=== PATIENT | female | born 1985 | race Caucasian/White ===

== ENCOUNTER 2024-05-25 09:52 | Outpatient (AMB) | payer OTHER, SELFPAY ==
--- NOTE | 2024-05-25 09:59 | MHC.PC.OV ---
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 Intake Note: new patient ton establish care Allergies No Known Allergies Allergy (Verified 05/25/24 10:36) Medication List - Last Reconciled 05/25/24 by Meeta Ro, SOFTWARE ASSET MANAGEMENT ANALYST- albuterol sulfate 90 mcg/actuation 2 puffs inhalation Q6H PRN amlodipine 10 mg PO DAILY carvedilol 25 mg PO BID hydralazine 50 mg PO QID Tobacco use date assessed: 05/25/24 Dental Screening Dental Screen Date: 05/25/24 Did you have a dental visit in the last 12 months?: No Did you have a dental problem in the last 6 months where you did not have access to dental care?: No Was dental information given to patient?: Patient has dentist HPI HPI Comments History of Present Illness Details Here today for a Transitional Care Management Visit Discharge summary reviewed. 38-year-old Emir[place] Speaking female with LVH, prolonged QT, HTN, CHF pulmonary htn, pericardial effusion, CKD, mild intermittent asthma, obesity, family hx of FSGS, [employer], migraine headsache, s/p lap aashish 2015, ERCP with sphincterectomy/papillotomy 05/2016 Admitted for hypertensive urgency, BRODERICK, asthma and heart failure Renal Duplex: Right renal/aortic ratio elevated otherwise normal US Renal bladder: echogenic kidneys bilat representing chronic medical dz CT of head negative; CTA negative. Echo: Ejection fraction 40-45% with mild global hypokinesis and borderline hypokinesis of anterolateral and inferior lateral carter, grade 2 diastolic dysfunction, severe left ventricular hypertrophy, mild pulmonary hypertension with pulmonary artery systolic pressure of 30-35 trivial pericardial effusion Admitted for hypertensive urgency, BR[place], asthma and heart failure Admission Date: 05/01/24 Discharge Date: 05/08/24 Hospital: [facility] Pending diagnostic tests/treatments:none Pending consults: Renal - consider biopsy & Cards Referrals: needed: Cardiology & Renal referral placed today Medications reconciled & updated. During todays TCM visit, the d/c summary was reviewed, along with the need for or follow-up on pending diagnostic tests and treatments, as necessary interaction with other health child care centre director who will assume or reassume care of the beneficiary?s system-specific problems was done or is being worked on, education was provided to the beneficiary, family, guardian, and/or caregiver, referrals to establish or re-establish and arrange needed community resources we completed, assistance in scheduling required follow-up with community providers and services & finally updated medication list given to patient/caregiver Presents today as a new patient with her sister who helps with the language barrier per her request. Since return home she has been tolerating compliant of all of her medications taking as directed. Monitoring blood pressure at home and they are still outside of goal. home log reviewed today SBP 170 range and DBP 100. She did not get any visiting nursing services upon discharge. She does need chronic disease education. She does not prefer in home visits. Review discharge medication list with her today, Not needing omeprazole, miralax or senna. This was not reordered today. Does not weigh self daily. Denies any chest pain or shortness of breath. Denies any neuro symptoms. Exam: Awake alert accompanied by sister [employer] [place] RRR, 2/6 systolic murmur LS CTAB, dim throughout, faint exp wheeze +1-2 edema BLE Labs from today show RBC 4.04, hemoglobin 11.6, otherwise normal CBC, normal electrolytes, BUN 30, creatinine 1.83, GFR 31, random glucose 102, hemoglobin A1c 5.3%, normal iron profile, normal LFTs, TSH 1.21, urine microalbumin creatinine ratio 1702.5 ProBNP and direct LDL pending Plan: Labs today - see above. Refer to renal and cards. Hospital notes do indicate a need for a renal biopsy to confirm diagnosis. refer to NN for chronic dz mgmt edu Cont meds Start furosemide 20mg QD, refills sent on all meds. Declined Flu RTO 2 weeks complex dz mgmt, sooner PRN This note is constructed using voice recognition software. While every effort has been made to ensure accuracy in specification writer, still errors may have been included Sometimes, these errors may affect the content or meaning of the given sentence . Total time spent caring for the patient today was 60 minutes. This includes time spent before the visit reviewing the chart, time spent during the visit, and time spent after the visit on documentation [facility] Medical History (Updated 05/25/24 @ 15:57 by Meeta Ro, [facility]) Seasonal asthma Hypertension Surgical History (Updated 05/25/24 @ 10:12 by Pati Matamoros MA) No pertinent past surgical history Family History (Updated 05/25/24 @ 10:15 by Pati Matamoros MA) Mother Hypertension Father Hypertension Diabetes Cancer Sister Hypertension Social History (Updated 05/25/24 @ 10:07 by Pati Matamoros MA) Household Members: Family and Children Housing: House Are you a primary care administrative tech to a significant other at home: Yes Do you presently have visiting nurse or other home services: No Alcohol intake: current Alcohol intake frequency: a few times a month Patient Tobacco Use Status: Never used Tobacco e-Cigarette/Vaping Use: Never Used service: No Current occupational status: employed Current occupation: [employer] Cognitive needs: No Hearing needs: Yes Vision needs: No Questionnaire PHQ-9 Over the last 2 weeks, how often have you been bothered by any of the following problems? 1. Little interest or pleasure in doing things: not at all 2. Feeling down, depressed, or hopeless: not at all 3. Trouble falling or staying asleep, or sleeping too much: not at all 4. Feeling tired or having little energy: not at all 5. Poor appetite or overeating: not at all 6. Feeling bad about yourself - or that you are a failure or have let yourself or your family down: not at all 7. Trouble concentrating on things, such as reading the newspaper or watching television: not at all 8. Moving or speaking so slowly that other people could have noticed. Or the opposite - being so fidgety or restless that you have been moving around a lot more than usual: not at all 9. Thoughts that you would be better off or of hurting yourself in some way: not at all Total score: 0 Depression Screening Interpretation: Negative Depression Screening Done: Yes 82327 - PHQ-9 Billing: Yes Source: Developed by Drs. Steve Hogan, Ariella Franco, Marco Antonio Frankel and colleagues, with an educational tonio from [employer]. Thrive Questionnaire Date Thrive assessed: 05/25/24 I am a: Patient What is your living situation today?: I have a steady place to live Within the past 12 months, did the food you bought not last and you didn't have the money to get more?: Never true Within the past 12 months, did you worry whether your food would run out before you got money to buy more?: Never true Do you have trouble paying for medicines?: No Do you have trouble getting transportation to medical appointments?: No Do you have trouble paying your heating and electricity bill?: No Do you have trouble taking care of your child, family member or friend?: No Do you have trouble with day-to-day activities such as bathing, preparing meals, shopping, managing finances, etc.?: No Are you currently unemployed and looking for a job?: No Are you interested in more education?: No THRIVE Score: 0 AUDIT C Alcohol Use Questionnaire (AUDIT-C) 1. How often do you have a drink containing alcohol?: Monthly or less 2. How many drinks containing alcohol do you have on a typical day when you are drinking?: 1 or 2 3. How often do you have six or more drinks on one occasion?: Less than monthly Total Score: 2 Score Reviewed/Action Taken: Yes SHERRI-7 AMB Questionnaire SHERRI-7 Date SHERRI - 7 assessed: 05/25/24 Feeling nervous, anxious, or on edge: 0 = Not at all Not being able to stop or control worryin = Not at all Worrying too much about different things: 0 = Not at all Trouble relaxin = Not at all Being so restless that it is hard to sit still: 0 = Not at all Becoming easily annoyed or irritable: 0 = Not at all Feeling afraid as if something awful might happen: 0 = Not at all Total SHERRI-7 score (0-4 normal; 5-9 mild; 10-14 moderate; 15-21 severe): 0 Source: Developed by Drs. Steve Hogan, Ariella Franco, Marco Antonio Frankel and colleagues, with an educational tonio from [employer]. SHERRI-7 Assessment Billing SHERRI-7 Assessment Tool: SHERRI-7 Assessment 21510 ACT Questionnaire In the past 4 weeks, how much of the time did your asthma keep you from getting as much done at work, school or at home?: None of the time During the past 4 weeks, how often have you had shortness of breath?: Not at all During the past 4 weeks, how often did your asthma symptoms wake you up at night or earlier than usual in the morning?: Not at all During the past 4 weeks, how often have you had to use your rescue inhaler or nebulizer medication?: Not at all How would you rate your asthma control during the past 4 weeks?: Completely controlled ACT Interpretation: Negative Score: 25 Physical exam (Primary Care) Vital Signs: Last Vital Signs Pulse 80 05/25/24 10:08 Resp 15 05/25/24 10:08 BP 142/78 H 05/25/24 10:49 Pulse Ox 98 05/25/24 10:08 Oxygen Delivery Method Room Air 05/25/24 10:08 Care Plan Goal for BP management: RTO for recheck BMI result Body Mass Index 44.9 BMI Assessment/Plan discussion: High BMI High, discussed plan: lifestyle Tobacco/Smoking Status: Tobacco use Status Tobacco use date assessed 05/25/24 05/25/24 10:13 Patient Tobacco Use Status Never used Tobacco 05/25/24 10:13 e-Cigarette/Vaping Use Never Used 05/25/24 10:13 PHQ-9: PHQ-9 Score PHQ-9: Total score 0 05/25/24 10:32 Depression Screening Interpretation: Negative Thrive Assessment: Date of Thrive Assessment Date Thrive assessed 05/25/24 05/25/24 10:16 Coding Level of Care Code TCM High MDM <= 14 days Complex EM visit Add On G2211 Diagnoses CHF (congestive heart failure) I50.9 CKD (chronic kidney disease) stage 3, GFR 30-59 ml/min N18.30 Family history of focal and segmental proliferative glomerulonephritis Z84.1 Hypertension I10 Mild intermittent asthma in adult without complication J45.20 Migraine headache without aura G43.009 Morbid obesity with BMI of 40.0-44.9, adult E66.01; Z68.41 Class 3 obesity E66.813 Hypertensive cardiomyopathy I11.9; I43 Prolonged Q-T interval on ECG R94.31 Hospital discharge follow-up Z09 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 Additional Codes SHERRI-7 Assessment Billing - SHERRI-7 Assessment Tool: SHERRI-7 Assessment 17389 ([id number]) Asthma Control Questionnaire - ACT Interpretation: Negative ([id number]) Assessment & Plan Assessment & Plan (1) CHF (congestive heart failure): Comment: 04/2024 Ejection fraction 40-45% with mild global hypokinesis and borderline hypokinesis of anterolateral and inferior lateral carter, grade 2 diastolic dysfunction, severe left ventricular hypertrophy, mild pulmonary hypertension with pulmonary artery systolic pressure of 30-35 trivial pericardial effusion Code(s): I50.9 - Heart failure, unspecified Category: Medical (2) CKD (chronic kidney disease) stage 3, GFR 30-59 ml/min: Code(s): N18.30 - Chronic kidney disease, stage 3 unspecified Category: Medical (3) Family history of focal and segmental proliferative glomerulonephritis: Code(s): Z84.1 - Family history of disorders of kidney and ureter Category: Medical (4) Hypertension: Code(s): I10 - Essential (primary) hypertension Category: Medical (5) Mild intermittent asthma in adult without complication: Code(s): J45.20 - Mild intermittent asthma, uncomplicated Category: Medical (6) Migraine headache without aura: Code(s): G43.009 - Migraine without aura, not intractable, without status migrainosus Category: Medical (7) Morbid obesity with BMI of 40.0-44.9, adult: Code(s): E66.01 - Morbid (severe) obesity due to excess calories; Z68.41 - Body mass index [BMI] 40.0-44.9, adult Category: Medical (8) Class 3 obesity: Code(s): E66.813 - Obesity, class 3 Category: Medical (9) Hypertensive cardiomyopathy: Code(s): I11.9 - Hypertensive heart disease without heart failure; I43 - Cardiomyopathy in diseases classified elsewhere Category: Medical (10) Prolonged Q-T interval on ECG: Code(s): R94.31 - Abnormal electrocardiogram [ECG] [EKG] Category: Medical (11) Hospital discharge follow-up: Code(s): Z09 - Encounter for follow-up examination after completed treatment for conditions other than malignant neoplasm (12) Secondary hyperaldosteronism: Comment: Secondary hyperaldosteronism that activates the bdwhi-qwetvlqxdxl-hpeyuheecvf system (RAAS), due to cHF Code(s): E26.1 - Secondary hyperaldosteronism Category: Medical Plan: . Plan . Orders: Orders Comprehensive Met. Panel Today I50.9 - Heart failure, unspecified, N18.30 - Chronic kidney disease, stage 3 unspecified TSH reflex Free T4 Today I10 - Essential (primary) hypertension, I50.9 - Heart failure, unspecified, N18.30 - Chronic kidney disease, stage 3 unspecified Microalbumin, Random (w Creat) Today I10 - Essential (primary) hypertension, I50.9 - Heart failure, unspecified, N18.30 - Chronic kidney disease, stage 3 unspecified NT-proBNP Today I10 - Essential (primary) hypertension, I50.9 - Heart failure, unspecified, N18.30 - Chronic kidney disease, stage 3 unspecified RT PSG in-lab sleep study Today I10 - Essential (primary) hypertension, I50.9 - Heart failure, unspecified Complete Blood Count no Diff Today I10 - Essential (primary) hypertension, I50.9 - Heart failure, unspecified, N18.30 - Chronic kidney disease, stage 3 unspecified LDL Cholesterol Direct Today I10 - Essential (primary) hypertension, I50.9 - Heart failure, unspecified, N18.30 - Chronic kidney disease, stage 3 unspecified Hemoglobin A1c Today I10 - Essential (primary) hypertension, I50.9 - Heart failure, unspecified, N18.30 - Chronic kidney disease, stage 3 unspecified IRON PROFILE Today I10 - Essential (primary) hypertension, I50.9 - Heart failure, unspecified, N18.30 - Chronic kidney disease, stage 3 unspecified Referrals Cardiology Referral I50.9 - Heart failure, unspecified Nephrology Referral I50.9 - Heart failure, unspecified, N18.30 - Chronic kidney disease, stage 3 unspecified, Z84.1 - Family history of disorders of kidney and ureter Nurse Navigator Referral I10 - Essential (primary) hypertension, I50.9 - Heart failure, unspecified Medications: New furosemide 20 mg PO DAILY 90 tabs 0RF hydralazine 50 mg PO QID 90 days 360 tabs 0RF amlodipine 10 mg PO DAILY 90 tabs 0RF carvedilol must administer with a meal/food 25 mg PO BID 90 days 180 tabs 0RF Patient Instructions: Walk-In Care (Urgent Care): We Make it Easy Walk-in for urgent medical issues such as: ? Seasonal Allergies ? Insect Bites ? Cough ? Diarrhea ? Acute Asthma Attacks ? Back, Knee or Joint Pain ? Ear Infection ? Fever without a Rash ? Headaches ? Nausea ? [place] Eye, Rash or Skin Irritation ? Sore Throat ? Sports Physicals ? Vomiting Most insurances are accepted. Patients do not need to be part of the [facility] to seek care at the walk-in clinic. Locations [address] [place] [address] ? [phone] [facility] Care in [place] provides services to ages 18 and over. Open Saturday-Saturday: 8 a.m. to 5 p.m. and Saturday: 9 a.m. to 3 p.m.* *Hours may vary due to staffing availability. To confirm Walk-In Care hours in [place], please call [phone]. [address] [place] [address] ? [phone] [facility] in [place] provides services to ages 12 and over. Open Saturday-Saturday: 8 a.m. to 5 p.m. Hours may vary due to staffing availability. To confirm Walk-In Care hours in [place], please call [phone]. LABORATORY SERVICES: [facility] Lab ? Primary Location [address] [place] [address] Saturday through Saturday 6:00 AM ? 5:00 PM Saturday 7:00 AM ? 11:00 AM* [phone] The [facility] Lab is centrally located near the front entrance of the [facility] for easy outpatient access. Convenient parking is provided for outpatients. *Hours may vary due to staffing availability. To confirm Laboratory hours for any location, please call [phone]. Offsite Location For your convenience, we offer offsite laboratory draw stations at the following locations: [address] [place] [address] ? [facility]ly [facility] [address], [address] Saturday through Saturday 7:30 AM ? 1:00 PM* [phone] *Hours may vary due to staffing availability. To confirm Laboratory hours for any location, please call [phone]. [place] ? [address] Saturday through Saturday 6:00 AM ? 3:30 PM* Saturday 6:30 AM ? 3 PM* [phone] *Hours may vary due to staffing availability. To confirm Laboratory hours for any location, please call [phone]. [address] [facility] Saturday through Saturday 7:30 AM ? 4:00 PM* [phone] *Hours may vary due to staffing availability. To confirm Laboratory hours for any location, please call [phone]. [address] [facility] Saturday through 9:00 AM ? 4:00 PM* *Hours may vary due to staffing availability. To confirm Laboratory hours for any location, please call [phone]. Appointments are not necessary. Walk-ins are welcome. Like all the departments throughout the [facility], our Lab undergoes frequent reviews to ensure the quality and accuracy of test results, and our staff takes special pride in its status as a nationally accredited facility. Patient Portal: ONE PATIENT. ONE RECORD. BETTER CARE. [facility] has a fully integrated, cutting-edge mobile electronic health information system that has revolutionized the way we care for our patients and manage our organization. This system improves communication and coordination enabling us to provide safe, higher-quality care, and an overall positive experience for staff and patients. Our first priority, as always, is to deliver the highest quality care possible. The system is running in the background supporting that priority. This portal is for all [facility] and [facility] services and practices. If you are experiencing any technical difficulties with enrolling or logging into the Patient Portal please complete the [facility] Patient Portal Technical Support Form. [facility] and [facility] now offers a new secure on-line interactive tool for patients to review their health information ? ?Patient Portal. This interactive web portal will enable patients and their families to take an active role in their care by providing easy, secure access to their health information via the internet. The Patient Portal provides patients with instant access to their health information, including laboratory results, medications, allergies, demographic information, visit history, and more. In addition to managing their own care, parents and health care proxies with authorized consent will appreciate the ability to access the records of those individuals for whom they provide care. Please note: if you wish to gain access (Proxy) to another patient?s portal, you will be required to come to the Medical Records Department in person at [facility]. Both the patient giving proxy access and the proxy will need to provide photo identification and complete the appropriate authorization. The Patient Portal also allows track their appointments online. The [facility] Patient Portal also saves patients time by allowing them to submit updates to their demographic and contact information prior to their visits. Portal email notifications will also alert patients to any new activity on their portal, such as test results and new appointments. In order to initially enroll in the [facility] Patient Portal, you will need to enter some required information including the following: your [facility] Medical Record number your personal home email address name date of Please note: In order to enroll in the [facility] Patient Portal, we need to have your email address on file in your electronic medical record. ?The email address needs to be specific for one person (yourself) in order for your Portal enrollment to be successful. ?You can update your email address in person with our Registration staff when you are registering for a hospital visit. ?Otherwise, you will need to come to the Health Information Management (Medical Records) Department at [facility]. ?We are open from Saturday ? Saturday from 7:30 a.m. ? 4:30 p.m. ?You will be required to present a photo id. Once you have successfully enrolled in the Patient Portal, you will receive a one-time user id and password for the Portal, sent to your email address. ?This will allow you to log into the Patient Portal within 99 hrs and reset your own logon id and password, and define personal security questions. ?Once your permanent login and password have been set, you can log into the [facility] Patient Portal at any time via the blue button above or from the Portal Logon button on any page of the [facility] website. [facility] and [facility] encourage all of our patients to enroll in Patient Portal as it presents a valuable opportunity for patients and their families to actively participate in their care and stay healthy Welcome to [facility]. ?We look forward to working with you.
[2024-05-25 10:08] VITALS: BP 154/82; PULSE 80; RESP 15; O2SAT 98; BMI 44.9
[2024-05-25 10:49] VITALS: BP 142/78
== END 2024-05-25 11:01 | disposition home or self-care (01) ==
PROVIDERS: PCP Nurse Practitioner Family; Visit Provider Nurse Practitioner Family
DX: I13.0 Hypertensive heart and chronic kidney disease with heart failure and stage 1 through stage 4 chronic kidney disease, or unspecified chronic kidney disease (principal); I50.9 Heart failure, unspecified; N18.30 Chronic kidney disease, stage 3 unspecified; I43 Cardiomyopathy in diseases classified elsewhere; Z68.41 Body mass index [BMI] 40.0-44.9, adult; E26.1 Secondary hyperaldosteronism; E66.813 Obesity, class 3; Z84.1 Family history of disorders of kidney and ureter; J45.20 Mild intermittent asthma, uncomplicated; G43.009 Migraine without aura, not intractable, without status migrainosus; R94.31 Abnormal electrocardiogram [ECG] [EKG]; Z09 Encounter for follow-up examination after completed treatment for conditions other than malignant neoplasm

== ENCOUNTER → 2024-05-25 09:52 | Outpatient (BNVA) | payer OTHER, SELFPAY | PROVIDERS: Visit Provider Nurse Practitioner Family | DX: Z09 Encounter for follow-up examination after completed treatment for conditions other than malignant neoplasm (principal); I13.0 Hypertensive heart and chronic kidney disease with heart failure and stage 1 through stage 4 chronic kidney disease, or unspecified chronic kidney disease; N18.30 Chronic kidney disease, stage 3 unspecified; I50.9 Heart failure, unspecified; J45.20 Mild intermittent asthma, uncomplicated; G43.009 Migraine without aura, not intractable, without status migrainosus; E66.813 Obesity, class 3; Z68.41 Body mass index [BMI] 40.0-44.9, adult; I43 Cardiomyopathy in diseases classified elsewhere; R94.31 Abnormal electrocardiogram [ECG] [EKG]; E26.1 Secondary hyperaldosteronism; Z84.1 Family history of disorders of kidney and ureter | CPT/HCPCS: 96127; 99202 ==

== ENCOUNTER 2024-05-25 11:15 | Outpatient (REF) | payer OTHER, SELFPAY ==
[2024-05-25 13:40] LABS: Hematocrit 37.4 % (37.0-47.0); Hemoglobin 11.6 g/dl (12.0-16.0); Mean Corpuscular Hemoglobin 28.7 pg (27.0-33.0); Mean Corpuscular Volume 92.6 fL (80.0-98.0); Mean Platelet Volume 11.7 fL (9.4-12.3); Platelet Count 376 X10*3/uL (160-400); Red Blood Count 4.04 X10*6/uL (4.20-5.50); Red Cell Distribution Width 13.2 % (11.0-16.0); White Blood Count 7.2 X10*3/uL (4.8-10.8)
[2024-05-25 13:59] LABS: Estimated Average Glucose 105 mg/dL; Hemoglobin A1C 100.1584 umol/L; Hemoglobin A1c % 5.3 % (<6.0); Total Hemoglobin (HGBA1C) 2870.1543 umol/L
[2024-05-25 14:01] LABS: Alanine Aminotransferase 9 U/L (0-31); Albumin Level 3.8 g/dL (3.5-5.0); Alkaline Phosphatase 51 U/L (39-117); Anion Gap 10 (12-20); Aspartate Amino Transferase 13 U/L (5-31); Bilirubin Total 0.4 mg/dL (0.0-1.0); Blood Urea Nitrogen 30 mg/dL (9-16); Calcium 9.4 mg/dL (8.4-10.2); Carbon Dioxide 27 mmol/L (22-29); Chloride 108 mmol/L (96-108); Estimated Glomerular Filt Rate 31; Glucose Random 102 mg/dL (60-115); Iron 62 mcg/dL (30-160); Percent Iron Saturation 25 % (15-50); Potassium 4.7 mmol/L (3.3-5.1); Sodium 140 mmol/L (135-145); Total Iron Binding Capacity 244 mcg/dL (228-428); Total Protein 6.9 g/dL (6.5-8.0); Unsaturated Iron Binding 182 ug/dL
[2024-05-25 14:15] LABS: TSH reflex Free T4 1.21 uIU/mL (0.32-4.0)
[2024-05-25 14:21] LABS: Creatinine Urine 79.47 mg/dL
[2024-05-25 14:32] LABS: Microalbum/Creatinine Ratio Ur 1702.5 ug/mg cr (<30)
[2024-05-26 17:58] LABS: LDL Cholesterol Direct 80 mg/dL (<100)
[2024-05-28 21:33] LABS: NT-proBNP 586 pg/mL (<125)
== END 2024-05-25 11:16 | disposition home or self-care (01) ==
LOC: HO.WFDLDS 11:15
PROVIDERS: Visit Provider Nurse Practitioner Family
DX: N18.30 Chronic kidney disease, stage 3 unspecified (principal); I50.9 Heart failure, unspecified; I10 Essential (primary) hypertension
CPT/HCPCS: 36415; 80053; 82043; 82570; 83036; 83540; 83721; 83880; 84443; 85027

== ENCOUNTER → 2024-06-04 14:56 | Outpatient (BNVA) | payer OTHER, SELFPAY | PROVIDERS: PCP Nurse Practitioner Family ==

== ENCOUNTER 2024-06-19 12:27 | Outpatient (AMB) | payer OTHER, SELFPAY ==
--- NOTE | 2024-06-19 12:32 | MHC.PC.OV ---
Vital Signs 06/19/24 12:36 06/19/24 13:31 Height 5 ft 5 in Weight 272 lb 6 oz BMI 45.3 BP 146/78 H 144/82 H Blood Pressure Location Rt brachial Lt brachial Position Sitting Respiration 14 Pulse 62 Pulse Source Pulse Oximeter Pulse Oximetry (%) 99 Oxygen Delivery Method Room Air Intake Visit Reasons: 2 weeks 30 min fu complex Intake Note: follow up Trench Digger Required: No Allergies No Known Allergies Allergy (Verified 06/19/24 13:25) Medication List - Last Reconciled 06/19/24 by Meeta Ro, [facility]- albuterol sulfate 90 mcg/actuation 2 puffs inhalation Q6H PRN amlodipine 10 mg PO DAILY carvedilol 25 mg PO BID 90 days furosemide 20 mg PO DAILY hydralazine 50 mg PO QID 90 days Tobacco use date assessed: 05/25/24 Dental Screening Dental Screen Date: 05/25/24 HPI HPI Comments History of Present Illness Details 38-year-old Turkish Speaking female with LVH, prolonged QT, HTN, CHF pulmonary htn, pericardial effusion, CKD, mild intermittent asthma, obesity, family hx of FSGS, COUNCIL, migraine headsache s/p lap aashish 2015, ERCP with sphincterectomy/papillotomy 05/2016 Renal Duplex: Right renal/aortic ratio elevated otherwise normal US Renal bladder: echogenic kidneys bilat representing chronic medical dz CT of head negative; CTA negative. Echo: Ejection fraction 40-45% with mild global hypokinesis and borderline hypokinesis of anterolateral and inferior lateral carter, grade 2 diastolic dysfunction, severe left ventricular hypertrophy, mild pulmonary hypertension with pulmonary artery systolic pressure of 30-35 trivial pericardial effusion Here today for close interim fu with , since last office visit she has been tolerating compliant of all of her medications. She has been weighing herself daily. Brings me the home log to review. At the start her weight was 267 lb, yesterday it was 257 lb. She has been stable around 256-57 based on the logs from home. She has also been recording her blood pressure. Her systolic blood pressure range is 144-183, only 1 or 2 readings above 180. Otherwise blood pressure readings have improved. She denies any new cardiac symptoms. She has had some improvement in the edema of her bilateral lower extremities with the addition of Lasix. She was referred to Cardiology as well as Nephrology at the last office visit. Unfortunately she has not heard anything about these consults. She did receive a call from the nurse navigator for chronic disease management. Reports that this has been helpful for her. She will have her sleep study next week. Next week will have sleep study The following were reviewed with her: Labs from last visit show RBC 4.04, hemoglobin 11.6, otherwise normal CBC, normal electrolytes, BUN 30, creatinine 1.83, GFR 31, random glucose 102, hemoglobin A1c 5.3%, normal iron profile, normal LFTs, TSH 1.21, urine microalbumin creatinine ratio 1702.5 ProBNP mildly elevated and direct LDL normal Exam: Awake alert accompanied by COUNCIL RRR, 2/6 systolic murmur LS CTAB, dim throughout, faint exp wheeze +1 edema BLE Plan: I have asked for her to stop at the front office and have the referrals for Cardiology as well as Nephrology printed out for her. Advised to call the offices herself to schedule an appointment. Once again the hospital notes do indicate a need for a renal biopsy to confirm diagnoses. She should continue to work with the nurse navigator for chronic disease management education In regards to the edema bilateral lower extremities, it has improved with the use of furosemide 20 mg. Her blood pressure has also improved. I do query if amlodipine is contributing at all to her edema picture. However her blood pressure is improved. At this time I would like for her to stay on the current medications and I would like to add empagliflozin 10 mg p.o. daily for renal and cardiac protection. She will need to repeat her labs in about 2 weeks to check electrolytes and renal function. She can work with myself as well as renal to optimize her medication management in regards to her blood pressure. Cardiology will also have a say once she establishes care there regards to her CHF management. I would like to see her back in 4-6 weeks for a close interim follow up, sooner as needed. This note is constructed using voice recognition software. While every effort has been made to ensure accuracy in cryptographic machine operator, still errors may have been included Sometimes, these errors may affect the content or meaning of the given sentence . Total time spent caring for the patient today was 45 minutes. This includes time spent before the visit reviewing the chart, time spent during the visit, and time spent after the visit on documentation [facility] Medical History (Updated 06/20/24 @ 14:40 by Meeta Ro, [facility]) Seasonal asthma Hypertension Surgical History (Updated 05/25/24 @ 10:12 by Pati Matamoros MA) No pertinent past surgical history Family History (Updated 05/25/24 @ 10:15 by Pati Matamoros MA) Mother Hypertension Father Hypertension Diabetes Cancer Sister Hypertension Social History (Updated 05/25/24 @ 10:07 by Pati Matamoros MA) Household Members: Family and Children Both parents involved: No Caregiver staying overnight: No Housing: House Are you a primary managed care provider to a significant other at home: Yes Do you presently have visiting nurse or other home services: No 75 years or older and lives alone: No Alcohol intake: current Alcohol intake frequency: a few times a month Patient Tobacco Use Status: Never used Tobacco e-Cigarette/Vaping Use: Never Used service: No Current occupational status: employed Current occupation: [employer] Cognitive needs: No Hearing needs: Yes Vision needs: No Questionnaire PHQ-9 Over the last 2 weeks, how often have you been bothered by any of the following problems? 1. Little interest or pleasure in doing things: not at all 2. Feeling down, depressed, or hopeless: not at all 3. Trouble falling or staying asleep, or sleeping too much: not at all 4. Feeling tired or having little energy: several days 5. Poor appetite or overeating: not at all 6. Feeling bad about yourself - or that you are a failure or have let yourself or your family down: not at all 7. Trouble concentrating on things, such as reading the newspaper or watching television: not at all 8. Moving or speaking so slowly that other people could have noticed. Or the opposite - being so fidgety or restless that you have been moving around a lot more than usual: not at all 9. Thoughts that you would be better off or of hurting yourself in some way: not at all Total score: 1 35313 - PHQ-9 Billing: Yes Source: Developed by Drs. Steve Hogan, Ariella Franco, Marco Antonio Frankel and colleagues, with an educational tonio from [employer]. Thrive Questionnaire Date Thrive assessed: 06/19/24 I am a: Patient What is your living situation today?: I have a steady place to live Within the past 12 months, did the food you bought not last and you didn't have the money to get more?: Never true Within the past 12 months, did you worry whether your food would run out before you got money to buy more?: Never true Do you have trouble paying for medicines?: No Do you have trouble getting transportation to medical appointments?: No Do you have trouble paying your heating and electricity bill?: No Do you have trouble taking care of your child, family member or friend?: No Do you have trouble with day-to-day activities such as bathing, preparing meals, shopping, managing finances, etc.?: No Are you currently unemployed and looking for a job?: No Are you interested in more education?: No Please select the resources that you would like help with: None Currently or been in a relationship where the following occur: No concerns reported THRIVE Score: 0 AUDIT C Alcohol Use Questionnaire (AUDIT-C) 1. How often do you have a drink containing alcohol?: 2-4 times a month 2. How many drinks containing alcohol do you have on a typical day when you are drinking?: 1 or 2 3. How often do you have six or more drinks on one occasion?: Less than monthly Total Score: 3 SHERRI-7 AMB Questionnaire SHERRI-7 Date SHERRI - 7 assessed: 06/19/24 Feeling nervous, anxious, or on edge: 0 = Not at all Not being able to stop or control worryin = Not at all Worrying too much about different things: 0 = Not at all Trouble relaxin = Not at all Being so restless that it is hard to sit still: 0 = Not at all Becoming easily annoyed or irritable: 1 = Several days Feeling afraid as if something awful might happen: 0 = Not at all Total SHERRI-7 score (0-4 normal; 5-9 mild; 10-14 moderate; 15-21 severe): 1 Source: Developed by Drs. Steve Hogan, Ariella Franco, Marco Antonio Frankel and colleagues, with an educational tonio from [employer]. SHERRI-7 Assessment Billing SHERRI-7 Assessment Tool: SHERRI-7 Assessment 45790 Physical exam (Primary Care) Vital Signs: Last Vital Signs Pulse 62 06/19/24 12:36 Resp 14 06/19/24 12:36 BP 144/82 H 06/19/24 13:31 Pulse Ox 99 06/19/24 12:36 Oxygen Delivery Method Room Air 06/19/24 12:36 BMI result Body Mass Index 45.3 Tobacco/Smoking Status: Tobacco use Status Tobacco use date assessed 05/25/24 06/19/24 12:34 Patient Tobacco Use Status Never used Tobacco 06/19/24 12:34 e-Cigarette/Vaping Use Never Used 06/19/24 12:34 PHQ-9: PHQ-9 Score PHQ-9: Total score 1 06/19/24 17:26 Thrive Assessment: Date of Thrive Assessment Date Thrive assessed 06/19/24 06/19/24 12:34 Currently or been in a relationship where the following occur: No concerns reported Coding Level of Care Code Est Pt Level 5 (94006) Complex EM visit Add On G2211 Diagnoses Stage 3b chronic kidney disease N18.32 Chronic kidney disease stage 3 subtype: stage 3b (GFR 30-44) Chronic diastolic congestive heart failure I50.32 Heart failure type: diastolic Heart failure chronicity: chronic Hypertension secondary to other renal disorders I15.1 Hypertension type: secondary to other renal disorders 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 Additional Codes SHERRI-7 Assessment Billing - SHERRI-7 Assessment Tool: SHERRI-7 Assessment 06090 ([id number]) PHQ-9 - 79961 - PHQ-9 Billing: Yes ([id number]) Assessment & Plan Assessment & Plan (1) CKD (chronic kidney disease) stage 3, GFR 30-59 ml/min: Code(s): N18.30 - Chronic kidney disease, stage 3 unspecified Category: Medical Qualifiers: Chronic kidney disease stage 3 subtype: stage 3b (GFR 30-44) Qualified Code(s): N18.32 - Chronic kidney disease, stage 3b (2) CHF (congestive heart failure): Comment: 04/2024 Ejection fraction 40-45% with mild global hypokinesis and borderline hypokinesis of anterolateral and inferior lateral carter, grade 2 diastolic dysfunction, severe left ventricular hypertrophy, mild pulmonary hypertension with pulmonary artery systolic pressure of 30-35 trivial pericardial effusion Code(s): I50.9 - Heart failure, unspecified Category: Medical Qualifiers: Heart failure type: diastolic Heart failure chronicity: chronic Qualified Code(s): I50.32 - Chronic diastolic (congestive) heart failure Plan: . (3) Hypertension: Code(s): I10 - Essential (primary) hypertension Category: Medical Qualifiers: Hypertension type: secondary to other renal disorders Qualified Code(s): I15.1 - Hypertension secondary to other renal disorders Plan: . (4) Secondary hyperaldosteronism: Comment: Secondary hyperaldosteronism that activates the ogtlg-gmxlkzwafmv-fhlnebiqshm system (RAAS), due to cHF Code(s): E26.1 - Secondary hyperaldosteronism Category: Medical Plan: . Plan . Orders: Orders Comprehensive Met. Panel 2 Weeks N18.30 - Chronic kidney disease, stage 3 unspecified Medications: New empagliflozin 10 mg PO QAM 90 tabs 0RF Changed From hydralazine 50 mg PO QID 90 days 360 tabs 0RF To hydralazine 50 mg PO TID 90 days 270 tabs 0RF
[2024-06-19 12:36] VITALS: BP 146/78; PULSE 62; RESP 14; O2SAT 99; BMI 45.3
[2024-06-19 13:31] VITALS: BP 144/82
== END 2024-06-19 13:43 | disposition home or self-care (01) ==
PROVIDERS: PCP Nurse Practitioner Family; Visit Provider Nurse Practitioner Family
DX: I50.32 Chronic diastolic (congestive) heart failure (principal); N18.32 Chronic kidney disease, stage 3b; E26.1 Secondary hyperaldosteronism; I15.1 Hypertension secondary to other renal disorders

== ENCOUNTER → 2024-06-19 12:27 | Outpatient (BNVA) | payer OTHER, SELFPAY | PROVIDERS: Visit Provider Nurse Practitioner Family | DX: I13.0 Hypertensive heart and chronic kidney disease with heart failure and stage 1 through stage 4 chronic kidney disease, or unspecified chronic kidney disease (principal); N18.32 Chronic kidney disease, stage 3b; I50.32 Chronic diastolic (congestive) heart failure; E26.1 Secondary hyperaldosteronism | CPT/HCPCS: 96127; 99212 ==

== ENCOUNTER 2024-07-17 12:27 | Outpatient (AMB) | payer OTHER, SELFPAY ==
--- NOTE | 2024-07-17 12:29 | A.OFFPC_ITS ---
Vital Signs 07/17/24 12:33 07/17/24 12:57 Height 5 ft 5 in Weight 278 lb BMI 46.3 BP 175/89 H 138/82 Blood Pressure Location Rt brachial Lt brachial Position Sitting Sitting Respiration 14 Pulse 78 Pulse Source Pulse Oximeter Temp 96.4 F L Temp Source Skin Pulse Oximetry (%) 99 Oxygen Delivery Method Room Air Intake Visit Reasons: 4-6 weeks 30 min complex fu Intake Note: follow up and patient also complaining of dizziness with the new medications. Subassembler Required: No Allergies No Known Allergies Allergy (Verified 07/17/24 12:33) Medication List - Last Reconciled 07/17/24 by Meeta Ro, VP SALES- albuterol sulfate 90 mcg/actuation 2 puffs inhalation Q6H PRN amlodipine 10 mg PO DAILY carvedilol 25 mg PO BID 90 days empagliflozin 10 mg PO QAM furosemide 20 mg PO DAILY hydralazine 50 mg PO TID 90 days Tobacco use date assessed: 05/25/24 Dental Screening Dental Screen Date: 05/25/24 HPI HPI Comments History of Present Illness Details 38-year-old Yi Speaking female with LVH, prolonged QT, HTN, CHF pulmonary htn, pericardial effusion, CKD, mild intermittent asthma, obesity, family hx of FSGS, OHOGAMIUT, migraine headsache s/p lap aashish 2015, ERCP with sphincterectomy/papillotomy 05/2016 Renal Duplex: Right renal/aortic ratio elevated otherwise normal US Renal bladder: echogenic kidneys bilat representing chronic medical dz CT of head negative; CTA negative. Echo: Ejection fraction 40-45% with mild global hypokinesis and borderline hypokinesis of anterolateral and inferior lateral carter, grade 2 diastolic dysfunction, severe left ventricular hypertrophy, mild pulmonary hypertension with pulmonary artery systolic pressure of 30-35 trivial pericardial effusion Here today for close interim fu with & son, since last office visit she has been tolerating compliant of all of her medications. She is tolerating empagliflozin 10 mg p.o. daily which was added at the last office visit for renal and cardiac protection. She has been weighing herself daily. Forgot home log to review but reports wt stable. Also monitors BP at home, Her systolic blood pressure range is 144-160,DBP improved consistently > 90. She denies any new cardiac symptoms. BLE edema stable w/ use of lasix. Cards appt 09/2024 @ [facility] – [place], Renal appt Dr Cabrera October 14, 2024. She will have her sleep study next week. Next week will have sleep study Exam: Awake alert accompanied by OHOGAMIUT RRR, 2/6 systolic murmur LS CTAB, dim throughout, faint exp wheeze trace to +1 edema BLE Plan: I will have my staff call Dr. Cabrera's office to see if we can get a sooner appointment, Once again the hospital notes do indicate a need for a renal biopsy to confirm diagnoses. She should continue to work with the nurse navigator for chronic disease management education I do query if amlodipine is contributing at all to her edema picture. She can work with myself as well as renal to optimize her medication management in regards to her blood pressure. Cardiology will also have a say once she establishes care there regards to her CHF management. - Hypertension/LVH would like to further optimize her hypertensive treatment. See additional details below - CKD: Proceed with nephrology consultat ion with Dr. Cabrera. Ensure renal function is evaluated through laboratory tests today to assess kidney function and electrolytes. - Sleep Apnea: [facility] for comprehensive evaluation of potential sleep apnea. - Blood Pressure Monitoring: Advise to c onsistently log blood pressure readings and report any concerning fluctuations. Patient was informed and verbally consented to the use of an ambient scribe for clinic note documentation during this visit. Discussion Notes During the visit, I discussed the importance of managing hypertension to prevent complications related to renal and cardiac health. We reviewed the patient's current regimen. The necessity of the nephrology consult was emphasized, particularly due to the risk factors presented by her family history and current symptoms. We also prepared her for the scheduled in-hospital sleep study, explaining its advantages over a home study due to more comprehensive data collection essential for an accurate diagnosis of sleep apnea. We also talked about the need for regular follow-up to assess the efficacy of the current medication regimen and overall health assessment. Patient Instructions Starting tomorrow take hydralazine 50 mg twice per day. She can do this for 2 weeks. She then needs to decrease to a half a tablet twice per day for 2 weeks. Then she can t half a tablet daily for 2 weeks and then stop. If at any time she develops any chest pain, racing heart or otherwise does not feel well, she should notify us directly because we may need to hold the taper or increase her dose for a short time. While tapering her off I have sent in to new prescriptions to help control her blood pressure. Indapamide 1.25 mg po QD in the morning Lisinopril 10mg po QD in the evening - Record daily blood pressure readings a nd note any episodes of dizziness. -Cont daily weights and monitor trending . - Attend the nephrology appointment, my office will call to see if you can be seen sooner. - Proceed to the scheduled sleep study a ppointment for further evaluation. - Complete the bloodwork today to monito r kidney function. - Return for a follow-up on July t after the sleep study to discuss results and review medication efficacy This note is constructed using voice recognition software. While every effort has been made to ensure accuracy in ash worker, still errors may have been included Sometimes, these errors may affect the content or meaning of the given sentence . Total time spent caring for the patient today was 45 minutes. This includes time spent before the visit reviewing the chart, time spent during the visit, and time spent after the visit on documentation [facility] Medical History (Updated 07/17/24 @ 13:17 by Meeta Ro [facility]) Seasonal asthma Hypertension Surgical History (Updated 05/25/24 @ 10:12 by Pati Matamoros MA) No pertinent past surgical history Family History (Updated 05/25/24 @ 10:15 by Ptai Matamoros MA) Mother Hypertension Father Hypertension Diabetes Cancer Sister Hypertension Social History (Updated 05/25/24 @ 10:07 by Pati Matamoros MA) Household Members: Family and Children Both parents involved: No Caregiver staying overnight: No Housing: House Are you a primary family member caretaker to a significant other at home: Yes Do you presently have visiting nurse or other home services: No 75 years or older and lives alone: No Alcohol intake: current Alcohol intake frequency: a few times a month Patient Tobacco Use Status: Never used Tobacco e-Cigarette/Vaping Use: Never Used service: No Current occupational status: employed Current occupation: [employer] Cognitive needs: No Hearing needs: Yes Vision needs: No Questionnaire PHQ-9 Over the last 2 weeks, how often have you been bothered by any of the following problems? [id number] - PHQ-9 Billing: Patient declined-do not bill Source: Developed by Drs. Steve Hogan, Ariella Franco, Marco Antonio Frankel and colleagues, with an educational tonio from [employer]. Thrive Questionnaire Date Thrive assessed: 07/17/24 I am a: Patient What is your living situation today?: I have a steady place to live Within the past 12 months, did the food you bought not last and you didn't have the money to get more?: Never true Within the past 12 months, did you worry whether your food would run out before you got money to buy more?: Never true Do you have trouble paying for medicines?: No Do you have trouble getting transportation to medical appointments?: No Do you have trouble paying your heating and electricity bill?: No Do you have trouble taking care of your child, family member or friend?: No Do you have trouble with day-to-day activities such as bathing, preparing meals, shopping, managing finances, etc.?: No Are you currently unemployed and looking for a job?: No Are you interested in more education?: No Please select the resources that you would like help with: None Currently or been in a relationship where the following occur: No concerns reported THRIVE Score: 0 SHERRI-7 AMB Questionnaire SHERRI-7 Date SHERRI - 7 assessed: 07/17/24 Source: Developed by Drs. Steve Hogan, Ariella Franco, Marco Antonio Frankel and colleagues, with an educational tonio from [employer]. Physical exam (Primary Care) Vital Signs: Last Vital Signs Temp 96.4 F L 07/17/24 12:33 Pulse 78 07/17/24 12:33 Resp 14 07/17/24 12:33 BP 138/82 07/17/24 12:57 Pulse Ox 99 07/17/24 12:33 Oxygen Delivery Method Room Air 07/17/24 12:33 BMI result Body Mass Index 46.3 Tobacco/Smoking Status: Tobacco use Status Tobacco use date assessed 05/25/24 07/17/24 12:31 Patient Tobacco Use Status Never used Tobacco 07/17/24 12:31 e-Cigarette/Vaping Use Never Used 07/17/24 12:31 Thrive Assessment: Date of Thrive Assessment Date Thrive assessed 07/17/24 07/17/24 12:31 Currently or been in a relationship where the following occur: No concerns reported Results Reviewed Results Reviewed: RUN: 07/17/24 1511 PAGE 1 [facility] [address] [place] [id number] Air Antisubmarine Officer: Baldemar Cárdenas M.D. Specimen Inquiry Name: Chadwick Hoyt Age/Sex: 38/F : 1985 Unit#: [id number] Attend Dr: Meeta Ro Re07/17/24 Status: REG REF Location: [facility] Disch: SPEC : [id number] YARY: 07/17/24 STATUS: COMP REQ : [id number] RECD: 07/17/24-[address]: Meeta Ro COMP: 07/17/24 ENTERED: 07/17/24-[address]: ORDERED: CMP Test Result Flag Reference Sodium 143 135-145 mmol/L Potassium 4.5 3.3-5.1 mmol/L CL 106 96-108 mmol/L CO2 30 H 22-29 mmol/L Gap 12 12-20 BUN 42 H 9-16 mg/dL Creat 2.05 H 0.5-1.4 mg/dL eGFR 27 Chronic Kidney Disease: Estimated GFR < 60 mL/min/1.73m2 Severe Kidney Disease: Estimated GFR < 15 mL/min/1.73m2 Glucose, Random 99 60-115 mg/dL CA 9.1 8.4-10.2 mg/dL Total Bili 0.2 0.0-1.0 mg/dL AST (GOT) 17 5-31 U/L ALT (GPT) 12 0-31 U/L Protein, Total 7.4 6.5-8.0 g/dL Alb 3.8 3.5-5.0 g/dL Alk Phos 68 39-117 U/L END OF REPORT Coding Level of Care Code Est Pt Level 5 (92362) Complex EM visit Add On G2211 Diagnoses Stage 3b chronic kidney disease N18.32 Chronic kidney disease stage 3 subtype: stage 3b (GFR 30-44) Cardiomyopathy due to hypertension, with heart failure I11.0; I43 Heart failure presence: with heart failure Morbid obesity with BMI of 40.0-44.9, adult E66.01; Z68.41 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 Chronic diastolic congestive heart failure I50.32 Heart failure chronicity: chronic Heart failure type: diastolic Hypertension secondary to other renal disorders I15.1 Hypertension type: secondary to other renal disorders Family history of focal and segmental proliferative glomerulonephritis Z84.1 Assessment & Plan Assessment & Plan (1) CKD (chronic kidney disease) stage 3, GFR 30-59 ml/min: Code(s): N18.30 - Chronic kidney disease, stage 3 unspecified Category: Medical Qualifiers: Chronic kidney disease stage 3 subtype: stage 3b (GFR 30-44) Qualified Code(s): N18.32 - Chronic kidney disease, stage 3b (2) Hypertensive cardiomyopathy: Code(s): I11.9 - Hypertensive heart disease without heart failure; I43 - Cardiomyopathy in diseases classified elsewhere Category: Medical Qualifiers: Heart failure presence: with heart failure Qualified Code(s): I11.0 - Hypertensive heart disease with heart failure; I43 - Cardiomyopathy in diseases classified elsewhere (3) Morbid obesity with BMI of 40.0-44.9, adult: Code(s): E66.01 - Morbid (severe) obesity due to excess calories; Z68.41 - Body mass index [BMI] 40.0-44.9, adult Category: Medical (4) Secondary hyperaldosteronism: Comment: Secondary hyperaldosteronism that activates the imwty-tudkymrkrbq-mzuqharbqsr system (RAAS), due to cHF Code(s): E26.1 - Secondary hyperaldosteronism Category: Medical (5) CHF (congestive heart failure): Comment: 04/2024 Ejection fraction 40-45% with mild global hypokinesis and borderline hypokinesis of anterolateral and inferior lateral carter, grade 2 diastolic dysfunction, severe left ventricular hypertrophy, mild pulmonary hypertension with pulmonary artery systolic pressure of 30-35 trivial pericardial effusion Code(s): I50.9 - Heart failure, unspecified Category: Medical Qualifiers: Heart failure chronicity: chronic Heart failure type: diastolic Qualified Code(s): I50.32 - Chronic diastolic (congestive) heart failure (6) Hypertension: Code(s): I10 - Essential (primary) hypertension Category: Medical Qualifiers: Hypertension type: secondary to other renal disorders Qualified Code (s): I15.1 - Hypertension secondary to other renal disorders (7) Family history of focal and segmental proliferative glomerulonephritis: Code(s): Z84.1 - Family history of disorders of kidney and ureter Category: Medical Plan . Orders: Orders Comprehensive Met. Panel 4 Weeks I15.1 - Hypertension secondary to other renal disorders, N18.32 - Chronic kidney disease, stage 3b Medications: Refilled furosemide 20 mg PO DAILY 90 tabs 0RF empagliflozin 10 mg PO QAM 90 tabs 0RF On Hold hydralazine Hold Comment: taper off- 50 mg PO TID 90 days 270 tabs 0RF Patient Instructions: Patient Instructions - Continue taking all prescribed medications as directed. - Record daily blood pressure readings and note any episodes of dizziness. -Cont daily weights and monitor trending. - Attend the nephrology appointment, my office will call to see if you can be seen sooner. - Proceed to the scheduled sleep study appointment for further evaluation. - Complete the bloodwork today to monitor kidney function. - Return for a follow-up on August 11 after the sleep study to discuss results and review medication efficacy
[2024-07-17 12:33] VITALS: BP 175/89; PULSE 78; RESP 14; TEMP 35.8; O2SAT 99; BMI 46.3
[2024-07-17 12:57] VITALS: BP 138/82
== END 2024-07-17 13:12 | disposition home or self-care (01) ==
PROVIDERS: PCP Nurse Practitioner Family; Visit Provider Nurse Practitioner Family
DX: I11.0 Hypertensive heart disease with heart failure (principal); N18.32 Chronic kidney disease, stage 3b; E66.01 Morbid (severe) obesity due to excess calories; Z68.41 Body mass index [BMI] 40.0-44.9, adult; I43 Cardiomyopathy in diseases classified elsewhere; E26.1 Secondary hyperaldosteronism; I50.32 Chronic diastolic (congestive) heart failure; I15.1 Hypertension secondary to other renal disorders; Z84.1 Family history of disorders of kidney and ureter

== ENCOUNTER → 2024-07-17 12:27 | Outpatient (BNVA) | payer OTHER, SELFPAY | PROVIDERS: PCP Nurse Practitioner Family; Visit Provider Nurse Practitioner Family ==

== ENCOUNTER 2024-07-17 13:07 | Outpatient (REF) | payer OTHER, SELFPAY ==
[2024-07-17 14:58] LABS: Alanine Aminotransferase 12 U/L (0-31); Albumin Level 3.8 g/dL (3.5-5.0); Alkaline Phosphatase 68 U/L (39-117); Anion Gap 12 (12-20); Aspartate Amino Transferase 17 U/L (5-31); Bilirubin Total 0.2 mg/dL (0.0-1.0); Blood Urea Nitrogen 42 mg/dL (9-16); Calcium 9.1 mg/dL (8.4-10.2); Carbon Dioxide 30 mmol/L (22-29); Chloride 106 mmol/L (96-108); Estimated Glomerular Filt Rate 27; Glucose Random 99 mg/dL (60-115); Potassium 4.5 mmol/L (3.3-5.1); Sodium 143 mmol/L (135-145); Total Protein 7.4 g/dL (6.5-8.0)
== END 2024-07-17 13:08 | disposition home or self-care (01) ==
LOC: HO.WFDLDS 13:07
PROVIDERS: Visit Provider Nurse Practitioner Family
DX: I15.1 Hypertension secondary to other renal disorders (principal); N18.32 Chronic kidney disease, stage 3b
CPT/HCPCS: 36415; 80053; 99212

== ENCOUNTER → 2024-07-24 19:30 | Outpatient (REF) | payer OTHER, SELFPAY | LOC: HO.SL 19:30 | PROVIDERS: Visit Provider Nurse Practitioner Family | DX: G47.19 Other hypersomnia (principal); I50.9 Heart failure, unspecified; I10 Essential (primary) hypertension; G47.30 Sleep apnea, unspecified; G47.52 REM sleep behavior disorder | CPT/HCPCS: 95810 ==

== ENCOUNTER → 2024-07-24 21:51 | Outpatient (BNV) | payer OTHER, SELFPAY | PROVIDERS: Visit Provider Psychiatry & Neurology Neurology | DX: G47.33 Obstructive sleep apnea (adult) (pediatric) (principal) | CPT/HCPCS: 95810 ==

== ENCOUNTER 2024-08-11 10:59 | Outpatient (AMB) | payer OTHER, SELFPAY ==
--- NOTE | 2024-08-11 11:02 | A.OFFPC_ITS ---
Vital Signs 08/11/24 11:28 Height 5 ft 5 in Weight 268 lb 8 oz BMI 44.7 BP 136/80 Blood Pressure Location Rt brachial Position Sitting Pulse 68 Pulse Source Pulse Oximeter Pulse Oximetry (%) 97 Intake Visit Reasons: 08/11 @ 1130 with in FU HTN , sleep study labs [employer] Required: No Allergies No Known Allergies Allergy (Verified 08/11/24 11:29) Medication List - Last Reconciled 08/11/24 by Meeta Ro, [facility]- albuterol sulfate 90 mcg/actuation 2 puffs inhalation Q6H PRN amlodipine 10 mg PO DAILY carvedilol 25 mg PO BID 90 days empagliflozin 10 mg PO QAM furosemide 20 mg PO DAILY indapamide 1.25 mg PO QAM lisinopril 10 mg PO DAILY Tobacco use date assessed: 05/25/24 Dental Screening Dental Screen Date: 05/25/24 HPI HPI Comments History of Present Illness Details 38-year-old Romanian Speaking female with LVH, prolonged QT, HTN, CHF pulmonary htn, pericardial effusion, CKD, mild intermittent asthma, obesity, family hx of FSGS, ONONDAGA, migraine headsache s/p lap aashish 2015, ERCP with sphincterectomy/papillotomy 05/2016 Renal Duplex: Right renal/aortic ratio elevated otherwise normal US Renal bladder: echogenic kidneys bilat representing chronic medical dz CT of head negative; CTA negative. Echo: Ejection fraction 40-45% with mild global hypokinesis and borderline hypokinesis of anterolateral and inferior lateral carter, grade 2 diastolic dysfunction, severe left ventricular hypertrophy, mild pulmonary hypertension with pulmonary artery systolic pressure of 30-35 trivial pericardial effusion The patient is a 38-year-old female presenting with a follow-up for essential hypertension and congestive heart failure. She was previously tapered off hydralazine. At her last office visit, she was initiated on lisinopril 10 mg daily and indapamide 1.25 mg daily. Since beginning these new medications, she has been monitoring her blood pressure at home, reporting it to be significantly improved. She notes an increase in nocturia since starting indapamide. The patient's weight has stabilized, currently at 268 pounds, which is noted as the lowest during recent evaluations. She reports improvement in leg swelling and overall better management of her condition since the adjustment of her medications. The patient also mentioned having a sleep study that is pending results. Her initial appt w/ Nephro Dr Cabrera is Aug 13 2024 Additionally, she experiences left knee pain subsequent to a fall several months ago, with a recent onset of pain localized to a bump on her left knee. No imaging has been conducted for this knee pain to date Exam: Awake alert accompanied by son, Nando ONONDAGA RRR, 2/6 systolic murmur LS CTAB, dim throughout trace edema BLE Left knee palpable painful lump at 5 oclock position of patella, FROM, normal wt bearing & strengthl no erythema or warmth Discussion I discussed with the patient the management of her essential hypertension and congestive heart failure, highlighting the current medication regimen adjustments. We reviewed the benefits of the diuretic effect of indapamide, acknowledging nocturia as a side effect. I advised trying fluid redistribution techniques to alleviate nighttime urination. I emphasized the importance of continued home blood pressure monitoring and addressing any escalation in symptoms promptly. For the left knee pain, we agreed on obtaining imaging to diagnose potential structural abnormalities. I ensured she understood the importance of follow-up with the kidney specialist and referenced the pending results from the sleep study for further management. We scheduled follow-up visits, based on the stability of labs and symptomatology. Plan - Continue taking all meds as Rxd - Monitor blood pressure and report sign ificant changes. - Attempt lying down with feet elevated in the afternoon to reduce nighttime urination. - Apply lidocaine cream to the knee thre e times daily as needed. Avoid NSAIDs - Obtain x-ray of the left knee. - Follow up with kidney specialist on and ensure I receive notes. - Complete scheduled blood work for [facility] ey function monitoring today. See results below. Worsening renal function however clinically overall she looks/feels much better. I will defer to renal on med changes as her appt is Aug 13, 2024. Will have my notes/labs faxed to his office. - Once sleep study results obtained, i will contact her w results. - Arrange a follow-up appointment in 4 t o 6 weeks or sooner if symptoms worsen. This note is constructed using voice recognition software. While every effort has been made to ensure accuracy in nba player, still errors may have been included Sometimes, these errors may affect the content or meaning of the given sentence . Total time spent caring for the patient today was 45 minutes. This includes time spent before the visit reviewing the chart, time spent during the visit, and time spent after the visit on documentation [facility] Medical History Seasonal asthma Hypertension Surgical History No pertinent past surgical history Family History Mother Hypertension Father Hypertension Diabetes Cancer Sister Hypertension Social History Household Members: Family and Children Housing: House Are you a primary point of care technician to a significant other at home: Yes Do you presently have visiting nurse or other home services: No Alcohol intake: current Alcohol intake frequency: a few times a month Patient Tobacco Use Status: Never used Tobacco e-Cigarette/Vaping Use: Never Used service: No Current occupational status: employed Current occupation: [employer] Cognitive needs: No Hearing needs: Yes Vision needs: No Questionnaire Thrive Questionnaire Date Thrive assessed: 08/11/24 I am a: Patient What is your living situation today?: I have a steady place to live Within the past 12 months, did the food you bought not last and you didn't have the money to get more?: Never true Within the past 12 months, did you worry whether your food would run out before you got money to buy more?: Never true Do you have trouble paying for medicines?: No Do you have trouble getting transportation to medical appointments?: No Do you have trouble paying your heating and electricity bill?: No Do you have trouble taking care of your child, family member or friend?: No Do you have trouble with day-to-day activities such as bathing, preparing meals, shopping, managing finances, etc.?: No Are you currently unemployed and looking for a job?: No Are you interested in more education?: No Please select the resources that you would like help with: None Currently or been in a relationship where the following occur: No concerns reported THRIVE Score: 0 SHERRI-7 AMB Questionnaire SHERRI-7 Date SHERRI - 7 assessed: 07/17/24 Source: Developed by Drs. Steve Hogan, Ariella Franco, Marco Antonio Frankel and colleagues, with an educational tonio from [employer]. Physical exam (Primary Care) Vital Signs: Last Vital Signs Pulse 68 08/11/24 11:28 BP 136/80 08/11/24 11:28 Pulse Ox 97 08/11/24 11:28 BMI result Body Mass Index 44.7 Tobacco/Smoking Status: Tobacco use Status Tobacco use date assessed 05/25/24 08/11/24 11:02 Patient Tobacco Use Status Never used Tobacco 08/11/24 11:02 e-Cigarette/Vaping Use Never Used 08/11/24 11:02 Thrive Assessment: Date of Thrive Assessment Date Thrive assessed 08/11/24 08/11/24 11:39 Currently or been in a relationship where the following occur: No concerns reported Results Reviewed Results Reviewed: RUN: 08/12/24 1711 PAGE 1 [facility] [address] [place] [id number] Store Stocker: Baldemar Cárdenas M.D. Specimen Inquiry Name: Chadwick Hoyt Age/Sex: 38/F : 1985 Unit#: [id number] Attend Dr: Meeta Ro Re08/11/24 Status: DEP REF Location: [id number].[id number] Disch: SPEC : [id number] YARY: 08/11/24-125 STATUS: COMP REQ : [id number] RECD: 08/11/24-[address]: Meeta Ro COMP: 08/11/24-152 ENTERED: 08/11/24-[address]: ORDERED: CMP Test Result Flag Reference Sodium 141 135-145 mmol/L Potassium 4.1 3.3-5.1 mmol/L CL 109 H 96-108 mmol/L CO2 27 22-29 mmol/L Gap 9 L 12-20 BUN 47 H 9-16 mg/dL Creat 2.31 H 0.5-1.4 mg/dL eGFR 23 Chronic Kidney Disease: Estimated GFR < 60 mL/min/1.73m2 Severe Kidney Disease: Estimated GFR < 15 mL/min/1.73m2 Glucose, Random 107 60-115 mg/dL CA 8.7 8.4-10.2 mg/dL Total Bili 0.2 0.0-1.0 mg/dL AST (GOT) 18 5-31 U/L ALT (GPT) 12 0-31 U/L Protein, Total 7.2 6.5-8.0 g/dL Alb 3.7 3.5-5.0 g/dL Alk Phos 65 39-117 U/L Coding Level of Care Code Est Pt Level 5 (47153) Complex EM visit Add On G2211 Diagnoses Cardiomyopathy due to hypertension, with heart failure I11.0; I43 Heart failure presence: with heart failure Hypertension secondary to other renal disorders I15.1 Hypertension type: secondary to other renal disorders Stage 3b chronic kidney disease N18.32 Chronic kidney disease stage 3 subtype: stage 3b (GFR 30-44) Chronic diastolic congestive heart failure I50.32 Heart failure type: diastolic Heart failure chronicity: chronic Fall, initial encounter W19.XXXA Encounter type: initial encounter Left anterior knee pain M25.562 Assessment & Plan Assessment & Plan (1) Hypertensive cardiomyopathy: Code(s): I11.9 - Hypertensive heart disease without heart failure; I43 - Cardiomyopathy in diseases classified elsewhere Category: Medical Qualifiers: Heart failure presence: with heart failure Qualified Code(s): I11.0 - Hypertensive heart disease with heart failure; I43 - Cardiomyopathy in diseases classified elsewhere (2) Hypertension: Code(s): I10 - Essential (primary) hypertension Category: Medical Qualifiers: Hypertension type: secondary to other renal disorders Qualified Code(s): I15.1 - Hypertension secondary to other renal disorders (3) CKD (chronic kidney disease) stage 3, GFR 30-59 ml/min: Code(s): N18.30 - Chronic kidney disease, stage 3 unspecified Category: Medical Qualifiers: Chronic kidney disease stage 3 subtype: stage 3b (GFR 30-44) Qualified Code(s): N18.32 - Chronic kidney disease, stage 3b (4) CHF (congestive heart failure): Comment: 04/2024 Ejection fraction 40-45% with mild global hypokinesis and borderline hypokinesis of anterolateral and inferior lateral carter, grade 2 diastolic dysfunction, severe left ventricular hypertrophy, mild pulmonary hypertension with pulmonary artery systolic pressure of 30-35 trivial pericardial effusion Code(s): I50.9 - Heart failure, unspecified Category: Medical Qualifiers: Heart failure type: diastolic Heart failure chronicity: chronic Qualified Code(s): I50.32 - Chronic diastolic (congestive) heart failure (5) Fall: Code(s): W19.XXXA - Unspecified fall, initial encounter Category: Medical Qualifiers: Encounter type: initial encounter Qualified Code(s): W19.XXXA - Unspecified fall, initial encounter (6) Left anterior knee pain: Code(s): M25.562 - Pain in left knee Category: Medical Plan . Orders: Orders XR knee LT 4V 08/11/24 M25.562 - Pain in left knee, W19.XXXA - Unspecified fall, initial encounter Medications: New lidocaine 5% 1 appl topical TID PRN 50 grams 2RF pain
[2024-08-11 11:28] VITALS: BP 136/80; PULSE 68; O2SAT 97; BMI 44.7
== END 2024-08-11 12:32 | disposition home or self-care (01) ==
PROVIDERS: PCP Nurse Practitioner Family; Visit Provider Nurse Practitioner Family
DX: I11.0 Hypertensive heart disease with heart failure (principal); I43 Cardiomyopathy in diseases classified elsewhere; N18.32 Chronic kidney disease, stage 3b; I50.32 Chronic diastolic (congestive) heart failure; I15.1 Hypertension secondary to other renal disorders; W19.XXXA Unspecified fall, initial encounter; M25.562 Pain in left knee

== ENCOUNTER 2024-08-11 12:47 | Outpatient (REF) | payer OTHER, SELFPAY ==
[2024-08-11 15:26] LABS: Alanine Aminotransferase 12 U/L (0-31); Albumin Level 3.7 g/dL (3.5-5.0); Alkaline Phosphatase 65 U/L (39-117); Anion Gap 9 (12-20); Aspartate Amino Transferase 18 U/L (5-31); Bilirubin Total 0.2 mg/dL (0.0-1.0); Blood Urea Nitrogen 47 mg/dL (9-16); Calcium 8.7 mg/dL (8.4-10.2); Carbon Dioxide 27 mmol/L (22-29); Chloride 109 mmol/L (96-108); Estimated Glomerular Filt Rate 23; Glucose Random 107 mg/dL (60-115); Potassium 4.1 mmol/L (3.3-5.1); Sodium 141 mmol/L (135-145); Total Protein 7.2 g/dL (6.5-8.0)
== END 2024-08-11 12:48 | disposition home or self-care (01) ==
LOC: HO.WFDLDS 12:47
PROVIDERS: Visit Provider Nurse Practitioner Family
DX: I15.1 Hypertension secondary to other renal disorders (principal); N18.32 Chronic kidney disease, stage 3b
CPT/HCPCS: 36415; 80053

== ENCOUNTER 2024-09-25 12:22 | Outpatient (AMB) | payer OTHER, SELFPAY ==
--- NOTE | 2024-09-25 12:24 | A.OFFPC_ITS ---
Vital Signs 3 09/25/24 12:28 Height 5 ft 5 in Weight 279 lb 4 oz BMI 46.5 BP 136/78 Blood Pressure Location Rt brachial Position Sitting Respiration 13 Pulse 69 Pulse Source Pulse Oximeter Temp 96.8 F Temp Source Oral Pulse Oximetry (%) 99 Oxygen Delivery Method Room Air Intake Visit Reasons: 4-6 weeks 30 min close interim fu complex Intake Note: follow up and patient also needs refill on meds, patient has also been without htn meds for the past 3 days. Steam Finisher Required: No Allergies No Known Allergies Allergy (Verified 09/25/24 12:56) Medication List - Last Reconciled 09/25/24 by Meeta Ro, SUPERVISOR [employer]- albuterol sulfate 90 mcg/actuation 2 puffs inhalation Q6H PRN amlodipine 10 mg PO DAILY carvedilol 25 mg PO BID 90 days empagliflozin 10 mg PO QAM furosemide 20 mg PO DAILY indapamide 1.25 mg PO QAM lidocaine 5% 1 appl topical TID PRN lisinopril 20 mg PO DAILY Tobacco use date assessed: 09/25/24 Dental Screening Dental Screen Date: 09/25/24 Did you have a dental visit in the last 12 months?: Yes Did you have a dental problem in the last 6 months where you did not have access to dental care?: No Was dental information given to patient?: Patient has dentist HPI HPI Comments 2 History of Present Illness0 Details 38-year-old Greenlandic Speaking female with LVH, prolonged QT, HTN, CHF pulmonary htn, pericardial effusion, CKD, mild intermittent asthma, obesity, family hx of FSGS, [place], migraine headsache s/p lap aashish 2015, ERCP with sphincterectomy/papillotomy 05/2016 Renal Duplex: Right renal/aortic ratio elevated otherwise normal US Renal bladder: echogenic kidneys bilat representing chronic medical dz CT of head negative; CTA negative. Echo: Ejection fraction 40-45% with mild global hypokinesis and borderline hypokinesis of anterolateral and inferior lateral carter, grade 2 diastolic dysfunction, severe left ventricular hypertrophy, mild pulmonary hypertension with pulmonary artery systolic pressure of 30-35 trivial pericardial effusion - The patient is a 38-year-old female pr esenting with follow-up for hypertension, chronic heart failure, and chronic kidney disease. - Recent nephrology appointment led to a n increase in lisinopril from 10 mg to 20 mg, maintaining other treatments in place. - A kidney biopsy for potential [place] S yndrome or FSGS awaits scheduling, discussions involved explorations given the sister?s FSGS diagnosis. - A sleep study indicated severe obstruc tive sleep apnea and nocturnal hypoxia; a PAP study was recommended. - Patient exhibits leg swelling, possibl y due to medication lapse. Wt increase - Left knee pain, x-ray ordered, potenti ally linked to standing and walking activities. Exam: Awake alert accompanied by [place] RRR, 2/6 systolic murmur LS CTAB, dim throughout +12-2 edema BLE Left knee palpable painful lump at 5 oclock position of patella, FROM, normal wt bearing & strength no erythema or warmth Results - Sleep Study: Severe obstructive sleep apnea, nocturnal hypoxia observed. Discussion Notes During this consultation, we discussed the management of the patient's hypertension, CHF, and CKD with their associated medications. I addressed the need for a sleep study follow-up due to the severe obstructive sleep apnea and nocturnal hypoxia revealed previously, recommending a PAP study to manage her condition. The patient was informed about the pending kidney biopsy to confirm the diagnosis of [place] Syndrome or FSGS, considering the family history. The importance of continued medication adherence was stressed, along with immediate action regarding obtaining her medication refills. Left knee pain considerations involved an x-ray to rule out any structural damage or fractures. The necessity to follow-up with the marketing underwriter on December 10 for continuous management was emphasized. Assessment and Plan 38-year-old female with a history of hyp ertension, CHF, and CKD presenting with a follow-up visit. Adjustments in antihypertensive therapy were made during a nephrology consultation, now requiring increased lisinopril dosage. The consideration of [place] Syndrome or FSGS based on familial predisposition, along with previous diagnostic findings, is under exploration. Sleep disturbances, substantiated by significant obstructive sleep apnea findings, necessitate PAP therapy initiation. Edema management, likely augmented by lapses in medication, presents concerns for stabilization. Her current weight remains stable, with mechanical factors contributing to her knee pain, prompting further radiological evaluation. Skin dryness advocacy included a shift in hydration approaches, anticipating subsequent consult coordination. 1. Congestive Heart Failure Chf on ACEI, SGLT2, CCB, lasix, upcoming appt w/ Cards this month. 2. Chronic Kidney Disease Ckd Continuous evaluation with upcoming biopsy for diagnosis confirmation. Genetic factors potentially influencing disease considered. 3. Nocturnal Hypoxia Integration of PAP therapy will address nighttime respiratory insufficiency. Awaiting procedural alignment to specific personal requirements. 4. 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 Biopsy findings will be arzola in management trajectory. 5. 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 6. Obstructive Sleep Apnea PAP therapy advised to address abnormal sleep study findings. Prompt equipment acquisition needed for symptom management. 7. Hypertension Managed by increasing lisinopril to 20 mg daily. Forthcoming nephrology consult will re-evaluate drug efficacy, emphasizing medication adherence. Patient Instructions - Take your medications as prescribed. K eep track of any changes or side effects. - Attend all upcoming appointments with your marketing underwriter and other specialists. - Arrange for the PAP therapy equipment promptly for your sleep apnea treatment. - Monitor any swelling in your legs and report significant changes. - Continue using moisturizers and try oi l-based alternatives for skin hydration. - Have an x-ray of your left knee done s oon. - Stay hydrated and maintain a balanced diet. - Contact our office if you notice any n ew or worsening symptoms. Consent Consent was obtained verbally for a kidney biopsy and further genetic testing from the patient. I discussed the potential benefits, such as identifying a definitive diagnosis for proper management of suspected [place] Syndrome or FSGS. We reviewed possible risks including discomfort, bleeding, or infection, and alternative pathways such as continued observation or genetic counseling. The patient acknowledged understanding and expressed willingness to proceed with the recommended steps, including the acceptance of PAP therapy for sleep apnea management. Patient was informed and verbally consented to the use of an ambient scribe for clinic note documentation during this visit. Total time spent caring for the patient today was 45 minutes. This includes time spent before the visit reviewing the chart, time spent during the visit, and time spent after the visit on documentation, reviewing laboratory results, diagnostic imaging, medications, performing a medically necessary evaluation, counseling on diagnoses, care coordination, ordering appropriate tests, ordering appropriate medications, review of tests performed by other providers, reporting test results with the patient, communication with other healthcare providers. [facility] Medical History Seasonal asthma Hypertension Surgical History No pertinent past surgical history Family History Mother Hypertension Father Hypertension Diabetes Cancer Sister Hypertension Social History Household Members: Family and Children Both parents involved: No Caregiver staying overnight: No Housing: House Are you a primary rn home care to a significant other at home: Yes Do you presently have visiting nurse or other home services: No 75 years or older and lives alone: No Alcohol intake: current Alcohol intake frequency: a few times a month Patient Tobacco Use Status: Never used Tobacco e-Cigarette/Vaping Use: Never Used service: No Current occupational status: employed Current occupation: [employer] Cognitive needs: No Hearing needs: Yes Vision needs: No Questionnaire PHQ-9 Over the last 2 weeks, how often have you been bothered by any of the following problems? 1. Little interest or pleasure in doing things: several days 2. Feeling down, depressed, or hopeless: not at all 3. Trouble falling or staying asleep, or sleeping too much: not at all 4. Feeling tired or having little energy: several days 5. Poor appetite or overeating: not at all 6. Feeling bad about yourself - or that you are a failure or have let yourself or your family down: not at all 7. Trouble concentrating on things, such as reading the newspaper or watching television: not at all 8. Moving or speaking so slowly that other people could have noticed. Or the opposite - being so fidgety or restless that you have been moving around a lot more than usual: not at all 9. Thoughts that you would be better off or of hurting yourself in some way: not at all Total score: 2 Depression Screening Interpretation: Negative Depression Screening Done: Yes 48326 - PHQ-9 Billing: Yes Source: Developed by Drs. Steve Hogan, Ariella Franco, MarcoA ntonio Frankel and colleagues, with an educational tonio from [employer]. Thrive Questionnaire Date Thrive assessed: 09/25/24 I am a: Patient What is your living situation today?: I have a steady place to live Within the past 12 months, did the food you bought not last and you didn't have the money to get more?: I choose not to answer this question Within the past 12 months, did you worry whether your food would run out before you got money to buy more?: I choose not to answer this question Do you have trouble paying for medicines?: I choose not to answer this question Do you have trouble getting transportation to medical appointments?: I choose not to answer this question Do you have trouble paying your heating and electricity bill?: I choose not to answer this question Do you have trouble taking care of your child, family member or friend?: I choose not to answer this question Do you have trouble with day-to-day activities such as bathing, preparing meals, shopping, managing finances, etc.?: I choose not to answer this question Are you currently unemployed and looking for a job?: I choose not to answer this question Are you interested in more education?: I choose not to answer this question Please select the resources that you would like help with: None Currently or been in a relationship where the following occur: No concerns reported THRIVE Score: 0 AUDIT C Alcohol Use Questionnaire (AUDIT-C) 1. How often do you have a drink containing alcohol?: Monthly or less 2. How many drinks containing alcohol do you have on a typical day when you are drinking?: 1 or 2 3. How often do you have six or more drinks on one occasion?: Monthly Total Score: 3 Score Reviewed/Action Taken: Yes SHERRI-7 AMB Questionnaire SHERRI-7 Date SHERRI - 7 assessed: 09/25/24 Feeling nervous, anxious, or on edge: 0 = Not at all Not being able to stop or control worryin = Not at all Worrying too much about different things: 0 = Not at all Trouble relaxin = Not at all Being so restless that it is hard to sit still: 0 = Not at all Becoming easily annoyed or irritable: 0 = Not at all Feeling afraid as if something awful might happen: 0 = Not at all Total SHERRI-7 score (0-4 normal; 5-9 mild; 10-14 moderate; 15-21 severe): 0 Source: Developed by Drs. Steve Hoagn, Ariella Franco, Marco Antonio Frankel and colleagues, with an educational tonio from [employer]. SHERRI-7 Assessment Billing SHERRI-7 Assessment Tool: SHERRI-7 Assessment 25139 Physical exam (Primary Care) Vital Signs: Last Vital Signs Temp 96.8 F 09/25/24 12:28 Pulse 69 09/25/24 12:28 Resp 13 09/25/24 12:28 BP 136/78 09/25/24 12:28 Pulse Ox 99 09/25/24 12:28 Oxygen Delivery Method Room Air 09/25/24 12:28 BMI result Body Mass Index 46.5 BMI Assessment/Plan discussion: High BMI High, discussed plan: lifestyle Tobacco/Smoking Status: Tobacco use Status Tobacco use date assessed 09/25/24 09/25/24 12:26 Patient Tobacco Use Status Never used Tobacco 09/25/24 12:26 e-Cigarette/Vaping Use Never Used 09/25/24 12:26 PHQ-9: PHQ-9 Score PHQ-9: Total score 2 09/25/24 12:26 Depression Screening Interpretation: Negative Thrive Assessment: Date of Thrive Assessment Date Thrive assessed 09/25/24 09/25/24 12:26 Currently or been in a relationship where the following occur: No concerns reported Results Reviewed Results Reviewed: Coding Level of Care Code Est Pt Level 5 (40231) Complex EM visit Add On G2211 Diagnoses Chronic diastolic congestive heart failure I50.32 Heart failure type: diastolic Heart failure chronicity: chronic Stage 3b chronic kidney disease N18.32 Chronic kidney disease stage 3 subtype: stage 3b (GFR 30-44) Cardiomyopathy due to hypertension, with heart failure I11.0; I43 Heart failure presence: with heart failure Morbid obesity with BMI of 40.0-44.9, adult E66.01; Z68.41 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 Hypertension secondary to other renal disorders I15.1 Hypertension type: secondary to other renal disorders Family history of focal and segmental proliferative glomerulonephritis Z84.1 YARELIS (obstructive sleep apnea) G47.33 Class 3 obesity E66.813 Left anterior knee pain M25.562 Additional Codes SHERRI-7 Assessment Billing - SHERRI-7 Assessment Tool: SHERRI-7 Assessment 36589 ([id number]) PHQ-9 - 14083 - PHQ-9 Billing: Yes ([id number]) Assessment & Plan Assessment & Plan (1) CHF (congestive heart failure): Comment: 04/2024 Ejection fraction 40-45% with mild global hypokinesis and borderline hypokinesis of anterolateral and inferior lateral carter, grade 2 diastolic dysfunction, severe left ventricular hypertrophy, mild pulmonary hypertension with pulmonary artery systolic pressure of 30-35 trivial pericardial effusion Code(s): I50.9 - Heart failure, unspecified Category: Medical Qualifiers: Heart failure type: diastolic Heart failure chronicity: chronic Q ualified Code(s): I50.32 - Chronic diastolic (congestive) heart failure (2) CKD (chronic kidney disease) stage 3, GFR 30-59 ml/min: Code(s): N18.30 - Chronic kidney disease, stage 3 unspecified Category: Medical Qualifiers: Chronic kidney disease stage 3 subtype: stage 3b (GFR 30-44) Qualified Code(s): N18.32 - Chronic kidney disease, stage 3b (3) Hypertensive cardiomyopathy: Code(s): I11.9 - Hypertensive heart disease without heart failure; I43 - Cardiomyopathy in diseases classified elsewhere Category: Medical Qualifiers: Heart failure presence: with heart failure Qualified Code(s): I11.0 - Hypertensive heart disease with heart failure; I43 - Cardiomyopathy in diseases classified elsewhere (4) Morbid obesity with BMI of 40.0-44.9, adult: Code(s): E66.01 - Morbid (severe) obesity due to excess calories; Z68.41 - Body mass index [BMI] 40.0-44.9, adult Category: Medical (5) Secondary hyperaldosteronism: Comment: Secondary hyperaldosteronism that activates the jyoxq-dikapniplin-gxbkcvkmivz system (RAAS), due to cHF Code(s): E26.1 - Secondary hyperaldosteronism Category: Medical (6) Hypertension: Code(s): I10 - Essential (primary) hypertension Category: Medical Qualifiers: Hypertension type: secondary to other renal disorders Qualified Code(s): I15.1 - Hypertension secondary to other renal disorders (7) Family history of focal and segmental proliferative glomerulonephritis: Code(s): Z84.1 - Family history of disorders of kidney and ureter Category: Medical (8) YARELIS (obstructive sleep apnea): Code(s): G47.33 - Obstructive sleep apnea (adult) (pediatric) Category: Medical (9) Class 3 obesity: Code(s): E66.813 - Obesity, class 3 Category: Medical (10) Left anterior knee pain: Code(s): M25.562 - Pain in left knee Category: Medical Plan . Orders: Orders 2 RT PSG in-lab sleep titration Today G47.33 - Obstructive sleep apnea (adult) (pediatric) Medications: New 2 lisinopril 20 mg PO DAILY 90 tabs 0RF Refilled 2 empagliflozin 10 mg PO QAM 90 tabs 0RF indapamide 1.25 mg PO QAM 90 tabs 1RF
[2024-09-25 12:28] VITALS: BP 136/78; PULSE 69; RESP 13; TEMP 36; O2SAT 99; BMI 46.5
--- OUTSIDE RECORDS SUMMARY | 2024-09-25 12:49 | XMS_ITS | Encounter Summary ---
Author Organization [facility] Address PO [facility] [address] [place] [address] Phone Care Team Providers Care Certified Hearing Instrument Dispenser Name Role Phone Meeta Wise Primary Care Provider Encounter Details Date Type Department Care Team (Late st Contact Info) Description 09/24/2024 Documentation Only [facility] [address] [place] [phone] Marta Ravi [address] [place] [phone] Social History Tobacco Use Types Packs/Day Years Used Date Smoking Tobacco: Never Smokeless Tobacco: Never Comments Unknown Sex and Gender Information Value Date Recorded Sex Assigned at Not on file Legal Sex Female 11:12 AM EDT Gender Identity Not on file Sexual Orientation Not on file documented as of this encounter Plan of Treatment Upcoming Encounters Date Type Department Care Team (Late st Contact Info) Description 12/10/2024 4:00 PM EDT Office Visit [facility] [address] [place] [address] Aretha Vences MD [address] [place] [address] [place] [address] documented as of this encounter Visit Diagnoses Not on filedocumented in this encounter Care Teams Certified Hearing Instrument Dispenser Relationship Specialty Start Date End Date Meeta Wise FNP [address] [place] [address] PCP - General Nurse Practitioner 06/15/24 documented as of this encounter
--- OUTSIDE RECORDS SUMMARY | 2024-09-25 12:49 | XMS_ITS | Encounter Summary ---
Author Organization [facility] Address PO [facility] [address] [place] [address] Phone Care Team Providers Care Centerpuncher Name Role Phone Meeta Wise Primary Care Provider Encounter Details Date Type Department Care Team (Late st Contact Info) Description 08/11/2024 Documentation Only [facility] [address] [place] [phone] Marta Ravi [address] [place] [phone] Social History Tobacco Use Types Packs/Day [...] Visit [facility] [address] [place] [address] Aretha Vences MD [address] [place] [address] [place] [address] documented as of this encounter Visit Diagnoses Not on filedocumented in this encounter Care Teams Centerpuncher Relationship Specialty Start Date End Date Meeta Wise FNP [address] [place] [address] PCP - General Nurse Practitioner 06/15/24 documented as of this encounter
--- OUTSIDE RECORDS SUMMARY | 2024-09-25 12:49 | XMS_ITS | Encounter Summary ---
Author Organization [facility] Address PO [facility] [address] [place] [address] Phone Care Team Providers Care Shuttleless Loom Weaver Name Role Phone Meeta Wise Primary Care Provider Encounter Details Date Type Department Care Team (Late st Contact Info) Description 09/24/2024 Documentation Only [facility] [address] [place] [place] [phone] Marta Ravi [address] [place] [phone] Social History Tobacco Use Types Packs/Day [...] Visit [facility] [address] [place] [place] [address] Aretha Vences MD [address] [place] [address] [place] [address] documented as of this encounter Visit Diagnoses Not on filedocumented in this encounter Care Teams Shuttleless Loom Weaver Relationship Specialty Start Date End Date Meeta Wise FNP [address] [place] [address] PCP - General Nurse Practitioner 06/15/24 documented as of this encounter
--- OUTSIDE RECORDS SUMMARY | 2024-09-25 12:49 | XMS_ITS | Encounter Summary ---
Author Organization [facility] Address PO [facility] [address] [place] [address] Phone Care Team Providers Care Boiler Repairman Name Role Phone Meeta Wise Primary Care Provider Encounter Details Date Type Department Care Team (Late st Contact Info) Description 08/11/2024 Documentation Only [facility] [address] [place] [phone] Marta Ravi [address] [place] [phone] Social History Tobacco Use Types Packs/Day [...] Visit [facility] [address] [place] [address] Aretha Vences MD [address] [place] [address] [place] [address] documented as of this encounter Visit Diagnoses Not on filedocumented in this encounter Care Teams Boiler Repairman Relationship Specialty Start Date End Date Meeta Wise FNP [address] [place] [address] PCP - General Nurse Practitioner 06/15/24 documented as of this encounter
--- OUTSIDE RECORDS SUMMARY | 2024-09-25 12:49 | XMS_ITS | Encounter Summary ---
Author Organization [facility] Address PO [facility] [address] [place] [address] Phone Care Team Providers Care Six Color Press Operator Name Role Phone Meeta Wise PORSCHE Primary Care Provider Encounter Details Date Type Department Care Team (Late st Contact Info) Description 09/24/2024 4:30 PM EST Office Visit [facility] [address] [place] [phone] Aretha Vences MD [address] [place] [address] [place] [phone] Stage 3b chronic kidney disease (HCC) (Primary Dx) Social History Tobacco Use Types Packs/Day Years [...] Visit [facility] [address] [place] [address] Aretha Vences MD [address] [place] [address] [place] [phone] Scheduled Orders Name Type Priority Associated Diagnoses Orde r Schedule CBC Lab Routine Stage 3b chronic kidney disease (HCC) Expected: 09/24/2024, Expires: 10/22/2025 Ferritin Lab Routine Stage 3b chronic kidney disease (HCC) Expected: 09/24/2024, Expires: 10/22/2025 Iron Panel (Fe, TIBC, TSAT) Lab Routine Stage 3b chronic kidney disease (HCC) Expected: 09/24/2024, Expires: 10/22/2025 Lipid panel Lab Routine Stage 3b chronic kidney disease (HCC) Expected: 09/24/2024, Expires: 10/22/2025 Phosphorus Lab Routine Stage 3b chronic kidney disease (HCC) Expected: 09/24/2024, Expires: 10/22/2025 PTH, intact Lab Routine Stage 3b chronic kidney disease (HCC) Expected: 09/24/2024, Expires: 10/22/2025 Renal function panel Lab Routine Stage 3b chronic kidney disease (HCC) Expected: 09/24/2024, Expires: 10/22/2025 Urine Protein / creatinine ratio Lab Routine Stage 3b chronic kidney disease (HCC) Expected: 09/24/2024, Expires: 10/22/2025 Vitamin D 25 hydroxy Lab Routine Stage 3b chronic kidney disease (HCC) Expected: 09/24/2024, Expires: 10/22/2025 documented as of this encounter Visit Diagnoses Diagnosis Stage 3b chronic kidney disease (HCC)- Primary documented in this encounter Care Teams Six Color Press Operator Relationship Specialty Start Date End Date Meeta Wise FNP [address] [place] [phone] PCP - General Nurse Practitioner 06/15/24 documented as of this encounter
--- OUTSIDE RECORDS SUMMARY | 2024-09-25 12:49 | XMS_ITS | Clinical Summary ---
Author Organization [facility], Address [address] [place] [address] [place] [address] Phone Care Team Providers Care Automotive Buyer Name Role Phone WiseMeeta mack PORSCHE Primary Care Provider Medications albuterol HFA (PROVENTIL HFA;VENTOLIN HFA) 108 (90 Base) MCG/ACT inhaler Inhale 2 puffs in the morning and 2 puffs at noon and 2 puffs in the evening and 2 puffs before bedtime. Active amLODIPine (NORVASC) 10 MG tablet Take 10 mg by mouth 1 (one) time each day Active carvedilol (COREG) 25 MG tablet Take 25 mg by mouth in the morning and 25 mg in the evening. Take with meals. Active hydrALAZINE 50 MG tablet Take 50 mg by mouth in the morning and 50 mg in the evening and 50 mg before bedtime. Active omeprazole (PriLOSEC) [address] capsule Take 40 mg by mouth 1 (one) time each day Do not crush or chew. Active lisinopril 20 MG tablet Take 1 tablet (20 mg total) by mouth 1 (one) time each day 30 tablet 3 09/24/2024 5 Active Empagliflozin 25 MG tablet Take 25 mg by mouth 1 (one) time each day in the morning 90 tablet 3 09/24/2024 5 Active Active Problems Problem Noted Date Diagnosed Date Chronic kidney disease, stage 4 (severe) 024 Pulmonary hypertension Proteinuria Hypothyroidism Hypertensive urgency Hypertension History of acute kidney injury Heart failure Overview (08/11/2024): systolic and diastolic Congestive heart failure Encounters Date Type Department Care Team Description 09/24/2024 4:30 PM EST Office [facility] [address] [place] [address] Aretha Vences MD Stage 3b chronic kidney disease (HCC) (Primary Dx) 09/24/2024 Documentation Only [facility] [address] [place] [address] Trav, Marta 09/24/2024 Documentation Only [facility] [address] [place] [address] Trav, Marta 08/27/2024 Documentation Only [facility] [address] [place] [address] Trav, Marta 08/26/2024 Office Communication [facility] [address] [place] [address] Kaley Barton 08/25/2024 Office Communication [facility] [address] [place] [address] Andressa Crowder MA 08/19/2024 Telephone [facility] [address] [place] [address] Eva Vargas 08/13/2024 3:15 PM EST Office Visit [facility] [address] [place] [address] Alan Lopez MD Chronic kidney disease, stage 4 (severe) (HCC) (Primary Dx) 08/13/2024 Documentation Only [facility] [address] [place] [address] Trav, Marta 08/11/2024 Documentation Only [facility] [address] [place] [address] Trav, Marta 08/11/2024 Documentation Only [facility] [address] [place] [address] Trav, Marta 08/11/2024 Documentation Only [facility], [address] [facility] [place] [address] Trav, Marta 08/11/2024 Documentation Only [facility], [address] [facility] [place] [address] Trav, Marta 08/11/2024 Documentation Only [facility], [address] [facility] [place] [address] Trav, Marta 08/11/2024 Documentation Only [facility], [address] [facility] [place] [address] Trav, Marta 08/11/2024 Documentation Only [facility], [address] [place] [address] Trav, Marta 08/11/2024 Documentation Only [facility], [address] [facility] [place] [address] Trav, Marta 08/11/2024 Documentation Only [facility], [address] [facility] [place] [address] Trav, Marta 08/11/2024 Documentation Only [facility], [address] [place] [address] Trav, Marta 07/22/2024 Documentation Only [facility], [address] [facility] [place] [address] Andressa Crowder MA from Last 3 Months Immunizations Name Administration Dates Next Due Influenza, MDCK, PF, Quadrivalent 06/01/2022 Pfizer SARS-COV-2 01/02/2021,12/17/2020 Pneumococcal Polysaccharide 06/02/2016 Tdap 06/01/2022,04/29/2015,01/30/2010 Family History Medical History Relation Comments Cancer Father Diabetes Father Hypertension Father Hypertension Mother Hypertension Sister Other Sister biopsy-proven FS GS and has a renal transplant Relation Status Comments Father Mother Sister Social History Tobacco Use Types Packs/Day Years Used Date Smoking Tobacco: Never Smokeless Tobacco: Never Comments Unknown Sex and Gender Information Value Date Recorded Sex Assigned at Not on file Legal Sex Female 11:12 AM EDT Gender Identity Not on file Sexual Orientation Not on file Plan of Treatment Upcoming Encounters Date Type Department Care Team (Late st Contact Info) Description 12/10/2024 4:00 PM EDT Office Visit [facility], [address] [facility] [place] [address] Aretha Vences MD [address] [facility] [place] [address] Health Maintenance Due Date Last Done Comments Hepatitis B Vaccine (1 of 3 - 19+ 3-dose series) 10/14 Pneumococcal Vaccine: Pediat rics (0 to 5 Years) and At-Risk Patients (6 to 64 Years) (2 of 2 - PCV) 06/02/2017 06/02/2016 Influenza Vaccine (#1) 2024 06/01/2022 Procedures Procedure Name Priority Date/Time Associated Diagnosis Comments HCG, QUANTITATIVE, Routine 08/31/2024 2:36 PM EST Chronic kidney disease, stage 4 (severe) (HCC) PROTIME-INR Routine 08/31/2024 2:36 PM EST Chronic kidney disease, stage 4 (severe) (HCC) URINE ALBUMIN / CREATININE RATIO Routine 08/31/2024 2:36 PM EST Chronic kidney disease, stage 4 (severe) (HCC) PROTEIN / CREATININE RATIO, URINE Routine 08/31/2024 2:36 PM EST Chronic kidney disease, stage 4 (severe) (HCC) URINALYSIS WITH MICROSCOPIC Routine 08/31/2024 2:36 PM EST Chronic kidney disease, stage 4 (severe) (HCC) RENAL FUNCTION PANEL Routine 08/31/2024 2:36 PM EST Chronic kidney disease, stage 4 (severe) (HCC) IRON PANEL (FE, TIBC, TSAT) Routine 08/31/2024 2:36 PM EST Chronic kidney disease, stage 4 (severe) (HCC) FERRITIN Routine 08/31/2024 2:36 PM EST Chronic kidney disease, stage 4 (severe) (HCC) CBC AND DIFFERENTIAL Routine 08/31/2024 2:36 PM EST Chronic kidney disease, stage 4 (severe) (HCC) MICROSCOPIC EXAMINATION - DO NOT USE Routine 08/31/2024 2:36 PM EST from Last 3 Months Results * (ABNORMAL) Microscopic Examination (08/31/2024 2:36 PM EST) WBC, Urine 0-5 0 - 5 /hpf [facility] RBC, Urine 3-10(A) 0 - 2 /hpf [facility] Squamous Epithelial, Urine 0-10 0 - 10 /hpf [facility] Casts None seen None seen /lpf [facility] Bacteria, Urine None seen None seen/Few [facility] 08/31/2024 2:36 PM EST 08/31/2024 us Alan Lopez MD LAB MICROBIOLOGY - GENERAL OR DERABLES Final Result [facility] [address] [place] [address] * Iron Panel (Fe, TIBC, TSAT) (08/31/2024 2:36 PM EST) TIBC 318 250 - 450 ug/dL [facility] UIBC 271 131 - 425 ug/dL [facility] Iron 47 27 - 159 ug/dL [facility] Iron Saturation (TSat) 15 15 - 55 % [facility] Blood (Blood, Venous) 08/31/2024 2:36 PM EST 08/31/2024 Alan Lopez MD LAB BLOOD ORDERABLES Final Re [facility]ult [facility] [address] [place] [address] * (ABNORMAL) Protein, Total, Random Urine w/Creatinine (Protein/Creat Ratio) (08/31/2024 2:36 PM EST) Creatinine, Ur 98.1 Not Estab. mg/dL [facility] Protein, Ur 148.7 Not Estab. mg/dL [facility] Urine Protein/Creati nine Ratio 1,516(H) 0 - 200 mg/g creat [facility] Urine (Urine, Clean Catch) 08/31/2024 2:36 PM EST 08/31/2024 Alan Lopez MD LAB URINE ORDERABLES Final Re sult [facility] [address] [place] [address] * (ABNORMAL) Urine Albumin / Creatinine Ratio (08/31/2024 2:36 PM EST) Albumin, Urine 1,050.9 Not Estab. ug/mL [facility] Comment: Results confirmed on dilution. Albumin/Creatin ine Ratio 1,071(H) 0 - 29 mg/g creat [facility] Comment: ? Normal: ?0 - ??29 ? Moderately increased: 30 - 300 ? Severely increased: ? >300 Urine (Urine, Clean Catch) 08/31/2024 2:36 PM EST 08/31/2024 us Alan Lopez MD LAB URINE ORDERABLES Final Re sult [facility] [address] [place] [address] * (ABNORMAL) Urinalysis with microscopic (08/31/2024 2:36 PM EST) Specific [place], Urine 1.014 1.005 - 1.030 [facility] pH Urine 6.0 5.0 - 7.5 [facility] Color, Urine Yellow Yellow [facility] Appearance Urine Clear Clear [facility] WBC Esterase Urine Negative Negative [facility] [phone] Protein, Ur 3+(A) Negative/Tra ce [facility] Glucose, Ur 2+(A) Negative [facility] [phone] Ketones, Urine Negative Negative [facility] Blood Urine 3+(A) Negative [facility] Bilirubin Urine Negative Negative [facility] Urobilinogen Urine 0.2 0.2 - 1.0 mg/dL [facility] Nitrite, Urine Negative Negative [facility] Microscopic Examination See below: [facility] [phone] Comment:Microscopic was sly cated and was performed. Urine (Urine, Clean Catch) 08/31/2024 2:36 PM EST 08/31/2024 Alan Lopez MD LAB URINE ORDERABLES Final Re sult Performing Organization Address [facility] Co de Phone Number [facility] [address] [place] [address] * Protime-INR (08/31/2024 2:36 PM EST) INR 0.9 0.9 - 1.2 [facility] Comment: Reference interval is for non-anticoagulated patients. Suggested INR therapeutic range for Vitamin K antagonist therapy: ?? Standard Dose (moderate intensity ?therapeutic range): ? 2.0 - 3.0 ?? Higher intensity therapeutic range ? 2.5 - 3.5 Protime 10.4 9.1 - 12.0 sec [facility] Blood (Blood, Venous) 08/31/2024 2:36 PM EST 08/31/2024 Alan Lopez MD LAB BLOOD ORDERABLES Final Re sult Performing Organization Address [facility]/ZIP Co de Phone Number [facility] [address] [place] [address] * CBC and Differential (08/31/2024 2:36 PM EST) WBC 8.9 3.4 - 10.8 x10E3/uL [facility] RBC 4.31 3.77 - 5.28 x10E6/uL [facility] Hemoglobin 12.5 11.1 - 15.9 g/dL [facility] Hematocrit 38.4 34.0 - 46.6 % [facility] MCV 89 79 - 97 fL [facility] MCH 29.0 26.6 - 33.0 pg [facility] MCHC 32.6 31.5 - 35.7 g/dL [facility] RDW 12.3 11.7 - 15.4 % [facility] Platelets 361 150 - 450 x10E3/uL [facility] Neutrophils Relative 59 Not Estab. % [facility] Lymphocytes Relative 30 Not Estab. % [facility] Monocytes 7 Not Estab. % [facility] Eosinophils Relative 3 Not Estab. % [facility] Basophils Relative 1 Not Estab. % [facility] Neutrophils Absolute 5.3 1.4 - 7.0 x10E3/uL [facility] Lymphocytes Absolute 2.7 0.7 - 3.1 x10E3/uL [facility] Monocytes Absolute 0.6 0.1 - 0.9 x10E3/uL [facility] Eosinophils Absolute 0.2 0.0 - 0.4 x10E3/uL [facility] Basophils Absolute 0.1 0.0 - 0.2 x10E3/uL [facility] Immature Granulocytes 0 Not Estab. % [facility] Immature Grans (Absolute) 0.0 0.0 - 0.1 x10E3/uL [facility] Blood (Blood, Venous) 08/31/2024 2:36 PM EST 08/31/2024 us Alan Lopez MD LAB BLOOD ORDERABLES Final Joyce vega [facility] [address] [place] [address] * hCG, quantitative, (08/31/2024 2:36 PM EST) HCG-B Subunit, Quantitative <1 mIU/mL [facility] Comment: ? Female (Non-) ?0 - ? 5 ?(Postmenopausal) ??0 - ? 8 ? Female () ? Weeks of Gestation ? 3 ?6 - ?71 ? 4 ? 10 - ?? 750 ? 5 ?217 - ??7138 ? 6 ?158 - 76537 ? 7 ? 3697 -276174 ? 8 ?02565 -340301 ? 9 ?72853 -956403 ?10 ?33706 -526721 ?12 ?00777 -416961 ?14 ?74087 - 54047 ?15 ?14228 - 34419 ?16 ? 1070 - 26474 ?17 ? 0732 - 44759 ?18 ? 8099 - 25717 Carlita ECLIA methodology Blood (Blood, Venous) 08/31/2024 2:36 PM EST 08/31/2024 us Alan Lopez MD LAB BLOOD ORDERABLES Final Re sult [facility] [address] [place] [address] * Ferritin (08/31/2024 2:36 PM EST) Pathologist [facility] Ferritin 107 15 - 150 ng/mL [facility] Blood (Blood, Venous) 08/31/2024 2:36 PM EST 08/31/2024 us Alan Lopez MD LAB BLOOD ORDERABLES Final Re [facility] Performing Organization Address City/[facility]/ZIP Co de Phone Number [facility] [address] [place] [address] * (ABNORMAL) Renal Function Panel (08/31/2024 2:36 PM EST) Pathologist [facility] Glucose 94 70 - 99 mg/dL [facility] BUN 46(H) 6 - 20 mg/dL [facility] Creatinine 2.00(H) 0.57 - 1.00 mg/dL [facility] eGFR CKD-EPI CR 2020 32(L) >59 mL/min/1.7 3 [facility] BUN/Creatinine Ratio 23 9 - 23 [facility] Sodium 141 134 - 144 mmol/L [facility] Potassium 4.8 3.5 - 5.2 mmol/L [facility] Chloride 104 96 - 106 mmol/L [facility] Bicarbonate (CO2) 21 20 - 29 mmol/L [facility] Calcium 9.7 8.7 - 10.2 mg/dL [facility] Albumin 4.2 3.9 - 4.9 g/dL [facility] Phosphorus 3.9 3.0 - 4.3 mg/dL [facility] Blood (Blood, Venous) 08/31/2024 2:36 PM EST 08/31/2024 us Alan Lopez MD LAB BLOOD ORDERABLES Final Re sult [facility] [address] [place] [address] from Last 3 Months Insurance MEDICAID MEDICAID Care Teams Automotive Buyer Relationship Specialty Start Date End Date Meeta Wise FNP [address] [place] [address] PCP - General Nurse Practitioner 06/15/24
--- OUTSIDE RECORDS SUMMARY | 2024-09-25 12:49 | XMS_ITS | Clinical Summary ---
Author Organization [facility] ity Address [address] [place] [address] Care Team Providers Care Studio Receptionist Name Role Phone Win White MD Primary Care Provider [phone] Surgical History Surgery Date Site/Laterality Comments CHOLECYSTECTOMY 06/04/16 PROCEDURE: LAPAROSCOPY, CHOLECYSTECTOMY Medical History Medical History Date Comments HTN (hypertension) DX:HTN (hyper tension) Hematuria DX:Hematuria; CO MMENT: following with urology Elevated glucose DX:Elevated glu cose Asthma DX:Asthma Proteinuria DX:Proteinuria Family History Medical History Relation Name Comments Other: autistic Brother Hypertension Father colon CA (60) Hypertension Mother arthritis Other: autism Son 1 Breast cancer Neg Hx Relation Name Status Comments Brother Alive Father Alive BACK pain Mother Alive HTN, CAD Sister 1 Alive Sister 2 Alive Son 1 Son 2 Alive autism Son 3 Alive Social History Tobacco Use Types Packs/Day Years Used Date Smoking Tobacco: Former Cigarettes Q uit: 08/12/2012 Smokeless Tobacco: Former Alcohol Use Standard Drinks/Week Comments Yes 0 (1 standard drink = 0.6 oz pur e alcohol) Comments Unknown Sex and Gender Information Value Date Recorded Sex Assigned at Not on file Legal Sex Female 11:13 AM EST Gender Identity Not on file Sexual Orientation Not on file Obstetrics History Last Filed Vital Signs Vital Sign Reading Time Taken Comments Blood Pressure 160/110 11/16/2022 10:38 AM EDT Pulse 85 11/16/2022 10:03 AM EDT Temperature - - Respiratory Rate - - Oxygen Saturation - - Inhaled Oxygen Concentration - - Weight 127 kg (279 lb) 11/16/2022 10:03 AM EDT Height 162.6 cm (5' 4 ) 11/16/2022 10:03 AM EDT Body Mass Index 47.89 11/16/2022 10:03 AM EDT Plan of Treatment Health Maintenance Due Date Last Done Comments Hepatitis B Vaccines (1 of 3 - 19+ 3-dose series) 10/15/2003 Cervical Cancer Screening: P ap Smear 2005 Cholesterol Screening (Lipid Panel) 07/21/2022 Depression Screening 07/21/2022 HIV Screening 07/21/2022 Hepatitis C Screening 07/21/2022 Social Influencers of Health Screening 07/21/2022 Hypertension/CHF/CAD Annual BMP Blood Test 07/22/2022 COVID-19 Vaccine (3 - 2023-2 5 season) 2024 01/02/2021, 12/12/2020 Influenza Vaccine (#1) 2024 06/01/2022 DTaP,Tdap,and Td Vaccines (3 - Td or Tdap) 06/01/2032 06/01/2022, 01/30/2010 HIB Vaccines Aged Out No longer eligi ble based on patient's age to complete this topic HPV Vaccines Aged Out No longer eligi ble based on patient's age to complete this topic Hepatitis A Vaccines Aged Out No long er eligible based on patient's age to complete this topic IPV Vaccines Aged Out No longer eligi ble based on patient's age to complete this topic MMR Vaccines Aged Out No longer eligi ble based on patient's age to complete this topic Meningococcal ACWY Vaccine Aged Out N o longer eligible based on patient's age to complete this topic Meningococcal B Vacine Aged Out No lo nger eligible based on patient's age to complete this topic Pneumococcal Vaccine: Pediatrics (0 to 5 Years) and At-Risk Patients (6 to 64 Years) Aged Out No longer eligible b ased on patient's age to complete this topic RSV Immunization Patients Under 20 months Aged Out No longer eligible b ased on patient's age to complete this topic Varicella Vaccines Aged Out No longer eligible based on patient's age to complete this topic Care Teams Studio Receptionist Relationship Specialty Start Date End Date Win White MD PCP - General Internal Medicine 09/15/19
--- OUTSIDE RECORDS SUMMARY | 2024-09-25 12:49 | XMS_ITS | Encounter Summary ---
Author Organization [facility] Address PO [facility] [address] [place] [address] Phone Care Team Providers Care Non Emergency Services Ambulance Driver Name Role Phone Meeta Wise Primary Care Provider [phone] Encounter Details Date Type Department Care Team (Late st Contact Info) Description 08/11/2024 Documentation Only [facility] [address] [place] [address] Marta Ravi [address] [place] [phone] Social History Tobacco Use Types Packs/Day [...] Visit [facility] [address] [place] [address] Aretha Vences MD [address] [place] [address] [place] [address] documented as of this encounter Visit Diagnoses Not on filedocumented in this encounter Care Teams Non Emergency Services Ambulance Driver Relationship Specialty Start Date End Date Meeta Wise FNP [address] [place] [address] PCP - General Nurse Practitioner 06/15/24 documented as of this encounter
--- OUTSIDE RECORDS SUMMARY | 2024-09-25 12:49 | XMS_ITS | Encounter Summary ---
Author Organization [facility] Address PO [facility] [address] [place] [address] Phone Care Team Providers Care Zoology Technical Officer Name Role Phone Meeta Wise Primary Care Provider Encounter Details Date Type Department Care Team (Late st Contact Info) Description 08/11/2024 Documentation Only [facility] [address] [place] [address] Marta Ravi [address] [place] [phone] Social History Tobacco Use Types Packs/Day [...] Visit [facility] [address] [place] [address] Aretha Vences MD [address] [place] [address] [place] [address] documented as of this encounter Visit Diagnoses Not on filedocumented in this encounter Care Teams Zoology Technical Officer Relationship Specialty Start Date End Date Meeta Wise FNP [address] [place] [address] PCP - General Nurse Practitioner 06/15/24 documented as of this encounter
--- OUTSIDE RECORDS SUMMARY | 2024-09-25 12:49 | XMS_ITS | Encounter Summary ---
Author Organization [facility] Address PO [facility] [address] [place] [address] Phone Care Team Providers Care Leasing Associate Name Role Phone Meeta Wise Primary Care Provider Encounter Details Date Type Department Care Team (Late st Contact Info) Description 08/11/2024 Documentation Only [facility] [address] [place] [place] [phone] Marta Ravi [address] [place] [phone] Social History Tobacco Use Types Packs/Day [...] Visit [facility] [address] [place] [place] [address] Aretha Vences MD [address] [place] [address] [place] [address] documented as of this encounter Visit Diagnoses Not on filedocumented in this encounter Care Teams Leasing Associate Relationship Specialty Start Date End Date Meeta Wise FNP [address] [place] [address] PCP - General Nurse Practitioner 06/15/24 documented as of this encounter
--- OUTSIDE RECORDS SUMMARY | 2024-09-25 12:49 | XMS_ITS | Encounter Summary ---
Author Organization [facility] Address PO [facility] [address] [place] [address] Phone Care Team Providers Care Welding Operator Name Role Phone Meeta Wise Primary Care Provider Encounter Details Date Type Department Care Team (Late st Contact Info) Description 08/11/2024 Documentation Only [facility] [address] [place] [address] Marta Ravi [address] [place] [phone] Social History Tobacco Use Types Packs/Day [...] Visit [facility] [address] [place] [address] Aretha Vences MD [address] [place] [address] [place] [address] documented as of this encounter Visit Diagnoses Not on filedocumented in this encounter Care Teams Welding Operator Relationship Specialty Start Date End Date Meeta Wise FNP [address] [place] [address] PCP - General Nurse Practitioner 06/15/24 documented as of this encounter
--- OUTSIDE RECORDS SUMMARY | 2024-09-25 12:49 | XMS_ITS | Encounter Summary ---
Author Organization [facility] Address PO [facility] [address] [place] [address] Phone Care Team Providers Care Rn Private Duty Name Role Phone Meeta Wise Primary Care Provider [phone] Encounter Details Date Type Department Care Team (Late st Contact Info) Description 08/11/2024 Documentation Only [facility] [address] [place] [phone] Marta Ravi [address] [place] [phone] Social History Tobacco Use Types Packs/Day [...] Visit [facility] [address] [place] [address] Aretha Vences MD [address] [place] [address] [place] [address] documented as of this encounter Visit Diagnoses Not on filedocumented in this encounter Care Teams Rn Private Duty Relationship Specialty Start Date End Date Meeta Wise FNP [address] [place] [address] PCP - General Nurse Practitioner 06/15/24 documented as of this encounter
--- OUTSIDE RECORDS SUMMARY | 2024-09-25 12:49 | XMS_ITS | Encounter Summary ---
Author Organization [facility] Address PO [facility] [address] [place] [address] Phone Care Team Providers Care Fitness Sales Associate Name Role Phone Meeta Wise Primary Care Provider Encounter Details Date Type Department Care Team (Late st Contact Info) Description 08/11/2024 Documentation Only [facility] Of [address] [place] [phone] Marta Ravi [address] [place] [phone] Social History Tobacco Use Types Packs/Day [...] Visit [facility] Of [address] [place] [address] Aretha Vences MD [address] [place] [address] [place] [address] documented as of this encounter Visit Diagnoses Not on filedocumented in this encounter Care Teams Fitness Sales Associate Relationship Specialty Start Date End Date Meeta Wise FNP [address] [place] [address] PCP - General Nurse Practitioner 06/15/24 documented as of this encounter
--- OUTSIDE RECORDS SUMMARY | 2024-09-25 12:49 | XMS_ITS | Encounter Summary ---
Author Organization [facility] Address PO [facility] [address] [place] [address] Phone Care Team Providers Care Loom Inspector Name Role Phone Meeta Wise Primary Care Provider Encounter Details Date Type Department Care Team (Late st Contact Info) Description 07/22/2024 Documentation Only [facility] Of [address] [place] [phone] VelElizabeth alexandreSterrett, [place] [address] [place] [phone] Social History Tobacco Use Types Packs/Day Years Used Date Smoking Tobacco: Never Assessed Comments Unknown Sex and Gender Information Value Date Recorded Sex Assigned at Not on file Legal Sex Female 11:12 AM EDT Gender Identity Not on file Sexual Orientation Not on file documented as of this encounter Plan of Treatment Upcoming Encounters Date Type Department Care Team (Late st Contact Info) Description 12/10/2024 4:00 PM EDT Office Visit [facility] Of [address] [place] [phone] Aretha Vences MD [address] [place] [address] [place] [address] documented as of this encounter Visit Diagnoses Not on filedocumented in this encounter Care Teams Loom Inspector Relationship Specialty Start Date End Date Meeta Wise FNP [address] [place] [address] PCP - General Nurse Practitioner 06/15/24 documented as of this encounter
--- OUTSIDE RECORDS SUMMARY | 2024-09-25 12:49 | XMS_ITS | Encounter Summary ---
Author Organization [facility] Address PO [facility] [address] [place] [address] Phone Care Team Providers Care Cryptologic Technician Technical Name Role Phone Meeta Wise Primary Care Provider Encounter Details Date Type Department Care Team (Late st Contact Info) Description 06/12/2024 Documentation Only [facility] Of [address] [place] [phone] Eva Vargas [address] [place] [phone] Social History Tobacco Use Types Packs/Day [...] Visit [facility] Of [address] [place] [phone] Aretha Vences MD [address] [facility] [place] [address] documented as of this encounter Visit Diagnoses Not on filedocumented in this encounter Care Teams Cryptologic Technician Technical Relationship Specialty Start Date End Date Meeta Wise FNP [address] [place] [address] PCP - General Nurse Practitioner 06/15/24 documented as of this encounter
--- OUTSIDE RECORDS SUMMARY | 2024-09-25 12:49 | XMS_ITS | Encounter Summary ---
Author Organization [facility] Address PO [facility] [address] [place] [address] Phone Care Team Providers Care Assembler Corncob Pipes Name Role Phone Meeta Wise Primary Care Provider Encounter Details Date Type Department Care Team (Late st Contact Info) Description 08/11/2024 Documentation Only [facility] Of [address] [place] [phone] Marta Ravi [address] [place] [phone] Social History Tobacco Use Types Packs/Day [...] Visit [facility] Of [address] [place] [address] Aretha Vences MD [address] [place] [address] [place] [address] documented as of this encounter Visit Diagnoses Not on filedocumented in this encounter Care Teams Assembler Corncob Pipes Relationship Specialty Start Date End Date Meeta Wise FNP [address] [place] [address] PCP - General Nurse Practitioner 06/15/24 documented as of this encounter
--- OUTSIDE RECORDS SUMMARY | 2024-09-25 12:49 | XMS_ITS | Encounter Summary ---
Author Organization [facility] Address PO [facility] [address] [place] [address] Phone Care Team Providers Care Digging Machine Operator Name Role Phone Meeta Wise Primary Care Provider [phone] Encounter Details Date Type Department Care Team (Late st Contact Info) Description 08/11/2024 Documentation Only [facility] Of [address] [place] [phone] Marta Ravi [address] [place] [phone] Social History Tobacco Use Types Packs/Day [...] Visit [facility] Of [address] [place] [address] Aretha Vences MD [address] [place] [address] [place] [address] documented as of this encounter Visit Diagnoses Not on filedocumented in this encounter Care Teams Digging Machine Operator Relationship Specialty Start Date End Date Meeta Wise FNP [address] [place] [address] PCP - General Nurse Practitioner 06/15/24 documented as of this encounter
--- OUTSIDE RECORDS SUMMARY | 2024-09-25 12:50 | XMS_ITS | Encounter Summary ---
Author Organization [facility] Address [address] [place] [address] Phone Care Team Providers Care Branch Associate Name Role Phone WiseMeeta mack PORSCHE Primary Care Provider Encounter Details Date Type Department Care Team (Late st Contact Info) Description 08/25/2024 Office Communication [facility] [address] [place] [address] Andressa Crowder [place] [address] [place] [phone] Social History Tobacco Use Types Packs/Day Years Used Date Smoking Tobacco: Never Smokeless Tobacco: Never Comments Unknown Sex and Gender Information Value Date Recorded Sex Assigned at Not on file Legal Sex Female 11:12 AM EDT Gender Identity Not on file Sexual Orientation Not on file documented as of this encounter Miscellaneous Notes * Telephone Encounter - Vanessa Cifuentes MA - 08/26/2024 3:02 PM EST She is all set * Telephone Encounter - Andressa Crowder MA - 08/25/2024 1:42 PM EST Would you please call [facility] with the following information regarding the biopsy that Dr. Lopez asked me to schedule: Please arrive to the Daily building at [facility] for 9:30am for 11am procedure, Needs to be NPO after midnight except for water until 8am, please take your morning medications with water prior to 8am,please have a ride to drop off and parts picker once can go home, Please have labs done through [facility] the week before the biopsy. Also please ask if she takes any blood thinners, I do not see that she takes any according to her chart but please verify documented in this encounter Plan of Treatment Upcoming Encounters Date Type Department Care Team (Late st Contact Info) Description 12/10/2024 4:00 PM EDT Office Visit [facility] [place], [address] [facility] [place] [address] Aretha Vences MD [address] [facility] [place] [phone] documented as of this encounter Visit Diagnoses Not on filedocumented in this encounter Care Teams Branch Associate Relationship Specialty Start Date End Date Meeta Wise FNP [address] [place] [phone] PCP - General Nurse Practitioner 06/15/24 documented as of this encounter
--- OUTSIDE RECORDS SUMMARY | 2024-09-25 12:50 | XMS_ITS | Encounter Summary ---
Author Organization [facility] Address [address] [place] [address] Phone Care Team Providers Care Associate Web Developer Name Role Phone WiseMeeta mack PORSCHE Primary Care Provider Encounter Details Date Type Department Care Team (Late st Contact Info) Description 08/19/2024 Telephone [facility] [place], [address] [place] [address] Eva Vargas [address] [place] [address] Social History Tobacco Use Types Packs/Day Years Used Date Smoking Tobacco: Never Smokeless Tobacco: Never Comments Unknown Sex and Gender Information Value Date Recorded Sex Assigned at Not on file Legal Sex Female 11:12 AM EDT Gender Identity Not on file Sexual Orientation Not on file documented as of this encounter Miscellaneous Notes * Telephone Encounter - Alan Lopez MD - 08/20/2024 4:16 PM EST The only thing I would say is she might appreciate following with Aretha because she speaks bangladeshi and she is very hard of hearing. Might be worth at least giving her the option. Alan * Telephone Encounter - Alan Lopez MD - 08/20/2024 3:03 PM EST I don't have a problem with that, a little bit unfortunate because it is a nice learning case. She has to be seen relatively soon though like in a similar time frame to when she was seeing Aretha. * Telephone Encounter - Sam Eva - 08/19/2024 3:56 PM EST Call from pt requesting to continue care with Dr Cabrera because family members are also seen by Dr Cabrera-- please advise. Thanks! documented in this encounter Plan of Treatment Upcoming Encounters Date Type Department Care Team (Late st Contact Info) Description 12/10/2024 4:00 PM EDT Office Visit [facility] [place], [address] [facility] [place] [phone] Aretha Vences MD [address] [place] [phone] documented as of this encounter Visit Diagnoses Not on filedocumented in this encounter Care Teams Associate Web Developer Relationship Specialty Start Date End Date Meeta Wise FNP [address] [place] [phone] PCP - General Nurse Practitioner 06/15/24 documented as of this encounter
--- OUTSIDE RECORDS SUMMARY | 2024-09-25 12:50 | XMS_ITS | Encounter Summary ---
Author Organization [facility] Address PO [facility] [address] [place] [address] Phone Care Team Providers Care Media Analytics Manager Name Role Phone Meeta Wise Primary Care Provider Encounter Details Date Type Department Care Team (Late st Contact Info) Description 08/13/2024 Documentation Only [facility] Of [address] [place] [phone] Marta Ravi [address] [place] [phone] Social History Tobacco Use Types Packs/Day [...] [facility] [address] [place] [address] Aretha Vences MD [address] [place] [address] [place] [address] documented as of this encounter Visit Diagnoses Not on filedocumented in this encounter Care Teams Media Analytics Manager Relationship Specialty Start Date End Date Meeta Wise FNP [address] [place] [address] PCP - General Nurse Practitioner 06/15/24 documented as of this encounter
--- OUTSIDE RECORDS SUMMARY | 2024-09-25 12:50 | XMS_ITS | Encounter Summary ---
Author Organization [facility] Address PO [facility] [address] [place] [address] Phone Care Team Providers Care Parquet Floor Layer Name Role Phone Meeta Wise Primary Care Provider [phone] Encounter Details Date Type Department Care Team (Late st Contact Info) Description 08/27/2024 Documentation Only [facility] Of [address] [place] [phone] Marta Ravi [address] [place] [phone] Social History Tobacco Use Types Packs/Day [...] Visit [facility] Of [address] [place] [address] Aretha Vences MD [address] [place] [address] [place] [address] documented as of this encounter Visit Diagnoses Not on filedocumented in this encounter Care Teams Parquet Floor Layer Relationship Specialty Start Date End Date Meeta Wise FNP [address] [place] [address] PCP - General Nurse Practitioner 06/15/24 documented as of this encounter
--- OUTSIDE RECORDS SUMMARY | 2024-09-25 12:50 | XMS_ITS | Encounter Summary ---
Author Organization [facility] Address [address] [place] [address] Phone Care Team Providers Care Lawyer Name Role Phone Meeta Wise PORSCHE Primary Care Provider [phone] Encounter Details Date Type Department Care Team (Late st Contact Info) Description 08/26/2024 Office Communication [facility] [address] [place] [address] Kaley Barton [address] [place] [phone] Social History Tobacco Use Types Packs/Day Years Used Date Smoking Tobacco: Never Smokeless Tobacco: Never Comments Unknown Sex and Gender Information Value Date Recorded Sex Assigned at Not on file Legal Sex Female 11:12 AM EDT Gender Identity Not on file Sexual Orientation Not on file documented as of this encounter Miscellaneous Notes * Telephone Encounter - Kaley Barton - 08/26/2024 3:04 PM EST Pt's mom called concerned because Chadwick is retaining fluid in her legs/feet pls call [phone]. She is faroese speaking documented in this encounter Plan of Treatment Upcoming Encounters Date Type Department Care Team (Late st Contact Info) Description 12/10/2024 4:00 PM EDT Office Visit [facility] [address] [place] [address] Aretha Vences MD [address] [facility] [place] [address] documented as of this encounter Visit Diagnoses Not on filedocumented in this encounter Care Teams Lawyer Relationship Specialty Start Date End Date Meeta Wise FNP [address] [place] [address] PCP - General Nurse Practitioner 06/15/24 documented as of this encounter
== END 2024-09-25 13:09 | disposition home or self-care (01) ==
PROVIDERS: PCP Nurse Practitioner Family; Visit Provider Nurse Practitioner Family
DX: I11.0 Hypertensive heart disease with heart failure (principal); I50.32 Chronic diastolic (congestive) heart failure; N18.32 Chronic kidney disease, stage 3b; I43 Cardiomyopathy in diseases classified elsewhere; E66.01 Morbid (severe) obesity due to excess calories; Z68.41 Body mass index [BMI] 40.0-44.9, adult; Z68.42 Body mass index [BMI] 45.0-49.9, adult; E26.1 Secondary hyperaldosteronism; I15.1 Hypertension secondary to other renal disorders; E66.813 Obesity, class 3; Z84.1 Family history of disorders of kidney and ureter; G47.33 Obstructive sleep apnea (adult) (pediatric)

== ENCOUNTER → 2024-09-25 12:22 | Outpatient (BNVA) | payer OTHER, SELFPAY | PROVIDERS: PCP Nurse Practitioner Family; Visit Provider Nurse Practitioner Family | DX: I13.0 Hypertensive heart and chronic kidney disease with heart failure and stage 1 through stage 4 chronic kidney disease, or unspecified chronic kidney disease (principal); N18.32 Chronic kidney disease, stage 3b; I50.32 Chronic diastolic (congestive) heart failure; I43 Cardiomyopathy in diseases classified elsewhere; E66.01 Morbid (severe) obesity due to excess calories; Z68.41 Body mass index [BMI] 40.0-44.9, adult; G47.33 Obstructive sleep apnea (adult) (pediatric); M25.562 Pain in left knee; Z71.3 Dietary counseling and surveillance; Z84.1 Family history of disorders of kidney and ureter | CPT/HCPCS: 96127; 99212 ==

== ENCOUNTER 2024-10-05 12:59 | Outpatient (AMB) | payer OTHER, SELFPAY ==
[2024-10-05 13:05] VITALS: BP 114/62; PULSE 66; BMI 45.6
--- NOTE | 2024-10-05 13:05 | A.OFFVIS_ITS ---
Vital Signs 10/05/24 13:05 Height 5 ft 5 in Weight 274 lb 4.081 oz BMI 45.6 BP 114/62 Blood Pressure Location Lt brachial Position Sitting Pulse 66 Intake Visit Reasons: SENIOR MEDICAL TRANSCRIPTIONIST/Heart failure/Wise Ase Master Mechanic Required: Yes Ase Master Mechanic Services: Ase Master Mechanic Present Ase Master Mechanic Name: [id number] Accompanied by: Spouse Allergies No Known Allergies Allergy (Verified 09/25/24 12:56) Medication List - Last Reconciled 10/05/24 by Neri Overton MD albuterol sulfate 90 mcg/actuation 2 puffs inhalation Q6H PRN amlodipine 10 mg PO DAILY carvedilol 25 mg PO BID 90 days empagliflozin 10 mg PO QAM furosemide 20 mg PO DAILY indapamide 1.25 mg PO QAM lidocaine 5% 1 appl topical TID PRN lisinopril 20 mg PO DAILY HPI Comments Details: Chadwick is here for consultation regarding congestive heart failure. She has a history of chronic kidney disease. In 2023, she was admitted to [facility] for hypertensive urgency and blood pressures were apparently in the 200s. Then she was put on multiple antihypertensives and discharged home. At that time, thought to be in congestive heart failure. Echocardiogram had shown LVEF in the 40s. Moderate diastolic dysfunction. Patient states that she has never seen a vp cardiovascular before. She is not aware of any cardiac issues previously. She states that her blood pressure goes up to high she gets some chest pain but otherwise okay. She herself denies any shortness of breath but according to her family members have seen her breathing abnormally at times. There is also family history of kidney transplant in her sister. [facility] Medical History Seasonal asthma Hypertension Surgical History No pertinent past surgical history Family History (Updated 10/05/24 @ 13:22 by Neri Overton MD) Mother Hypertension Father Hypertension Diabetes Cancer Sister Kidney transplant recipient Social History (Updated 10/05/24 @ 13:11 by Laurita Pardo CMA) Household Members: Family and Children Both parents involved: No Caregiver staying overnight: No Housing: House Are you a primary care professionals to a significant other at home: Yes Do you presently have visiting nurse or other home services: No 75 years or older and lives alone: No Alcohol intake: current Alcohol intake frequency: a few times a month Patient Tobacco Use Status: Former Tobacco user e-Cigarette/Vaping Use: Never Used service: No Current occupational status: employed Current occupation: [employer] Cognitive needs: No Hearing needs: Yes Vision needs: No Review of Systems Const Denies chills, Denies daytime sleepiness, Denies fatigue, Denies fever(s), Denies poor appetite, Denies snoring, Denies stops breathing during sleep, Denies weakness, Denies weight gain and Denies weight loss Eyes Denies loss of vision ENT Denies dizziness and Denies hearing loss Card Denies chest pain, Denies irregular heart rhythm, Denies claudication, Denies leg edema, Denies lightheadedness, Denies palpitations, Denies dyspnea on exertion and Denies orthopnea Resp Denies cough, Denies excessive phlegm production, Denies dyspnea on exertion, Denies snoring and Denies wheezing GI Denies abdominal pain, Denies hematochezia, Denies change in bowel habits, Denies nausea and Denies vomiting Denies urinary frequency and Denies dysuria Musc Denies arthralgias, Denies muscle weakness, Denies numbness and Denies other Skin/Breast Denies nail changes and Denies rash Neuro Denies Abnormal speech present, Denies dizziness, Denies loss of vision, Denies memory loss, Denies numbness and Denies weakness Psych Denies depression and Denies memory loss Endo Denies fatigue and Denies palpitations Sivakumar/Lymph Denies easy bruising Aller/Immun Denies wheezing Physical Exam Vital Signs: Last Vital Signs Pulse 66 10/05/24 13:05 BP 114/62 10/05/24 13:05 BMI result Body Mass Index 45.6 Const General: comfortable and no acute distress Orientation/consciousness: patient oriented x3 HEENT Other: Unremarkable Head: Yes normal to inspection Neck Neck: Yes normal visual inspection Chest Chest palpation & inspection: normal inspection of the chest Resp Auscultation: clear to auscultation bilaterally Cardio Palpation: normal PMI Heart sounds: S1 normal heart sound present, S2 normal heart sound present, no gallops, no murmurs and no rubs GI Palpation (GI): Soft to palpation Back/Spine/Pelvis Other: unremarkable Skin General skin exam: no rashes or lesions noted Neuro General: patient oriented x3 Speech: No Abnormal speech present Extrem General: Yes normal to inspection Psych Mental Status: mental status grossly normal Office Procedures EKG Details: EKG with underlying sinus rhythm at 66/Min; downsloping STs in the anterolateral/lateral leads; [place]. [address]-[id number], Complete Assessment & Plan Assessment & Plan (1) Hypertensive cardiomyopathy: Code(s): I11.9 - Hypertensive heart disease without heart failure; I43 - Cardiomyopathy in diseases classified elsewhere Category: Medical Qualifiers: Heart failure presence: with heart failure Qualified Code(s): I11.0 - Hypertensive heart disease with heart failure; I43 - Cardiomyopathy in diseases classified elsewhere (2) CHF (congestive heart failure): Code(s): I50.9 - Heart failure, unspecified Category: Medical Qualifiers: Heart failure type: diastolic Heart failure chronicity: chronic Qualified Code(s): I50.32 - Chronic diastolic (congestive) heart failure (3) Hypertension: Code(s): I10 - Essential (primary) hypertension Category: Medical Qualifiers: Hypertension type: secondary to other renal disorders Qualified Code(s): I15.1 - Hypertension secondary to other renal disorders (4) CKD (chronic kidney disease) stage 3, GFR 30-59 ml/min: Code(s): N18.30 - Chronic kidney disease, stage 3 unspecified Category: Medical Qualifiers: Chronic kidney disease stage 3 subtype: stage 3b (GFR 30-44) Qualified Code(s): N18.32 - Chronic kidney disease, stage 3b Plan Echocardiogram at [facility] 2023-LVEF 40-45%. Global hypokinesis. Anterola teral/lateral/inferolateral hypokinesis also described. Moderate diastolic dysfunction. Ztlz-dw-ipzcbdeb left atrial dilatation. Trivial circumferential pericardial effusion. Findings in the echocardiogram suggest chronicity to hypertension. Today's blood pressure seems much improved. We will repeat her echocardiogram to see if there is any normalization of cardiac function. Based on the findings, we will decide if there is a need for stress myocardial perfusion imaging as well. Otherwise, no med changes at this time. We will follow her after the echocardiogram. Discussed with significant other. Orders: Orders CA echo transthoracic complete Today I42.9 - Cardiomyopathy, unspecified Coding Level of Care Code New Pt Level 4 (94195) Diagnoses Cardiomyopathy due to hypertension, with heart failure I11.0; I43 Heart failure presence: with heart failure Chronic diastolic congestive heart failure I50.32 Heart failure type: diastolic Heart failure chronicity: chronic Hypertension secondary to other renal disorders I15.1 Hypertension type: secondary to other renal disorders Stage 3b chronic kidney disease N18.32 Chronic kidney disease stage 3 subtype: stage 3b (GFR 30-44) CPT Codes EKG - CPT: 26856-[id number], Complete ([id number])
--- OUTSIDE RECORDS SUMMARY | 2024-10-05 14:43 | XMS_ITS | Encounter Summary ---
Author Organization [facility] Address PO [facility] [address] [place] [address] Phone Care Team Providers Care Music Therapist [employer] Name Role Phone Meeta Wise Primary Care Provider Encounter Details Date Type Department Care Team (Late st Contact Info) Description 08/11/2024 Documentation Only [facility] Of [address] [place] [phone] Marta Ravi [address] [place] [phone] Social History Tobacco Use Types Packs/Day [...] Visit [facility] Of [address] [place] [address] Aretha Vences MD [address] [place] [address] [place] [address] documented as of this encounter Visit Diagnoses Not on filedocumented in this encounter Care Teams Music Therapist [employer] Relationship Specialty Start Date End Date Meeta Wise FNP [address] [place] [address] PCP - General Nurse Practitioner 06/15/24 documented as of this encounter
--- OUTSIDE RECORDS SUMMARY | 2024-10-05 14:43 | XMS_ITS | Encounter Summary ---
Author Organization [facility] Address PO [facility] [address] [place] [address] Phone Care Team Providers Care Wet Washer Machine Name Role Phone Meeta Wise Primary Care Provider Encounter Details Date Type Department Care Team (Late st Contact Info) Description 08/11/2024 Documentation Only [facility] [address] [place] [phone] Marta Ravi [address] [place] [phone] Social History Tobacco Use Types Packs/Day [...] Visit [facility] [address] [place] [address] Aretha Vences MD [address] [place] [address] [place] [address] documented as of this encounter Visit Diagnoses Not on filedocumented in this encounter Care Teams Wet Washer Machine Relationship Specialty Start Date End Date Meeta Wise FNP [address] [place] [address] PCP - General Nurse Practitioner 06/15/24 documented as of this encounter
--- OUTSIDE RECORDS SUMMARY | 2024-10-05 14:43 | XMS_ITS | Encounter Summary ---
Author Organization [facility] Address PO [facility] [address] [place] [address] Phone Care Team Providers Care Furniture Mover Helper Name Role Phone Meeta Wise Primary Care Provider [phone] Encounter Details Date Type Department Care Team (Late st Contact Info) Description 08/11/2024 Documentation Only [facility] [address] [place] [phone] Marta Ravi [address] [place] [phone] Social History Tobacco Use Types Packs/Day [...] Visit [facility] [address] [place] [address] Aretha Vences MD [address] [place] [address] [place] [address] documented as of this encounter Visit Diagnoses Not on filedocumented in this encounter Care Teams Furniture Mover Helper Relationship Specialty Start Date End Date Meeta Wise FNP [address] [place] [address] PCP - General Nurse Practitioner 06/15/24 documented as of this encounter
--- OUTSIDE RECORDS SUMMARY | 2024-10-05 14:44 | XMS_ITS | Encounter Summary ---
Author Organization [facility] Address PO [facility] [address] [place] [address] Phone Care Team Providers Care Computer Processing Scheduler Name Role Phone Meeta Wise Primary Care Provider Encounter Details Date Type Department Care Team (Late st Contact Info) Description 08/27/2024 Documentation Only [facility] [address] [place] [phone] Marta Ravi [address] [place] [phone] Social History Tobacco Use Types Packs/Day [...] Visit [facility] [address] [place] [address] Aretha Vences MD [address] [place] [address] [place] [address] documented as of this encounter Visit Diagnoses Not on filedocumented in this encounter Care Teams Computer Processing Scheduler Relationship Specialty Start Date End Date Meeta Wise FNP [address] [place] [address] PCP - General Nurse Practitioner 06/15/24 documented as of this encounter
--- OUTSIDE RECORDS SUMMARY | 2024-10-05 14:44 | XMS_ITS | Encounter Summary ---
Author Organization [facility] Address [address] [place] [address] Care Team Providers Care Telecommunications Equipment Installer Name Role Phone Mariana Nascimento DO Primary Care Pro vider Unavailable Win White MD Primary Care Provider [phone] Encounter Details Date Type Department Care Team Description [facility] Records [address] [place] [address] Abstract, Provider Social History Tobacco Use Types Packs/Day Years Used Date Smoking Tobacco: Former Cigarettes 1 1 Comments:1-2 yrs ago Alcohol Use Standard Drinks/Week Comments No 0 (1 standard drink = 0.6 oz pur e alcohol) Sex Assigned at Date Recorded Not on file Job Start Date Occupation Industry Not on file Not on file Not on file documented as of this encounter Plan of Treatment Not on file documented as of this encounter Visit Diagnoses Not on filedocumented in this encounter Care Teams Telecommunications Equipment Installer Relationship Specialty Start Date End Date Mariana Nascimento DO PCP - General Internal Medicine 11/18/13 09/14/19 Win White MD [address] [place] [address] PCP - General Internal Medicine 09/15/19 documented as of this encounter
--- OUTSIDE RECORDS SUMMARY | 2024-10-05 14:44 | XMS_ITS | Encounter Summary ---
Author Organization [facility] Address [address] [place] [address] Care Team Providers Care Retail Service Technician Name Role Phone Mariana Nascimento DO Primary Care Pro vider Unavailable Win White MD Primary Care Provider [phone] Encounter Details Date Type Department Care Team Description 12/29/2014 Referral Management Liaison Report Medical Records [address] [place] [address] Amor Rodriguez Social History Tobacco Use Types Packs/Day Years [...] on filedocumented in this encounter Care Teams Retail Service Technician Relationship Specialty Start Date End Date Mariana Nascimento DO PCP - General Internal Medicine 11/18/13 09/14/19 Win White MD [address] [place] [address] PCP - General Internal Medicine 09/15/19 documented as of this encounter
--- OUTSIDE RECORDS SUMMARY | 2024-10-05 14:44 | XMS_ITS | Encounter Summary ---
Author Organization [facility] Address [address] [place] [address] Care Team Providers Care Freight Hustler Name Role Phone Mariana Nascimento DO Primary Care Pro vider Win Qureshi MD Primary Care Provider [phone] Reason for Visit * Reason Onset Date Comments TEST RESULTS 08/19/2018 Encounter Details Date Type Department Care Team Description 08/19/2018 Telephone Adult Medicine [address] [address] Mariana Nascimento DO TEST RESULTS Social History Tobacco Use Types Packs/Day Years Used Date Smoking Tobacco: Former Cigarettes 1 1 Smokeless Tobacco: Former Comments:1-2 yrs ago Alcohol Use Standard Drinks/Week Comments Yes 0 (1 standard drink = 0.6 oz pur e alcohol) socially Sex Assigned at Date Recorded Not on file Job Start Date Occupation Industry Not on file Not on file Not on file documented as of this encounter Miscellaneous Notes * Telephone Encounter - Amaris Steinberg M.A. - 08/19/2018 9:27 AM EST Left message for pt to c/b. [id number] * Telephone Encounter - Amaris Steinberg M.A. - 08/19/2018 9:27 AM EST ----- Message from Mariana Moses DO sent at 08/18/2018 11:17 PM EST ----- Please call patient regarding results moderate amt protein and blood in urine. Very important to keep appt with nephro (already scheduled) Telephone Information: documented in this encounter Plan of Treatment Not on file documented as of this encounter Visit Diagnoses Not on filedocumented in this encounter Care Teams Freight Hustler Relationship Specialty Start Date End Date Mariana Nascimento DO PCP - General Internal Medicine 11/18/13 09/14/19 Win White MD [address] [place] [address] PCP - General Internal Medicine 09/15/19 documented as of this encounter
--- OUTSIDE RECORDS SUMMARY | 2024-10-05 14:44 | XMS_ITS | Encounter Summary ---
Author Organization [facility] Address PO [facility] [address] [place] [address] Phone Care Team Providers Care Digital Imaging Technician Name Role Phone Meeta Wise Primary Care Provider Encounter Details Date Type Department Care Team (Late st Contact Info) Description 10/02/2024 Documentation Only [facility] [address] [place] [phone] Marta Ravi [address] [place] [phone] Social History Tobacco Use Types Packs/Day [...] Visit [facility] [address] [place] [address] Aretha Vences MD [address] [place] [address] [place] [address] documented as of this encounter Visit Diagnoses Not on filedocumented in this encounter Care Teams Digital Imaging Technician Relationship Specialty Start Date End Date Meeta Wise FNP [address] [place] [address] PCP - General Nurse Practitioner 06/15/24 documented as of this encounter
--- OUTSIDE RECORDS SUMMARY | 2024-10-05 14:44 | XMS_ITS | Encounter Summary ---
Author Organization [facility] Address [address] [place] [address] Care Team Providers Care Cartographic Designer Name Role Phone Mariana Nascimento DO Primary Care Pro vider Win Qureshi MD Primary Care Provider [phone] Reason for Visit * Reason Onset Date Comments immunizations 06/30/2018 Encounter Details Date Type Department Care Team Description 06/30/2018 Telephone Adult Medicine [address] [address] Mariana Nascimento DO immunizations Social History Tobacco Use Types Packs/Day Years [...] encounter Miscellaneous Notes * Telephone Encounter - Niraj Mcdermott M.A. - 06/30/2018 2:14 PM EST Made appointment for 07/09 @ 11:30 [address] [facility]. * Telephone Encounter - Freda Arciniega PA-C - 06/30/2018 11:19 AM EST ordered * Telephone Encounter - Lizett Brink M.A. - 06/30/2018 10:52 AM EST Last ov with Freda 05/2018 pt asking for an order for ppd testing * Telephone Encounter - Yaquelin Hardy - 06/30/2018 10:50 AM EST Payor: [employer] / Plan: [employer] / Product Type: MEDICAID RISK Patient is requesting a list of their previous immunizations YES Does the patient have an immunization form to be completed? NO Is the patient requesting immunizations to be administered? YES If yes, which immunizations are needed? testing for tuberculosis Is the patient traveling to a foreign country: NO If traveling: Which country: Date patient is leaving: documented in this encounter Plan of Treatment Not on file documented as of this encounter Results * TB INTRADERMAL TEST (07/09/2018 11:42 AM EST) PPD Induration (PPD) NEG (0mm) 07/09/2018 11:4 2 AM EST Freda Arciniega PA-C LAB documented in this encounter Visit Diagnoses Diagnosis Screening examination for pulmonary tuberculosis- Primary documented in this encounter Care Teams Cartographic Designer Relationship Specialty Start Date End Date Mariana Nascimento DO PCP - General Internal Medicine 11/18/13 09/14/19 Win White MD [address] [place] [address] PCP - General Internal Medicine 09/15/19 documented as of this encounter
--- OUTSIDE RECORDS SUMMARY | 2024-10-05 14:44 | XMS_ITS | Encounter Summary ---
Author Organization [facility] Address PO [facility] [address] [place] [address] Phone Care Team Providers Care Mri Technologist Name Role Phone Meeta Wise Primary Care Provider Encounter Details Date Type Department Care Team (Late st Contact Info) Description 08/13/2024 Documentation Only [facility] [address] [place] [phone] Marta Ravi [address] [place] [phone] Social History Tobacco Use Types Packs/Day [...] [facility] [address] [place] [address] Aretha Vences MD [address] [place] [address] [place] [address] documented as of this encounter Visit Diagnoses Not on filedocumented in this encounter Care Teams Mri Technologist Relationship Specialty Start Date End Date Meeta Wise FNP [address] [place] [address] PCP - General Nurse Practitioner 06/15/24 documented as of this encounter
--- OUTSIDE RECORDS SUMMARY | 2024-10-05 14:44 | XMS_ITS | Encounter Summary ---
Author Organization [facility] Address [address] [place] [address] Care Team Providers Care Attendant Sales Name Role Phone Mariana Nascimento DO Primary Care Pro vider Win Qureshi MD Primary Care Provider [phone] Reason for Visit * Reason Onset Date Comments REFERRAL 09/10/2014 Encounter Details Date Type Department Care Team Description 09/10/2014 Telephone Adult Medicine [address] [address] Mariana Nascimento DO REFERRAL Social History Tobacco Use Types Packs/Day Years [...] encounter Miscellaneous Notes * Telephone Encounter - Mariana Moses DO - 09/12/2014 7:17 PM EST Referral placed * Telephone Encounter - Kenisha Ro - 09/10/2014 1:13 PM EST Patient asking to be referred to a weight management team to lose weight, Please call documented in this encounter Plan of Treatment Not on file documented as of this encounter Visit Diagnoses Not on filedocumented in this encounter Care Teams Attendant Sales Relationship Specialty Start Date End Date Mariana Nascimento DO PCP - General Internal Medicine 11/18/13 09/14/19 Win White MD [address] [place] [address] PCP - General Internal Medicine 09/15/19 documented as of this encounter
--- OUTSIDE RECORDS SUMMARY | 2024-10-05 14:44 | XMS_ITS | Encounter Summary ---
Author Organization [facility] Address [address] [place] [address] Care Team Providers Care Top Polisher Name Role Phone Mariana Nascimento DO Primary Care Pro vider Unavailable Win White MD Primary Care Provider [phone] Reason for Referral * Specialist (Routine) - Authorized/Booked Specialty Diagnoses / Procedures Referred By Miguel cruz Referred To Contact COMPREHENSIVE WEIGHT MANAGEMENT / WEIGHT MANAGEMENT Procedures REFERRAL TO WEIGHT MANAGEMENT CLINIC Mariana Nascimento DO [address] [place] [address] External Weight Referral ID Status Reason Start Date Expiration Date V isits Requested Visits Authorized SEE REVIEW 09/14/14 Authorized/ Booked 09/12/2014 12/10/2014 1 1 Encounter Details Date Type Department Care Team Description 09/12/2014 Orders Only Adult Medicine [address] [address] Mariana Nascimento DO Social History Tobacco Use Types Packs/Day Years [...] on filedocumented in this encounter Care Teams Top Polisher Relationship Specialty Start Date End Date Mariana Nascimento DO PCP - General Internal Medicine 11/18/13 09/14/19 Win White MD [address] [place] [address] PCP - General Internal Medicine 09/15/19 documented as of this encounter
--- OUTSIDE RECORDS SUMMARY | 2024-10-05 14:44 | XMS_ITS | Encounter Summary ---
Author Organization [facility] Address PO [facility] [address] [place] [address] Phone Care Team Providers Care Restaurant Shift Supervisor Name Role Phone Meeta Wise Primary Care Provider [phone] Encounter Details Date Type Department Care Team (Late st Contact Info) Description 09/24/2024 Documentation Only [facility] [address] [place] [phone] Marta Ravi [address] [place] [phone] Social History Tobacco Use Types Packs/Day [...] Visit [facility] [address] [place] [address] Aretha Vences MD [address] [place] [address] [place] [address] documented as of this encounter Visit Diagnoses Not on filedocumented in this encounter Care Teams Restaurant Shift Supervisor Relationship Specialty Start Date End Date Meeta Wise FNP [address] [place] [address] PCP - General Nurse Practitioner 06/15/24 documented as of this encounter
--- OUTSIDE RECORDS SUMMARY | 2024-10-05 14:44 | XMS_ITS | Encounter Summary ---
Author Organization [facility] Address [address] [place] [address] Care Team Providers Care Sba Underwriter Name Role Phone Mariana Nascimento DO Primary Care Pro vider Win Qureshi MD Primary Care Provider [phone] Reason for Visit * Reason Onset Date Comments APPOINTMENT 01/11/2014 Encounter Details Date Type Department Care Team Description 01/11/2014 Telephone Adult Medicine [address] [address] Mariana Nascimento DO APPOINTMENT Social History Tobacco Use Types Packs/Day Years [...] encounter Miscellaneous Notes * Telephone Encounter - Lizett Brink M.A. - 01/11/2014 12:38 PM EDT FYI pt no-showed for appt with chiro today documented in this encounter Plan of Treatment Not on file documented as of this encounter Visit Diagnoses Not on filedocumented in this encounter Care Teams Sba Underwriter Relationship Specialty Start Date End Date Mariana Nascimento DO PCP - General Internal Medicine 11/18/13 09/14/19 Win White MD [address] [place] [address] PCP - General Internal Medicine 09/15/19 documented as of this encounter
--- OUTSIDE RECORDS SUMMARY | 2024-10-05 14:44 | XMS_ITS | Encounter Summary ---
Author Organization [facility] Address [address] [place] [address] Care Team Providers Care Embedded Linux Developer Name Role Phone Mariana Nascimento DO Primary Care Pro vider Unavailable Win White MD Primary Care Provider [phone] Encounter Details Date Type Department Care Team Description 06/05/2016 [facility] Medical Records [address] [place] [address] Social History Tobacco Use Types Packs/Day Years Used Date Smoking Tobacco: Former Cigarettes 1 1 Q uit: 2013 Smokeless Tobacco: Former Comments:1-2 yrs ago Alcohol [...] on filedocumented in this encounter Care Teams Embedded Linux Developer Relationship Specialty Start Date End Date Mariana Nascimento DO PCP - General Internal Medicine 11/18/13 09/14/19 Win White MD [address] [place] [address] PCP - General Internal Medicine 09/15/19 documented as of this encounter
--- OUTSIDE RECORDS SUMMARY | 2024-10-05 14:44 | XMS_ITS | Clinical Summary ---
Author Organization [facility] Address [address] [place] [address] [place] [address] Phone Care Team Providers Care Cs Associate Name Role Phone WiseMeeta mack PORSCHE [...] Encounters Date Type Department Care Team Description 10/02/2024 Documentation Only [facility] [address] [place] [address] Trav, Marta 10/02/2024 Documentation Only [facility] [address] [place] [address] Trav, Marta 09/30/2024 Documentation Only [facility] [address] [place] [address] Alan Lopez MD 09/24/2024 4:30 PM EST Office Visit [facility] [address] [place] [address] Aretha Vences MD Stage 3b chronic kidney disease (HCC) (Primary Dx) 09/24/2024 Documentation Only [facility] [address] [place] [address] Trav, Marta 09/24/2024 Documentation Only [facility] [address] [place] [address] Trav, Marta 08/27/2024 Documentation Only [facility] [address] [place] [address] Trav, Marta 08/26/2024 Office Communication [facility] [address] [place] [address] Kaley Barton 08/25/2024 Office Communication [facility] [address] [place] [address] Andressa Crowder MA 08/19/2024 Telephone [facility] [address] [facility] [place] [address] Eva Vargas 08/13/2024 3:15 PM EST Office Visit [facility] [address] [place] [address] Alan Lopez MD Chronic kidney disease, stage 4 (severe) (HCC) (Primary Dx) 08/13/2024 Documentation Only [facility] [place], [address] [facility] [place] [address] Trav, Marta 08/11/2024 Documentation Only [facility] [place], [address] [facility] [place] [address] Trav, Marta 08/11/2024 Documentation Only [facility] [place], [address] [facility] [place] [address] Trav, Marta 08/11/2024 Documentation Only [facility] [place], [address] [facility] [place] [address] Trav, Marta 08/11/2024 Documentation Only [facility] [place], [address] [facility] [place] [address] Trav, Marta 08/11/2024 Documentation Only [facility] [place], [address] [facility] [place] [address] Trav, Marta 08/11/2024 Documentation Only [facility] [place], [address] [facility] [place] [address] Tarv, Marta 08/11/2024 Documentation Only [facility] [place], [address] [facility] [address] Trav, Marta 08/11/2024 Documentation Only [facility] [place], [address] [facility] [place] [address] Trav, Marta 08/11/2024 Documentation Only [facility] [place], [address] [facility] [address] Trav, Marta 08/11/2024 Documentation Only [facility] [address] [place] [address] Marta Ravi 07/22/2024 Documentation Only [facility] [address] [place] [address] Andressa Crowder MA from Last 3 Months [...] Visit [facility] [address] [place] [address] Aretha Vences MD [address] [place] [address] [place] [address] Health Maintenance Due Date Last Done Comments [...] Urine 0-5 0 - 5 /hpf [facility] RBC, Urine 3-10(A) 0 - 2 /hpf [facility] Squamous Epithelial, Urine 0-10 0 - 10 /hpf [facility] Casts None seen None seen /lpf [facility] Bacteria, Urine None seen None seen/Few [facility] 08/31/2024 2:36 PM EST 08/31/2024 us Alan Lopez MD LAB MICROBIOLOGY - GENERAL OR DERABLES Final Result Performing Organization Address [facility] Co de Phone Number [facility] [address] [place] [address] * Iron Panel (Fe, TIBC, TSAT) (08/31/2024 2:36 PM EST) TIBC 318 250 - 450 ug/dL [facility] UIBC 271 131 - 425 ug/dL [facility] Iron 47 27 - 159 ug/dL [facility] Iron Saturation (TSat) 15 15 - 55 % [facility] Blood (Blood, Venous) 08/31/2024 2:36 PM EST 08/31/2024 Alan Lopez MD LAB BLOOD ORDERABLES Final Re sult Performing Organization Address [facility] Co de Phone Number [facility] [address] [place] [address] * (ABNORMAL) Protein, Total, Random Urine w/Creatinine (Protein/Creat Ratio) (08/31/2024 2:36 PM EST) Creatinine, Ur 98.1 Not Estab. mg/dL [facility] Protein, Ur 148.7 Not Estab. mg/dL [facility] Urine Protein/Creati nine Ratio 1,516(H) 0 - 200 mg/g creat [facility] Urine (Urine, Clean Catch) 08/31/2024 2:36 PM EST 08/31/2024 us Alan Lopez MD LAB URINE ORDERABLES Final Re sult Performing Organization Address [facility] Co de Phone Number [facility] [address] [place] [address] * (ABNORMAL) Urine Albumin / Creatinine Ratio (08/31/2024 2:36 PM EST) Albumin, Urine 1,050.9 Not Estab. ug/mL [facility] Comment: Results confirmed on dilution. Albumin/Creatin ine Ratio 1,071(H) 0 - 29 mg/g creat [facility] Comment: ? Normal: ?0 - ??29 ? Moderately increased: 30 - 300 ? Severely increased: ? >300 Urine (Urine, Clean Catch) 08/31/2024 2:36 PM EST 08/31/2024 Alan Lopez MD LAB URINE ORDERABLES Final [facility] Performing Organization Address [facility] Co de Phone Number [facility] [address] [place] [address] * (ABNORMAL) Urinalysis with microscopic (08/31/2024 2:36 PM EST) Specific [place], Urine 1.014 1.005 - 1.030 [facility] [phone] pH Urine 6.0 5.0 - 7.5 [facility] [phone] Color, Urine Yellow Yellow [facility] [phone] Appearance Urine Clear Clear [facility] [phone] WBC Esterase Urine Negative Negative [facility] [phone] Protein, Ur 3+(A) Negative/Tra ce [facility] [phone] Glucose, Ur 2+(A) Negative [facility] [phone] Ketones, Urine Negative Negative [facility] [phone] Blood Urine 3+(A) Negative [facility] [phone] Bilirubin Urine Negative Negative [facility] [phone] Urobilinogen Urine 0.2 0.2 - 1.0 mg/dL [facility] [phone] Nitrite, Urine Negative Negative [facility] [phone] Microscopic Examination See below: [facility] Comment:Microscopic was sly cated and was performed. Urine (Urine, Clean Catch) 08/31/2024 2:36 PM EST 08/31/2024 Alan Lopez MD LAB URINE ORDERABLES Final Re sult [facility] [address] [place] [address] * Protime-INR (08/31/2024 2:36 PM EST) INR 0.9 0.9 - 1.2 [facility] Comment: Reference interval is for non-anticoagulated patients. Suggested INR therapeutic range for Vitamin K antagonist therapy: ?? Standard Dose (moderate intensity ?therapeutic range): ? 2.0 - 3.0 ?? Higher intensity therapeutic range ? 2.5 - 3.5 Protime 10.4 9.1 - 12.0 sec [facility] Blood (Blood, Venous) 08/31/2024 2:36 PM EST 08/31/2024 Alan Lopez MD LAB BLOOD ORDERABLES Final Re sult [facility] [address] [place] [address] * CBC and Differential (08/31/2024 2:36 PM EST) WBC 8.9 3.4 - 10.8 x10E3/uL [facility] RBC 4.31 3.77 - 5.28 x10E6/uL [facility] Hemoglobin 12.5 11.1 - 15.9 g/dL [facility] Hematocrit 38.4 34.0 - 46.6 % [facility] MCV 89 79 - 97 fL [facility] MCH 29.0 26.6 - 33.0 pg [facility] MCHC 32.6 31.5 - 35.7 g/dL [facility] RDW 12.3 11.7 - 15.4 % [facility] Platelets 361 150 - 450 x10E3/uL [facility] Neutrophils Relative 59 Not Estab. % [facility] Lymphocytes Relative 30 Not Estab. % [facility] Monocytes 7 Not Estab. % [facility] Eosinophils Relative 3 Not Estab. % [facility] Basophils Relative 1 Not Estab. % [facility] Neutrophils Absolute 5.3 1.4 - 7.0 x10E3/uL [facility] Lymphocytes Absolute 2.7 0.7 - 3.1 x10E3/uL [facility] Monocytes Absolute 0.6 0.1 - 0.9 x10E3/uL [facility] Eosinophils Absolute 0.2 0.0 - 0.4 x10E3/uL [facility] Basophils Absolute 0.1 0.0 - 0.2 x10E3/uL [facility] Immature Granulocytes 0 Not Estab. % [facility] Immature Grans (Absolute) 0.0 0.0 - 0.1 x10E3/uL [facility] Blood (Blood, Venous) 08/31/2024 2:36 PM EST 08/31/2024 us Alan Lopez MD LAB BLOOD ORDERABLES Final Re sult [facility] [address] [place] [address] * hCG, quantitative, (08/31/2024 2:36 PM EST) HCG-B Subunit, Quantitative <1 mIU/mL [facility] Comment: ? Female (Non-) ?0 - ? 5 ?(Postmenopausal) ??0 - ? 8 ? Female () ? Weeks of Gestation ? 3 ?6 - ?71 ? 4 ? 10 - ?? 750 ? 5 ?217 - ??7138 ? 6 ?158 - 81968 ? 7 ? 3697 -339660 ? 8 ?86563 -615957 ? 9 ?74642 -364543 ?10 ?54850 -999261 ?12 ?91720 -342272 ?14 ?50361 - 10440 ?15 ?28854 - 31083 ?16 ? 9040 - 45516 ?17 ? 8175 - 72859 ?18 ? 8099 - 48022 Carlita ECLIA methodology Blood (Blood, Venous) 08/31/2024 2:36 PM EST 08/31/2024 Alan Lopez MD LAB BLOOD ORDERABLES Final Re sult Performing Organization Address City/[facility]/ZIP Co de Phone Number [facility] [address] [place] [address] * Ferritin (08/31/2024 2:36 PM EST) Pathologist [facility] Ferritin 107 15 - 150 ng/mL [facility] Blood (Blood, Venous) 08/31/2024 2:36 PM EST 08/31/2024 Alan Lopez MD LAB BLOOD ORDERABLES Final [facility] Performing Organization Address [facility] de Phone Number [facility] [address] [place] [address] * (ABNORMAL) Renal Function Panel (08/31/2024 2:36 PM EST) Pathologist [facility] Glucose 94 70 - 99 mg/dL [facility] BUN 46(H) 6 - 20 mg/dL [facility] Creatinine 2.00(H) 0.57 - 1.00 mg/dL [facility] eGFR CKD-EPI CR 2020 32(L) >59 mL/min/1.7 3 [facility] BUN/Creatinine Ratio 23 9 - 23 [facility] Sodium 141 134 - 144 mmol/L [facility] Potassium 4.8 3.5 - 5.2 mmol/L [facility] Chloride 104 96 - 106 mmol/L [facility] Bicarbonate (CO2) 21 20 - 29 mmol/L [facility] Calcium 9.7 8.7 - 10.2 mg/dL [facility] Albumin 4.2 3.9 - 4.9 g/dL [facility] Phosphorus 3.9 3.0 - 4.3 mg/dL [facility] Blood (Blood, Venous) 08/31/2024 2:36 PM EST 08/31/2024 us Alan Lopez MD LAB BLOOD ORDERABLES Final Re sult [facility] [address] [place] [address] from Last 3 Months Insurance MEDICAID MEDICAID Care Teams Cs Associate Relationship Specialty Start Date End Date Meeta Wise FNP [address] [place] [address] [id number] PCP - General Nurse Practitioner 06/15/24
--- OUTSIDE RECORDS SUMMARY | 2024-10-05 14:44 | XMS_ITS | Encounter Summary ---
Author Organization [facility] Address [address] [place] [address] Care Team Providers Care Manager Wound Name Role Phone Mariana Nascimento DO Primary Care Pro vider Unavailable Win White MD Primary Care Provider [phone] Encounter Details Date Type Department Care Team Description 06/02/2016 [facility] Medical Records [address] [place] [address] Desilets, Ernesto Buenrostro MD Social History Tobacco Use Types Packs/Day Years Used Date Smoking Tobacco: Former Cigarettes 1 1 Q uit: 2012 Smokeless Tobacco: Former Comments:1-2 yrs ago Alcohol [...] on filedocumented in this encounter Care Teams Manager Wound Relationship Specialty Start Date End Date Mariana Nascimento DO PCP - General Internal Medicine 11/18/13 09/14/19 Win White MD [address] [place] [address] PCP - General Internal Medicine 09/15/19 documented as of this encounter
--- OUTSIDE RECORDS SUMMARY | 2024-10-05 14:44 | XMS_ITS | Clinical Summary ---
[facility] Address [address] [place] [address] Care Team Providers Care Chief Mechanical Engineer Name Role Phone Win White MD Primary Care Provider [phone] Surgical History Surgery Date Site/Laterality Comments CHOLECYSTECTOMY [...] age to complete this topic Care Teams Chief Mechanical Engineer Relationship Specialty Start Date End Date Win White MD PCP - General Internal Medicine 09/15/19
--- OUTSIDE RECORDS SUMMARY | 2024-10-05 14:44 | XMS_ITS | Encounter Summary ---
Author Organization [facility] Address [address] [facility] [address] [place] [address] Phone Care Team Providers Care Studio Artist Name Role Phone Meeta Wise Primary Care Provider [phone] Encounter Details Date Type Department Care Team (Late st Contact Info) Description 09/30/2024 Documentation Only [facility] [address] [place] [address] Alan Lopez MD [address] [place] [address] [place] [address] Social History Tobacco Use Types Packs/Day Years [...] Visit [facility] [address] [place] [address] rAetha Vences MD [address] [facility] [place] [address] documented as of this encounter Visit Diagnoses Not on filedocumented in this encounter Care Teams Studio Artist Relationship Specialty Start Date End Date Meeta Wise FNP [address] [place] [address] PCP - General Nurse Practitioner 06/15/24 documented as of this encounter
--- OUTSIDE RECORDS SUMMARY | 2024-10-05 14:44 | XMS_ITS | Encounter Summary ---
Author Organization [facility] Address PO [facility] [address] [place] [address] Phone Care Team Providers Care Intermission Coordinator Name Role Phone Meeta Wise Primary Care Provider Encounter Details Date Type Department Care Team (Late st Contact Info) Description 10/02/2024 Documentation Only [facility] [address] [place] [address] Marta Ravi [address] [place] [phone] Social History Tobacco Use Types Packs/Day [...] Visit [facility] [address] [place] [address] Aretha Vences MD [address] [place] [address] [place] [address] documented as of this encounter Visit Diagnoses Not on filedocumented in this encounter Care Teams Intermission Coordinator Relationship Specialty Start Date End Date Meeta Wise FNP [address] [place] [address] PCP - General Nurse Practitioner 06/15/24 documented as of this encounter
--- OUTSIDE RECORDS SUMMARY | 2024-10-05 14:44 | XMS_ITS | Encounter Summary ---
Author Organization [facility] Address [address] [facility] [address] [place] [address] Phone Care Team Providers Care Production Engineer Track Name Role Phone Meeta Wise Primary Care Provider Encounter Details Date Type Department Care Team (Late st Contact Info) Description 06/12/2024 Documentation Only [facility] [address] [place] [address] Eva Vargas [address] [place] [phone] Social History Tobacco Use Types Packs/Day [...] Visit [facility] Of [address] [place] [address] Aretha Vences MD [address] [facility] [place] [address] documented as of this encounter Visit Diagnoses Not on filedocumented in this encounter Care Teams Production Engineer Track Relationship Specialty Start Date End Date Meeta Wise FNP [address] [place] [address] PCP - General Nurse Practitioner 06/15/24 documented as of this encounter
--- OUTSIDE RECORDS SUMMARY | 2024-10-05 14:44 | XMS_ITS | Encounter Summary ---
Author Organization [facility] Address [address] [facility] [address] [place] [address] Phone Care Team Providers Care Underwriting Account Representative Name Role Phone Meeta Wise Primary Care Provider [phone] Encounter Details Date Type Department Care Team (Late st Contact Info) Description 08/11/2024 Documentation Only [facility] [address] [place] [address] Marta Ravi [address] [place] [phone] Social History Tobacco Use Types Packs/Day [...] [facility] [address] [place] [address] Aretha Vences MD [address] [place] [address] [place] [address] documented as of this encounter Visit Diagnoses Not on filedocumented in this encounter Care Teams Underwriting Account Representative Relationship Specialty Start Date End Date Meeta Wise FNP [address] [place] [address] PCP - General Nurse Practitioner 06/15/24 documented as of this encounter
--- OUTSIDE RECORDS SUMMARY | 2024-10-05 14:44 | XMS_ITS | Encounter Summary ---
Author Organization [facility] Address PO [facility] [address] [place] [address] Phone Care Team Providers Care Belt Back Operator Name Role Phone Meeta Wise Primary Care Provider Encounter Details Date Type Department Care Team (Late st Contact Info) Description 08/11/2024 Documentation Only [facility] [address] [place] [address] Marta Ravi [address] [place] [phone] Social History Tobacco Use Types Packs/Day [...] Visit [facility] [address] [place] [address] Aretha Vences MD [address] [place] [address] [place] [address] documented as of this encounter Visit Diagnoses Not on filedocumented in this encounter Care Teams Belt Back Operator Relationship Specialty Start Date End Date Meeta Wise FNP [address] [place] [address] PCP - General Nurse Practitioner 06/15/24 documented as of this encounter
--- OUTSIDE RECORDS SUMMARY | 2024-10-05 14:44 | XMS_ITS | Encounter Summary ---
Author Organization [facility] Address [address] [place] [address] Care Team Providers Care Supervisor Nuclear Medicine Name Role Phone Mariana Nascimento DO Primary Care Pro vider Unavailable Win White MD Primary Care Provider [phone] Encounter Details Date Type Department Care Team Description 03/22/2015 Release of Information Medical Records [address] [place] [id number] Abstract, Provider Social History Tobacco Use Types [...] on filedocumented in this encounter Care Teams Supervisor Nuclear Medicine Relationship Specialty Start Date End Date Mariana Nascimento DO PCP - General Internal Medicine 11/18/13 09/14/19 Win White MD [address] [place] [address] PCP - General Internal Medicine 09/15/19 documented as of this encounter
--- OUTSIDE RECORDS SUMMARY | 2024-10-05 14:44 | XMS_ITS | Encounter Summary ---
Author Organization [facility] Address [address] [facility] [address] [place] [address] Phone Care Team Providers Care Maintenance Aide Name Role Phone Meeta Wise Primary Care Provider Encounter Details Date Type Department Care Team (Late st Contact Info) Description 08/11/2024 Documentation Only [facility] Of [address] [place] [address] Marta Ravi [address] [place] [phone] Social History Tobacco Use Types Packs/Day [...] Visit [facility] [address] [place] [address] Aertha Vences MD [address] [place] [address] [place] [address] documented as of this encounter Visit Diagnoses Not on filedocumented in this encounter Care Teams Maintenance Aide Relationship Specialty Start Date End Date Meeta Wise FNP [address] [place] [address] PCP - General Nurse Practitioner 06/15/24 documented as of this encounter
--- OUTSIDE RECORDS SUMMARY | 2024-10-05 14:44 | XMS_ITS | Encounter Summary ---
Author Organization [facility] Address [address] [place] [address] Phone Care Team Providers Care Nail Specialist Name Role Phone WiseMeeta mack PORSCHE Primary Care Provider Encounter Details Date Type Department Care Team (Late st Contact Info) Description 08/19/2024 Telephone [facility] [place], [address] [place] [address] Eva Vargas [address] [place] [address] Social History Tobacco Use Types [...] appreciate following with Aretha because she speaks azerbaijani and she is very hard of hearing. [...] Visit [facility] [place], [address] [facility] [place] [address] Aretha Vences MD [address] [place] [address] documented as of this encounter Visit Diagnoses Not on filedocumented in this encounter Care Teams Nail Specialist Relationship Specialty Start Date End Date Meeta Wise FNP [address] [place] [phone] PCP - General Nurse Practitioner 06/15/24 documented as of this encounter
--- OUTSIDE RECORDS SUMMARY | 2024-10-05 14:44 | XMS_ITS | Encounter Summary ---
Author Organization [facility] Address [address] [place] [address] Care Team Providers Care Green Energy Marketing Analyst Name Role Phone Name, Bryant LUNDY Primary Care Provider Unavailabl e Mariana Nascimento DO Primary Care Pro vider Unavailable Win White MD Primary Care Provider [phone] Encounter Details Date Type Department Care Team Description 01/31/2010 Release of Information Medical Records [address] [place] [phone] Abstract, Provider Social History Tobacco Use Types [...] on filedocumented in this encounter Care Teams Green Energy Marketing Analyst Relationship Specialty Start Date End Date Name, MD Bryant PCP - General 11/07/09 11/17/13 Mariana Nascimento DO PCP - General Internal Medicine 11/18/13 09/14/19 Win White MD [address] [place] [address] PCP - General Internal Medicine 09/15/19 documented as of this encounter
--- OUTSIDE RECORDS SUMMARY | 2024-10-05 14:44 | XMS_ITS | Encounter Summary ---
Author Organization [facility] Address [address] [place] [address] Care Team Providers Care Plant Engineering Supervisor Name Role Phone Mariana Nascimento DO Primary Care Pro vider Unavailable Win White MD Primary Care Provider [phone] Encounter Details Date Type Department Care Team Description 05/09/2015 Medicare Nurse Report Medical Records [address] [place] [address] [address] Social History Tobacco Use Types [...] on filedocumented in this encounter Care Teams Plant Engineering Supervisor Relationship Specialty Start Date End Date Mariana Nascimento DO PCP - General Internal Medicine 11/18/13 09/14/19 Win White MD [address] [place] [address] PCP - General Internal Medicine 09/15/19 documented as of this encounter
--- OUTSIDE RECORDS SUMMARY | 2024-10-05 14:44 | XMS_ITS | Encounter Summary ---
Author Organization [facility] Address PO [facility] [address] [place] [address] Phone Care Team Providers Care Trademark Paralegal Name Role Phone Meeta Wise Primary Care Provider [phone] Encounter Details Date Type Department Care Team (Late st Contact Info) Description 07/22/2024 Documentation Only [facility] [address] [place] [phone] VelElizabeth alexandreVilas, [place] [address] [place] [phone] Social History Tobacco Use Types Packs/Day Years [...] Visit [facility] [address] [place] [address] Aretha Vences MD [address] [place] [address] [place] [address] documented as of this encounter Visit Diagnoses Not on filedocumented in this encounter Care Teams Trademark Paralegal Relationship Specialty Start Date End Date Meeta Wise FNP [address] [place] [address] PCP - General Nurse Practitioner 06/15/24 documented as of this encounter
--- OUTSIDE RECORDS SUMMARY | 2024-10-05 14:44 | XMS_ITS | Encounter Summary ---
Author Organization [facility] Address [address] [place] [address] Care Team Providers Care President Of [place] Name Role Phone Win White MD Primary Care Provider [phone] Encounter Details Date Type Department Care Team Description 07/26/2022 Telephone Adult Medicine - [address] [id number] Win White MD [address] [place] [address] Social History Tobacco Use Types Packs/Day Years Used Date Smoking Tobacco: Former Cigarettes 1 1 Q uit: 2013 Smokeless Tobacco: Former Comments:1-2 yrs ago Alcohol Use Standard Drinks/Week Comments Yes 0 (1 standard drink = 0.6 oz pur e alcohol) socially Sex Assigned at Date Recorded Not on file Job Start Date Occupation Industry Not on file Not on file Not on file COVID-19 Exposure Response Date Recorded In the last 10 days, have yo u been in contact with someone who was confirmed or suspected to have Coronavirus/COVID-19? No / Unsure 07/23/2022 10:01 AM EST documented as of this encounter Miscellaneous Notes * Telephone Encounter - Margi Chi M.A. - 07/26/2022 9:10 AM EST Left message to patient to call office back, I am at extension [phone] * Telephone Encounter - Margi Chi M.A. - 07/26/2022 9:10 AM EST ----- Message from Anne Gonzalez NP sent at 07/26/2022 8:19 AM EST ----- Patient not checking MyChart. Please notify as below: Your kidney function is stable but still uncontrolled. ??The most important aspect of this is getting your blood pressure under control. ?? Please contact me with your home BP value in 2 weeks, and keep your appointment in August with hypertension specialty. documented in this encounter Plan of Treatment Not on file documented as of this encounter Visit Diagnoses Not on filedocumented in this encounter Care Teams President Of The [place] Relationship Specialty Start Date End Date Win White MD [address] [place] [address] PCP - General Internal Medicine 09/15/19 documented as of this encounter
--- OUTSIDE RECORDS SUMMARY | 2024-10-05 14:44 | XMS_ITS | Encounter Summary ---
Author Organization [facility] Address [address] [place] [address] Care Team Providers Care Foundry Equipment Mechanic Name Role Phone Mariana Nascimento DO Primary Care Pro vider Win Qureshi MD Primary Care Provider [phone] Reason for Visit * Reason Onset Date Comments APPOINTMENT 01/12/2015 Encounter Details Date Type Department Care Team Description 01/12/2015 Telephone Nephrology - [place] [address] [place] [address] Rj Hinson MD APPOINTMENT Social History Tobacco Use Types Packs/Day [...] Miscellaneous Notes * Telephone Encounter - Lizett Stewart - 01/12/2015 11:16 AM EDT Patient has a referral for: proteinuria and hematuria in 1st trimester Priority: Within 1 week FYI Patient is scheduled to see Dr. Hinson 02/14/15. We attempted to refer patient outside of [facility] for the time frame requested. The referral department states the outside providers are scheduling out much further than we are. Thank You documented in this encounter Plan of Treatment Not on file documented as of this encounter Visit Diagnoses Not on filedocumented in this encounter Care Teams Foundry Equipment Mechanic Relationship Specialty Start Date End Date Mariana Nascimento DO PCP - General Internal Medicine 11/18/13 09/14/19 Win White MD [address] [place] [address] PCP - General Internal Medicine 09/15/19 documented as of this encounter
--- OUTSIDE RECORDS SUMMARY | 2024-10-05 14:44 | XMS_ITS | Encounter Summary ---
Author Organization [facility] Address PO [facility] [address] [place] [address] Phone Care Team Providers Care Labor/Excavator Name Role Phone Meeta Wise PORSCHE Primary Care Provider Encounter Details Date Type Department Care Team (Late st Contact Info) Description 09/24/2024 4:30 PM EST Office Visit [facility] [address] [place] [phone] Aretha Vences MD [address] [place] [address] [place] [phone] Stage 3b chronic kidney disease (HCC) (Primary [...] [facility] [address] [place] [address] Aretha Vences MD [address] [place] [address] [place] [phone] Scheduled Orders Name Type Priority Associated Diagnoses [...] Primary documented in this encounter Care Teams Labor/Excavator Relationship Specialty Start Date End Date Meeta iWse FNP [address] [place] [address] PCP - General Nurse Practitioner 06/15/24 documented as of this encounter
--- OUTSIDE RECORDS SUMMARY | 2024-10-05 14:44 | XMS_ITS | Encounter Summary ---
Author Organization [facility] Address PO [facility] [address] [place] [address] Phone Care Team Providers Care Department Helper Name Role Phone Meeta Wise Primary Care Provider Encounter Details Date Type Department Care Team (Late st Contact Info) Description 08/11/2024 Documentation Only [facility] [address] [place] [phone] Matra Ravi [address] [place] [phone] Social History Tobacco Use Types Packs/Day [...] Visit [facility] [address] [place] [address] Aretha Vences MD [address] [place] [address] [place] [address] documented as of this encounter Visit Diagnoses Not on filedocumented in this encounter Care Teams Department Helper Relationship Specialty Start Date End Date Meeta Wise FNP [address] [place] [address] PCP - General Nurse Practitioner 06/15/24 documented as of this encounter
--- OUTSIDE RECORDS SUMMARY | 2024-10-05 14:44 | XMS_ITS | Encounter Summary ---
Author Organization [facility] Address PO [facility] [address] [place] [address] Phone Care Team Providers Care Hot Stone Setter Name Role Phone Meeta Wise Primary Care Provider Encounter Details Date Type Department Care Team (Late st Contact Info) Description 09/24/2024 Documentation Only [facility] [address] [place] [phone] Marta Ravi [address] [place] [phone] Social History Tobacco Use Types Packs/Day [...] Visit [facility] [address] [place] [address] Aretha Vences MD [address] [place] [address] [place] [address] documented as of this encounter Visit Diagnoses Not on filedocumented in this encounter Care Teams Hot Stone Setter Relationship Specialty Start Date End Date Meeta Wise FNP [address] [place] [address] PCP - General Nurse Practitioner 06/15/24 documented as of this encounter
--- OUTSIDE RECORDS SUMMARY | 2024-10-05 14:44 | XMS_ITS | Encounter Summary ---
Author Organization [facility] Address [address] [place] [address] Care Team Providers Care Firer Glost Kiln Name Role Phone Mariana Nascimento DO Primary Care Pro vider Unavailable Win White MD Primary Care Provider [phone] Encounter Details Date Type Department Care Team Description 08/01/2016 Inside Sales Professional Report Medical Records [address] [place] [address] Bandar Barr MD Social History Tobacco Use Types Packs/Day [...] on filedocumented in this encounter Care Teams Firer Glost Kiln Relationship Specialty Start Date End Date Mariana Nascimento DO PCP - General Internal Medicine 11/18/13 09/14/19 Win White MD [address] [place] [address] PCP - General Internal Medicine 09/15/19 documented as of this encounter
--- OUTSIDE RECORDS SUMMARY | 2024-10-05 14:44 | XMS_ITS | Encounter Summary ---
Author Organization [employer] [facility] Address [address] [place] [address] Care Team Providers Care Transfer Specialist Name Role Phone Mariana Nascimento DO Primary Care Pro vider Unavailable Win White MD Primary Care Provider [phone] Encounter Details Date Type Department Care Team Description 05/22/2016 Gate Attendant Report Medical Records [address] [place] [address] Pamela White Social History Tobacco Use Types Packs/Day Years [...] on filedocumented in this encounter Care Teams Transfer Specialist Relationship Specialty Start Date End Date Mariana Nascimento DO PCP - General Internal Medicine 11/18/13 09/14/19 Win White MD [address] [place] [address] PCP - General Internal Medicine 09/15/19 documented as of this encounter
--- OUTSIDE RECORDS SUMMARY | 2024-10-05 14:44 | XMS_ITS | Encounter Summary ---
Author Organization [facility] Address [address] [place] [address] Care Team Providers Care Engineering Tech Name Role Phone Win White MD Primary Care Provider [phone] Reason for Visit * Reason Comments E-prescribe Rx Request Encounter Details Date Type Department Care Team Description 11/30/2019 Refill Adult Medicine - [place] [address] [place] [address] Alysa Thornton PA-C [address] [facility] [address] [place] [address] E-prescribe Rx Request Social History Tobacco Use Types Packs/Day Years [...] encounter Miscellaneous Notes * Telephone Encounter - Jamila Alexandra - 12/02/2019 1:36 PM EDT [phone] (home) [phone] (work) Left message to call back. Please put to [phone] or re-message to the east * Telephone Encounter - Win White MD - 12/02/2019 12:19 PM EDT Needs up dated blood work * Telephone Encounter - Romana Mistry M.A. - 12/02/2019 9:55 AM EDT Last office visit: 09.28.19 Lab Results Component Value Date NA 141 08/11/2018 K 4.0 08/11/2018 CO2 28.0 08/11/2018 CL 101 08/11/2018 BUN 11 08/11/2018 CREAT 0.8 08/11/2018 CA 9.5 08/11/2018 GFR > 60 08/11/2018 * Telephone Encounter - Nely Erazo - 12/01/2019 11:31 AM EDT Patient would like script to be: E-PRESCRIBED/FAXED TO PHARMACY WHEN WAS THE PATIENT'S LAST APPOINTMENT IN ADULT MEDICINE? 09/28/19 WHEN WAS THE LAST TIME THE PATIENT SAW THEIR PCP? Same as above Does patient have an upcoming appointment? no (THE MEDICATION REQUESTED IS ON THE MED LIST ABOVE) All of the medications requested were on the CURRENT MEDS list Did you check the Pharmacy information above?: YES Patient wants: 30 -day supply Is this a mail order prescription request ? NO If the refill is from a FAXED refill request what is the RX # listed on the fax? N/A Patients current insurance carrier is: Payor: [employer] FFS / Plan: [employer] / Product Type: MEDICAID RISK documented in this encounter Plan of Treatment Not on file documented as of this encounter Results * (ABNORMAL) BASIC METABOLIC PANEL (09/05/2020 11:38 AM EST) GLUCOSE 119(H) 70 - 100 mg/dL 09/05/2020 3:29 PM EST [facility] Comment:Reference range appl icable to fasting specimens only Blood Urea Nitrogen 23 5 - 25 mg/dL 09/05/2020 3:29 PM EST [facility] CREAT 0.96 0.5 - 1.1 mg/dL 09/05/2020 3:29 PM EST [facility] GLOMERULAR FILTRATION RATE > 60 09/05/2020 3:29 PM EST [facility] Comment: If patient is -[place], multiply result by 1.21 Chronic Kidney Disease: < 60 ml/min/1.73 square meters Kidney Failure: < 15 ml/min/1.73 square meters NA 139 135 - 145 mEq/L 09/05/2020 3:29 PM EST [facility] K 4.6 3.5 - 5.5 mmol/L 09/05/2020 3:29 PM EST [facility] CL 106 96 - 110 mmol/L 09/05/2020 3:29 PM EST [facility] CARBON DIOXIDE (CO2) 29 21 - 32 mmol/L 09/05/2020 3:29 PM EST [facility] ANION GAP 4 3 - 11 09/05/2020 3:29 PM EST [facility] CALCIUM 9.3 8.5 - 10.5 mg/dL 09/05/2020 3:29 PM EST [facility] 09/05/2020 11:3 8 AM EST 09/05/2020 11:39 AM EST Win White MD LAB [facility] documented in this encounter Visit Diagnoses Diagnosis Essential hypertension- Primary Unspecified essential hypertension documented in this encounter Care Teams Engineering Tech Relationship Specialty Start Date End Date Win White MD [address] [place] [address] PCP - General Internal Medicine 09/15/19 documented as of this encounter
--- OUTSIDE RECORDS SUMMARY | 2024-10-05 14:44 | XMS_ITS | Encounter Summary ---
Author Organization [facility] Address PO [facility] [address] [place] [address] Phone Care Team Providers Care Material Processor Name Role Phone Meeta Wise Primary Care Provider Encounter Details Date Type Department Care Team (Late st Contact Info) Description 08/11/2024 Documentation Only [facility] [address] [place] [phone] Marta Ravi [address] [place] [phone] Social History Tobacco Use Types Packs/Day [...] Visit [facility] [address] [place] [address] Aretha Vences MD [address] [place] [address] [place] [address] documented as of this encounter Visit Diagnoses Not on filedocumented in this encounter Care Teams Material Processor Relationship Specialty Start Date End Date Meeta Wise FNP [address] [place] [address] PCP - General Nurse Practitioner 06/15/24 documented as of this encounter
--- OUTSIDE RECORDS SUMMARY | 2024-10-05 14:44 | XMS_ITS | Encounter Summary ---
Author Organization [facility] Address PO [facility] [address] [place] [address] Phone Care Team Providers Care Radar Operator Name Role Phone Meeta Wise Primary Care Provider Encounter Details Date Type Department Care Team (Late st Contact Info) Description 08/11/2024 Documentation Only [facility] [address] [place] [phone] Marta Ravi [address] [place] [phone] Social History Tobacco Use Types Packs/Day [...] Visit [facility] [address] [place] [address] Aretha Vences MD [address] [place] [address] [place] [address] documented as of this encounter Visit Diagnoses Not on filedocumented in this encounter Care Teams Radar Operator Relationship Specialty Start Date End Date Meeta Wise FNP [address] [place] [address] PCP - General Nurse Practitioner 06/15/24 documented as of this encounter
--- OUTSIDE RECORDS SUMMARY | 2024-10-05 14:44 | XMS_ITS | Encounter Summary ---
Author Organization [facility] Address PO [facility] [address] [place] [address] Phone Care Team Providers Care Cement And Concrete Plant Worker Name Role Phone Meeta Wise Primary Care Provider [phone] Encounter Details Date Type Department Care Team (Late st Contact Info) Description 08/11/2024 Documentation Only [facility] [address] [place] [phone] Marta Ravi [address] [place] [phone] Social History Tobacco Use Types Packs/Day [...] Visit [facility] [address] [place] [address] Aretha Vences MD [address] [place] [address] [place] [address] documented as of this encounter Visit Diagnoses Not on filedocumented in this encounter Care Teams Cement And Concrete Plant Worker Relationship Specialty Start Date End Date Meeta Wise FNP [address] [place] [address] PCP - General Nurse Practitioner 06/15/24 documented as of this encounter
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
== END 2024-10-05 13:43 | disposition home or self-care (01) ==
PROVIDERS: PCP Nurse Practitioner Family; Visit Provider Internal Medicine
DX: I11.0 Hypertensive heart disease with heart failure (principal); I43 Cardiomyopathy in diseases classified elsewhere; I50.32 Chronic diastolic (congestive) heart failure; I15.1 Hypertension secondary to other renal disorders; N18.32 Chronic kidney disease, stage 3b
CPT/HCPCS: 93010; 99204; G2211

== ENCOUNTER → 2024-10-05 12:59 | Outpatient (BNVA) | payer OTHER, SELFPAY | PROVIDERS: PCP Nurse Practitioner Family; Visit Provider Internal Medicine | DX: I13.0 Hypertensive heart and chronic kidney disease with heart failure and stage 1 through stage 4 chronic kidney disease, or unspecified chronic kidney disease (principal); I50.32 Chronic diastolic (congestive) heart failure; N18.32 Chronic kidney disease, stage 3b; I43 Cardiomyopathy in diseases classified elsewhere; I15.1 Hypertension secondary to other renal disorders; I45.81 Long QT syndrome; R94.31 Abnormal electrocardiogram [ECG] [EKG] | CPT/HCPCS: 93005; 99202 ==

== ENCOUNTER 2024-10-21 12:17 | Outpatient (AMB) | payer OTHER, SELFPAY ==
--- NOTE | 2024-10-21 12:27 | MHC.PC.OV ---
Vital Signs 10/21/24 12:36 Height 5 ft 5 in Weight 278 lb 8 oz BMI 46.3 BP 118/72 Blood Pressure Location Rt brachial Position Sitting Respiration 12 Pulse 72 Pulse Source Pulse Oximeter Temp 97.3 F Temp Source Oral Pulse Oximetry (%) 100 Oxygen Delivery Method Room Air Intake Visit Reasons: 30 close interim fu Sleep study/renal/edema Intake Note: Follow up and she never received a call for the sleep study Training Specialist Required: No Allergies No Known Allergies Allergy (Verified 10/21/24 13:00) Medication List - Last Reconciled 10/21/24 by Meeta Ro, HOME CARE CONSULTANT- albuterol sulfate 90 mcg/actuation 2 puffs inhalation Q6H PRN amlodipine 10 mg PO DAILY carvedilol 25 mg PO BID 90 days empagliflozin 10 mg PO QAM furosemide 20 mg PO DAILY indapamide 1.25 mg PO QAM lidocaine 5% 1 appl topical TID PRN lisinopril 20 mg PO DAILY Tobacco use date assessed: 10/21/24 Dental Screening Dental Screen Date: 10/21/24 Did you have a dental visit in the last 12 months?: Yes Did you have a dental problem in the last 6 months where you did not have access to dental care?: No Was dental information given to patient?: Patient has dentist HPI HPI Comments History of Present Illness Details 39-year-old [place]er Speaking female with LVH, prolonged QT, HTN, CHF pulmonary htn, pericardial effusion, CKD, mild intermittent asthma, obesity, family hx of FSGS, COQUILLE, migraine headsache s/p lap aashish 2015, ERCP with sphincterectomy/papillotomy 05/2016 Renal Duplex: Right renal/aortic ratio elevated otherwise normal US Renal bladder: echogenic kidneys bilat representing chronic medical dz CT of head negative; CTA negative. Echo: Ejection fraction 40-45% with mild global hypokinesis and borderline hypokinesis of anterolateral and inferior lateral carter, grade 2 diastolic dysfunction, severe left ventricular hypertrophy, mild pulmonary hypertension with pulmonary artery systolic pressure of 30-35 trivial pericardial effusion History of Present Illness - The patient is a 39-year-old female presenting with an interim follow-up on chronic conditions. - Ongoing management for heart failure, with recent stable condition assessment by cardiology; repeat echocardiogram requested to evaluate heart function, next appt December. Considering consult with alternate group. Advised to call her insurance and see who takes her insurance, provide me info via portal. - Good control of hypertension noted; no recent adjustments in antihypertensive treatment required. - Previous severe sleep apnea diagnosis; CPAP machine not yet obtained due to pending in lab sleep study titration required. My staff looked into this and a PA is required and will be expedited today. - New complaint of mid low back pain, described more as burning than pain assoc w/ pain in bilat shoulders; started two weeks ago, among muscle tightness and right leg weakness leading to falls x2. - Reports no specific injury precipitating symptoms; discomfort persists across various activities. Using bengay, no relief. Denies chest pain, sob, syncope, loss of function, red flag assoc w/ back pain. Denies n/v, GI upset. Exam: Awake alert accompanied by COQUILLE RRR, 2/6 systolic murmur LS CTAB, dim throughout +1 edema BLE VEGA x 4, nonfocal neuro exam. Pain across transverse midback w/ paraspinal palpation. No spinal tenderness. + Lordosis in this area. Skin is clear. When bilat arms are stretched overhead has pain in shoulder muscles. upper and lower ext neurovasc intact. Discussion Notes We discussed the ongoing management of the patient's chronic conditions, particularly focusing on heart failure and hypertension. I communicated the heart doctor?s desire to repeat the echocardiogram to assess the impact of new medications on the heart?s performance. We addressed the importance of completing the sleep study to manage the severe sleep apnea as it is crucial for her cardiovascular health and arranged for staff to assist in facilitating this step. The patient was instructed to identify a compatible field marketing specialist group with her insurance for continuity of care. I reviewed the new musculoskeletal symptoms, hypothesizing a muscle strain in the back, and prescribed a muscle relaxant and pain medication to help manage the symptoms. Assessment and Plan 1. Heart Failure: The patient?s heart failure is currently stable, but further assessment through an echocardiogram will be conducted, due to recent changes in medication. Care management continues with monitoring and ensuring a specialist aligned with her insurance coverage. 2. Hypertension: Effective hypertension control observed, leading to no changes in the current management regimen. Regular monitoring is necessary to ensure ongoing control. 3. Severe Sleep Apnea: Emphasized the critical completion of a sleep study due to its importance for heart health. Coordinating support for scheduling the test quickly. 4. Back Pain: This appears as a new onset muscular strain requiring pain management and muscle relaxants. Advised careful monitoring and re-evaluation if symptoms persist. I did consider cardiac and pulm as a cause however exam does not suggest this as a cause. Be that as it may, edu pt and on reasons to seek ED level care. 5. Right Leg Weakness: Investigated in conjunction with back symptoms; managed with muscle relaxants and vigilance against falls. Follow-up to assess response to treatment. Patient Instructions - Proceed with obtaining a sleep study to address sleep apnea; Milad Copeland will assist with scheduling. - Report changes or continuous burning pain that compounds or spreads further. - Reach out for a refill before running out of medications to avoid lapses. - Continue monitoring blood pressure regularly and report any abnormal readings or concerns. - For the back and leg symptoms, continue prescribed medications and practice caution in movement to prevent additional falls or strains. RTO 4 weeks for close interim f/u, sooner PRN Consent Consent was obtained verbally from the patient to proceed with the therapeutic plan involving muscle relaxants and analgesics. Discussed that the medication might cause drowsiness and advised carefulness in activities requiring alertness. The patient understood and agreed with the proposed management plan. Patient was informed and verbally consented to the use of an ambient scribe for clinic note documentation during this visit. Total time spent caring for the patient today was 60 minutes. This includes time spent before the visit reviewing the chart, time spent during the visit, and time spent after the visit on documentation, reviewing laboratory results, diagnostic imaging, medications, performing a medically necessary evaluation, counseling on diagnoses, care coordination, ordering appropriate tests, ordering appropriate medications, review of tests performed by other providers, reporting test results with the patient, communication with other healthcare providers. 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 95750 - PHQ-9 Billing: Patient declined-do not bill Source: Developed by Drs. Steve Hogan, Ariella Franco, Marco Antonio Frankel and colleagues, with an educational tonio from [employer]. Thrive Questionnaire Date Thrive assessed: 10/21/24 I am a: Patient What is your living situation today?: I have a steady place to live Within the past 12 months, did the food you bought not last and you didn't have the money to get more?: I choose not to answer this question Within the past 12 months, did you worry whether your food would run out before you got money to buy more?: I choose not to answer this question Do you have trouble paying for medicines?: I choose not to answer this question Do you have trouble getting transportation to medical appointments?: I choose not to answer this question Do you have trouble paying your heating and electricity bill?: I choose not to answer this question Do you have trouble taking care of your child, family member or friend?: I choose not to answer this question Do you have trouble with day-to-day activities such as bathing, preparing meals, shopping, managing finances, etc.?: I choose not to answer this question Are you currently unemployed and looking for a job?: I choose not to answer this question Are you interested in more education?: I choose not to answer this question Please select the resources that you would like help with: None Currently or been in a relationship where the following occur: No concerns reported THRIVE Score: 0 SHERRI-7 AMB Questionnaire SHERRI-7 Date SHERRI - 7 assessed: 10/21/24 Feeling nervous, anxious, or on edge: 0 = Not at all Not being able to stop or control worryin = Not at all Source: Developed by Drs. Steve Hogan, Ariella Franco, Marco Antonio Frankel and colleagues, with an educational tonio from [employer]. Physical exam (Primary Care) Vital Signs: Last Vital Signs Temp 97.3 F 10/21/24 12:36 Pulse 72 10/21/24 12:36 Resp 12 10/21/24 12:36 BP 118/72 10/21/24 12:36 Pulse Ox 100 10/21/24 12:36 Oxygen Delivery Method Room Air 10/21/24 12:36 BMI result Body Mass Index 46.3 Tobacco/Smoking Status: Tobacco use Status Tobacco use date assessed 10/21/24 10/21/24 12:28 Patient Tobacco Use Status Former Tobacco user 10/21/24 12:27 e-Cigarette/Vaping Use Never Used 10/21/24 12:27 Thrive Assessment: Date of Thrive Assessment Date Thrive assessed 10/21/24 10/21/24 12:27 Currently or been in a relationship where the following occur: No concerns reported Coding Level of Care Code Est Pt Level 5 (79120) Complex EM visit Add On G2211 Diagnoses Chronic diastolic congestive heart failure I50.32 Heart failure type: diastolic Heart failure chronicity: chronic Stage 3b chronic kidney disease N18.32 Chronic kidney disease stage 3 subtype: stage 3b (GFR 30-44) Fall, initial encounter W19.XXXA Encounter type: initial encounter Hypertension secondary to other renal disorders I15.1 Hypertension type: secondary to other renal disorders YARELIS (obstructive sleep apnea) G47.33 Radicular low back pain M54.10 Assessment & Plan Assessment & Plan (1) CHF (congestive heart failure): Code(s): I50.9 - Heart failure, unspecified Category: Medical Qualifiers: Heart failure type: diastolic Heart failure chronicity: chronic Qualified Code(s): I50.32 - Chronic diastolic (congestive) heart failure (2) CKD (chronic kidney disease) stage 3, GFR 30-59 ml/min: Code(s): N18.30 - Chronic kidney disease, stage 3 unspecified Category: Medical Qualifiers: Chronic kidney disease stage 3 subtype: stage 3b (GFR 30-44) Qualified Code(s): N18.32 - Chronic kidney disease, stage 3b (3) Fall: Code(s): W19.XXXA - Unspecified fall, initial encounter Category: Medical Qualifiers: Encounter type: initial encounter Qualified Code(s): W19.XXXA - Unspecified fall, initial encounter (4) Hypertension: Code(s): I10 - Essential (primary) hypertension Category: Medical Qualifiers: Hypertension type: secondary to other renal disorders Qualified Code(s): I15.1 - Hypertension secondary to other renal disorders (5) YARELIS (obstructive sleep apnea): Code(s): G47.33 - Obstructive sleep apnea (adult) (pediatric) Category: Medical (6) Radicular low back pain: Comment: affecting right leg Code(s): M54.10 - Radiculopathy, site unspecified Category: Medical Plan . Medications: New tizanidine (Zanaflex) 2 mg (1/2 x 4 mg) PO BID PRN 5 tabs 0RF muscle spasticity 5 days acetaminophen ER 650 mg PO Q8H PRN 90 tabs 0RF pain
[2024-10-21 12:36] VITALS: BP 118/72; PULSE 72; RESP 12; TEMP 36.3; O2SAT 100; BMI 46.3
--- OUTSIDE RECORDS SUMMARY | 2024-10-21 14:18 | XMS_ITS | Encounter Summary ---
Author Organization [facility] Address PO [facility] [address] [place] [address] Phone Care Team Providers Care Chief Specialist Leed Name Role Phone Meeta Wise Primary Care Provider [phone] Encounter Details Date Type Department Care Team (Late st Contact Info) Description 09/24/2024 Documentation Only [facility] [address] [place] [phone] Marta Ravi [address] [place] [phone] Social History Tobacco Use Types Packs/Day [...] [facility] [address] [place] [address] Aretha Vences MD [address] [place] [address] [place] [address] documented as of this encounter Visit Diagnoses Not on filedocumented in this encounter Care Teams Chief Specialist Leed Relationship Specialty Start Date End Date Meeta Wise FNP [address] [place] [address] PCP - General Nurse Practitioner 06/15/24 documented as of this encounter
--- OUTSIDE RECORDS SUMMARY | 2024-10-21 14:18 | XMS_ITS | Encounter Summary ---
Author Organization [facility] Address PO [facility] [address] [place] [address] Phone Care Team Providers Care Doll Repairer Name Role Phone Meeta Wise Primary Care Provider [phone] Encounter Details Date Type Department Care Team (Late st Contact Info) Description 08/11/2024 Documentation Only [facility] [address] [place] [phone] Marta Ravi [address] [place] [phone] Social History Tobacco Use Types Packs/Day [...] [facility] [address] [place] [address] Aretha Vences MD [address] [place] [address] [place] [address] documented as of this encounter Visit Diagnoses Not on filedocumented in this encounter Care Teams Doll Repairer Relationship Specialty Start Date End Date Meeta Wise FNP [address] [place] [address] PCP - General Nurse Practitioner 06/15/24 documented as of this encounter
--- OUTSIDE RECORDS SUMMARY | 2024-10-21 14:18 | XMS_ITS | Encounter Summary ---
Author Organization [facility] Address PO [facility] [address] [place] [address] Phone Care Team Providers Care Etcher Printed Circuit Boards Name Role Phone Meeta Wise Primary Care Provider Encounter Details Date Type Department Care Team (Late st Contact Info) Description 08/11/2024 Documentation Only [facility] [address] [place] [phone] Marta Ravi [address] [place] [phone] Social History Tobacco Use Types Packs/Day [...] [facility] [address] [place] [address] Aretha Vences MD [address] [place] [address] [place] [address] documented as of this encounter Visit Diagnoses Not on filedocumented in this encounter Care Teams Etcher [employer]ed Circuit Boards Relationship Specialty Start Date End Date Meeta Wise FNP [address] [place] [address] PCP - General Nurse Practitioner 06/15/24 documented as of this encounter
--- OUTSIDE RECORDS SUMMARY | 2024-10-21 14:19 | XMS_ITS | Encounter Summary ---
Author Organization [facility] Address PO [facility] [address] [place] [address] Phone Care Team Providers Care Stock Transfer Clerk Name Role Phone Meeta Wise Primary Care Provider Encounter Details Date Type Department Care Team (Late st Contact Info) Description 09/30/2024 Documentation Only [facility] [address] [place] [address] Alan Lopez MD [address] [place] [address] [place] [phone] Social History Tobacco Use Types Packs/Day Years [...] [facility] [address] [place] [address] Aretha Vences MD [address] [facility] [place] [phone] documented as of this encounter Visit Diagnoses Not on filedocumented in this encounter Care Teams Stock Transfer Clerk Relationship Specialty Start Date End Date Meeta Wise FNP [address] [place] [address] PCP - General Nurse Practitioner 06/15/24 documented as of this encounter
--- OUTSIDE RECORDS SUMMARY | 2024-10-21 14:19 | XMS_ITS | Encounter Summary ---
Author Organization [facility] Address [address] [place] [address] Phone Care Team Providers Care Charter Coach Driver Name Role Phone WiseMeeta mack PORSCHE Primary Care Provider Encounter Details Date Type Department Care Team (Late st Contact Info) Description 08/19/2024 Telephone [facility] [place], [address] [place] [address] Eva Vargas [address] [place] [phone] Social History Tobacco Use Types [...] appreciate following with Aretha because she speaks thai and she is very hard of hearing. [...] Visit [facility] [place], [address] [facility] [phone] Aretha Vences MD [address] [place] [phone] documented as of this encounter Visit Diagnoses Not on filedocumented in this encounter Care Teams Charter Coach Driver Relationship Specialty Start Date End Date Meeta Wise FNP [address] [place] [phone] PCP - General Nurse Practitioner 06/15/24 documented as of this encounter
--- OUTSIDE RECORDS SUMMARY | 2024-10-21 14:19 | XMS_ITS | Clinical Summary ---
Author Organization [facility] Address [address] [place] [address] [place] [address] Phone Care Team Providers Care Line Department Supervisor Name Role Phone WiseMeeta mack PORSCHE Primary Care Provider [phone] Medications albuterol HFA (PROVENTIL HFA;VENTOLIN HFA) 108 [...] Encounters Date Type Department Care Team Description 10/06/2024 Documentation Only [facility] [address] [place] [address] Trav, Marta 10/02/2024 Documentation Only [facility] [address] [place] [address] Trav, Marta 10/02/2024 Documentation Only [facility] [address] [place] [address] Trav, Marta 09/30/2024 Documentation Only [facility] [address] [place] [address] Alan Lopez MD 09/24/2024 4:30 PM EST Office Visit [facility] [address] [place] [address] Aretha Vences MD Stage 3b chronic kidney disease (HCC) (Primary Dx) 09/24/2024 Documentation Only [facility] [address] [place] [address] Trav, Marta 09/24/2024 Documentation Only [facility] [address] [place] [address] Trav, Marta 08/27/2024 Documentation Only [facility] [address] [place] [address] Trav, Marta 08/26/2024 Office Communication [facility] [address] [place] [address] Kaley Barton 08/25/2024 Office Communication [facility] [address] [place] [address] Andressa Crowder MA 08/19/2024 Telephone [facility] [address] [place] [address] Eva Vargas 08/13/2024 3:15 PM EST Office Visit [facility] [place], [address] [place] [address] Alan Lopez MD Chronic kidney disease, stage 4 (severe) (HCC) (Primary Dx) 08/13/2024 Documentation Only [facility] [place], [address] [place] [address] Trav, Marta 08/11/2024 Documentation Only [facility], [address] [place] [address] Trav, Marta 08/11/2024 Documentation Only [facility], [address] [place] [address] Trav, Marta 08/11/2024 Documentation Only [facility], [address] [place] [address] Trav, Marta 08/11/2024 Documentation Only [facility], [address] [place] [address] Trav, Marta 08/11/2024 Documentation Only [facility], [address] [place] [address] Trav, Marta 08/11/2024 Documentation Only [facility], [address] [place] [address] Trav, Marta 08/11/2024 Documentation Only [facility], [address] [place] [address] Trav, Marta 08/11/2024 Documentation Only [facility] [place], [address] [place] [address] Trav, Marta 08/11/2024 Documentation Only [facility] [address] [place] [address] Marta Ravi 08/11/2024 Documentation Only [facility] [address] [place] [address] TravMarta from Last 3 Months Immunizations Name Administration [...] Visit [facility] [address] [place] [address] Aretha Vences MD [address] [place] [address] [place] [address] Health Maintenance Due Date Last Done Comments [...] Urine 0-5 0 - 5 /hpf [facility] RBC, Urine 3-10(A) 0 - 2 /hpf [facility] Squamous Epithelial, Urine 0-10 0 - 10 /hpf [facility] Casts None seen None seen /lpf [facility] Bacteria, Urine None seen None seen/Few [facility] 08/31/2024 2:3 6 PM EST 08/31/2024 Alan Lopez MD LAB MICROBIOLOGY - GENERAL OR DERABLES Final Result Performing Organization Address [facility] Co de Phone Number [facility] [address] [place] [address] * Iron Panel (Fe, TIBC, TSAT) (08/31/2024 2:36 PM EST) TIBC 318 250 - 450 ug/dL [facility] UIBC 271 131 - 425 ug/dL [facility] Iron 47 27 - 159 ug/dL [facility] Iron Saturation (TSat) 15 15 - 55 % [facility] Blood (Blood, Venous) 08/31/2024 2:36 PM EST 08/31/2024 Alan Lopez MD LAB BLOOD ORDERABLES Final Re sult Performing Organization Address [facility] Co de Phone Number [facility] [address] [place] [address] * (ABNORMAL) Protein, Total, Random Urine w/Creatinine (Protein/Creat Ratio) (08/31/2024 2:36 PM EST) Creatinine, Ur 98.1 Not Estab. mg/dL [facility] Protein, Ur 148.7 Not Estab. mg/dL [facility] Urine Protein/Creati nine Ratio 1,516(H) 0 - 200 mg/g creat [facility] Urine (Urine, Clean Catch) 08/31/2024 2:36 PM EST 08/31/2024 Alan Lopez MD LAB URINE ORDERABLES Final Re sult Performing Organization Address [facility] de Phone Number [facility] [address] [place] [address] * (ABNORMAL) Urine Albumin / Creatinine Ratio (08/31/2024 2:36 PM EST) Albumin, Urine 1,050.9 Not Estab. ug/mL [facility] Comment: Results confirmed on dilution. Albumin/Creatin ine Ratio 1,071(H) 0 - 29 mg/g creat [facility] Comment: ? Normal: ?0 - ??29 ? Moderately increased: 30 - 300 ? Severely increased: ? >300 Urine (Urine, Clean Catch) 08/31/2024 2:36 PM EST 08/31/2024 Alan Lopez MD LAB URINE ORDERABLES Final [facility] Performing Organization Address [facility] de Phone Number [facility] [address] [place] [address] * (ABNORMAL) Urinalysis with microscopic (08/31/2024 2:36 PM EST) Specific [place], Urine 1.014 1.005 - 1.030 [facility] [phone] pH Urine 6.0 5.0 - 7.5 [facility] [phone] Color, Urine Yellow Yellow [facility] [phone] Appearance Urine Clear Clear [facility] [phone] WBC Esterase Urine Negative Negative [facility] [phone] Protein, Ur 3+(A) Negative/Tra ce [facility] [phone] Glucose, Ur 2+(A) Negative [facility] [phone] Ketones, Urine Negative Negative [facility] [phone] Blood Urine 3+(A) Negative [facility] [phone] Bilirubin Urine Negative Negative [facility] Urobilinogen Urine 0.2 0.2 - 1.0 mg/dL [facility] [phone] 0 Nitrite, Urine Negative Negative [facility] [phone] Microscopic Examination See below: [facility] [phone] Comment:Microscopic was sly cated and was performed. Urine (Urine, Clean Catch) 08/31/2024 2:36 PM EST 08/31/2024 Alan Lopez MD LAB URINE ORDERABLES Final Re sult [facility] [address] [place] [address] * Protime-INR (08/31/2024 2:36 PM EST) INR 0.9 0.9 - 1.2 [facility] Comment: Reference interval is for non-anticoagulated patients. Suggested INR therapeutic range for Vitamin K antagonist therapy: ?? Standard Dose (moderate intensity ?therapeutic range): ? 2.0 - 3.0 ?? Higher intensity therapeutic range ? 2.5 - 3.5 Protime 10.4 9.1 - 12.0 sec [facility] Blood (Blood, Venous) 08/31/2024 2:36 PM EST 08/31/2024 Alan Lopez MD LAB BLOOD ORDERABLES Final Re sult [facility] [address] [place] [address] * CBC and Differential (08/31/2024 2:36 PM EST) WBC 8.9 3.4 - 10.8 x10E3/uL [facility] RBC 4.31 3.77 - 5.28 x10E6/uL [facility] Hemoglobin 12.5 11.1 - 15.9 g/dL [facility] Hematocrit 38.4 34.0 - 46.6 % [facility] MCV 89 79 - 97 fL [facility] MCH 29.0 26.6 - 33.0 pg [facility] MCHC 32.6 31.5 - 35.7 g/dL [facility] RDW 12.3 11.7 - 15.4 % [facility] Platelets 361 150 - 450 x10E3/uL [facility] Neutrophils Relative 59 Not Estab. % [facility] Lymphocytes Relative 30 Not Estab. % [facility] Monocytes 7 Not Estab. % [facility] Eosinophils Relative 3 Not Estab. % [facility] Basophils Relative 1 Not Estab. % [facility] Neutrophils Absolute 5.3 1.4 - 7.0 x10E3/uL [facility] Lymphocytes Absolute 2.7 0.7 - 3.1 x10E3/uL [facility] Monocytes Absolute 0.6 0.1 - 0.9 x10E3/uL [facility] Eosinophils Absolute 0.2 0.0 - 0.4 x10E3/uL [facility] Basophils Absolute 0.1 0.0 - 0.2 x10E3/uL [facility] Immature Granulocytes 0 Not Estab. % [facility] Immature Grans (Absolute) 0.0 0.0 - 0.1 x10E3/uL [facility] Blood (Blood, Venous) 08/31/2024 2:36 PM EST 08/31/2024 us Alan Lopez MD LAB BLOOD ORDERABLES Final Re gayr [facility] [address] [place] [address] * hCG, quantitative, (08/31/2024 2:36 PM EST) HCG-B Subunit, Quantitative <1 mIU/mL [facility] Comment: ? Female (Non-) ?0 - ? 5 ?(Postmenopausal) ??0 - ? 8 ? Female () ? Weeks of Gestation ? 3 ?6 - ?71 ? 4 ? 10 - ?? 750 ? 5 ?217 - ??7138 ? 6 ?158 - 81534 ? 7 ? 3697 -483287 ? 8 ?17286 -096484 ? 9 ?05843 -301625 ?10 ?94533 -864224 ?12 ?71535 -871101 ?14 ?18310 - 51388 ?15 ?52011 - 74262 ?16 ? 9040 - 36759 ?17 ? 8175 - 60919 ?18 ? 8099 - 86486 Carlita ECLIA methodology Blood (Blood, Venous) 08/31/2024 2:36 PM EST 08/31/2024 Alan Lopez MD LAB BLOOD ORDERABLES Final Re sult Performing Organization Address City/[facility]/ZIP Co de Phone Number [facility] [address] [place] [address] * Ferritin (08/31/2024 2:36 PM EST) Ferritin 107 15 - 150 ng/mL [facility] Blood (Blood, Venous) 08/31/2024 2:36 PM EST 08/31/2024 Alan Lopez MD LAB BLOOD ORDERABLES Final [facility] Performing Organization Address [facility] de Phone Number [facility] [address] [place] [address] * (ABNORMAL) Renal Function Panel (08/31/2024 2:36 PM EST) Glucose 94 70 - 99 mg/dL [facility] BUN 46(H) 6 - 20 mg/dL [facility] Creatinine 2.00(H) 0.57 - 1.00 mg/dL [facility] eGFR CKD-EPI CR 2020 32(L) >59 mL/min/1.7 3 [facility] BUN/Creatinine Ratio 23 9 - 23 [facility] Sodium 141 134 - 144 mmol/L [facility] Potassium 4.8 3.5 - 5.2 mmol/L [facility] Chloride 104 96 - 106 mmol/L [facility] Bicarbonate (CO2) 21 20 - 29 mmol/L [facility] Calcium 9.7 8.7 - 10.2 mg/dL [facility] Albumin 4.2 3.9 - 4.9 g/dL [facility] Phosphorus 3.9 3.0 - 4.3 mg/dL [facility] Blood (Blood, Venous) 08/31/2024 2:36 PM EST 08/31/2024 us Alan Lopez MD LAB BLOOD ORDERABLES Final Re sult [facility] [address] [place] [address] from Last 3 Months Insurance MEDICAID MEDICAID Care Teams Line Department Supervisor Relationship Specialty Start Date End Date Meeta Wise FNP [address] [place] [phone] PCP - General Nurse Practitioner 06/15/24
--- OUTSIDE RECORDS SUMMARY | 2024-10-21 14:19 | XMS_ITS | Encounter Summary ---
Author Organization [facility] Address PO [facility] [address] [place] [address] Phone Care Team Providers Care Chain Sales Consultant Name Role Phone Meeta Wise Primary Care Provider Encounter Details Date Type Department Care Team (Late st Contact Info) Description 08/13/2024 Documentation Only [facility] [address] [place] [address] Marta Ravi [address] [place] [phone] Social History Tobacco Use Types Packs/Day [...] Visit [facility] [address] [place] [address] Aretha Vences MD [address] [place] [address] [place] [address] documented as of this encounter Visit Diagnoses Not on filedocumented in this encounter Care Teams Chain Sales Consultant Relationship Specialty Start Date End Date Meeta Wise FNP [address] [place] [address] PCP - General Nurse Practitioner 06/15/24 documented as of this encounter
--- OUTSIDE RECORDS SUMMARY | 2024-10-21 14:19 | XMS_ITS | Encounter Summary ---
Author Organization [facility] Address [address] [place] [address] Phone Care Team Providers Care Action Finisher Name Role Phone Meeta Wise Primary Care Provider Encounter Details Date Type Department Care Team (Late st Contact Info) Description 08/11/2024 Documentation Only [facility] [address] [place] [address] Marta Ravi [address] [place] [phone] Social History Tobacco Use Types Packs/Day [...] Visit [facility] [address] [place] [address] Aretha Vences MD [address] [place] [address] [place] [address] documented as of this encounter Visit Diagnoses Not on filedocumented in this encounter Care Teams Action Finisher Relationship Specialty Start Date End Date Meeta Wise FNP [address] [place] [address] PCP - General Nurse Practitioner 06/15/24 documented as of this encounter
--- OUTSIDE RECORDS SUMMARY | 2024-10-21 14:19 | XMS_ITS | Encounter Summary ---
Author Organization [facility] Address PO [facility] [address] [place] [address] Phone Care Team Providers Care Cafeteria Clerk Name Role Phone Meeta Wise Primary Care Provider [phone] Encounter Details Date Type Department Care Team (Late st Contact Info) Description 08/11/2024 Documentation Only [facility] [address] [place] [address] Marta Ravi [address] [place] [phone] Social History Tobacco Use Types Packs/Day [...] Visit [facility] [address] [place] [address] Aretha Vences MD [address] [place] [address] [place] [address] documented as of this encounter Visit Diagnoses Not on filedocumented in this encounter Care Teams Cafeteria Clerk Relationship Specialty Start Date End Date Meeta Wise FNP [address] [place] [address] PCP - General Nurse Practitioner 06/15/24 documented as of this encounter
--- OUTSIDE RECORDS SUMMARY | 2024-10-21 14:19 | XMS_ITS | Encounter Summary ---
Author Organization [facility] Address PO [facility] [address] [place] [address] Phone Care Team Providers Care Capital Campaign Fundraiser Name Role Phone Meeta Wise Primary Care Provider Encounter Details Date Type Department Care Team (Late st Contact Info) Description 08/27/2024 Documentation Only [facility] [address] [place] [address] Marta Ravi [address] [place] [phone] Social History Tobacco Use Types Packs/Day [...] Visit [facility] [address] [place] [address] Aretha Vences MD [address] [place] [address] [place] [address] documented as of this encounter Visit Diagnoses Not on filedocumented in this encounter Care Teams Capital Campaign Fundraiser Relationship Specialty Start Date End Date Meeta Wise FNP [address] [place] [address] PCP - General Nurse Practitioner 06/15/24 documented as of this encounter
--- OUTSIDE RECORDS SUMMARY | 2024-10-21 14:19 | XMS_ITS | Encounter Summary ---
Author Organization [facility] Address PO [facility] [address] [place] [address] Phone Care Team Providers Care Corporate Development Analyst Name Role Phone Meeta Wise Primary Care Provider Encounter Details Date Type Department Care Team (Late st Contact Info) Description 06/12/2024 Documentation Only [facility] [address] [place] [address] Eva Vargas [address] [place] [phone] Social History Tobacco Use Types Packs/Day [...] Visit [facility] [address] [place] [address] Aretha Vences MD [address] [facility] [place] [address] documented as of this encounter Visit Diagnoses Not on filedocumented in this encounter Care Teams Corporate Development Analyst Relationship Specialty Start Date End Date Meeta Wise FNP [address] [place] [address] PCP - General Nurse Practitioner 06/15/24 documented as of this encounter
--- OUTSIDE RECORDS SUMMARY | 2024-10-21 14:19 | XMS_ITS | Encounter Summary ---
Author Organization [facility] Address [address] [place] [address] Phone Care Team Providers Care Property Staff Accountant Name Role Phone Meeta Wise Primary Care Provider [phone] Encounter Details Date Type Department Care Team (Late st Contact Info) Description 10/06/2024 Documentation Only [facility] [address] [place] [address] Marta Ravi [address] [place] [phone] Social History Tobacco Use Types Packs/Day [...] [facility] [address] [place] [address] Aretha Vences MD [address] [place] [address] [place] [address] documented as of this encounter Visit Diagnoses Not on filedocumented in this encounter Care Teams Property Staff Accountant Relationship Specialty Start Date End Date Meeta Wise FNP [address] [place] [address] PCP - General Nurse Practitioner 06/15/24 documented as of this encounter
--- OUTSIDE RECORDS SUMMARY | 2024-10-21 14:19 | XMS_ITS | Encounter Summary ---
Author Organization [facility] Address PO [facility] [address] [place] [address] Phone Care Team Providers Care Veneer Jointer Name Role Phone Meeta Wise Primary Care Provider Encounter Details Date Type Department Care Team (Late st Contact Info) Description 08/11/2024 Documentation Only [facility] Of [address] [place] [address] Marta Ravi [address] [place] [phone] Social History Tobacco Use Types Packs/Day [...] Visit [facility] [address] [place] [address] Aretha Vences MD [address] [place] [address] [place] [address] documented as of this encounter Visit Diagnoses Not on filedocumented in this encounter Care Teams Veneer Jointer Relationship Specialty Start Date End Date Meeta Wise FNP [address] [place] [address] PCP - General Nurse Practitioner 06/15/24 documented as of this encounter
--- OUTSIDE RECORDS SUMMARY | 2024-10-21 14:19 | XMS_ITS | Encounter Summary ---
Author Organization [facility] Address PO [facility] [address] [place] [address] Phone Care Team Providers Care Developer Trading Systems Name Role Phone Meeta Wise Primary Care Provider [phone] Encounter Details Date Type Department Care Team (Late st Contact Info) Description 08/11/2024 Documentation Only [facility] [address] [place] [address] Marta Ravi [address] [place] [phone] Social History Tobacco Use Types Packs/Day [...] [facility] [address] [place] [address] Aretha Vences MD [address] [place] [address] [place] [address] documented as of this encounter Visit Diagnoses Not on filedocumented in this encounter Care Teams Developer Trading Systems Relationship Specialty Start Date End Date Meeta Wise FNP [address] [place] [address] PCP - General Nurse Practitioner 06/15/24 documented as of this encounter
--- OUTSIDE RECORDS SUMMARY | 2024-10-21 14:19 | XMS_ITS | Encounter Summary ---
Author Organization [facility] Address PO [facility] [address] [place] [address] Phone Care Team Providers Care Clinical Advisor Name Role Phone Meeta Wise Primary Care Provider Encounter Details Date Type Department Care Team (Late st Contact Info) Description 08/11/2024 Documentation Only [facility] Of [address] [place] [address] Marta Ravi [address] [place] [phone] Social History Tobacco Use Types Packs/Day [...] Visit [facility] Of [address] [place] [address] Aretha Vences MD [address] [place] [address] [place] [address] documented as of this encounter Visit Diagnoses Not on filedocumented in this encounter Care Teams Clinical Advisor Relationship Specialty Start Date End Date Meeta Wise FNP [address] [place] [address] PCP - General Nurse Practitioner 06/15/24 documented as of this encounter
--- OUTSIDE RECORDS SUMMARY | 2024-10-21 14:19 | XMS_ITS | Encounter Summary ---
Author Organization [facility] Address [address] [facility] [address] [place] [address] Phone Care Team Providers Care Mold Capper Helper Name Role Phone Meeta Wise Primary Care Provider Encounter Details Date Type Department Care Team (Late st Contact Info) Description 07/22/2024 Documentation Only [facility] [address] [place] [address] [place] [address] [place] [address] Social History Tobacco Use Types Packs/Day Years [...] [facility] [address] [place] [address] Aretha Vences MD [address] [place] [address] [place] [address] documented as of this encounter Visit Diagnoses Not on filedocumented in this encounter Care Teams Mold Capper Helper Relationship Specialty Start Date End Date Meeta Wise FNP [address] [place] [address] PCP - General Nurse Practitioner 06/15/24 documented as of this encounter
--- OUTSIDE RECORDS SUMMARY | 2024-10-21 14:19 | XMS_ITS | Encounter Summary ---
Author Organization [facility] Address PO [facility] [address] [place] [address] Phone Care Team Providers Care Operating Room Surgical Technologist Name Role Phone Meeta Wise Primary Care Provider [phone] Encounter Details Date Type Department Care Team (Late st Contact Info) Description 08/11/2024 Documentation Only [facility] [address] [place] [phone] Marta Ravi [address] [place] [phone] Social History Tobacco Use Types Packs/Day [...] [facility] [address] [place] [address] Aretha Vences MD [address] [place] [address] [place] [address] documented as of this encounter Visit Diagnoses Not on filedocumented in this encounter Care Teams Operating Room Surgical Technologist Relationship Specialty Start Date End Date Meeta Wise FNP [address] [place] [address] PCP - General Nurse Practitioner 06/15/24 documented as of this encounter
--- OUTSIDE RECORDS SUMMARY | 2024-10-21 14:19 | XMS_ITS | Encounter Summary ---
Author Organization [facility] Address [address] [place] [address] Phone Care Team Providers Care Panel Beater Name Role Phone Meeta Wise Primary Care Provider Encounter Details Date Type Department Care Team (Late st Contact Info) Description 09/24/2024 4:30 PM EST Office Visit [facility] [address] [place] [phone] Aretha Vences MD [address] [place] [address] [place] [phone] Stage 3b chronic kidney disease (HCC) (Primary Dx) Social History Tobacco Use Types Packs/Day Years Used Date Smoking Tobacco: Never Smokeless Tobacco: Never Comments Unknown Sex and Gender Information Value Date Recorded Sex Assigned at Not on file Legal Sex Female 11:12 AM EDT Gender Identity Not on file Sexual Orientation Not on file documented as of this encounter Progress Notes * Aretha Vences MD - 09/24/2024 4:30 PM EST PATIENT: Chadwick Hoyt : 1985 ENCOUNTER: 09/24/2024 PCP: Meeta Wise FNP HPI: Chadwick Hoyt is a 38 y.o. year old female with a history of uncontrolled hypertension, HFrEF, CKD stage 3b, hearing loss. With prior admission due to uncontrolled htn and antony on 04/2024. Presentsfor follow post-renal biopsy. Mother (Iris) and sister, present for encounter. Refers feeling well post biopsy, denies hematuria or back pain. Pt with significant family hx of ckd, having one sister that required transplant at [facility] 2ry to FSGS. She has hearing loss and hx of microscopic hematuria. 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 Refers she is running out of her jardiance and lisinopril. Refers well controlled BP at home. Denies any changes in urination, CP, SOB. Lower extremity edema has been stable. Patient Active Problem List Diagnosis Date Noted Chronic kidney disease, stage 4 (severe) (HCC) 08/11/2024 Pulmonary hypertension (HCC) Proteinuria Hypothyroidism Hypertensive urgency Hypertension History of acute kidney injury Heart failure (HCC) Congestive heart failure (HCC) ROS: Constitutional: No fever. Respiratory: No shortness of breath. Cardiovascular: No chest pain. Gastrointestinal: No abdominal pain, nausea or vomiting. Genitourinary: No hematuria. All other systems reviewed and are negative. PAST MEDICAL HISTORY: Patient Active Problem List Diagnosis Date Noted Chronic kidney disease, stage 4 (severe) (HCC) 08/11/2024 Pulmonary hypertension (HCC) Proteinuria Hypothyroidism Hypertensive urgency Hypertension History of acute kidney injury Heart failure (HCC) Congestive heart failure (HCC) PAST SURGICAL HISTORY: Past Surgical History: Procedure Laterality Date ERCP W/ SPHICTEROTOMY LAPAROSCOPIC CHOLECYSTECTOMY SOCIAL HISTORY: Social History Tobacco Use Smoking status: Never Smokeless tobacco: Never Substance Use Topics Alcohol use: Not on file FAMILY HISTORY: Family History Problem Relation Age of Onset Hypertension Mother Hypertension Father Diabetes Father Cancer Father Other (Other) Sister biopsy-proven FSGS and has a renal transplant Hypertension Sister MEDICATIONS: Outpatient Encounter Medications as of 09/24/2024 Medication Sig Dispense Refill albuterol HFA (PROVENTIL HFA;VENTOLIN HFA) 108 (90 Base) MCG/ACT inhaler Inhale 2 puffs in the morning and 2 puffs at noon and 2 puffs in the evening and 2 puffs before bedtime. amLODIPine (NORVASC) 10 MG tablet Take 10 mg by mouth 1 (one) time each day carvedilol (COREG) 25 MG tablet Take 25 mg by mouth in the morning and 25 mg in the evening. Take with meals. Empagliflozin 25 MG tablet Take 25 mg by mouth 1 (one) time each day in the morning 90 tablet 3 hydrALAZINE 50 MG tablet Take 50 mg by mouth in the morning and 50 mg in the evening and 50 mg before bedtime. lisinopril 20 MG tablet Take 1 tablet (20 mg total) by mouth 1 (one) time each day 30 tablet 3 omeprazole (PriLOSEC) [address] capsule Take 40 mg by mouth 1 (one) time each day Do not crush or chew. No facility-administered encounter medications on file as of 09/24/2024. MEDICATION REVIEW: I have reviewed the patient's current medications. ALLERGIES: has no allergies on file. PHYSICAL EXAM: There were no vitals taken for this visit. Constitutional: No apparent distress Cardiovascular: No friction rub. Pulmonary/Chest: No rales. Abdominal: Soft and non-tender. Extremities: +1 Edema LABS: Chemistry Lab Units 08/31/24 1436 05/08/24 0000 05/01/24 0000 CREATININE mg/dL 2.00* -- 1.86* BUN mg/dL 46* 46* 35* POTASSIUM mmol/L 4.8 4.0 4.1 SODIUM mmol/L 141 135* 139 CO2 mmol/L 21 -- -- CHLORIDE mmol/L 104 101.0 101.0 ALBUMIN g/dL 4.2 -- -- EGFRNAFR -- 25 35 WBC AUTO x10E3/uL 8.9 9.3 9.4 HEMATOCRIT % 38.4 34.0* 40.3 HEMOGLOBIN g/dL 12.5 10.8* 13.0 PLATELETS AUTO x10E3/uL 361 -- -- Bone Mineral Lab Units 08/31/24 1436 05/08/24 0000 05/01/24 0000 CALCIUM mg/dL 9.7 8.6* 8.7 PHOSPHORUS mg/dL 3.9 -- -- Urine Lab Units 08/31/24 1436 PROT/CREAT RATIO UR mg/g creat 1,516* ALB MG/G CREAT UR mg/g creat 1,071* No results found for: PROCRERATIO LABORATORY REVIEW: I have reviewed the labs noted above as well as in the chart, in CIS and in Care Everywhere. 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 - Acute tubular injury with chronic interstitial nephritis, with foamy histiocytes. - Focal segmental glomerulosclerosis (favor adaptive). - Global glomerulosclerosis of 60% ot total glomeruli. - Interstitial fibrosis and tubular atrophy, severe. 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 Comment: The renal biopsy demonstrates Thin basement membrane disease (TBMD) with 75% GBM measurements at less than 200 nm with a mean of 180.75 nm ?? 44.6 nm. 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 The differential diagnosis of TBMD includes X-linked or autosomal rec essive Alport syndrome and related hereditary conditions including Emily and Fechtner syndromes (hereditary nephritis, deafness, macrothrombocytopenia or cataract, blue leukocyte inclusions, with mutations in MYH9 and normal expression of Col 4 alpha 3-5 chains), and familial FSGS with heterozygous mutation in collagen 4 alpha 3 (although these lack characteristic GBM changes of ). IgA nephropathy can also present with TBM however the IF studies are negative. The frozen tissue block has been submitted to [facility] for collagen 4 alpha subunit immunofluorescence analysis. Findings will be reported when available. DOCUMENTATION REVIEW: I have reviewed the applicable outside notes located in the chart, in CIS and in Care Everywhere. ASSESSMENT: 1. Stage 3b chronic kidney disease (HCC) Ms. Hoyt presents for CKD stage 3b follow up. With significant family and past medical history pointing to Alport's. Biopsy findings also suggestive of Alports with the thin basement membrane. Genetic testing was sent today and pending collagen staining of biopsy for confirmation. If positive she and family will require genetic counseling. Biopsy also significant for significant fibrosis and sclerosis in the setting of uncontrolled HTN. At the moment BP is acceptable. Plan to cont with lisinopril 20mg POD (which will help in both alports and HTN) along with the rest of her HTN meds. Asked for her to keep a BP log to help optimize medical treatment. Questions were answered and biopsy findings were explained in detail. Electrolytes and acid-base are wnl as well as mineral bone parameters. Volume status is currently controlled with diuretic, no plan on changing medication at the moment. Plan to repeat labs and monitor for stability of CKD. Pend genetic results. Meds are optimized at the moment. RTC in 2 months Aretha Vences MD Orders Placed This Encounter CBC Ferritin Iron Panel (Fe, TIBC, TSAT) Lipid panel Phosphorus PTH, intact Renal function panel Urine Protein / creatinine ratio Vitamin D 25 hydroxy lisinopril 20 MG tablet Empagliflozin 25 MG tablet Cosigned by Alan Lopez MD at 10/08/2024 5:42 PM EST Associated attestation - Alan Lopez MD - 10/08/2024 5:42 PM EST RENAL ATTENDING ADDENDUM: I have seen and evaluated this patient. I have discussed the case and itsmanagement with the resident/team as documented in the resident/team note on the day of service. The details of the case including pertinent labs and clinical findings were confirmed by me. The plan was formulated with the student/resident/fellow/PA/PLANT MAINTENANCE MANAGER as outlined below. documented in this encounter Plan of Treatment Upcoming Encounters Date Type Department Care Team (Late st Contact Info) Description 12/10/2024 4:00 PM EDT Office Visit [facility] [place], [address] [place] [address] Aretha Vences MD [address] [place] [address] Scheduled Orders Name Type Priority Associated Diagnoses [...] Primary documented in this encounter Care Teams Panel Beater Relationship Specialty Start Date End Date Meeta Wise FNP [address] [place] [address] PCP - General Nurse Practitioner 06/15/24 documented as of this encounter
--- OUTSIDE RECORDS SUMMARY | 2024-10-21 14:19 | XMS_ITS | Encounter Summary ---
Author Organization [facility] Address PO [facility] [address] [place] [address] Phone Care Team Providers Care Half Section Ironer Name Role Phone Meeta Wise Primary Care Provider Encounter Details Date Type Department Care Team (Late st Contact Info) Description 10/02/2024 Documentation Only [facility] [address] [place] [phone] Marta Ravi [address] [place] [phone] Social History Tobacco Use Types Packs/Day [...] [facility] [address] [place] [address] Aretha Vences MD [address] [place] [address] [place] [address] documented as of this encounter Visit Diagnoses Not on filedocumented in this encounter Care Teams Half Section Ironer Relationship Specialty Start Date End Date Meeta Wise FNP [address] [place] [address] PCP - General Nurse Practitioner 06/15/24 documented as of this encounter
--- OUTSIDE RECORDS SUMMARY | 2024-10-21 14:19 | XMS_ITS | Encounter Summary ---
Author Organization [facility] Address PO [facility] [address] [place] [address] Phone Care Team Providers Care Street Light Wirer Name Role Phone Meeta Wise Primary Care Provider Encounter Details Date Type Department Care Team (Late st Contact Info) Description 10/02/2024 Documentation Only [facility] [address] [place] [phone] Marta Ravi [address] [place] [phone] Social History Tobacco Use Types Packs/Day [...] Visit [facility] [address] [place] [address] Aretha Vences MD [address] [place] [address] [place] [address] documented as of this encounter Visit Diagnoses Not on filedocumented in this encounter Care Teams Street Light Wirer Relationship Specialty Start Date End Date Meeta Wise FNP [address] [place] [address] PCP - General Nurse Practitioner 06/15/24 documented as of this encounter
--- OUTSIDE RECORDS SUMMARY | 2024-10-21 14:19 | XMS_ITS | Encounter Summary ---
Author Organization [facility] Address PO [facility] [address] [place] [address] Phone Care Team Providers Care Cargo Broker Name Role Phone Meeta Wise Primary Care Provider Encounter Details Date Type Department Care Team (Late st Contact Info) Description 08/11/2024 Documentation Only [facility] [address] [place] [phone] Marta Ravi [address] [place] [phone] Social History Tobacco Use Types Packs/Day [...] Visit [facility] [address] [place] [address] Aretha Vences MD [address] [place] [address] [place] [address] documented as of this encounter Visit Diagnoses Not on filedocumented in this encounter Care Teams Cargo Broker Relationship Specialty Start Date End Date Meeta Wise FNP [address] [place] [address] PCP - General Nurse Practitioner 06/15/24 documented as of this encounter
--- OUTSIDE RECORDS SUMMARY | 2024-10-21 14:19 | XMS_ITS | Encounter Summary ---
Author Organization [facility] Address PO [facility] [address] [place] [address] Phone Care Team Providers Care Model And Dye Person Name Role Phone Meeta Wise Primary Care Provider Encounter Details Date Type Department Care Team (Late st Contact Info) Description 08/11/2024 Documentation Only [facility] [address] [place] [phone] Marta Ravi [address] [place] [phone] Social History Tobacco Use Types Packs/Day [...] Visit [facility] [address] [place] [address] Aretha Vences MD [address] [place] [address] [place] [address] documented as of this encounter Visit Diagnoses Not on filedocumented in this encounter Care Teams Model And Dye Person Relationship Specialty Start Date End Date Meeta Wise FNP [address] [place] [address] PCP - General Nurse Practitioner 06/15/24 documented as of this encounter
--- OUTSIDE RECORDS SUMMARY | 2024-10-21 14:19 | XMS_ITS | Clinical Summary ---
Author Organization [facility] Address [address] [place] [address] Care Team Providers Care Physical Integration Practitioner Name Role Phone Win White MD Primary Care Provider [phone] Surgical History Surgery Date Site/Laterality Comments CHOLECYSTECTOMY [...] 01/02/2021, 12/12/2020 Influenza Vaccine (#1) 2024 06/01/2022 Breast Cancer Screening 09/21/2024 09/21/2022 DTaP,Tdap,and Td Vaccines (3 - Td or [...] on patient's age to complete this topic Procedures Procedure Name Priority Date/Time Associated Diagnosis Comments DIAGNOSTIC MAMMOGRAPHY INCLUDING CAD BILATERAL Routine 09/21/2022 10:58 AM EST Mastodynia from Last 3 Months or Most Recently Relevant to Health Maintenance Results * DIAGNOSTIC MAMMOGRAPHY INCLUDING CAD BILATERAL (09/21/2022 10:58 AM EST) Anatomical Region Laterality Modality Mammography 08/31/2022 11:4 6 AM EST Narrative 09/21/2022 11:27 AM EST This is a summary report. The complete report is available in the patient's medical record. If you cannot access the medical record, please contact the sending organization for a detailed fax or copy. History: Previous history of periareolar discomfort and discoloration which has resolved. Bilateral diagnostic mammography: Bilateral digital mammography was performed using both 2D mammography and tomosynthesis, and reviewed with computer-aided detection. ??The breast tissue is heterogeneously dense, limiting sensitivity. ??There are no suspicious masses or microcalcifications. ??There are no specific findings to account for retro or periareolar discomfort or discoloration. ??No significant asymmetries or distortion are identified. Impression: Negative bilateral diagnostic mammography. BI-RADS Category 1, negative. 5 year breast cancer risk assessment 0.2 % Lifetime breast cancer risk assessment 5.2 % Breast cancer risk category Breast cancer risk not assessed Procedure Note Deandre Lopez MD - 09/17/2023 This is a summary report. The complete report is available in thepatient's medical record. If you cannot access the medical record, pleasecontact the sending organization for a detailed fax or copy. History: Previous history of periareolar discomfort and discolorationwhich has resolved. Bilateral diagnostic mammography: Bilateral digital mammography wasperformed using both 2D mammography and tomosynthesis, and reviewed withcomputer-aided detection. The breast tissue is heterogeneously dense,limiting sensitivity. There are no suspicious masses ormicrocalcifications. There are no specific findings to account for retroor periareolar discomfort or discoloration. No significant asymmetries ordistortion are identified. Impression: Negative bilateral diagnostic mammography. BI-RADS Category 1, negative. 5 year breast cancer risk assessment 0.2 % Lifetime breast cancer risk assessment 5.2 % Breast cancer risk category Breast cancer risk not assessed Pilar Dean NP IMG BI PROCEDURES Final Resul t from Last 3 Months or Most Recently Relevant to Health Maintenance Care Teams Physical Integration Practitioner Relationship Specialty Start Date End Date Win White MD PCP - General Internal Medicine 09/15/19
--- OUTSIDE RECORDS SUMMARY | 2024-10-21 14:19 | XMS_ITS | Encounter Summary ---
Author Organization [facility] Address PO [facility] [address] [place] [address] Phone Care Team Providers Care Gun Fitter Name Role Phone Meeta Wise Primary Care Provider Encounter Details Date Type Department Care Team (Late st Contact Info) Description 09/24/2024 Documentation Only [facility] [address] [place] [phone] Marta Ravi [address] [place] [phone] Social History Tobacco Use Types Packs/Day [...] [facility] [address] [place] [address] Aretha Vneces MD [address] [place] [address] [place] [address] documented as of this encounter Visit Diagnoses Not on filedocumented in this encounter Care Teams Gun Fitter Relationship Specialty Start Date End Date Meeta Wise FNP [address] [place] [address] PCP - General Nurse Practitioner 06/15/24 documented as of this encounter
== END 2024-10-21 13:31 | disposition home or self-care (01) ==
LOC: HO.HMCFM 12:18
PROVIDERS: PCP Nurse Practitioner Family; Visit Provider Nurse Practitioner Family
DX: I15.1 Hypertension secondary to other renal disorders (principal); I50.32 Chronic diastolic (congestive) heart failure; N18.32 Chronic kidney disease, stage 3b; W19.XXXA Unspecified fall, initial encounter; G47.33 Obstructive sleep apnea (adult) (pediatric); M54.10 Radiculopathy, site unspecified

== ENCOUNTER → 2024-10-21 12:17 | Outpatient (BNVA) | payer OTHER, SELFPAY | PROVIDERS: PCP Nurse Practitioner Family; Visit Provider Nurse Practitioner Family | DX: M54.10 Radiculopathy, site unspecified (principal); G47.33 Obstructive sleep apnea (adult) (pediatric); I13.0 Hypertensive heart and chronic kidney disease with heart failure and stage 1 through stage 4 chronic kidney disease, or unspecified chronic kidney disease; N18.32 Chronic kidney disease, stage 3b; I50.32 Chronic diastolic (congestive) heart failure | CPT/HCPCS: 99212 ==

== ENCOUNTER 2024-10-28 08:56 | Outpatient (AMB) | payer OTHER, SELFPAY ==
--- NOTE | 2024-10-28 09:06 | A.OFFPC_ITS ---
Vital Signs 10/28/24 09:11 Height 5 ft 5 in Weight 271 lb 8 oz BMI 45.2 BP 142/80 H Blood Pressure Location Lt brachial Position Sitting Respiration 12 Pulse 73 Pulse Source Pulse Oximeter Temp 98.1 F Temp Source Oral Pulse Oximetry (%) 99 Oxygen Delivery Method Room Air Intake Visit Reasons: Dary on 10/26 severe back pain and dizziness Intake Note: ER discharge follow up, and patient complaining of legs numbing, hips px and back px. Patient needs refill on jardiance. Network Designer Required: No Allergies No Known Allergies Allergy (Verified 10/28/24 09:07) Medication List - Last Reconciled 10/28/24 by PORSCHE Solano-YORDAN acetaminophen ER 650 mg PO Q8H PRN albuterol sulfate 90 mcg/actuation 2 puffs inhalation Q6H PRN amlodipine 10 mg PO DAILY carvedilol 25 mg PO BID 90 days empagliflozin 10 mg PO QAM furosemide 20 mg PO DAILY indapamide 1.25 mg PO QAM lidocaine 5% 1 appl topical TID PRN lisinopril 20 mg PO DAILY tizanidine (Zanaflex) 2 mg (1/2 x 4 mg) PO BID PRN 5 days Tobacco use date assessed: 10/28/24 Dental Screening Dental Screen Date: 10/28/24 Did you have a dental visit in the last 12 months?: Yes Did you have a dental problem in the last 6 months where you did not have access to dental care?: No Was dental information given to patient?: Patient has dentist HPI HPI Comments History of Present Illness Details 39-year-old German Speaking female with LVH, prolonged QT, HTN, CHF pulmonary htn, pericardial effusion, CKD, mild intermittent asthma, obesity, family hx of FSGS, [place], migraine headsache s/p lap aashish 2015, ERCP with sphincterectomy/papillotomy 05/2016 Renal Duplex: Right renal/aortic ratio elevated otherwise normal US Renal bladder: echogenic kidneys bilat representing chronic medical dz CT of head negative; CTA negative. Echo: Ejection fraction 40-45% with mild global hypokinesis and borderline hypokinesis of anterolateral and inferior lateral carter, grade 2 diastolic dysfunction, severe left ventricular hypertrophy, mild pulmonary hypertension with pulmonary artery systolic pressure of 30-35 trivial pericardial effusion HPI: - The patient is a 39-year-old female pr esenting with worsening back pain, numbness in lower extremities, and dizziness. - There has been a recent exacerbation o f severe back pain leading to an emergency room visit, described as progressively worsening and significantly impairing the patient's daily functions. - Numbness in the lower extremities has been associated with difficulties while at work, and has been contributing to episodic dizziness. - She was evaluated at [facility] where her blood glucose level was found to be slightly elevated at 107 mg/dL, and protein was present in urine tests along w blood (on menses) and sugar(on sglt2) No dc ppw available, i was able to review the testing done on her portal at the time of visit ppw requested several times - The patient reports some symptom relie f with acetaminophen (Tylenol), but describes ongoing symptoms. - sparing use of zanaflex - has missed work and needs FMLA At last OV: - New complaint of mid low back pain, de scribed more as burning than pain assoc w/ pain in bilat shoulders; started two weeks ago, among muscle tightness and right leg weakness leading to falls x2. - Reports no specific injury precipitati ng symptoms; discomfort persists across various activities. Using bengay, no relief. Denies chest pain, sob, syncope, loss of function, red flag assoc w/ back pain. Denies n/v, GI upset. Exam: Awake alert accompanied by [place] RRR, 2/6 systolic murmur LS CTAB, dim throughout +1 edema BLE VEGA x 4, nonfocal neuro exam. Pain across transverse midback w/ paraspinal palpation. No spinal tenderness. + Lordosis in this area. Skin is clear. When bilat arms are stretched overhead has pain in shoulder muscles. upper and lower ext neurovasc intact. Discussion Notes During the follow-up visit, I discussed the patient's current symptoms and the need for further evaluation of her back. I recommended obtaining an MRI scan of the patient's lumbar spine to further investigate her back pain and the numbness in her legs. I explained that insurance approval is necessary for the MRI, and that our radiology department will contact her once this approval is obtained. I also reviewed the patient's current medications, including the usage of Jardiance, and discussed the refill process. I instructed the patient on accessing and using the electronic portal to facilitate communication and access to her medical records. I emphasized the need for a follow-up appointment after obtaining MRI results to discuss the findings and adjust the treatment plan ac cordingly. Assessment and Plan 1. Worsening back pain: The patient is r ecommended to undergo an MRI of the lumbar spine to evaluate the underlying causes contributing to her pain and associated numbness. Insurance approval is awaited to proceed. Ativan 30 min before d/t anxiety. 2. Numbness in lower extremities: Given the correlation with her back issues, an MRI will assist in determining any nerve or structural involvement. This will guide further management of her symptoms. 3. Dizziness: The dizziness will be ollie tored with considerations of medication review and any underlying causes to be assessed. Patient Instructions - Wait for a call from the radiology dep artment for MRI scheduling once insurance approves it. - Continue taking Tylenol as needed for pain relief, but monitor usage. Lmit zanaflex use d/t rebound HTN - Access the provided portal for communi cation and updates regarding your care. - Stay hydrated and consult immediately if dizziness worsens. - [facility] paperwork completed and returned today Consent Patient was informed and verbally consented to the use of an ambient scribe for clinic note documentation during this visit. Total time spent caring for the patient today was 41 minutes. This includes time spent before the visit reviewing the chart, time spent during the visit, and time spent after the visit on documentation, reviewing laboratory results, diagnostic imaging, medications, performing a medically necessary evaluation, counseling on diagnoses, care coordination, ordering appropriate tests, ordering appropriate medications, review of tests performed by other providers, reporting test results with the patient, communication with other healthcare providers. [facility] Medical History Seasonal asthma Hypertension Surgical History No pertinent past surgical history Family History (Updated 10/05/24 @ 13:22 by Neri Overton MD) Mother Hypertension Father Hypertension Diabetes Cancer Sister Kidney transplant recipient Social History (Updated 10/05/24 @ 13:11 by Laurita Pardo CMA) Household Members: Family and Children Both parents involved: No Caregiver staying overnight: No Housing: House Are you a primary child caregiver to a significant other at home: Yes Do you presently have visiting nurse or other home services: No 75 years or older and lives alone: No Alcohol intake: current Alcohol intake frequency: a few times a month Patient Tobacco Use Status: Former Tobacco user e-Cigarette/Vaping Use: Never Used service: No Current occupational status: employed Current occupation: [employer] Cognitive needs: No Hearing needs: Yes Vision needs: No Questionnaire PHQ-9 Over the last 2 weeks, how often have you been bothered by any of the following problems? 52567 - PHQ-9 Billing: Patient declined-do not bill Source: Developed by Drs. Steve Hogan, Ariella Franco, Marco Antonio Frankel and colleagues, with an educational tonio from [employer]. Thrive Questionnaire Date Thrive assessed: 10/28/24 I am a: Patient What is your living situation today?: I have a steady place to live Within the past 12 months, did the food you bought not last and you didn't have the money to get more?: I choose not to answer this question Within the past 12 months, did you worry whether your food would run out before you got money to buy more?: I choose not to answer this question Do you have trouble paying for medicines?: I choose not to answer this question Do you have trouble getting transportation to medical appointments?: I choose not to answer this question Do you have trouble paying your heating and electricity bill?: I choose not to answer this question Do you have trouble taking care of your child, family member or friend?: I choose not to answer this question Do you have trouble with day-to-day activities such as bathing, preparing meals, shopping, managing finances, etc.?: I choose not to answer this question Are you currently unemployed and looking for a job?: I choose not to answer this question Are you interested in more education?: I choose not to answer this question Please select the resources that you would like help with: None Currently or been in a relationship where the following occur: No concerns reported THRIVE Score: 0 SHERRI-7 AMB Questionnaire SHERRI-7 Date SHERRI - 7 assessed: 10/21/24 Source: Developed by Drs. Steve Hogan, Ariella Franco, Marco Antonio Frankel and colleagues, with an educational tonio from [employer]. Physical exam (Primary Care) Vital Signs: Last Vital Signs Temp 98.1 F 10/28/24 09:11 Pulse 73 10/28/24 09:11 Resp 12 10/28/24 09:11 BP 142/80 H 10/28/24 09:11 Pulse Ox 99 10/28/24 09:11 Oxygen Delivery Method Room Air 10/28/24 09:11 BMI result Body Mass Index 45.2 Tobacco/Smoking Status: Tobacco use Status Tobacco use date assessed 10/28/24 10/28/24 09:14 Patient Tobacco Use Status Former Tobacco user 10/28/24 09:14 e-Cigarette/Vaping Use Never Used 10/28/24 09:14 Thrive Assessment: Date of Thrive Assessment Date Thrive assessed 10/28/24 10/28/24 09:14 Currently or been in a relationship where the following occur: No concerns reported Coding Level of Care Code Est Pt Level 5 (68013) Complex EM visit Add On G2211 Diagnoses Hospital discharge follow-up Z09 Radicular low back pain M54.10 Encounters for administrative purpose Z02.9 Assessment & Plan Assessment & Plan (1) Hospital discharge follow-up: Code(s): Z09 - Encounter for follow-up examination after completed treatment for conditions other than malignant neoplasm (2) Radicular low back pain: Comment: BLE R>L Code(s): M54.10 - Radiculopathy, site unspecified Category: Medical (3) Encounters for administrative purpose: Code(s): Z02.9 - Encounter for administrative examinations, unspecified Plan: FMLA PAPERWORK COMPLETED 08/12/24-08/11/25 APPTS 2 X/WEEK X 4 HOURS INCAPACITY 2 X PER WEEK X 3 DAYS Plan . Orders: Orders MR lumbar spine wo con Today M54.10 - Radiculopathy, site unspecified Medications: New lorazepam (Ativan) 30 min prior to MRI 0.5 mg PO ONCE PRN 1 tab 0RF anxiety Refilled empagliflozin 10 mg PO QAM 90 tabs 2RF
[2024-10-28 09:11] VITALS: BP 142/80; PULSE 73; RESP 12; TEMP 36.7; O2SAT 99; BMI 45.2
--- OUTSIDE RECORDS SUMMARY | 2024-10-28 09:47 | XMS_ITS | Encounter Summary ---
Author Organization [facility] Address [address] [place] [address] Care Team Providers Care Business Analytics Faculty Member Name Role Phone Mariana Nascimento DO Primary Care Pro vider Win Qureshi MD Primary Care Provider [phone] Reason for Visit * Reason Onset Date Comments immunizations 06/30/2018 Encounter Details Date Type Department Care Team Description 06/30/2018 Telephone Adult Medicine [address] [address] Mariana Nascimento DO immunizations Social History Tobacco [...] Made appointment for 07/09 @ 11:30 for [facility]. * Telephone Encounter - Freda Arciniega PA-C - 06/30/2018 11:19 AM EST ordered * Telephone Encounter - Lizett Brink M.A. - 06/30/2018 10:52 AM EST Last ov with Freda 05/2018 pt asking for an order for ppd testing * Telephone Encounter - Yaquelin Hardy - 06/30/2018 10:50 AM EST Payor: [employer] FFS / Plan: [employer] / Product Type: MEDICAID RISK Patient [...] Primary documented in this encounter Care Teams Business Analytics Faculty Member Relationship Specialty Start Date End Date Mariana Nascimento DO PCP - General Internal Medicine 11/18/13 09/14/19 Win White MD [address] [place] [address] PCP - General Internal Medicine 09/15/19 documented as of this encounter
--- OUTSIDE RECORDS SUMMARY | 2024-10-28 09:47 | XMS_ITS | Encounter Summary ---
Author Organization [facility] Address PO [facility] [address] [place] [address] Phone Care Team Providers Care Special Police Officer Name Role Phone Meeta Wise Primary Care Provider Encounter Details Date Type Department Care Team (Late st Contact Info) Description 08/11/2024 Documentation Only [facility] [address] [place] [phone] Marta Ravi [address] [place] [phone] Social History Tobacco Use Types Packs/Day [...] Visit [facility] [address] [place] [address] Aretha Vences MD [address] [place] [address] [place] [address] documented as of this encounter Visit Diagnoses Not on filedocumented in this encounter Care Teams Special Police Officer Relationship Specialty Start Date End Date Meeta Wise FNP [address] [place] [address] PCP - General Nurse Practitioner 06/15/24 documented as of this encounter
--- OUTSIDE RECORDS SUMMARY | 2024-10-28 09:47 | XMS_ITS | Encounter Summary ---
Author Organization [facility] Address PO [facility] [address] [place] [address] Phone Care Team Providers Care Pathology Assistant Name Role Phone Meeta Wise Primary Care Provider Encounter Details Date Type Department Care Team (Late st Contact Info) Description 08/11/2024 Documentation Only [facility] [address] [place] [phone] Marta Ravi [address] [place] [phone] Social History Tobacco Use Types Packs/Day [...] Visit [facility] [address] [place] [address] Aretha Vences MD [address] [place] [address] [place] [address] documented as of this encounter Visit Diagnoses Not on filedocumented in this encounter Care Teams Pathology Assistant Relationship Specialty Start Date End Date Meeta Wise FNP [address] [place] [address] PCP - General Nurse Practitioner 06/15/24 documented as of this encounter
--- OUTSIDE RECORDS SUMMARY | 2024-10-28 09:47 | XMS_ITS | Encounter Summary ---
Author Organization [facility] Address PO [facility] [address] [place] [address] Phone Care Team Providers Care Illusionist Name Role Phone Meeta Wise Primary Care Provider Encounter Details Date Type Department Care Team (Late st Contact Info) Description 08/11/2024 Documentation Only [facility] [address] [place] [phone] Marta Ravi [address] [place] [phone] Social History Tobacco Use Types Packs/Day [...] [facility] [address] [place] [address] Aretha Vences MD [address] [place] [address] [place] [address] documented as of this encounter Visit Diagnoses Not on filedocumented in this encounter Care Teams Illusionist Relationship Specialty Start Date End Date Meeta Wise FNP [address] [place] [address] PCP - General Nurse Practitioner 06/15/24 documented as of this encounter
--- OUTSIDE RECORDS SUMMARY | 2024-10-28 09:47 | XMS_ITS | Encounter Summary ---
Author Organization [facility] Address PO [facility] [address] [place] [address] Phone Care Team Providers Care Ground Operations Superintendent Name Role Phone Meeta iWse Primary Care Provider [phone] Encounter Details Date Type Department Care Team (Late st Contact Info) Description 08/11/2024 Documentation Only [facility] [address] [place] [phone] Marta Ravi [address] [place] [phone] Social History Tobacco Use Types Packs/Day [...] Visit [facility] [address] [place] [address] Aretha Vences MD [address] [place] [address] [place] [address] documented as of this encounter Visit Diagnoses Not on filedocumented in this encounter Care Teams Ground Operations Superintendent Relationship Specialty Start Date End Date Meeta Wies FNP [address] [place] [address] PCP - General Nurse Practitioner 06/15/24 documented as of this encounter
--- OUTSIDE RECORDS SUMMARY | 2024-10-28 09:47 | XMS_ITS | Encounter Summary ---
Author Organization [facility] Address PO [facility] [address] [place] [address] Phone Care Team Providers Care Gluer Machine Operator Name Role Phone Meeta Wise Primary Care Provider [phone] Encounter Details Date Type Department Care Team (Late st Contact Info) Description 08/11/2024 Documentation Only [facility] [address] [place] [phone] Marta Ravi [address] [place] [phone] Social History Tobacco Use Types Packs/Day [...] [facility] [address] [place] [address] Aretha Vences MD [address] [place] [address] [place] [address] documented as of this encounter Visit Diagnoses Not on filedocumented in this encounter Care Teams Gluer Machine Operator Relationship Specialty Start Date End Date Meeta Wise FNP [address] [place] [address] PCP - General Nurse Practitioner 06/15/24 documented as of this encounter
--- OUTSIDE RECORDS SUMMARY | 2024-10-28 09:47 | XMS_ITS | Encounter Summary ---
Author Organization [facility] Address PO [facility] [address] [place] [address] Phone Care Team Providers Care Care Management Assistant Name Role Phone Meeta Wise Primary Care Provider Encounter Details Date Type Department Care Team (Late st Contact Info) Description 08/11/2024 Documentation Only [facility] [address] [place] [place] [phone] Marta Ravi [address] [place] [phone] Social History Tobacco Use Types Packs/Day [...] [facility] [address] [place] [place] [address] Aretha Vences MD [address] [place] [address] [place] [address] documented as of this encounter Visit Diagnoses Not on filedocumented in this encounter Care Teams Care Management Assistant Relationship Specialty Start Date End Date Meeta Wise FNP [address] [place] [address] PCP - General Nurse Practitioner 06/15/24 documented as of this encounter
--- OUTSIDE RECORDS SUMMARY | 2024-10-28 09:47 | XMS_ITS | Encounter Summary ---
Author Organization [facility] Address PO [facility] [address] [place] [address] Phone Care Team Providers Care Timber Deadener Name Role Phone Meeta Wise Primary Care Provider Encounter Details Date Type Department Care Team (Late st Contact Info) Description 08/11/2024 Documentation Only [facility] [address] [place] [phone] Marta Ravi [address] [place] [phone] Social History Tobacco Use Types Packs/Day [...] Visit [facility] [address] [place] [address] Aretha Vences MD [address] [place] [address] [place] [address] documented as of this encounter Visit Diagnoses Not on filedocumented in this encounter Care Teams Timber Deadener Relationship Specialty Start Date End Date Meeta Wise FNP [address] [place] [address] PCP - General Nurse Practitioner 06/15/24 documented as of this encounter
--- OUTSIDE RECORDS SUMMARY | 2024-10-28 09:47 | XMS_ITS | Encounter Summary ---
Author Organization [facility] Address [address] [facility] [address] [place] [address] Phone Care Team Providers Care Auto Collision Repair Instructor Name Role Phone Meeta Wise Primary Care Provider Encounter Details Date Type Department Care Team (Late st Contact Info) Description 08/11/2024 Documentation Only [facility] [address] [place] [phone] Marta Ravi [address] [place] [phone] Social History Tobacco Use Types Packs/Day [...] [facility] [address] [place] [address] Aretha Vences MD [address] [place] [address] [place] [address] documented as of this encounter Visit Diagnoses Not on filedocumented in this encounter Care Teams Auto Collision Repair Instructor Relationship Specialty Start Date End Date Meeta Wise FNP [address] [place] [address] PCP - General Nurse Practitioner 06/15/24 documented as of this encounter
--- OUTSIDE RECORDS SUMMARY | 2024-10-28 09:48 | XMS_ITS | Encounter Summary ---
Author Organization [facility] Address [address] [place] [address] Care Team Providers Care Workers' Compensation Commissioner Name Role Phone Mariana Nascimento DO Primary Care Pro vider Win Qureshi MD Primary Care Provider [phone] Reason for Visit * Reason Onset Date Comments APPOINTMENT 01/12/2015 Encounter Details Date Type Department Care Team Description 01/12/2015 Telephone Nephrology - [place] [address] [place] [address] Rj Hinson MD APPOINTMENT Social History Tobacco [...] We attempted to refer patient outside of [facility] for the time frame requested. The referral department states the outside providers are scheduling out much further than we are. Thank You documented in this encounter Plan of Treatment Not on file documented as of this encounter Visit Diagnoses Not on filedocumented in this encounter Care Teams Workers' Compensation Commissioner Relationship Specialty Start Date End Date Mariana Nascimento DO PCP - General Internal Medicine 11/18/13 09/14/19 Win White MD [address] [place] [address] PCP - General Internal Medicine 09/15/19 documented as of this encounter
--- OUTSIDE RECORDS SUMMARY | 2024-10-28 09:48 | XMS_ITS | Encounter Summary ---
Author Organization [facility] Address [address] [place] [address] Care Team Providers Care Electric Motor Analyst Name Role Phone Win White MD Primary Care Provider [phone] Reason for Visit * Reason Onset Date Comments Faxed Refill 09/11/2023 Encounter Details Date Type Department Care Team Description 09/11/2023 Refill Adult Medicine [address] [address] Win White MD [address] [place] [phone] Faxed Refill Social History Tobacco Use Types Packs/Day Years [...] encounter Miscellaneous Notes * Telephone Encounter - Teresa Melgoza M.A. - 09/12/2023 9:18 AM EST M call to A pool * Telephone Encounter - Margi Chi M.A. - 09/11/2023 4:46 PM EST Last seen 4/7/23 Lab Results Component Value Date NA 137 07/23/2022 K 4.8 07/23/2022 CO2 28 07/23/2022 CL 106 07/23/2022 BUN 19 07/23/2022 CREAT 1.33 07/23/2022 GLU 116 07/23/2022 CA 8.7 07/23/2022 GFR 53 07/23/2022 * Telephone Encounter - Mahesh Treadwell - 09/11/2023 4:20 PM EST Patient would like script to be: E-PRESCRIBED/FAXED TO PHARMACY WHEN WAS THE PATIENT'S LAST APPOINTMENT IN ADULT MEDICINE? 11/16/22 WHEN WAS THE LAST TIME THE PATIENT SAW THEIR PCP? 10/04/22 Does patient have an upcoming appointment? No-unable to reach left [facility] to call for appointment due to refill request. Appt due 06/03 (THE MEDICATION REQUESTED IS ON THE MED LIST ABOVE) All of the medications requested were on the CURRENT MEDS list Did you check the Pharmacy information above?: YES Patient wants: 90 -day supply Is this a mail order prescription request ? NO If the refill is from a FAXED refill request what is the RX # listed on the fax? N/A Patients current insurance carrier is: Payor: [facility] F[facility] / Plan: [facility] / Product Type: MEDICAID RISK documented in this encounter Plan of Treatment Not on file documented as of this encounter Visit Diagnoses Not on filedocumented in this encounter Care Teams Electric Motor Analyst Relationship Specialty Start Date End Date Win White MD [address] [place] [phone] PCP - General Internal Medicine 09/15/19 documented as of this encounter
--- OUTSIDE RECORDS SUMMARY | 2024-10-28 09:48 | XMS_ITS | Encounter Summary ---
Author Organization [facility] Address [address] [place] [address] Care Team Providers Care Hearing Therapist Name Role Phone Mariana Nascimento DO Primary Care Pro vider Unavailable Win White MD Primary Care Provider [phone] Encounter Details Date Type Department Care Team Description 06/02/2016 [facility] Medical Records [address] [place] [address] Desilets, Ernesto Buenrostro MD Social History Tobacco [...] on filedocumented in this encounter Care Teams Hearing Therapist Relationship Specialty Start Date End Date Mariana Nascimento DO PCP - General Internal Medicine 11/18/13 09/14/19 Win White MD [address] [place] [address] PCP - General Internal Medicine 09/15/19 documented as of this encounter
--- OUTSIDE RECORDS SUMMARY | 2024-10-28 09:48 | XMS_ITS | Encounter Summary ---
Author Organization [facility] Address [address] [place] [address] Care Team Providers Care Senior Validation Engineer Name Role Phone Mariana Nascimento DO Primary Care Pro vider Win Qureshi MD Primary Care Provider [phone] Reason for Visit * Reason Onset Date Comments REFERRAL 09/10/2014 Encounter Details Date Type Department Care Team Description 09/10/2014 Telephone Adult Medicine [address] [address] Mariana Nascimento DO REFERRAL Social History Tobacco [...] on filedocumented in this encounter Care Teams Senior Validation Engineer Relationship Specialty Start Date End Date Mariana Nascimento DO PCP - General Internal Medicine 11/18/13 09/14/19 Win White MD [address] [place] [address] PCP - General Internal Medicine 09/15/19 documented as of this encounter
--- OUTSIDE RECORDS SUMMARY | 2024-10-28 09:48 | XMS_ITS | Encounter Summary ---
Author Organization [facility] Address [address] [place] [address] Care Team Providers Care Steel Pourer Helper Name Role Phone Mariana Nascimento DO Primary Care Pro vider Unavailable Win White MD Primary Care Provider [phone] Encounter Details Date Type Department Care Team Description 06/02/2016 [facility] Medical Records [address] [place] [address] Desilets, Ernesto Buenrostro MD Social History Tobacco [...] on filedocumented in this encounter Care Teams Steel Pourer Helper Relationship Specialty Start Date End Date Mariana Nascimento DO PCP - General Internal Medicine 11/18/13 09/14/19 Win White MD [address] [place] [address] PCP - General Internal Medicine 09/15/19 documented as of this encounter
--- OUTSIDE RECORDS SUMMARY | 2024-10-28 09:48 | XMS_ITS | Encounter Summary ---
Author Organization [facility] Address [address] [place] [address] Phone Care Team Providers Care Mutual Fund Analyst Name Role Phone WiseMeeta mack PORSCHE Primary Care Provider Encounter Details Date Type Department Care Team (Late st Contact Info) Description 08/19/2024 Telephone [facility], [address] [place] [address] Eva Vargas [address] [place] [address] Social History Tobacco Use Types [...] appreciate following with Aretha because she speaks telugu and she is very hard of hearing. [...] Visit [facility], [address] [place] [phone] Aretha Vences MD [address] [place] [phone] documented as of this encounter Visit Diagnoses Not on filedocumented in this encounter Care Teams Mutual Fund Analyst Relationship Specialty Start Date End Date Meeta Wise FNP [address] [place] [id number] PCP - General Nurse Practitioner 06/15/24 documented as of this encounter
--- OUTSIDE RECORDS SUMMARY | 2024-10-28 09:48 | XMS_ITS | Encounter Summary ---
Author Organization [facility] Address [address] [facility] [address] [place] [address] Phone Care Team Providers Care Tax Advisor Name Role Phone Meeta Wise Primary Care Provider [phone] Encounter Details Date Type Department Care Team (Late st Contact Info) Description 10/02/2024 Documentation Only [facility] [address] [place] [phone] Marta Ravi [address] [place] [phone] Social History Tobacco Use Types Packs/Day [...] Visit [facility] [address] [place] [address] Aretha Vences MD [address] [place] [address] [place] [address] documented as of this encounter Visit Diagnoses Not on filedocumented in this encounter Care Teams Tax Advisor Relationship Specialty Start Date End Date Meeta Wise FNP [address] [place] [address] PCP - General Nurse Practitioner 06/15/24 documented as of this encounter
--- OUTSIDE RECORDS SUMMARY | 2024-10-28 09:48 | XMS_ITS | Encounter Summary ---
Author Organization [facility] Address [address] [place] [address] Care Team Providers Care Healthcare Representative Name Role Phone Win White MD Primary Care Provider [phone] Reason for Visit * Reason Comments E-prescribe Rx Request Encounter Details Date Type Department Care Team Description 08/08/2023 Refill Adult Medicine [address] [address] Abbi Rivera, SADIE [address] [place] [address] E-prescribe Rx Request Social History Tobacco Use [...] encounter Miscellaneous Notes * Telephone Encounter - Keyon Alvarez NP - 08/08/2023 5:19 PM EST Refilled for 1 month, needs appointment for further refill * Telephone Encounter - Marika Kaufman M.A. - 08/08/2023 9:53 AM EST [place] 11/16/22 no pended Lab Results Component Value Date NA 137 07/23/2022 K 4.8 07/23/2022 CO2 28 07/23/2022 CL 106 07/23/2022 BUN 19 07/23/2022 CREAT 1.33 07/23/2022 GLU 116 07/23/2022 CA 8.7 07/23/2022 GFR 53 07/23/2022 * Telephone Encounter - Anahy Padilla - 08/08/2023 8:55 AM EST Patient would like script to be: E-PRESCRIBED/FAXED TO PHARMACY WHEN WAS THE PATIENT'S LAST APPOINTMENT IN ADULT MEDICINE? 11/16/22 WHEN WAS THE LAST TIME THE PATIENT SAW THEIR PCP? Has not seen Does patient have an upcoming appointment? No-unable to reach left [facility] to call for appointment due to refill request. Appt due 05/18/23 (THE MEDICATION REQUESTED IS ON THE MED [...] N/A Patients current insurance carrier is: Payor: [facility] FFS / Plan: [facility] / Product Type: MEDICAID RISK documented in this encounter Plan of Treatment Not on file documented as of this encounter Visit Diagnoses Diagnosis Uncontrolled hypertension Unspecified essential hypertension documented in this encounter Care Teams Healthcare Representative Relationship Specialty Start Date End Date Win White MD [address] [place] [id number] PCP - General Internal Medicine 09/15/19 documented as of this encounter
--- OUTSIDE RECORDS SUMMARY | 2024-10-28 09:48 | XMS_ITS | Clinical Summary ---
Author Organization [facility] Address [address] [place] [address] Phone Care Team Providers Care Digital Artist Name Role Phone Physician, No Pcp Primary Care Provider Unavaila ble Allergies No known active allergies Encounters Date Type Department Care Team Description 10/27/2024 - 10/27/2024 10:03 AM EDT Emergency [facility] Emergency [address] [place] [address] Discharge Disposition: ED Dismiss - Never Arrived 10/26/2024 1:10 PM EDT - 10/26/2024 8:21 PM EDT Emergency [facility] Emergency [address] [place] [address] Lew Ji MD Dizziness (Primary Dx); Low back pain, unspecified back pain laterality, unspecified chronicity, unspecified whether sciatica present Discharge Disposition: Home or Self Care from Last 3 Months Surgical History Surgery Date Site/Laterality Comments CHOLECYSTECTOMY [...] Information Value Date Recorded Sex Assigned at Female 10/26/2024 3:34 PM EDT Legal Sex Female 11:13 AM EST Gender Identity Female 10/26/2024 3:34 PM EDT Sexual Orientation Straight 10/26/2024 3 :34 PM EDT Obstetrics History Last Filed Vital Signs Vital Sign Reading Time Taken Comments Blood Pressure 136/67 10/26/2024 7:29 PM EDT Pulse 82 10/26/2024 7:29 PM EDT Temperature 37.1 ??C (98.8 ??F) 10/26/2024 7:29 PM ED T Respiratory Rate 18 10/26/2024 7:29 PM EDT Oxygen Saturation 98% 10/26/2024 7:29 PM EDT Inhaled Oxygen Concentration - - Weight 77.1 kg (170 lb) 10/26/2024 1:54 PM EDT Height 164.6 cm (5' 4.8 ) 10/26/2024 1:54 PM EDT Body Mass Index 28.46 10/26/2024 1:54 PM EDT Plan of Treatment Health Maintenance Due Date Last Done Comments Hepatitis B Vaccines (1 of 3 - 19+ 3-dose series) 10/15/2003 Cervical Cancer Screening: Pap Smear 2005 Pneumococcal Vaccine: Pediatrics (0 to 5 Years) and At-Risk Patients (6 to 64 Years) (2 of 2 - PCV) 06/02/2017 06/02/2016 Cholesterol Screening (Lipid Panel) 07/21/2022 Depression Screening 07/21/2022 HIV Screening 07/21/2022 Hepatitis C Screening 07/21/2022 Social Influencers of Health Screening 07/21/2022 COVID-19 Vaccine ( season) 2024 01/02/2021, 12/17/2020 Breast Cancer Screening 09/21/2024 09/21/2022 Hypertension/CHF/CAD Annual BMP Blood Test 10/26/2025 10/26/2024 DTaP,Tdap,and Td Vaccines (4 - Td or Tdap) 06/01/2032 06/01/2022, 04/29/2015, 01/30/2010 Influenza Vaccine Completed 05/02/2024, , 06/02/2016, Additional history exists HIB Vaccines Aged Out No longer eligi [...] 20 months Aged Out No longer eligible based on patient's age to complete this topic Varicella Vaccines Aged Out No longer eligible based on patient's age to complete this topic Procedures Procedure Name Priority Date/Time Associated Diagnosis Comments ECG ANNOTATED 10/27/2024 ECG 12-LEAD Routine 10/26/2024 7:51 PM EDT TROPONIN I HIGH SENSITIVITY STAT 10/26/2024 5:00 PM EDT MARTIN URINE CULTURE TUBE STAT 10/26/2024 4:57 PM EDT URINALYSIS WITH REFLEX MICROSCOPIC AND CULTURE STAT 10/26/2024 4:57 PM EDT URINALYSIS WITH REFLEX MICROSCOPIC AND CULTURE STAT 10/26/2024 4:57 PM EDT POCT GLUCOSE BLOOD Routine 10/26/2024 2: 12 PM EDT CBC WITH AUTO DIFFERENTIAL STAT 10/26/2024 2:02 PM EDT TROPONIN I HIGH SENSITIVITY STAT 10/26/2024 2:02 PM EDT MAGNESIUM STAT 10/26/2024 2:02 PM EDT BASIC METABOLIC PANEL STAT 10/26/2024 2:02 PM EDT CBC AND DIFFERENTIAL STAT 10/26/2024 2:02 PM EDT ECG 12-LEAD STAT 10/26/2024 1:30 PM EDT DIAGNOSTIC MAMMOGRAPHY INCLUDING CAD BILATERAL Routine 09/21/2022 10:58 AM EST Mastodynia from Last 3 Months or Most Recently Relevant to Health Maintenance Results * ECG-Annotated (10/27/2024) us Provider Onbase MD ECG ORDERABLES Final Result * Troponin I high sensitivity (10/26/2024 5:00 PM EDT) Only the most recent of2 resultswithin the time period is included. [facility] High Sensitivity Troponin I 14 <=54 ng/L LAB CHEMISTRY METHOD 10/26/2024 6:17 PM EDT [facility] Blood Venous blood specimen / Unknown Venipuncture / Unknown 10/26/2024 5:00 PM EDT 10/26/2024 5:47 PM EDT Narrative [facility] - 10/26/2024 6:17 PM EDT High levels of biotin in samples may falsely decrease hsTroponin values. ??Use caution when interpreting hsTroponin results in patients taking biotin who exhibit renal impairment (eGFR <60) or in patients taking more than 20 mg/day of biotin. Lew Ji MD LAB BLOOD ORDERABLES Final Resu lt [facility] [address] [place] [address], [place] [phone] * (ABNORMAL) Urinalysis with reflex microscopic and culture (10/26/2024 4:57 PM EDT) [facility] Specific [place] Urine 1.013 1.003 - 1.030 LAB URINALYSIS - AUTOMATED METHOD 10/26/2024 6:02 PM EDT [facility] pH, Urine 6.0 5.0 - 8.0 pH LAB URINALYSIS - AUTOMATED METHOD 10/26/2024 6:02 PM [facility] Leukocytes, Urine Negative Negative LAB URINALYSIS - AUTOMATED METHOD 10/26/2024 6:02 PM [facility] Nitrite, Urine Negative Negative LAB URINALYSIS - AUTOMATED METHOD 10/26/2024 6:02 PM [facility] Protein, Urine 100(A) <=Trace mg/dL LAB URINALYSIS - AUTOMATED METHOD 10/26/2024 6:02 PM [facility] Glucose, Urine 500(A) Negative mg/dL LAB URINALYSIS - AUTOMATED METHOD 10/26/2024 6:02 PM [facility] Ketones, Urine Negative Negative mg/dL LAB URINALYSIS - AUTOMATED METHOD 10/26/2024 6:02 PM [facility] Urobilinogen, Urine 0.2 0.2 - 1.0 mg/dL LAB URINALYSIS - AUTOMATED METHOD 10/26/2024 6:02 PM [facility] Bilirubin, Urine Negative Negative LAB URINALYSIS - AUTOMATED METHOD 10/26/2024 6:02 PM [facility] Blood, Urine Large(A) Negative LAB URINALYSIS - AUTOMATED METHOD 10/26/2024 6:02 PM [facility] RBC, Urine 7.6(H) 0 - 4 /HPF LAB URINALYSIS - AUTOMATED METHOD 10/26/2024 6:02 PM [facility] WBC, Urine 2.0 0 - 4 /HPF LAB URINALYSIS - AUTOMATED METHOD 10/26/2024 6:02 PM [facility] Squamous Epithelial, Urine 15 0 - 60 /LPF LAB URINALYSIS - AUTOMATED METHOD 10/26/2024 6:02 PM [facility] Bacteria, Urine Negative Negative /HPF LAB URINALYSIS - AUTOMATED METHOD 10/26/2024 6:02 PM EDT [facility] Hyaline Casts, Urine 1.2 0 - 3 /LPF LAB URINALYSIS - AUTOMATED METHOD 10/26/2024 6:02 PM EDT [facility] Urine Urine specimen obtained by clean catch procedure / Unknown Non-blood Collection / Unknown 10/26/2024 4:57 PM EDT 10/26/2024 5:50 PM EDT Denice MAGALLON LAB URINE ORDERABLES Final Result Performing Organization Address City/[facility]/ZIP Co de Phone Number [facility] [address] [place] [address], [place] [phone] * Martin urine culture tube (10/26/2024 4:57 PM EDT) Extra Tube Hold for add-ons. 10/26/2024 7:01 PM EDT [facility] Comment:Auto resulted. Urine Urine specimen obtained by clean catch procedure / Unknown Non-blood Collection / Unknown 10/26/2024 4:57 PM EDT 10/26/2024 5:50 PM EDT Denice MAGALLON LAB URINE ORDERABLES Final Result Performing Organization Address City/[facility]/ZIP Co de Phone Number [facility] [address] [place] [address], [place] [phone] * (ABNORMAL) POCT Glucose, blood (10/26/2024 2:12 PM EDT) Glucose POCT 107(H) 70 - 100 mg/dL 10/26/2024 2:13 PM EDT [facility] Blood Capillary blood specimen / Unknown 10/26/2024 2:12 PM EDT 10/26/2024 2:14 PM EDT Generic Provider Poct LAB POINT OF CARE TEST DOCKED DEVICE UNSOLICITED RESULTS Final Result [facility] [address] [place] [address], * (ABNORMAL) CBC auto differential (10/26/2024 2:02 PM EDT) WBC 10.8 4.8 - 10.8 K/mcL LAB HEMETOLOGY METHOD 10/26/2024 2:58 PM EDT [facility] RBC 4.30 3.80 - 4.80 M/mcL LAB HEMETOLOGY METHOD 10/26/2024 2:58 PM EDT [facility] Hemoglobin 12.2 11.5 - 16.0 g/dL LAB HEMETOLOGY METHOD 10/26/2024 2:58 PM EDT [facility] Hematocrit 38.8 35.0 - 47.0 % LAB HEMETOLOGY METHOD 10/26/2024 2:58 PM EDT [facility] MCV 90.4 79.0 - 98.0 FL LAB HEMETOLOGY METHOD 10/26/2024 2:58 PM EDT [facility] MCH 28.4 27.0 - 32.0 pcg LAB HEMETOLOGY METHOD 10/26/2024 2:58 PM EDT [facility] MCHC 31.4(L) 32.0 - 37.0 g/dL LAB HEMETOLOGY METHOD 10/26/2024 2:58 PM EDT [facility] RDW 13.3 11.0 - 15.0 % LAB HEMETOLOGY METHOD 10/26/2024 2:58 PM EDT [facility] Platelets 364 130 - 400 K/mcL LAB HEMETOLOGY METHOD 10/26/2024 2:58 PM EDT [facility] MPV 11.4(H) 7.0 - 11.0 FL LAB HEMETOLOGY METHOD 10/26/2024 2:58 PM EDT [facility] NRBC 0.0 <1.0 % LAB HEMETOLOGY METHOD 10/26/2024 2:58 PM EDT [facility] NRBC Absolute 0.00 <0.10 K/mcL LAB HEMETOLOGY METHOD 10/26/2024 2:58 PM EDT [facility] Neutrophils Relative 75.3 % LAB HEMETOLOGY METHOD 10/26/2024 2:58 PM EDT [facility] Lymphocytes Relative 14.3 % LAB HEMETOLOGY METHOD 10/26/2024 2:58 PM EDT [facility] Monocytes Relative 6.3 % LAB HEMETOLOGY METHOD 10/26/2024 2:58 PM EDT [facility] Eosinophils Relative 3.0 % LAB HEMETOLOGY METHOD 10/26/2024 2:58 PM EDT [facility] Basophils Relative 0.5 % LAB HEMETOLOGY METHOD 10/26/2024 2:58 PM EDT [facility] Immature Granulocytes Relative 0.6 % LAB HEMETOLOGY METHOD 10/26/2024 2:58 PM EDT [facility] Neutrophils Absolute 8.17(H) 1.50 - 7.00 K/mcL LAB HEMETOLOGY METHOD 10/26/2024 2:58 PM EDT [facility] Lymphocytes Absolute 1.55 1.00 - 5.00 K/mcL LAB HEMETOLOGY METHOD 10/26/2024 2:58 PM EDT [facility] Monocytes Absolute 0.68 0.20 - 1.00 K/mcL LAB HEMETOLOGY METHOD 10/26/2024 2:58 PM EDT [facility] Eosinophils Absolute 0.33 0.00 - 0.50 K/mcL LAB HEMETOLOGY METHOD 10/26/2024 2:58 PM EDT [facility] Basophils Absolute 0.05 0.00 - 0.20 K/mcL LAB HEMETOLOGY METHOD 10/26/2024 2:58 PM EDT [facility] Immature Granulocytes Absolute 0.06(H) 0.00 - 0.03 K/mcL LAB HEMETOLOGY METHOD 10/26/2024 2:58 PM EDT [facility] Blood Venous blood specimen / Unknown Venipuncture / Unknown 10/26/2024 2:02 PM EDT 10/26/2024 2:48 PM EDT Lew Ji MD LAB BLOOD ORDERABLES Final Resu lt [facility] [address] [place] [address], [place] [phone] * Magnesium (10/26/2024 2:02 PM EDT) Magnesium 2.0 1.9 - 2.6 mg/dL LAB CHEMISTRY METHOD 10/26/2024 3:28 PM EDT [facility] Blood Venous blood specimen / Unknown Venipuncture / Unknown 10/26/2024 2:02 PM EDT 10/26/2024 2:47 PM EDT Lew Ji MD LAB BLOOD ORDERABLES Final Resu lt [facility] [address] [place] [address], [place] [phone] * (ABNORMAL) Basic metabolic panel (10/26/2024 2:02 PM EDT) Sodium 138 133 - 145 mmol/L LAB CHEMISTRY METHOD 10/26/2024 3:28 PM EDT [facility] Potassium 5.1 3.5 - 5.5 mmol/L LAB CHEMISTRY METHOD 10/26/2024 3:28 PM EDT [facility] Chloride 104 96 - 110 mmol/L LAB CHEMISTRY METHOD 10/26/2024 3:28 PM EDT [facility] CO2 24 21 - 32 mmol/L LAB CHEMISTRY METHOD 10/26/2024 3:28 PM EDT [facility] Anion Gap 10 3 - 11 LAB CHEMISTRY METHOD 10/26/2024 3:28 PM EDT [facility] Glucose 91 70 - 100 mg/dL LAB CHEMISTRY METHOD 10/26/2024 3:28 PM EDT [facility] BUN 48(H) 5 - 25 mg/dL LAB CHEMISTRY METHOD 10/26/2024 3:28 PM EDT [facility] Creatinine 2.51(H) 0.50 - 1.10 mg/dL LAB CHEMISTRY METHOD 10/26/2024 3:28 PM EDT [facility] eGFR 24(L) >=60 mL/min/1. 73m2 LAB CHEMISTRY METHOD 10/26/2024 3:28 PM EDT [facility] Comment:Calculation based on the??Chronic Kidney Disease Epidemiology Collaboration (CKD-EPI) equation refit??without adjustment for race. BUN/Creatinine Ratio 19.1 LAB CHEMISTRY METHOD 10/26/2024 3:28 PM EDT [facility] Calcium 9.3 8.5 - 10.5 mg/dL LAB CHEMISTRY METHOD 10/26/2024 3:28 PM EDT [facility] Blood Venous blood specimen / Unknown Venipuncture / Unknown 10/26/2024 2:02 PM EDT 10/26/2024 2:47 PM EDT us Lew Ji MD LAB BLOOD ORDERABLES Final Resu lt [facility] [address] [place] [address], * ECG 12 lead (10/26/2024 1:30 PM EDT) Ventricular Rate ECG 71 BPM GEMUSE Atrial Rate 71 BPM GEMUSE P-R Interval 154 ms GEMUSE QRS Duration 104 ms GEMUSE Q-T Interval 462 ms GEMUSE QTc 502 ms GEMUSE P Wave [place] 37 degrees GEMUSE R [place] -9 degrees GEMUSE T [place] 169 degrees GEMUSE ECG Interpretation Normal sinus rhythm Minimal voltage criteria for LVH, may be normal variant T wave abnormality, consider lateral ischemia Prolonged QT Abnormal ECG When compared with ECG of 15-SEP-2019 11:26, T wave inversion more evident in Lateral leads Confirmed by KAMINI REAL ([id number]) on 10/26/2024 3:04:58 PM GEMUSE 10/26/2024 1:30 PM EDT 10/26/2024 3:04 PM EDT us Lew Ji MD ECG ORDERABLES Final Result GEMUSE * DIAGNOSTIC MAMMOGRAPHY INCLUDING CAD BILATERAL (09/21/2022 [...] or Most Recently Relevant to Health Maintenance Insurance MEDICAID - [place] Care Teams Digital Artist Relationship Specialty Start Date End Date Physician, No Pcp PCP - General 10/26/24
--- OUTSIDE RECORDS SUMMARY | 2024-10-28 09:48 | XMS_ITS | Encounter Summary ---
Author Organization [facility] Address [address] [place] [address] Care Team Providers Care Rn Acls Name Role Phone Mariana Nascimento DO Primary Care Pro vider Unavailable Win White MD Primary Care Provider [phone] Encounter Details Date Type Department Care Team Description 03/22/2015 Release of Information Medical Records [address] [place] [id number] Abstract, Provider Social History Tobacco Use Types [...] filedocumented in this encounter Care Teams Rn Acls Relationship Specialty Start Date End Date Mariana Nasicmento DO PCP - General Internal Medicine 11/18/13 09/14/19 Win White MD [address] [place] [address] PCP - General Internal Medicine 09/15/19 documented as of this encounter
--- OUTSIDE RECORDS SUMMARY | 2024-10-28 09:48 | XMS_ITS | Encounter Summary ---
Author Organization [facility] Address [address] [facility] [address] [place] [address] Phone Care Team Providers Care Hand Screen Printer Name Role Phone Meeta Wise Primary Care Provider Encounter Details Date Type Department Care Team (Late st Contact Info) Description 08/11/2024 Documentation Only [facility] [address] [place] [phone] Marta Ravi [address] [place] [phone] Social History Tobacco Use Types Packs/Day [...] Visit [facility] [address] [place] [address] Aretha Vences MD [address] [place] [address] [place] [address] documented as of this encounter Visit Diagnoses Not on filedocumented in this encounter Care Teams Hand Screen Printer Relationship Specialty Start Date End Date Meeta Wise FNP [address] [place] [address] PCP - General Nurse Practitioner 06/15/24 documented as of this encounter
--- OUTSIDE RECORDS SUMMARY | 2024-10-28 09:48 | XMS_ITS | Encounter Summary ---
Author Organization [facility] Address [address] [place] [address] Care Team Providers Care Shift Superintendent Caustic Cresylate Name Role Phone Mariana Nascimento DO Primary Care Pro vider Unavailable Win White MD Primary Care Provider [phone] Encounter Details Date Type Department Care Team Description 06/04/2016 [facility] Medical Records [address] [place] [address] Social History Tobacco Use Types Packs/Day Years [...] on filedocumented in this encounter Care Teams Shift Superintendent Caustic Cresylate Relationship Specialty Start Date End Date Mariana Nascimento DO PCP - General Internal Medicine 11/18/13 09/14/19 Win White MD [address] [place] [address] PCP - General Internal Medicine 09/15/19 documented as of this encounter
--- OUTSIDE RECORDS SUMMARY | 2024-10-28 09:48 | XMS_ITS | Encounter Summary ---
Author Organization [facility] Address [address] [facility] [address] [place] [address] Phone Care Team Providers Care Elementary Science Teacher Name Role Phone Meeta Wise Primary Care Provider Encounter Details Date Type Department Care Team (Late st Contact Info) Description 10/26/2024 Documentation Only [facility] [address] [place] [phone] Marta Ravi [address] [place] [phone] Social History Tobacco Use Types Packs/Day [...] Visit [facility] [address] [place] [address] Aretha Vences MD [address] [place] [address] [place] [address] documented as of this encounter Visit Diagnoses Not on filedocumented in this encounter Care Teams Elementary Science Teacher Relationship Specialty Start Date End Date Meeta Wise FNP [address] [place] [address] PCP - General Nurse Practitioner 06/15/24 documented as of this encounter
--- OUTSIDE RECORDS SUMMARY | 2024-10-28 09:48 | XMS_ITS | Encounter Summary ---
Author Organization [facility] Address [address] [facility] [address] [place] [address] Phone Care Team Providers Care Clinical Trials Systems Administrator Name Role Phone Meeta Wise Primary Care Provider Encounter Details Date Type Department Care Team (Late st Contact Info) Description 08/13/2024 Documentation Only [facility] [address] [place] [phone] Marta Ravi [address] [place] [phone] Social History Tobacco Use Types Packs/Day [...] [facility] [address] [place] [address] Aretha Vences MD [address] [place] [address] [place] [address] documented as of this encounter Visit Diagnoses Not on filedocumented in this encounter Care Teams Clinical Trials Systems Administrator Relationship Specialty Start Date End Date Meeta Wise FNP [address] [place] [address] PCP - General Nurse Practitioner 06/15/24 documented as of this encounter
--- OUTSIDE RECORDS SUMMARY | 2024-10-28 09:48 | XMS_ITS | Clinical Summary ---
Author Organization [facility] Address [address] [place] [address] [place] [address] Phone Care Team Providers Care Franchise Sales Director Name Role Phone WiseMeeta mack PORSCHE Primary Care Provider [phone] Medications albuterol HFA (PROVENTIL HFA;VENTOLIN HFA) 108 [...] Encounters Date Type Department Care Team Description 10/26/2024 Documentation Only [facility] [address] [place] [address] Trav, Marta 10/23/2024 Documentation Only [facility] [address] [place] [address] Neris Lopez RN 10/06/2024 Documentation Only [facility] [address] [place] [address] Trav, Marta 10/02/2024 Documentation Only [facility] [address] [place] [address] Trav, Marta 10/02/2024 Documentation Only [facility] [address] [place] [address] Trav, Marta 09/30/2024 Documentation Only [facility] [address] [place] [address] Alan Lopez MD 09/24/2024 4:30 PM EST Office Visit [facility] [address] [place] [address] Aretha Vences MD Stage 3b chronic kidney disease (HCC) (Primary Dx) 09/24/2024 Documentation Only [facility] [address] [place] [address] Trav, Marta 09/24/2024 Documentation Only [facility] [address] [place] [address] Trav, Marta 08/27/2024 Documentation Only [facility] [address] [place] [address] Trav, Marta 08/26/2024 Office Communication [facility] [address] [place] [address] Kaley Barton 08/25/2024 Office Communication [facility] [address] [place] [address] Andressa Crowder [place] 08/19/2024 Telephone [facility] [address] [place] [address] Eva Vargas 08/13/2024 3:15 PM EST Office Visit [facility] [address] [place] [address] Alan Lopez MD Chronic kidney disease, stage 4 (severe) (HCC) (Primary Dx) 08/13/2024 Documentation Only [facility] [address] [place] [address] Trav, Marta 08/11/2024 Documentation Only [facility] [address] [place] [address] Trav, Marta 08/11/2024 Documentation Only [facility] [address] [place] [address] Trav, Marta 08/11/2024 Documentation Only [facility] [address] [place] [address] Trav, Marta 08/11/2024 Documentation Only [facility] [address] [place] [address] Trav, Marta 08/11/2024 Documentation Only [facility] [address] [place] [address] Trav, Marta 08/11/2024 Documentation Only [facility] [address] [place] [address] Trav, Marta 08/11/2024 Documentation Only [facility] [address] [place] [address] Marta Ravi 08/11/2024 Documentation Only [facility] [address] [place] [address] Marta Ravi 08/11/2024 Documentation Only [facility] [address] [place] [address] Marta Ravi 08/11/2024 Documentation Only [facility] [address] [place] [address] Marta Ravi from Last 3 Months Immunizations Name Administration [...] [facility] [address] [place] [address] Aretha Vences MD [address] [place] [address] [place] [address] Health Maintenance Due Date Last Done Comments [...] Urine 0-5 0 - 5 /hpf [facility] RBC, Urine 3-10(A) 0 - 2 /hpf [facility] Squamous Epithelial, Urine 0-10 0 - 10 /hpf [facility] Casts None seen None seen /lpf [facility] Bacteria, Urine None seen None seen/Few [facility] 08/31/2024 2:36 PM EST 08/31/2024 Alan Lopez MD LAB MICROBIOLOGY - GENERAL OR DERABLES Final Result [facility] [address] [place] [address] * Iron Panel (Fe, TIBC, TSAT) (08/31/2024 2:36 PM EST) TIBC 318 250 - 450 ug/dL [facility] UIBC 271 131 - 425 ug/dL [facility] Iron 47 27 - 159 ug/dL [facility] Iron Saturation (TSat) 15 15 - 55 % [facility] Blood (Blood, Venous) 08/31/2024 2:36 PM EST 08/31/2024 Alan Lopez MD LAB BLOOD ORDERABLES Final Re sult [facility] [address] [place] [address] * (ABNORMAL) Protein, Total, Random Urine w/Creatinine (Protein/Creat Ratio) (08/31/2024 2:36 PM EST) Creatinine, Ur 98.1 Not Estab. mg/dL [facility] Protein, Ur 148.7 Not Estab. mg/dL [facility] Urine Protein/Creati nine Ratio 1,516(H) 0 - 200 mg/g creat [facility] Urine (Urine, Clean Catch) 08/31/2024 2:36 PM EST 08/31/2024 Alan Lopez MD LAB URINE ORDERABLES Final Re farzaneht [facility] [address] [place] [address] * (ABNORMAL) Urine Albumin / Creatinine Ratio (08/31/2024 2:36 PM EST) Pathologist [facility] Albumin, Urine 1,050.9 Not Estab. ug/mL [facility] Comment: Results confirmed on dilution. Albumin/Creatin ine Ratio 1,071(H) 0 - 29 mg/g creat [facility] Comment: ? Normal: ?0 - ??29 ? Moderately increased: 30 - 300 ? Severely increased: ? >300 Urine (Urine, Clean Catch) 08/31/2024 2:36 PM EST 08/31/2024 Alan Lopez MD LAB URINE ORDERABLES Final Re gary Performing Organization Address City/[facility]/ZIP Co de Phone Number [facility] [address] [place] [address] * (ABNORMAL) Urinalysis with microscopic (08/31/2024 2:36 PM EST) Pathologist [facility] Specific [place], Urine 1.014 1.005 - 1.030 [facility] pH Urine 6.0 5.0 - 7.5 [facility] Color, Urine Yellow Yellow [facility] [phone] Appearance Urine Clear Clear [facility] WBC Esterase Urine Negative Negative [facility] Protein, Ur 3+(A) Negative/Tra ce [facility] Glucose, Ur 2+(A) Negative [facility] Ketones, Urine Negative Negative [facility] [phone] Blood Urine 3+(A) Negative [facility] Bilirubin Urine Negative Negative [facility] Urobilinogen Urine 0.2 0.2 - 1.0 mg/dL [facility] Nitrite, Urine Negative Negative [facility] Microscopic Examination See below: [facility] Comment:Microscopic was sly cated and was performed. Urine (Urine, Clean Catch) 08/31/2024 2:36 PM EST 08/31/2024 us Alan Lopez MD LAB URINE ORDERABLES Final Re sult [facility] [address] [place] [address] * Protime-INR (08/31/2024 2:36 PM EST) INR 0.9 0.9 - 1.2 [facility] Comment: Reference interval is for non-anticoagulated patients. Suggested INR therapeutic range for Vitamin K antagonist therapy: ?? Standard Dose (moderate intensity ?therapeutic range): ? 2.0 - 3.0 ?? Higher intensity therapeutic range ? 2.5 - 3.5 Protime 10.4 9.1 - 12.0 sec [facility] Blood (Blood, Venous) 08/31/2024 2:36 PM EST 08/31/2024 us Alan Lopez MD LAB BLOOD ORDERABLES Final Re farzaneht [facility] [address] [place] [address] * CBC and Differential (08/31/2024 2:36 PM EST) WBC 8.9 3.4 - 10.8 x10E3/uL [facility] RBC 4.31 3.77 - 5.28 x10E6/uL [facility] Hemoglobin 12.5 11.1 - 15.9 g/dL [facility] Hematocrit 38.4 34.0 - 46.6 % [facility] MCV 89 79 - 97 fL [facility] MCH 29.0 26.6 - 33.0 pg [facility] MCHC 32.6 31.5 - 35.7 g/dL [facility] RDW 12.3 11.7 - 15.4 % [facility] Platelets 361 150 - 450 x10E3/uL [facility] Neutrophils Relative 59 Not Estab. % [facility] Lymphocytes Relative 30 Not Estab. % [facility] Monocytes 7 Not Estab. % [facility] Eosinophils Relative 3 Not Estab. % [facility] Basophils Relative 1 Not Estab. % [facility] Neutrophils Absolute 5.3 1.4 - 7.0 x10E3/uL [facility] Lymphocytes Absolute 2.7 0.7 - 3.1 x10E3/uL [facility] Monocytes Absolute 0.6 0.1 - 0.9 x10E3/uL [facility] Eosinophils Absolute 0.2 0.0 - 0.4 x10E3/uL [facility] Basophils Absolute 0.1 0.0 - 0.2 x10E3/uL [facility] Immature Granulocytes 0 Not Estab. % [facility] Immature Grans (Absolute) 0.0 0.0 - 0.1 x10E3/uL [facility] Blood (Blood, Venous) 08/31/2024 2:36 PM EST 08/31/2024 us Alan Lopez MD LAB BLOOD ORDERABLES Final Re sult [facility] [address] [place] [address] * hCG, quantitative, (08/31/2024 2:36 PM EST) HCG-B Subunit, Quantitative <1 mIU/mL [facility] Comment: ? Female (Non-) ?0 - ? 5 ?(Postmenopausal) ??0 - ? 8 ? Female () ? Weeks of Gestation ? 3 ?6 - ?71 ? 4 ? 10 - ?? 750 ? 5 ?217 - ??7138 ? 6 ?158 - 59781 ? 7 ? 3697 -117606 ? 8 ?17846 -676172 ? 9 ?06139 -180955 ?10 ?26882 -859249 ?12 ?69214 -854722 ?14 ?03873 - 26964 ?15 ?18014 - 70275 ?16 ? 8700 - 49190 ?17 ? 6158 - 94113 ?18 ? 0001 - 51682 Carlita ECLIA methodology Blood (Blood, Venous) 08/31/2024 2:36 PM EST 08/31/2024 Alan Lopez MD LAB BLOOD ORDERABLES Final Re sult Performing Organization Address City/[facility]/ZIP Co de Phone Number [facility] [address] [place] [address] * Ferritin (08/31/2024 2:36 PM EST) Pathologist [facility] Ferritin 107 15 - 150 ng/mL [facility] Blood (Blood, Venous) 08/31/2024 2:36 PM EST 08/31/2024 Alan Lopez MD LAB BLOOD ORDERABLES Final Re sult Performing Organization Address [facility] de Phone Number [facility] [address] [place] [address] * (ABNORMAL) Renal Function Panel (08/31/2024 2:36 PM EST) Glucose 94 70 - 99 mg/dL [facility] BUN 46(H) 6 - 20 mg/dL [facility] Creatinine 2.00(H) 0.57 - 1.00 mg/dL [facility] eGFR CKD-EPI CR 2020 32(L) >59 mL/min/1.7 3 [facility] BUN/Creatinine Ratio 23 9 - 23 [facility] Sodium 141 134 - 144 mmol/L [facility] Potassium 4.8 3.5 - 5.2 mmol/L [facility] Chloride 104 96 - 106 mmol/L [facility] Bicarbonate (CO2) 21 20 - 29 mmol/L [facility] Calcium 9.7 8.7 - 10.2 mg/dL [facility] Albumin 4.2 3.9 - 4.9 g/dL [facility] Phosphorus 3.9 3.0 - 4.3 mg/dL [facility] Blood (Blood, Venous) 08/31/2024 2:36 PM EST 08/31/2024 us Alan Lopez MD LAB BLOOD ORDERABLES Final Re sult [facility] [address] [place] [address] from Last 3 Months Insurance [facility] MEDICAID [facility] MEDICAID Care Teams Franchise Sales Director Relationship Specialty Start Date End Date Meeta Wise FNP [address] [place] [address] PCP - General Nurse Practitioner 06/15/24
--- OUTSIDE RECORDS SUMMARY | 2024-10-28 09:48 | XMS_ITS | Encounter Summary ---
Author Organization [facility] Address [address] [place] [address] Care Team Providers Care Kettle Tender Name Role Phone Mariana Nascimento DO Primary Care Pro vider Unavailable Win White MD Primary Care Provider [phone] Encounter Details Date Type Department Care Team Description 05/22/2016 [facility] Report Medical Records [address] [place] [address] Pamela White Social History Tobacco Use Types [...] on filedocumented in this encounter Care Teams Kettle Tender Relationship Specialty Start Date End Date Mariana Nascimento DO PCP - General Internal Medicine 11/18/13 09/14/19 Win White MD [address] [place] [address] PCP - General Internal Medicine 09/15/19 documented as of this encounter
--- OUTSIDE RECORDS SUMMARY | 2024-10-28 09:48 | XMS_ITS | Encounter Summary ---
Author Organization [facility] Address [address] [place] [address] Care Team Providers Care Kier Pleater Name Role Phone Win White MD Primary Care Provider [phone] Reason for Visit * Reason Onset Date Comments medication problems 06/05/2022 Encounter Details Date Type Department Care Team Description 06/05/2022 Telephone Adult Medicine - [address] [address] Win White MD [address] [place] [address] medication problems (/) Social History Tobacco Use Types Packs/Day Years [...] suspected to have Coronavirus/COVID-19? No / Unsure 06/01/2022 9:30 AM EDT documented as of this encounter Miscellaneous Notes * Telephone Encounter - Mariluz Davidson M.A. - 06/05/2022 3:33 PM EDT DELVIN: 06/01/22 Wrong script sent to pharmacy * Telephone Encounter - Stefano Beltran - 06/05/2022 3:30 PM EDT Who is calling? The patient Name of the medication albuterol (PROVENTIL) (2.5 MG/3ML) 0.083% nebulizer solution What is the specific problem or interaction? Pt needs albuterol inhaler not the solution for a machine. If the patient is having a problem with taking the med - how long has the problem been going on? N/A documented in this encounter Plan of Treatment Not on file documented as of this encounter Visit Diagnoses Not on filedocumented in this encounter Care Teams Kier Pleater Relationship Specialty Start Date End Date Win White MD [address] [place] [address] PCP - General Internal Medicine 09/15/19 documented as of this encounter
--- OUTSIDE RECORDS SUMMARY | 2024-10-28 09:48 | XMS_ITS | Encounter Summary ---
Author Organization [facility] Address [address] [place] [address] Care Team Providers Care Legal Document Assistant Name Role Phone Mariana Nascimento DO Primary Care Pro vider Unavailable Win White MD Primary Care Provider [phone] Reason for Referral * Specialist (Routine) - Authorized/Booked Specialty Diagnoses / Procedures Referred By Miguel cruz Referred To Contact COMPREHENSIVE WEIGHT MANAGEMENT / WEIGHT MANAGEMENT Procedures REFERRAL TO WEIGHT MANAGEMENT CLINIC Mariana Nascimento DO [address] [place] [address] External Weight Referral ID Status Reason Start Date Expiration Date V isits Requested Visits Authorized SEE REVIEW 09/14/14 Authorized/ Booked 09/12/2014 12/10/2014 1 1 Encounter Details Date Type Department Care Team Description 09/12/2014 Orders Only Adult Medicine [address] [address] Mariana Nascimento DO Social History Tobacco Use [...] on filedocumented in this encounter Care Teams Legal Document Assistant Relationship Specialty Start Date End Date Mariana Nascimento DO PCP - General Internal Medicine 11/18/13 09/14/19 Win White MD [address] [place] [address] PCP - General Internal Medicine 09/15/19 documented as of this encounter
--- OUTSIDE RECORDS SUMMARY | 2024-10-28 09:48 | XMS_ITS | Encounter Summary ---
Author Organization [facility] Address [address] [facility] [address] [place] [address] Phone Care Team Providers Care Green Hide Inspector Name Role Phone Meeta Wise Primary Care Provider [phone] Encounter Details Date Type Department Care Team (Late st Contact Info) Description 09/24/2024 Documentation Only [facility] [address] [place] [address] Marta Ravi [address] [place] [address] Social History Tobacco Use Types Packs/Day [...] [facility] [address] [place] [address] Aretha Vences MD [address] [place] [address] [place] [address] documented as of this encounter Visit Diagnoses Not on filedocumented in this encounter Care Teams Green Hide Inspector Relationship Specialty Start Date End Date Meeta Wise FNP [address] [place] [address] PCP - General Nurse Practitioner 06/15/24 documented as of this encounter
--- OUTSIDE RECORDS SUMMARY | 2024-10-28 09:48 | XMS_ITS | Encounter Summary ---
Author Organization [facility] Address [address] [place] [address] Care Team Providers Care Meal Miller Name Role Phone Physician, No Pcp Primary Care Provider Unavaila ble Reason for Visit * Reason Comments Dizziness Back Pain Numbness Encounter Details Date Type Department Care Team (Late st Contact Info) Description 10/26/2024 1:10 PM EDT - 10/26/2024 8:21 PM EDT Emergency [facility] Emergency [address] [place] [id number] Lew Ji MD [address] [place] [address] Dizziness (Primary Dx); Low back pain, unspecified back pain laterality, unspecified chronicity, unspecified whether sciatica present Discharge Disposition: Home or Self Care Social History Tobacco Use Types Packs/Day Years [...] 3:34 PM EDT Sexual Orientation Straight 10/26/2024 3: 34 PM EDT documented as of this encounter Last Filed Vital Signs Vital Sign Reading [...] Mass Index 28.46 10/26/2024 1:54 PM EDT documented in this encounter Discharge Instructions * Discharge Instructions* SHERITA Gardiner - 10/26/2024 8:08 PM EDT You are seen in the ER today for a few weeks of dizziness and low back pain. We did do lab work which does show you have a mild kidney injury with an elevated creatinine at 2.5. We did give you some IV fluids. Please be sure to stay hydrated with plenty of fluids. You may also need to follow-up with nephrology. Your primary care doctor can help facilitate this. Please discuss this with them tomorrow at your appointment. Otherwise we gave you some meclizine to help with your dizziness which helped very well. You did show me that you are taking tizanidine for the low back pain. This can make you feel dizzy so I recommend refraining from the tizanidine. It was a pleasure caring for you today in the emergency department. Please return to the emergency department if you begin to experience any new onset chest pain, shortness of breath, uncontrolled fevers, severe abdominal pain, loss of consciousness, uncontrolled vomiting, uncontrolled diarrhea, or for any other reason you feel is necessary. Please follow-up with your PCP about this visit. Examination and treatment you received in the emergency department has been rendered on an EMERGENCY basis only. It is not intended to be a substitute for or an effort to provide complete medical care. You should follow-up with your primary care provider. Please report to your physician any new or remaining problems, because it is impossible to recognize and treat all elements of injury or illness in a single emergency department visit. If you do not have a primary care provider or require a referral, a follow-up doctor extermination inspector for the emergency department will be provided in your discharge packet. In the event that you're unable to obtain a followup appointment in a timely fashion, OR you are not getting any better, OR you are getting worse, OR you develop any symptoms of concern, please return here immediately for further evaluation. The emergency department is open 24 hours a day, 7 days aweek. Your discharge report is based on information that was available when you were in the emergency department If you do not have a primary care provider, please contact one of the following to make arrangements to follow up. Katya Aguilar Katya Camp Katya Contreras Katya Mccarthy documented in this encounter Discharge Disposition Disposition Code Departure Means Destination Comment s Home or Self Care Pt aaox4, respirations are even and unlabored on room air, VSS. Pt speaking in complete, clear full sentences. Pt skin warm dry and normal in appearance for age. Pt provided DC instructions including use of OTC meds for sx relief, need to f/u outpt with PCP and reasons to return to ED. Pt verbalized understanding, offers no questions/concerns. Pt ambulates with steady, independent gait. Pt leaving with friend documented in this encounter Progress Notes * Anna Cardenas RN - 10/26/2024 1:50 PM EDT PROVIDER AWARE THAT PATIENT NEEDS TO BE SEEN. * Alice Townsend RN - 10/26/2024 1:14 PM EDT Patient katie coming from work, working at school. Staff states that @11:55 patient became very palesat herself down on the ground and began pouring cold water on herself stating that she was hot. Upon ems arrival patient reports bilat lower extremity numbness and back pain and had difficulty transferring to the ems stretcher. * Lew Ji MD - 10/26/2024 1:01 PM EDT This is a split/shared visit with SHERITA Gardiner. I personally performed the medical decision making (MDM) for the care of this patient on 10/26/2024 as documented below 39-year-old female presents for low back pain and dizziness. Regard to the back pain, is highly musculoskeletal in nature without any red flags. Found to have an BRODERICK, will follow-up with PCP tomorrowafter IV fluids here. EKG consistent with LVH pattern. Lew Ji MD 10/26/24 11:03 PM EDT Emergency Medicine Note Patient Name: Chadwick Hoyt Initial Evaluation: 10/26/2024 : 1985 Patient's PCP: No Pcp Physician Emergency Physician: Lew Ji MD History of Present Illness Chief Complaint: Chief Complaint Patient presents with Dizziness Back Pain Numbness HPI: 39-year-old female patient history of morbid obesity, CKD stage IIIb, hypertension, asthma presents the ER today for 2 weeks of low back pain and some dizziness. Patient reports that she was standing up from a seated position and could not stand up all the way because the pain was radiating down her legs. Patient denies saddle paresthesias, weakness in the lower extremities, and loss of bowel or bladder function. Reports that she did have 1 fall that resulted in pain of the right ankle. Otherwise denies any chest pain, shortness of breath, fevers, or chills. ROS: I have performed a ROS with the pertinent positives and negatives documented in the history ofpresent illness. Previous History Past Medical History: Diagnosis Date Asthma DX:Asthma Elevated glucose DX:Elevated glucose Hematuria DX:Hematuria; COMMENT: following with urology HTN (hypertension) DX:HTN (hypertension) Proteinuria DX:Proteinuria Past Surgical History: Procedure Laterality Date CHOLECYSTECTOMY 06/04/16 PROCEDURE: LAPAROSCOPY, CHOLECYSTECTOMY Social History Tobacco Use Smoking status: Former Current packs/day: 0.00 Types: Cigarettes Quit date: 08/12/2012 Years since quittin.2 Smokeless tobacco: Former Substance Use Topics Alcohol use: Yes Drug use: No Family History Problem Relation Name Age of Onset Hypertension Mother arthritis Hypertension Father colon CA (60) Other (Other: autistic) Brother Other (Other: autism) Son Breast cancer Neg Hx has No Known Allergies. No current facility-administered medications on file prior to encounter. No current outpatient medications on file prior to encounter. Physical Exam Physical Exam Constitutional: General: She is not in acute distress. Appearance: Normal appearance. She is not ill-appearing, toxic-appearing or diaphoretic. HENT: Head: Normocephalic and atraumatic. Eyes: Extraocular Movements: Extraocular movements intact. Pupils: Pupils are equal, round, and reactive to light. Pulmonary: Effort: Pulmonary effort is normal. Musculoskeletal: Comments: Lumbar back paraspinal muscles tenderness to palpation, no midline spinal tenderness. Skin: General: Skin is warm. Neurological: General: No focal deficit present. Mental Status: She is alert and oriented to person, place, and time. Mental status is at baseline. Cranial Nerves: No cranial nerve deficit. Motor: No weakness. Coordination: Coordination normal. Gait: Gait normal. Psychiatric: Mood and Affect: Mood normal. Behavior: Behavior normal. Thought Content: Thought content normal. Judgment: Judgment normal. ED Triage Vitals [10/26/24 1340] Temp Heart Rate Resp BP 36.6 ??C (97.8 ??F) 70 20 105/50 SpO2 Temp Source Heart Rate Source Patient Position 99 % Oral Monitor Lying BP Location FiO2 (%) Left arm -- Results Labs Reviewed BASIC METABOLIC PANEL - Abnormal Result Value Sodium 138 Potassium 5.1 Chloride 104 CO2 24 Anion Gap 10 Glucose 91 BUN 48 (*) Creatinine 2.51 (*) eGFR 24 (*) BUN/Creatinine Ratio 19.1 Calcium 9.3 CBC WITH AUTO DIFFERENTIAL - Abnormal WBC 10.8 RBC 4.30 Hemoglobin 12.2 Hematocrit 38.8 MCV 90.4 MCH 28.4 MCHC 31.4 (*) RDW 13.3 Platelets 364 MPV 11.4 (*) NRBC 0.0 NRBC Absolute 0.00 Neutrophils Relative 75.3 Lymphocytes Relative 14.3 Monocytes Relative 6.3 Eosinophils Relative 3.0 Basophils Relative 0.5 Immature Granulocytes Relative 0.6 Neutrophils Absolute 8.17 (*) Lymphocytes Absolute 1.55 Monocytes Absolute 0.68 Eosinophils Absolute 0.33 Basophils Absolute 0.05 Immature Granulocytes Absolute 0.06 (*) URINALYSIS WITH REFLEX MICROSCOPIC AND CULTURE - Abnormal Specific [place] Urine 1.013 pH, Urine 6.0 Leukocytes, Urine Negative Nitrite, Urine Negative Protein, Urine 100 (*) Glucose, Urine 500 (*) Ketones, Urine Negative Urobilinogen, Urine 0.2 Bilirubin, Urine Negative Blood, Urine Large (*) RBC, Urine 7.6 (*) WBC, Urine 2.0 Squamous Epithelial, Urine 15 Bacteria, Urine Negative Hyaline Casts, Urine 1.2 POCT GLUCOSE, BLOOD - Abnormal Glucose POCT 107 (*) MAGNESIUM - Normal Magnesium 2.0 TROPONIN I HIGH SENSITIVITY - Normal High Sensitivity Troponin I 16 Narrative: High levels of biotin in samples may falsely decrease hsTroponin values. Use caution when interpreting hsTroponin results in patients taking biotin who exhibit renal impairment (eGFR <60) or in patients taking more than 20 mg/day of biotin. TROPONIN I HIGH SENSITIVITY - Normal High Sensitivity Troponin I 14 Narrative: High levels of biotin in samples may falsely decrease hsTroponin values. Use caution when interpreting hsTroponin results in patients taking biotin who exhibit renal impairment (eGFR <60) or in patients taking more than 20 mg/day of biotin. CBC AND DIFFERENTIAL Narrative: The following orders were created for panel order CBC and differential. Procedure Abnormality Status --------- ------ CBC auto differential[[id number]] Abnormal Final result Please view results for these tests on the individual orders. URINALYSIS WITH REFLEX MICROSCOPIC AND CULTURE Narrative: The following orders were created for panel order Urinalysis with reflex microscopic and culture. Procedure Abnormality Status --------- ------ Urinalysis with reflex m...[[id number]] Abnormal Final result Martin urine culture tube[[id number]] Final result Please view results for these tests on the individual orders. Abnormal Labs Reviewed BASIC METABOLIC PANEL - Abnormal; Notable for the following components: Result Value BUN 48 (*) Creatinine 2.51 (*) eGFR 24 (*) All other components within normal limits CBC WITH AUTO DIFFERENTIAL - Abnormal; Notable for the following components: MCHC 31.4 (*) MPV 11.4 (*) Neutrophils Absolute 8.17 (*) Immature Granulocytes Absolute 0.06 (*) All other components within normal limits URINALYSIS WITH REFLEX MICROSCOPIC AND CULTURE - Abnormal; Notable for the following components: Protein, Urine 100 (*) Glucose, Urine 500 (*) Blood, Urine Large (*) RBC, Urine 7.6 (*) All other components within normal limits POCT GLUCOSE, BLOOD - Abnormal; Notable for the following components: Glucose POCT 107 (*) All other components within normal limits No orders to display I have discussed the incidental/abnormal imaging and/or lab abnormalities with the patient and haveinstructed them the need for further evaluation and workup with their primary care doctor. I have provided the patient with a paper copy of the abnormality. The laboratory results, imaging results and other diagnostic exam results were reviewed in the EMR. EKG Interpretation Critical Care Time None ? Medical Decision Making Medications sodium chloride 0.9 % bolus 1,000 mL (0 mL intravenous Stopped 10/26/241649) meclizine (ANTIVERT) tablet 25 mg (25 mg oral Given 10/26/241656) Medical Decision Making Differential diagnose include but not limited to: Orthostatic hypotension Vertigo ACS Sciatica Cauda equina Dehydration In short 39-year-old female patient history of morbid obesity presenting to the ER today for a few weeks of dizziness and low back pain rating down her legs. On arrival vitals are stable patient afebrile. Patient sitting comfortably in bed nontoxic and in no acute distress, hemodynamically stable. No red flag symptoms of cauda equina. Ambulating with a steady gait. No recent trauma prior to the back pain low suspicion for fracture or dislocation or herniation. Nomidline spinal tenderness. Reporting subjective dizziness without focal neurologic deficit. Patient given IV fluids and meclizine which resolved completely. Review of lab work shows no evidence of leukocytosis or anemia. Electrolytes are all within normal limits. Patient does have an elevated creatinine of 2.51, was given a liter of IV fluids and patientdoes have follow-up with her PCP tomorrow for an appointment for this. Urinalysis shows no UTI. Troponin is flat at 16 and 14, no suspicion for ACS. Patient herself is also requesting to be discharged home as she reports she has kids at home and does not want to stay for any further workup or testing or management. Of note patient does have inverted T waves in lead I and aVL which appear to be new since 2019. Will repeat EKG. ED Course as of 10/26/24 2303 SatOct 26, 20242005 Serial EKG shows no change, no progression of T wave inversion. Likely LVH pattern. Will discharge patient home. Did discuss case with Dr. Ji. Patient given strict return precautions and agrees with plan. Will follow-up with her PCP tomorrow. [ES] ED Course User Index [ES] SHERITA Gardiner Clinical Impressions as of 10/26/24 2303 Dizziness Low back pain, unspecified back pain laterality, unspecified chronicity, unspecified whether sciatica present Procedures Procedures Diagnosis 1. Dizziness 2. Low back pain, unspecified back pain laterality, unspecified chronicity, unspecified whether sciatica present Disposition Discharge ED Prescriptions None Physician Attestation SHERITA Gardiner 10/26/24 1742 SHERITA Gardiner 10/26/24 1949 SHERITA Gardiner 10/26/242233 Lew Ji MD 10/26/242303 documented in this encounter Miscellaneous Notes * ED Bed Hold Note - Raquel Miller RN - 10/26/2024 1:10 PM EDT Bed: [facility] Expected date: 10/26/24 Expected time: 12:53 PM Means of arrival: Comments: Ems: Presyncope documented in this encounter Plan of Treatment Pending Results Name Type Priority Associated Diagnoses Date /Time ECG 12 lead ECG Routine 10/26/2024 7: 51 PM EDT documented as of this encounter Procedures Procedure Name Priority Date/Time Associated Diagnosis Comments ECG ANNOTATED 10/27/2024 ECG 12-LEAD Routine 10/26/2024 7:51 PM EDT TROPONIN I HIGH SENSITIVITY STAT 10/26/2024 5:00 PM EDT URINALYSIS WITH REFLEX MICROSCOPIC AND CULTURE STAT 10/26/2024 4:57 PM EDT MARTIN URINE CULTURE TUBE STAT 10/26/2024 4:57 PM EDT URINALYSIS WITH REFLEX MICROSCOPIC AND CULTURE STAT 10/26/2024 4:57 PM EDT POCT GLUCOSE BLOOD Routine 10/26/2024 2: 12 PM EDT TROPONIN I HIGH SENSITIVITY STAT 10/26/2024 2:02 PM EDT CBC WITH AUTO DIFFERENTIAL STAT 10/26/2024 2:02 PM EDT CBC AND DIFFERENTIAL STAT 10/26/2024 2:02 PM EDT MAGNESIUM STAT 10/26/2024 2:02 PM EDT BASIC METABOLIC PANEL STAT 10/26/2024 2:02 PM EDT ECG 12-LEAD STAT 10/26/2024 1:30 PM EDT documented in this encounter Results * ECG-Annotated (10/27/2024) us Provider Onbase ECG ORDERABLES Final Result * Troponin I high sensitivity (10/26/2024 5:00 PM EDT) [facility] High Sensitivity Troponin I 14 <=54 ng/L LAB CHEMISTRY METHOD 10/26/2024 6:17 PM EDT [facility] Blood Venous blood specimen / Unknown Venipuncture / Unknown 10/26/2024 5:00 PM EDT 10/26/2024 5:47 PM EDT Narrative [facility] - 10/26/2024 6:17 PM EDT High levels of biotin in samples may falsely decrease hsTroponin values. ??Use caution when interpreting hsTroponin results in patients taking biotin who exhibit renal impairment (eGFR <60) or in patients taking more than 20 mg/day of biotin. us Lew Ji MD LAB BLOOD ORDERABLES Final Resu lt [facility] [address] [place] [address], [place] [phone] * Martin urine culture tube (10/26/2024 4:57 PM EDT) Pathologist [facility] Extra Tube Hold for add-ons. 10/26/2024 7:01 PM EDT [facility] Comment:Auto resulted. Urine Urine specimen obtained by clean catch procedure / Unknown Non-blood Collection / Unknown 10/26/2024 4:57 PM EDT 10/26/2024 5:50 PM EDT Denice MAGALLON LAB URINE ORDERABLES Final Result Performing Organization Address [facility]/ZIP Co de Phone Number [facility] [address] [place] [address], [place] [phone] * (ABNORMAL) Urinalysis with reflex microscopic and culture (10/26/2024 4:57 PM EDT) [facility] Specific [place] Urine 1.013 1.003 - 1.030 LAB URINALYSIS - AUTOMATED METHOD 10/26/2024 6:02 PM [facility] pH, Urine 6.0 5.0 - 8.0 pH LAB URINALYSIS - AUTOMATED METHOD 10/26/2024 6:02 PM [facility] Leukocytes, Urine Negative Negative LAB URINALYSIS - AUTOMATED METHOD 10/26/2024 6:02 PM EDT [facility] Nitrite, Urine Negative Negative LAB URINALYSIS - AUTOMATED METHOD 10/26/2024 6:02 PM EDT [facility] Protein, Urine 100(A) <=Trace mg/dL LAB URINALYSIS - AUTOMATED METHOD 10/26/2024 6:02 PM [facility] Glucose, Urine 500(A) Negative mg/dL LAB URINALYSIS - AUTOMATED METHOD 10/26/2024 6:02 PM [facility] Ketones, Urine Negative Negative mg/dL LAB URINALYSIS - AUTOMATED METHOD 10/26/2024 6:02 PM T [facility] Urobilinogen, Urine 0.2 0.2 - 1.0 mg/dL LAB URINALYSIS - AUTOMATED METHOD 10/26/2024 6:02 PM [facility] Bilirubin, Urine Negative Negative LAB URINALYSIS - AUTOMATED METHOD 10/26/2024 6:[facility] Blood, Urine Large(A) Negative LAB URINALYSIS - AUTOMATED METHOD 10/26/2024 6:02 PM [facility] RBC, Urine 7.6(H) 0 - 4 /HPF LAB URINALYSIS - AUTOMATED METHOD 10/26/2024 6:02 PM [facility] WBC, Urine 2.0 0 - 4 /HPF LAB URINALYSIS - AUTOMATED METHOD 10/26/2024 6:02 PM [facility] Squamous Epithelial, Urine 15 0 - 60 /LPF LAB URINALYSIS - AUTOMATED METHOD 10/26/2024 6:02 PM [facility] Bacteria, Urine Negative Negative /HPF LAB URINALYSIS - AUTOMATED METHOD 10/26/2024 6:02 PM [facility] Hyaline Casts, Urine 1.2 0 - 3 /LPF LAB URINALYSIS - AUTOMATED METHOD 10/26/2024 6:02 PM [facility] Urine Urine specimen obtained by clean catch procedure / Unknown Non-blood Collection / Unknown 10/26/2024 4:57 PM EDT 10/26/2024 5:50 PM EDT us Denice MAGALLON LAB URINE ORDERABLES Final Result [facility] [address] [place] [address], [place] [phone] * (ABNORMAL) POCT Glucose, blood (10/26/2024 2:12 PM EDT) Glucose POCT 107(H) 70 - 100 mg/dL 10/26/2024 2:13 PM EDT [facility] Blood Capillary blood specimen / Unknown 10/26/2024 2:12 PM EDT 10/26/2024 2:14 PM EDT us Generic Provider Poct LAB POINT OF CARE TEST DOCKED DEVICE UNSOLICITED RESULTS Final Result [facility] [address] [place] [address], * (ABNORMAL) CBC auto differential (10/26/2024 2:02 PM EDT) [facility] WBC 10.8 4.8 - 10.8 K/mcL LAB HEMETOLOGY METHOD 10/26/2024 2:58 PM EDT [facility] RBC 4.30 3.80 - 4.80 M/mcL LAB HEMETOLOGY METHOD 10/26/2024 2:58 PM EDT [facility] Hemoglobin 12.2 11.5 - 16.0 g/dL LAB HEMETOLOGY METHOD 10/26/2024 2:58 PM EDT [facility] Hematocrit 38.8 35.0 - 47.0 % LAB HEMETOLOGY METHOD 10/26/2024 2:58 PM EDT [facility] MCV 90.4 79.0 - 98.0 FL LAB HEMETOLOGY METHOD 10/26/2024 2:58 PM EDT [facility] MCH 28.4 27.0 - 32.0 pcg LAB HEMETOLOGY METHOD 10/26/2024 2:58 PM EDT [facility] MCHC 31.4(L) 32.0 - 37.0 g/dL LAB HEMETOLOGY METHOD 10/26/2024 2:58 PM EDT [facility] RDW 13.3 11.0 - 15.0 % LAB HEMETOLOGY METHOD 10/26/2024 2:58 PM EDT [facility] Platelets 364 130 - 400 K/mcL LAB HEMETOLOGY METHOD 10/26/2024 2:58 PM [facility] MPV 11.4(H) 7.0 - 11.0 FL LAB HEMETOLOGY METHOD 10/26/2024 2:58 PM EDT [facility] NRBC 0.0 <1.0 % LAB HEMETOLOGY METHOD 10/26/2024 2:58 PM EDT [facility] NRBC Absolute 0.00 <0.10 K/mcL LAB HEMETOLOGY METHOD 10/26/2024 2:58 PM [facility] Neutrophils Relative 75.3 % LAB HEMETOLOGY METHOD 10/26/2024 2:58 PM T [facility] Lymphocytes Relative 14.3 % LAB HEMETOLOGY METHOD 10/26/2024 2:58 PM [facility] Monocytes Relative 6.3 % LAB HEMETOLOGY METHOD 10/26/2024 2:58 PM [facility] Eosinophils Relative 3.0 % LAB HEMETOLOGY METHOD 10/26/2024 2:58 PM [facility] Basophils Relative 0.5 % LAB HEMETOLOGY METHOD 10/26/2024 2:58 PM [facility] Immature Granulocytes Relative 0.6 % LAB HEMETOLOGY METHOD 10/26/2024 2:58 PM EDT [facility] Neutrophils Absolute 8.17(H) 1.50 - 7.00 K/mcL LAB HEMETOLOGY METHOD 10/26/2024 2:58 PM [facility] Lymphocytes Absolute 1.55 1.00 - 5.00 K/mcL LAB HEMETOLOGY METHOD 10/26/2024 2:58 PM EDT [facility] Monocytes Absolute 0.68 0.20 - 1.00 K/mcL LAB HEMETOLOGY METHOD 10/26/2024 2:58 PM EDT [facility] Eosinophils Absolute 0.33 0.00 - 0.50 K/mcL LAB HEMETOLOGY METHOD 10/26/2024 2:58 PM EDT [facility] Basophils Absolute 0.05 0.00 - 0.20 K/mcL LAB HEMETOLOGY METHOD 10/26/2024 2:58 PM EDT [facility] Immature Granulocytes Absolute 0.06(H) 0.00 - 0.03 K/mcL LAB HEMETOLOGY METHOD 10/26/2024 2:58 PM EDT [facility] Blood Venous blood specimen / Unknown Venipuncture / Unknown 10/26/2024 2:02 PM EDT 10/26/2024 2:48 PM EDT us Lew Ji MD LAB BLOOD ORDERABLES Final Resu lt [facility] [address] [place] [address], * Troponin I high sensitivity (10/26/2024 2:02 PM EDT) High Sensitivity Troponin I 16 <=54 ng/L LAB CHEMISTRY METHOD 10/26/2024 3:33 PM EDT [facility] Blood Venous blood specimen / Unknown Venipuncture / Unknown 10/26/2024 2:02 PM EDT 10/26/2024 2:47 PM EDT Narrative [facility] - 10/26/2024 3:33 PM EDT High levels of biotin in samples may falsely decrease hsTroponin values. ??Use caution when interpreting hsTroponin results in patients taking biotin who exhibit renal impairment (eGFR <60) or in patients taking more than 20 mg/day of biotin. us Lew Ji MD LAB BLOOD ORDERABLES Final Resu lt Performing Organization Address City/[facility]/ZIP Co de Phone Number [facility] [address] [place] [address], [place] [phone] * Magnesium (10/26/2024 2:02 PM EDT) [facility] Magnesium 2.0 1.9 - 2.6 mg/dL LAB CHEMISTRY METHOD 10/26/2024 3:28 PM EDT [facility] Blood Venous blood specimen / Unknown Venipuncture / Unknown 10/26/2024 2:02 PM EDT 10/26/2024 2:47 PM EDT Lew Ji MD LAB BLOOD ORDERABLES Final Resu lt Performing Organization Address [facility]/ZIP Co de Phone Number [facility] [address] [place] [address], [place] [phone] * (ABNORMAL) Basic metabolic panel (10/26/2024 2:02 PM EDT) [facility] Sodium 138 133 - 145 mmol/L LAB CHEMISTRY METHOD 10/26/2024 3:28 PM EDT [facility] Potassium 5.1 3.5 - 5.5 mmol/L LAB CHEMISTRY METHOD 10/26/2024 3:28 PM EDT [facility] Chloride 104 96 - 110 mmol/L LAB CHEMISTRY METHOD 10/26/2024 3:28 PM EDT [facility] CO2 24 21 - 32 mmol/L LAB CHEMISTRY METHOD 10/26/2024 3:28 PM EDT [facility] Anion Gap 10 3 - 11 LAB CHEMISTRY METHOD 10/26/2024 3:28 PM EDT [facility] Glucose 91 70 - 100 mg/dL LAB CHEMISTRY METHOD 10/26/2024 3:28 PM EDT [facility] BUN 48(H) 5 - 25 mg/dL LAB CHEMISTRY METHOD 10/26/2024 3:28 PM EDT [facility] Creatinine 2.51(H) 0.50 - 1.10 mg/dL LAB CHEMISTRY METHOD 10/26/2024 3:28 PM EDT [facility] eGFR 24(L) >=60 mL/min/1. 73m2 LAB CHEMISTRY METHOD 10/26/2024 3:28 PM EDT [facility] Comment:Calculation based on the??Chronic Kidney Disease Epidemiology Collaboration (CKD-EPI) equation refit??without adjustment for race. BUN/Creatinine Ratio 19.1 LAB CHEMISTRY METHOD 10/26/2024 3:28 PM EDT [facility] Calcium 9.3 8.5 - 10.5 mg/dL LAB CHEMISTRY METHOD 10/26/2024 3:28 PM EDT [facility] Blood Venous blood specimen / Unknown Venipuncture / Unknown 10/26/2024 2:02 PM EDT 10/26/2024 2:47 PM EDT us Lew Ji MD LAB BLOOD ORDERABLES Final Resu lt [facility] [address] [place] [address], * ECG 12 lead (10/26/2024 1:30 PM EDT) Ventricular Rate ECG 71 BPM GEMUSE Atrial Rate 71 BPM GEMUSE P-R Interval 154 ms GEMUSE QRS Duration 104 ms GEMUSE Q-T Interval 462 ms GEMUSE QTc 502 ms GEMUSE P Wave [place] 37 degrees GEMUSE R [place] -9 degrees GEMUSE T [place] 169 degrees GEMUSE ECG Interpretation Normal sinus rhythm Minimal voltage criteria for LVH, may be normal variant T wave abnormality, consider lateral ischemia Prolonged QT Abnormal ECG When compared with ECG of 15-SEP-2019 11:26, T wave inversion more evident in Lateral leads Confirmed by KAMINI REAL ([id number]) on 10/26/2024 3:04:58 PM GEMUSE 10/26/2024 1:30 PM EDT 10/26/2024 3:04 PM EDT Lew Ji MD ECG ORDERABLES Final Result GEMUSE documented in this encounter Visit Diagnoses Diagnosis Dizziness- Primary Dizziness and giddiness Low back pain, unspecified back pain laterality, unspecified chronicity, unspecified whether sciatica present documented in this encounter Administered Medications Inactive Administered Medications - up to 3 most recent administrations Medication Order MAR Action Action Date Dose Rate Site meclizine (ANTIVERT) tablet 25 mg 25 mg, oral, Once, On Sat10/26/24 at 1643, For 1 dose Given 10/26/2024 4:57 PM EDT 25 mg sodium chloride 0.9 % bolus 1,000 mL 1,000 mL, intravenous, at 2,000 mL/hr, Administer over 30 Minutes, Once, On Sat10/26/24 at 1422, For 1 dose New Bag 10/26/2024 2:29 PM EDT 1,000 mL 2000 mL/hr documented in this encounter Active and Recently Administered Medications Times are shown in EDT. Scheduled Medication Order 10/24/2024 10/25/2024 10/26/2024 meclizine (ANTIVERT) tablet 25 mg (COMPLETED) 25 mg, oral, Once, On Sat10/26/24 at 1643, For 1 dose 1657 (Given - Provid er: Anna Cardenas RN) sodium chloride 0.9 % bolus 1,000 mL (COMPLETED) 1,000 mL, intravenous, at 2,000 mL/hr, Administer over 30 Minutes, Once, On Sat10/26/24 at 1422, For 1 dose 1429 (New Bag - Prov ider: Anna Cardenas RN)1650 (Stopped - Provider: Anna Cardenas RN) documented in this encounter Care Teams Meal Miller Relationship Specialty Start Date End Date Physician, No Pcp PCP - General 10/26/24 documented as of this encounter
--- OUTSIDE RECORDS SUMMARY | 2024-10-28 09:48 | XMS_ITS | Encounter Summary ---
Author Organization [facility] Address PO [facility] [address] [place] [address] Phone Care Team Providers Care Hotel Service Manager Name Role Phone Meeta Wise Primary Care Provider Encounter Details Date Type Department Care Team (Late st Contact Info) Description 09/30/2024 Documentation Only [facility] [address] [place] [address] Alan Lopez MD [address] [place] [address] [place] [phone] Social History Tobacco Use Types Packs/Day Years [...] [facility] [address] [place] [address] Aretha Vences MD [address] [facility] [address] [place] [phone] documented as of this encounter Visit Diagnoses Not on filedocumented in this encounter Care Teams Hotel Service Manager Relationship Specialty Start Date End Date Meeta Wise FNP [address] [place] [address] PCP - General Nurse Practitioner 06/15/24 documented as of this encounter
--- OUTSIDE RECORDS SUMMARY | 2024-10-28 09:48 | XMS_ITS | Encounter Summary ---
Author Organization [facility] Address PO [facility] [address] [place] [address] Phone Care Team Providers Care Customer Care Professional Name Role Phone Meeta Wise Primary Care Provider Encounter Details Date Type Department Care Team (Late st Contact Info) Description 10/06/2024 Documentation Only [facility] [address] [place] [phone] Marta Ravi [address] [place] [phone] Social History Tobacco Use Types Packs/Day [...] [facility] [address] [place] [address] Aretha Vences MD [address] [place] [address] [place] [address] documented as of this encounter Visit Diagnoses Not on filedocumented in this encounter Care Teams Customer Care Professional Relationship Specialty Start Date End Date Meeta Wise FNP [address] [place] [address] PCP - General Nurse Practitioner 06/15/24 documented as of this encounter
--- OUTSIDE RECORDS SUMMARY | 2024-10-28 09:48 | XMS_ITS | Clinical Summary ---
Author Organization [facility] Address [address] [place] [address] Care Team Providers Care Party Demonstrator Name Role Phone Win White MD Primary Care Provider [phone] Allergies No known active allergies Medications Medication Sig Dispensed Refills Start Date End Date Status Etonogestrel 68 MG Implant Inject into the skin. Implantable control upto 4 years. Implanted by [facility] 2014 0 Active fluticasone (Flovent HFA) 110 [...] 01/30/2010 SOCIAL NEEDS SCREENING 08/12/2024 (Completed), 12/22/2020 BASELINE HEALTH EXAM 40-64 10/14/202406/11, 06/01/2022, 12/22/2020, Additional history exists MAMMOGRAM 2024 09/21/2022 CHOLESTEROL SCREENING 06/11/2027 06/11/2022 , 12/22/2020, 08/11/2018, Additional history exists DTAP/TDAP/TD (3 - Td or Tdap) 06/01/2032 06/01/2022, 01/30/2010 PNEUMOCOCCAL VACCINE FOR HIG H RISK PATIENTS (#1) 2049 Care Teams Party Demonstrator Relationship Specialty Start Date End Date Win White MD [address] [place] [address] PCP - General Internal Medicine 09/15/19
--- OUTSIDE RECORDS SUMMARY | 2024-10-28 09:48 | XMS_ITS | Encounter Summary ---
Author Organization [facility] Address [address] [place] [address] Care Team Providers Care Jewelry Estimator Name Role Phone Mariana Nascimento DO Primary Care Pro vider Unavailable Win White MD Primary Care Provider [phone] Encounter Details Date Type Department Care Team Description 05/24/2015 [facility] Medical Records [address] [place] [id number] Abstract, Provider Social History Tobacco Use Types [...] on filedocumented in this encounter Care Teams Jewelry Estimator Relationship Specialty Start Date End Date Mariana Nascimento DO PCP - General Internal Medicine 11/18/13 09/14/19 Win White MD [address] [place] [address] PCP - General Internal Medicine 09/15/19 documented as of this encounter
--- OUTSIDE RECORDS SUMMARY | 2024-10-28 09:48 | XMS_ITS | Encounter Summary ---
Author Organization [facility] Address PO [facility] [address] [place] [address] Phone Care Team Providers Care Public Health Internship Name Role Phone Meeta Wise Primary Care Provider [phone] Encounter Details Date Type Department Care Team (Late st Contact Info) Description 08/11/2024 Documentation Only [facility] [address] [place] [phone] Marta Ravi [address] [place] [phone] Social History Tobacco Use Types Packs/Day [...] Visit [facility] [address] [place] [address] Aretha Vences MD [address] [place] [address] [place] [address] documented as of this encounter Visit Diagnoses Not on filedocumented in this encounter Care Teams Public Health Internship Relationship Specialty Start Date End Date Meeta Wise FNP [address] [place] [address] PCP - General Nurse Practitioner 06/15/24 documented as of this encounter
--- OUTSIDE RECORDS SUMMARY | 2024-10-28 09:48 | XMS_ITS | Encounter Summary ---
Author Organization [facility] [place], Address [address] [place] [address] Phone Care Team Providers Care Assistant Quality Manager Name Role Phone Meeta Wise Primary Care Provider Encounter Details Date Type Department Care Team (Late st Contact Info) Description 10/23/2024 Documentation Only [facility] [address] [place] [address] Neris Lopez, RICK [address] [facility] [place] [phone] Social History Tobacco Use Types Packs/Day Years [...] Visit [facility] [place], [address] [place] [address] Aretha Vences MD [address] [facility] [place] [address] documented as of this encounter Visit Diagnoses Not on filedocumented in this encounter Care Teams Assistant Quality Manager Relationship Specialty Start Date End Date Meeta Wise FNP [address] [place] [address] PCP - General Nurse Practitioner 06/15/24 documented as of this encounter
--- OUTSIDE RECORDS SUMMARY | 2024-10-28 09:48 | XMS_ITS | Encounter Summary ---
Author Organization [facility] Address [address] [place] [address] Care Team Providers Care Bookkeepers Supervisor Name Role Phone Mariana Nascimento DO Primary Care Pro vider Unavailable Win White MD Primary Care Provider [phone] Encounter Details Date Type Department Care Team Description 06/05/2016 [facility] Medical Records [address] [place] [address] Social History Tobacco Use Types Packs/Day Years [...] on filedocumented in this encounter Care Teams Bookkeepers Supervisor Relationship Specialty Start Date End Date Mariana Nascimento DO PCP - General Internal Medicine 11/18/13 09/14/19 Win White MD [address] [place] [address] PCP - General Internal Medicine 09/15/19 documented as of this encounter
--- OUTSIDE RECORDS SUMMARY | 2024-10-28 09:48 | XMS_ITS | Encounter Summary ---
Author Organization [facility] Address PO [facility] [address] [place] [address] Phone Care Team Providers Care Farm Management Teacher Name Role Phone Meeta Wise Primary Care Provider Encounter Details Date Type Department Care Team (Late st Contact Info) Description 10/02/2024 Documentation Only [facility] [address] [place] [phone] Marta Ravi [address] [place] [phone] Social History Tobacco Use Types Packs/Day [...] [facility] [address] [place] [address] Aretha Vences MD [address] [place] [address] [place] [address] documented as of this encounter Visit Diagnoses Not on filedocumented in this encounter Care Teams Farm Management Teacher Relationship Specialty Start Date End Date Meeta Wise FNP [address] [place] [address] PCP - General Nurse Practitioner 06/15/24 documented as of this encounter
--- OUTSIDE RECORDS SUMMARY | 2024-10-28 09:48 | XMS_ITS | Encounter Summary ---
Author Organization [facility] Address [address] [place] [address] Care Team Providers Care Flight Line Mechanic Name Role Phone Physician, No Pcp Primary Care Provider Unavaila ble Encounter Details Date Type Department Care Team (Late st Contact Info) Description 10/27/2024 - 10/27/2024 10:03 AM EDT Emergency [facility] Emergency [address] [place] [address] Discharge Disposition: ED Dismiss - Never Arrived Social History Tobacco Use Types Packs/Day Years [...] PM EDT documented as of this encounter Discharge Disposition Disposition Code Departure Means Destination ED Dismiss - Never Arrived documented in this encounter Plan of Treatment Not on file documented as of this encounter Visit Diagnoses Not on filedocumented in this encounter Care Teams Flight Line Mechanic Relationship Specialty Start Date End Date Physician, No Pcp PCP - General 10/26/24 documented as of this encounter
--- OUTSIDE RECORDS SUMMARY | 2024-10-28 09:49 | XMS_ITS | Encounter Summary ---
Author Organization [facility] Address PO [facility] [address] [place] [address] Phone Care Team Providers Care Scouring Machine Tender Name Role Phone Meeta Wise Primary Care Provider [phone] Encounter Details Date Type Department Care Team (Late st Contact Info) Description 07/22/2024 Documentation Only [facility] [address] [place] [phone] [place], [place] [address] [place] [phone] Social History Tobacco Use Types Packs/Day Years [...] Visit [facility] [address] [place] [address] Aretha Vences MD [address] [place] [address] [place] [address] documented as of this encounter Visit Diagnoses Not on filedocumented in this encounter Care Teams Scouring Machine Tender Relationship Specialty Start Date End Date Meeta Wise FNP [address] [place] [address] PCP - General Nurse Practitioner 06/15/24 documented as of this encounter
--- OUTSIDE RECORDS SUMMARY | 2024-10-28 09:49 | XMS_ITS | Encounter Summary ---
Author Organization [facility] Address PO [facility] [address] [place] [address] Phone Care Team Providers Care Supervisor Metal Furniture Assembly Name Role Phone Meeta Wise Primary Care Provider Encounter Details Date Type Department Care Team (Late st Contact Info) Description 09/24/2024 Documentation Only [facility] [address] [place] [phone] Marta Ravi [address] [place] [phone] Social History Tobacco Use Types Packs/Day [...] [facility] [address] [place] [address] Aretha Vences MD [address] [place] [address] [place] [address] documented as of this encounter Visit Diagnoses Not on filedocumented in this encounter Care Teams Supervisor Metal Furniture Assembly Relationship Specialty Start Date End Date Meeta Wise FNP [address] [place] [address] PCP - General Nurse Practitioner 06/15/24 documented as of this encounter
--- OUTSIDE RECORDS SUMMARY | 2024-10-28 09:49 | XMS_ITS | Encounter Summary ---
Author Organization [facility] Address PO [facility] [address] [place] [address] Phone Care Team Providers Care Tourist Home Keeper Name Role Phone Meeta Wise Primary Care Provider Encounter Details Date Type Department Care Team (Late st Contact Info) Description 06/12/2024 Documentation Only [facility] [address] [place] [phone] Eva Vargas [address] [place] [phone] Social History Tobacco Use Types Packs/Day [...] [facility] [address] [place] [phone] Aretha Vences MD [address] [place] [address] [place] [address] documented as of this encounter Visit Diagnoses Not on filedocumented in this encounter Care Teams Tourist Home Keeper Relationship Specialty Start Date End Date Meeta Wise FNP [address] [place] [address] PCP - General Nurse Practitioner 06/15/24 documented as of this encounter
--- OUTSIDE RECORDS SUMMARY | 2024-10-28 09:49 | XMS_ITS | Encounter Summary ---
Author Organization [facility] Address PO [facility] [address] [place] [address] Phone Care Team Providers Care Cognos Lead Name Role Phone Meeta Wise Primary Care Provider Encounter Details Date Type Department Care Team (Late st Contact Info) Description 08/27/2024 Documentation Only [facility] [address] [place] [phone] Marta Ravi [address] [place] [phone] Social History Tobacco Use Types Packs/Day [...] [facility] [address] [place] [address] Aretha Vences MD [address] [place] [address] [place] [address] documented as of this encounter Visit Diagnoses Not on filedocumented in this encounter Care Teams Cognos Lead Relationship Specialty Start Date End Date Meeta Wise FNP [address] [place] [address] PCP - General Nurse Practitioner 06/15/24 documented as of this encounter
--- OUTSIDE RECORDS SUMMARY | 2024-10-28 09:49 | XMS_ITS | Encounter Summary ---
Author Organization [facility] Address [address] [place] [address] Care Team Providers Care Hospice Plan Administrator Name Role Phone Name, Bryant LUNDY Primary Care Provider Unavailabl e Mariana Nascimento DO Primary Care Pro vider Unavailable Win White MD Primary Care Provider [phone] Encounter Details Date Type Department Care Team Description 01/31/2010 Release of Information Medical Records [address] [place] [address] Abstract, Provider Social History Tobacco Use Types [...] on filedocumented in this encounter Care Teams Hospice Plan Administrator Relationship Specialty Start Date End Date Name, MD Bryant PCP - General 11/07/09 11/17/13 Mariana Nascimento DO PCP - General Internal Medicine 11/18/13 09/14/19 Win White MD [address] [place] [address] PCP - General Internal Medicine 09/15/19 documented as of this encounter
== END 2024-10-28 17:05 | disposition home or self-care (01) ==
LOC: HO.HMCFM 08:56
PROVIDERS: PCP Nurse Practitioner Family; Visit Provider Nurse Practitioner Family
DX: M54.10 Radiculopathy, site unspecified (principal)

== ENCOUNTER → 2024-10-28 08:56 | Outpatient (BNVA) | payer OTHER, SELFPAY | PROVIDERS: PCP Nurse Practitioner Family; Visit Provider Nurse Practitioner Family | DX: Z09 Encounter for follow-up examination after completed treatment for conditions other than malignant neoplasm (principal); M54.10 Radiculopathy, site unspecified; R42 Dizziness and giddiness | CPT/HCPCS: 99212 ==

== ENCOUNTER → 2024-11-06 20:30 | Outpatient (BNV) | payer OTHER, SELFPAY | PROVIDERS: PCP Nurse Practitioner Family; Visit Provider Internal Medicine | DX: R06.83 Snoring (principal) | CPT/HCPCS: 95811 ==

== ENCOUNTER → 2024-11-06 20:30 | Outpatient (REF) | payer OTHER, SELFPAY | LOC: HO.SL 20:30 | PROVIDERS: PCP Nurse Practitioner Family; Visit Provider Nurse Practitioner Family | DX: G47.33 Obstructive sleep apnea (adult) (pediatric) (principal) | CPT/HCPCS: 95811 ==

== ENCOUNTER → 2024-11-23 07:46 | Outpatient (BNV) | payer OTHER, SELFPAY ==
--- NOTE | 2024-11-23 07:46 | MHC.PC.OV ---
Intake Visit Reasons: Amb Documentation, CPAP Allergies No Known Allergies Allergy (Verified 11/23/24 07:50) Medication List - Last Reconciled 11/23/24 by GEORGIE SolanoP- acetaminophen ER 650 mg PO Q8H PRN albuterol sulfate 90 mcg/actuation 2 puffs inhalation Q6H PRN amlodipine 10 mg PO DAILY carvedilol 25 mg PO BID 90 days empagliflozin 10 mg PO QAM furosemide 20 mg PO DAILY indapamide 1.25 mg PO QAM lidocaine 5% 1 appl topical TID PRN lisinopril 20 mg PO DAILY lorazepam (Ativan) 0.5 mg PO ONCE PRN tizanidine (Zanaflex) 2 mg (1/2 x 4 mg) PO BID PRN 5 days Tobacco use date assessed: 10/28/24 Dental Screening Dental Screen Date: 10/28/24 HPI HPI Comments History of Present Illness Details 39-year-old Citizen Of [place] Speaking female with LVH, prolonged QT, HTN, CHF pulmonary htn, pericardial effusion, CKD, mild intermittent asthma, obesity, family hx of FSGS, [place], migraine headsache, YARELIS with hypoxemia s/p lap aashish 2015, ERCP with sphincterectomy/papillotomy 05/2016 Telehealth to review sleep study titration results. Initial sleep study showed YARELIS and recommended in lab sleep titration Below are the results.. Patient made aware for continued coverage of CPAP therapy, documentation of compliance, including a [id number] re-evaluation by the treating physician and objective evidence of adherence (4 hours per night for 70% of nights in a 30-day period), is?required between the and day of therapy.? The patient is in agreement to start CPAP therapy. My office will coordinate a f/u in about 60 days. Plan Orders will be faxed to [facility] today. Compliance appt to be scheduled. Total time spent caring for the patient today was 18 minutes. This includes time spent before the visit reviewing the chart, time spent during the visit, and time spent after the visit on documentation, reviewing laboratory results, diagnostic imaging, medications, performing a medically necessary evaluation, counseling on diagnoses, care coordination, ordering appropriate tests, ordering appropriate medications, review of tests performed by other providers, reporting test results with the patient, communication with other healthcare providers. COUNTS INCLUDE 234 BEDS AT THE [facility] Medical History Seasonal asthma Hypertension Surgical History No pertinent past surgical history Family History (Updated 10/05/24 @ 13:22 by Neri Overton MD) Mother Hypertension Father Hypertension Diabetes Cancer Sister Kidney transplant recipient Social History (Updated 10/05/24 @ 13:11 by Laurita Pardo CMA) Household Members: Family and Children Both parents involved: No Caregiver staying overnight: No Housing: House Are you a primary hemodialysis patient care specialist to a significant other at home: Yes Do you presently have visiting nurse or other home services: No 75 years or older and lives alone: No Alcohol intake: current Alcohol intake frequency: a few times a month Patient Tobacco Use Status: Former Tobacco user e-Cigarette/Vaping Use: Never Used service: No Current occupational status: employed Current occupation: [employer] Cognitive needs: No Hearing needs: Yes Vision needs: No Questionnaire Thrive Questionnaire Date Thrive assessed: 10/28/24 SHERRI-7 AMB Questionnaire SHERRI-7 Date SHERRI - 7 assessed: 10/21/24 Source: Developed by Drs. Steve Hogan, Ariella Franco, Marco Antonio Frankel and colleagues, with an educational tonio from [email or web address]. Physical exam (Primary Care) Tobacco/Smoking Status: Tobacco use Status Tobacco use date assessed 10/28/24 10/28/24 09:14 Patient Tobacco Use Status Former Tobacco user 10/28/24 09:14 e-Cigarette/Vaping Use Never Used 10/28/24 09:14 Thrive Assessment: Date of Thrive Assessment Date Thrive assessed 10/28/24 10/28/24 09:14 Telehealth Telehealth Telehealth Platform: [facility] Location of provider rendering services: practice address Location of patient: address on file Patient Identification confirmed using: Name, : Yes Telehealth method: voice only Patient verbally consented to treatment: Yes Patient verbally consented to billing insurance company: Yes Patient informed of any privacy concerns related to visit: Yes Minutes spent on Phone/Video with Pt.: 7 Coding Level of Care Code Tele Est Pt Level 3 (25088) Complex EM visit Add On G2211 Diagnoses YARELIS (obstructive sleep apnea) G47.33 Assessment & Plan Assessment & Plan (1) YARELIS (obstructive sleep apnea): Comment: CPAP TITRATION 11/21/24 CPAP 13cm , recommend full face mask size medium if she can tolerate, headed humidification [facility] Code(s): G47.33 - Obstructive sleep apnea (adult) (pediatric) Category: Medical Plan .
== END ==
PROVIDERS: PCP Nurse Practitioner Family; Visit Provider Nurse Practitioner Family
DX: G47.33 Obstructive sleep apnea (adult) (pediatric) (principal)
CPT/HCPCS: 99213; G2211

== ENCOUNTER 2024-12-04 12:58 | Outpatient (AMB) | payer OTHER, SELFPAY ==
--- NOTE | 2024-12-04 13:02 | MHC.OFFVIS ---
Vital Signs 12/04/24 13:06 Height 5 ft 5 in Weight 268 lb 4 oz BMI 44.6 BP 141/94 H Blood Pressure Location Rt brachial Position Sitting Pulse 78 Pulse Source Pulse Oximeter Pulse Oximetry (%) 99 Oxygen Delivery Method Room Air Intake Visit Reasons: Radiculopathy, site unspecified Intake Note: Pain today 0/10 Nurse Practitioner Adult Required: Yes Nurse Practitioner Adult Language: Fish Boning Machine Feeder Services: Nurse Practitioner Adult Present Nurse Practitioner Adult Name: Shweta #[id number] Information Interpreted: non-clinical & clinical Accompanied by: Self / Same As Patient Allergies No Known Allergies Allergy (Verified 12/04/24 13:07) HPI Comments Details: The patient is a 39-year-old female presenting with back pain. She reports back discomfort persisting for 2 months, manifesting as a burning sensation initially localized to her lower back, and extending to the right shoulder. This burning pain increases in intensity over time. She denies radiation of pain to her legs. 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 Tylenol was used with minimal relief noted. The patient's relevant medical history includes chronic kidney disease stage 3 and prior GI surgeries, including aashish lap and ERCP in 2016. The patient's history of renal disease mandates careful selection of analgesics, as she currently abstains from NSAIDs due to potential adverse renal effects. She denies any previous back-related surgeries, aside from epidurals received during her 3 pregnancies. Additional symptoms include occasional hand and leg numbness and tingling, but lacks significant lower extremity weakness or gait disturbances. - Onset and Timing: Approximately 2 months ago, insidious onset. - Quality and Character: Burning, aching, sore sensations. - Primary Location: Lower back, radiating to the right shoulder. - Areas of Radiation: Right shoulder. - Exacerbating Factors: Standing, sitting, walking. - Relieving Factors: Hot showers, rest. 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 - Severity: Intensifies over time. - Affect: The patient's quality of life and psychological wellbeing affected due to pain interfering with work and sleep. - Analgesia: Current usage of Tylenol with minimal effect; goal to achieve effective analgesia. - Adverse Effects: No side-effects noted from current analgesics. - Activities of Daily Living: Pain exacerbated by daily occupational activities, patient seeks to engage in routine activities without pain interference. - Aberrant Drug Related Behaviors: None reported. [facility] Medical History Seasonal asthma Hypertension Surgical History (Updated 12/04/24 @ 16:01 by PORSCHE Hinojosa) History of ERCP (~2015) Hx laparoscopic cholecystectomy (~2016) Family History Mother Hypertension Father Hypertension Diabetes Cancer Sister Kidney transplant recipient Social History Household Members: Family and Children Both parents involved: No Caregiver staying overnight: No Housing: House Are you a primary property caretaker to a significant other at home: Yes Do you presently have visiting nurse or other home services: No 75 years or older and lives alone: No Alcohol intake: current Alcohol intake frequency: a few times a month Patient Tobacco Use Status: Former Tobacco user e-Cigarette/Vaping Use: Never Used service: No Current occupational status: employed Current occupation: [employer] Cognitive needs: No Hearing needs: Yes Vision needs: No Review of Systems Const Details: - Musculoskeletal: Reports pain in lower back radiating to right shoulder, numbness and tingling in hands, intermittent. - Neurological: Denies weakness or significant gait disturbance; reports numbness and tingling in extremities. - Gastrointestinal: Denies recent GI symptoms; history of cholecystectomy and ERCP in 2016. - Genitourinary: Reports chronic kidney disease stage 3. All systems reviewed & are unremarkable except as noted in HPI and below Physical Exam General: Appears afebrile. No acute distress. Morbidly obese. Alert and oriented. Mood and affect appropriate. Follows and participates in conversation appropriately. Respiratory effort is unlabored. No cough. Able to transition from sit to stand unassisted. Ambulates with bilaterally normal heel strike and toe off. General: Yes no CVA tenderness Back/Spine/Pelvis Other: Limited lumbar ROM due to pain. Normal gait, non-antalgic. No limping. Can flex forward to 70-75 degrees and extend to 5-10 degrees before experiencing lumbar pain. Demonstrates 5/5 strength of quadriceps bilaterally as well as flexion/dorsiflexion of bilateral feet against resistance. 2+ pedal pulses bilaterally. Straight leg rise with dorsiflexion negative bilaterally. +1 patellar and achilles reflexes bilaterally. Facet loading test positive bilaterally. Tita sign, Deandre?s, Gaenslen, Pelvic compression and Stinchfield tests are positive on the left. No groin pain with I/E hip rotations. Valsalva maneuver negative. Back: no CVA tenderness Cervical Spine: cervical ROM normal, cervical muscular tenderness and No Cervical spine tenderness Thoracic/Lumbar Spine: thoracic and lumbar spine normal to inspection, No Thoracic/lumbar spine scar(s), Lasegue's sign negative, straight leg raise negative bilaterally, pain with thoraco-lumbar ROM, paraspinal muscle tenderness on the left greater than right, thoraco-lumbar ROM limited, No thoracic spinal tenderness and lumbar spinal tenderness (L4-S1) Pelvis: buttock tenderness on the left and no sciatic notch tenderness Sacroiliac joints: bilaterally (left>right) tender to palpation Extrem General: Yes capillary refill normal, Yes no clubbing, cyanosis or edema and Yes no calf tenderness Results Reviewed Results Reviewed: No imaging results are available for review today. Assessment & Plan Assessment & Plan (1) Radicular low back pain: Comment: BLE R>L Code(s): M54.10 - Radiculopathy, site unspecified Category: Medical (2) Low back pain: Code(s): M54.50 - Low back pain, unspecified Category: Medical (3) Right shoulder pain: Code(s): M25.511 - Pain in right shoulder Category: Medical (4) Morbid obesity with BMI of 40.0-44.9, adult: Code(s): E66.01 - Morbid (severe) obesity due to excess calories; Z68.41 - Body mass index [BMI] 40.0-44.9, adult Category: Medical Plan To address the chronic back pain, I have initiated a plan for physical therapy, which is also a requisite to fulfill the insurance criteria before proceeding with an MRI. Additionally, back and shoulder x-rays were recommended to assess degree of arthritic or degenerative changes that might be contributing to her discomfort, given the unusual pain radiation to the right shoulder. Patient denies any previous past gallbladder issues or increased pain with food intake or fasting. Continued use of Tylenol was advised, with caution against NSAIDs, considering her chronic kidney disease. Monitoring for any subsequent GI symptoms was recommended, drawing attention due to her earlier cholecystectomy history and potential association of her symptoms. She was informed of the necessity to keep hydrated and maintain engagement in feasible physical activity as tolerated. All questions and concerns have been answered and patient agreed with the plan. Follow up for xray results/after PT and sooner as needed. Patient was informed and verbally consented to the use of an ambient scribe for clinic note documentation during this visit. Orders: Orders XR lumbar spine 4V min Today M54.10 - Radiculopathy, site unspecified, M54.50 - Low back pain, unspecified PT Evaluation and Treatment Today M25.511 - Pain in right shoulder, M54.10 - Radiculopathy, site unspecified, M54.50 - Low back pain, unspecified XR shoulder RT min 2V Today M25.511 - Pain in right shoulder Patient Instructions: I discussed with the patient the likelihood that her back pain requires further conservative management through physical therapy to better manage her symptoms and establish a foundation for more advanced diagnostic imaging, like MRI if necessary. I explained the purpose and process of x-rays and how they would assist us in understanding her back and shoulder pain picture more clearly. The patient was made aware of the higher potential for musculoskeletal or neuropathic implications due to previous GI surgical history. Risks, benefits, and alternatives regarding physical therapy as well as conservative management with Tylenol were addressed, clarifying potential pain relief outcomes while staying cautious of her renal status by avoiding NSAIDs. We also covered the importance of remaining aware of any GI-related shading symptoms, potentially necessitating more in-depth evaluation. - Start physical therapy as scheduled to help manage back pain. - Take Tylenol as needed for pain but avoid NSAIDs due to kidney risk. - Complete x-rays for back and shoulder, results will be called to you via phone. - Stay hydrated and continue any feasible walking exercises and weight optimization. - Watch for any gastrointestinal symptoms and report them promptly. - Follow up if the pain worsens or does not respond to current management strategies. Coding Level of Care Code New Pt Level 4 (08962) Diagnoses Radicular low back pain M54.10 Low back pain M54.50 Right shoulder pain M25.511 Morbid obesity with BMI of 40.0-44.9, adult E66.01; Z68.41
[2024-12-04 13:06] VITALS: BP 141/94; PULSE 78; O2SAT 99; BMI 44.6
--- OUTSIDE RECORDS SUMMARY | 2024-12-04 13:43 | XMS_ITS | Encounter Summary ---
Author Organization [facility] Address PO [facility] [address] [place] [address] Phone Care Team Providers Care Cardiopulmonary Physical Therapist Name Role Phone Meeta Wise Primary Care Provider [phone] Encounter Details Date Type Department Care Team (Late st Contact Info) Description 08/11/2024 Documentation Only [facility] [address] [place] [phone] Marta Ravi [address] [place] [phone] Social History Tobacco Use Types Packs/Day [...] [facility] [address] [place] [address] Aretha Vences MD [address] [place] [address] [place] [address] documented as of this encounter Visit Diagnoses Not on filedocumented in this encounter Care Teams Cardiopulmonary Physical Therapist Relationship Specialty Start Date End Date Meeta Wise FNP [address] [place] [address] PCP - General Nurse Practitioner 06/15/24 documented as of this encounter
--- OUTSIDE RECORDS SUMMARY | 2024-12-04 13:43 | XMS_ITS | Clinical Summary ---
Author Organization [facility] Address [address] [place] [address] [place] [address] Phone Care Team Providers Care Fitting Room Inspector Name Role Phone WiseMeeta mack PORSCHE Primary [...] [facility] [address] [place] [address] TravMarta taylor 10/23/2024 Documentation Only [facility] [address] [place] [address] Neris Lopez RN 10/06/2024 Documentation Only [facility] [place] [address] [place] [address] TravMarta taylor 10/02/2024 Documentation Only [facility] [address] [place] [address] TravMarta taylor 10/02/2024 Documentation Only [facility] [address] [place] [address] TravMarta taylor 09/30/2024 Documentation Only [facility] [address] [place] [address] Alan Lopez MD 09/24/2024 4:30 PM EST Office Visit [facility] [place] [address] [place] [address] Aretha Vences MD Stage 3b chronic kidney disease (HCC) (Primary Dx) 09/24/2024 Documentation Only [facility] [address] [place] [address] Marta Ravi 09/24/2024 Documentation Only [facility] [address] [place] [address] Marta Ravi from Last 3 Months Immunizations Immunization Administration Dates Next Due Influenza, MDCK, PF, [...] Visit [facility] [place], [address] [place] [phone] Aretha Vences MD [address] [place] [phone] Health Maintenance Due Date Last Done Comments Hepatitis B Vaccine (1 of 3 - 19+ 3-dose series) 10/14 Pneumococcal Vaccine: Peds ( 0 to 5 Years) and At-Risk Patients (6 to 49 Years) (2 of 2 - PCV) 06/02/2017 06/02/2016 Influenza Vaccine (Season Ended) 2025 06/01/20 22 Insurance Medicaid Medicaid Care Teams Fitting Room Inspector Relationship Specialty Start Date End Date Meeta Wise FNP [address] [place] [phone] PCP - General Nurse Practitioner 06/15/24
--- OUTSIDE RECORDS SUMMARY | 2024-12-04 13:43 | XMS_ITS | Encounter Summary ---
Author Organization [facility] Address PO [facility] [address] [place] [address] Phone Care Team Providers Care Cap Maker Name Role Phone Meeta Wise Primary Care Provider Encounter Details Date Type Department Care Team (Late st Contact Info) Description 08/11/2024 Documentation Only [facility] [address] [place] [phone] Marta Ravi [address] [place] [phone] Social History Tobacco Use Types Packs/Day [...] Visit [facility] [address] [place] [address] Aretha Vences MD [address] [place] [address] [place] [address] documented as of this encounter Visit Diagnoses Not on filedocumented in this encounter Care Teams Cap Maker Relationship Specialty Start Date End Date Meeta Wise FNP [address] [place] [address] PCP - General Nurse Practitioner 06/15/24 documented as of this encounter
--- OUTSIDE RECORDS SUMMARY | 2024-12-04 13:43 | XMS_ITS | Encounter Summary ---
Author Organization [facility] Address PO [facility] [address] [place] [address] Phone Care Team Providers Care Seamer Elastic Band Name Role Phone Meeta Wise Primary Care Provider Encounter Details Date Type Department Care Team (Late st Contact Info) Description 08/11/2024 Documentation Only [facility] [address] [place] [phone] Marta Ravi [address] [place] [phone] Social History Tobacco Use Types Packs/Day [...] Visit [facility] [address] [place] [address] Aretha Vences MD [address] [place] [address] [place] [address] documented as of this encounter Visit Diagnoses Not on filedocumented in this encounter Care Teams Seamer Elastic Band Relationship Specialty Start Date End Date Meeta Wise FNP [address] [place] [address] PCP - General Nurse Practitioner 06/15/24 documented as of this encounter
--- OUTSIDE RECORDS SUMMARY | 2024-12-04 13:43 | XMS_ITS | Encounter Summary ---
Author Organization [facility] Address PO [facility] [address] [place] [address] Phone Care Team Providers Care Housing Management Representative Name Role Phone Meeta Wise Primary Care Provider Encounter Details Date Type Department Care Team (Late st Contact Info) Description 08/11/2024 Documentation Only [facility] [address] [place] [phone] Marta Ravi [address] [place] [phone] Social History Tobacco Use Types Packs/Day [...] [facility] [address] [place] [address] Aretha Vences MD [address] [place] [address] [place] [address] documented as of this encounter Visit Diagnoses Not on filedocumented in this encounter Care Teams Housing Management Representative Relationship Specialty Start Date End Date Meeta Wise FNP [address] [place] [address] PCP - General Nurse Practitioner 06/15/24 documented as of this encounter
--- OUTSIDE RECORDS SUMMARY | 2024-12-04 13:43 | XMS_ITS | Encounter Summary ---
Author Organization [facility] Address PO [facility] [address] [place] [address] Phone Care Team Providers Care Dry Cleaner Name Role Phone Meeta Wise Primary Care Provider Encounter Details Date Type Department Care Team (Late st Contact Info) Description 10/02/2024 Documentation Only [facility] [address] [place] [phone] Marta Ravi [address] [place] [phone] Social History Tobacco Use Types Packs/Day [...] [facility] [address] [place] [address] Aretha Vences MD [address] [place] [address] [place] [address] documented as of this encounter Visit Diagnoses Not on filedocumented in this encounter Care Teams Dry Cleaner Relationship Specialty Start Date End Date Meeta Wise FNP [address] [place] [address] PCP - General Nurse Practitioner 06/15/24 documented as of this encounter
--- OUTSIDE RECORDS SUMMARY | 2024-12-04 13:43 | XMS_ITS | Clinical Summary ---
Author Organization [facility] Address [address] [place] [address] Phone Care Team Providers Care Senior Business Objects Developer Name Role Phone Physician, No Pcp Primary Care Provider Unavaila ble Allergies No known active allergies Encounters Date Type Department Care Team Description 10/27/2024 - 10/27/2024 10:03 AM EDT Emergency [facility] Emergency [address] [place] [address] Discharge Disposition: ED Dismiss - Never Arrived 10/26/2024 1:10 PM EDT - 10/26/2024 8:21 PM EDT Emergency [facility] Emergency [address] [place] [address] Lew Ji MD Dizziness (Primary [...] age to complete this topic Meningococcal B Vaccine Aged Out No l onger eligible based on patient's age to complete [...] Onbase MD ECG ORDERABLES Final Result * ECG 12 lead (10/26/2024 7:51 PM EDT) Only the most recent of2 resultswithin the time period is included. Ventricular Rate ECG 69 BPM GEMUSE Atrial Rate 69 BPM GEMUSE P-R Interval 156 ms GEMUSE QRS Duration 114 ms GEMUSE Q-T Interval 458 ms GEMUSE QTc 490 ms GEMUSE P Wave [place] 33 degrees GEMUSE R [place] -22 degrees GEMUSE T [place] 139 degrees GEMUSE ECG Interpretation Normal sinus rhythm Minimal voltage criteria for LVH, may be normal variant T wave abnormality, consider lateral ischemia Prolonged QT Abnormal ECG When compared with ECG of 26-OCT-2024 13:30, No significant change was found Confirmed by MD Diallo, [place] ([id number]) on 10/28/2024 9:56:56 AM GEMUSE 10/26/2024 7:51 PM EDT 10/28/2024 9:56 AM EDT Denice MAGALLON ECG ORDERABLES Final Resu lt GEMUSE * Troponin I high sensitivity (10/26/2024 5:00 PM EDT) Only the most recent of2 resultswithin the time period is included. Pathologist [facility] High Sensitivity Troponin I 14 <=54 ng/L LAB CHEMISTRY METHOD 10/26/2024 6:17 PM EDT [facility] Blood Venous blood specimen / Unknown Venipuncture / Unknown 10/26/2024 5:00 PM EDT 10/26/2024 5:47 PM EDT Narrative [facility] - 10/26/2024 6:17 PM EDT High levels of biotin in samples may falsely decrease hsTroponin values. ??Use caution when interpreting hsTroponin results in patients taking biotin who exhibit renal impairment (eGFR <60) or in patients taking more than 20 mg/day of biotin. us Lew Ji MD LAB BLOOD ORDERABLES Final Resu lt [facility] [address] [place] [address], [place] [phone] * (ABNORMAL) Urinalysis with reflex microscopic and culture (10/26/2024 4:57 PM EDT) Specific [place] Urine 1.013 1.003 - 1.030 LAB URINALYSIS - AUTOMATED METHOD 10/26/2024 6:02 PM [facility] pH, Urine 6.0 5.0 - 8.0 pH LAB URINALYSIS - AUTOMATED METHOD 10/26/2024 6:02 PM [facility] Leukocytes, Urine Negative Negative LAB URINALYSIS - AUTOMATED METHOD 10/26/2024 6:02 PM [facility] Nitrite, Urine Negative Negative LAB URINALYSIS - AUTOMATED METHOD 10/26/2024 6:02 PM [facility] Protein, Urine 100(A) <=Trace mg/dL LAB URINALYSIS - AUTOMATED METHOD 10/26/2024 6:02 PM [facility] Glucose, Urine 500(A) Negative mg/dL LAB URINALYSIS - AUTOMATED METHOD 10/26/2024 6:02 PM [facility] Ketones, Urine Negative Negative mg/dL LAB URINALYSIS - AUTOMATED METHOD 10/26/2024 6:02 PM [facility] Urobilinogen, Urine 0.2 0.2 - 1.0 mg/dL LAB URINALYSIS - AUTOMATED METHOD 10/26/2024 6:02 PM EDT [facility] Bilirubin, Urine Negative Negative LAB URINALYSIS - AUTOMATED METHOD 10/26/2024 6:02 PM EDT [facility] Blood, Urine Large(A) Negative LAB URINALYSIS - AUTOMATED METHOD 10/26/2024 6:02 PM EDT [facility] RBC, Urine 7.6(H) 0 - 4 /HPF LAB URINALYSIS - AUTOMATED METHOD 10/26/2024 6:02 PM EDT [facility] WBC, Urine 2.0 0 - 4 /HPF LAB URINALYSIS - AUTOMATED METHOD 10/26/2024 6:02 PM EDT [facility] Squamous Epithelial, Urine 15 0 - 60 /LPF LAB URINALYSIS - AUTOMATED METHOD 10/26/2024 6:02 PM EDT [facility] Bacteria, Urine Negative Negative /HPF LAB URINALYSIS - AUTOMATED METHOD 10/26/2024 6:02 PM EDT [facility] Hyaline Casts, Urine 1.2 0 - 3 /LPF LAB URINALYSIS - AUTOMATED METHOD 10/26/2024 6:02 PM EDT [facility] Urine Urine specimen obtained by clean catch procedure / Unknown Non-blood Collection / Unknown 10/26/2024 4:57 PM EDT 10/26/2024 5:50 PM EDT us Denice MAGALLON LAB URINE ORDERABLES Final Result [facility] [address] [place] [address], * Martin urine culture tube (10/26/2024 4:57 PM EDT) Extra Tube Hold for add-ons. 10/26/2024 7:01 PM EDT [facility] Comment:Auto resulted. Urine Urine specimen obtained by clean catch procedure / Unknown Non-blood Collection / Unknown 10/26/2024 4:57 PM EDT 10/26/2024 5:50 PM EDT Denice MAGALLON LAB URINE ORDERABLES Final Result Performing Organization Address [facility]/ZIP Co de Phone Number [facility] [address] [place] [address], [place] [phone] * (ABNORMAL) POCT Glucose, blood (10/26/2024 2:12 PM EDT) [facility] Glucose POCT 107(H) 70 - 100 mg/dL 10/26/2024 2:13 PM EDT [facility] Blood Capillary blood specimen / Unknown 10/26/2024 2:12 PM EDT 10/26/2024 2:14 PM EDT Generic Provider Poct LAB POINT OF CARE TEST DOCKED DEVICE UNSOLICITED RESULTS Final Result Performing Organization Address [facility]/ZIP Co de Phone Number [facility] [address] [place] [address], [place] [phone] * (ABNORMAL) CBC auto differential (10/26/2024 2:02 PM EDT) [facility] WBC 10.8 4.8 - 10.8 K/mcL LAB HEMETOLOGY METHOD 10/26/2024 2:58 PM EDT [facility] RBC 4.30 3.80 - 4.80 M/mcL LAB HEMETOLOGY METHOD 10/26/2024 2:58 PM EDT [facility] Hemoglobin 12.2 11.5 - 16.0 g/dL LAB HEMETOLOGY METHOD 10/26/2024 2:58 PM EDT [facility] Hematocrit 38.8 35.0 - 47.0 % LAB HEMETOLOGY METHOD 10/26/2024 2:58 PM EDT [facility] MCV 90.4 79.0 - 98.0 FL LAB HEMETOLOGY METHOD 10/26/2024 2:58 PM EDT [facility] MCH 28.4 27.0 - 32.0 pcg LAB HEMETOLOGY METHOD 10/26/2024 2:58 PM EDT [facility] MCHC 31.4(L) 32.0 - 37.0 g/dL LAB HEMETOLOGY METHOD 10/26/2024 2:58 PM EDT [facility] RDW 13.3 11.0 - 15.0 % LAB HEMETOLOGY METHOD 10/26/2024 2:58 PM EDT [facility] Platelets 364 130 - 400 K/mcL LAB HEMETOLOGY METHOD 10/26/2024 2:58 PM EDT [facility] MPV 11.4(H) 7.0 - 11.0 FL LAB HEMETOLOGY METHOD 10/26/2024 2:58 PM EDT [facility] NRBC 0.0 <1.0 % LAB HEMETOLOGY METHOD 10/26/2024 2:58 PM EDT [facility] NRBC Absolute 0.00 <0.10 K/mcL LAB HEMETOLOGY METHOD 10/26/2024 2:58 PM EDT [facility] Neutrophils Relative 75.3 % LAB HEMETOLOGY METHOD 10/26/2024 2:58 PM EDT [facility] Lymphocytes Relative 14.3 % LAB HEMETOLOGY METHOD 10/26/2024 2:58 PM EDT [facility] Monocytes Relative 6.3 % LAB HEMETOLOGY METHOD 10/26/2024 2:58 PM EDT [facility] Eosinophils Relative 3.0 % LAB HEMETOLOGY METHOD 10/26/2024 2:58 PM EDT [facility] Basophils Relative 0.5 % LAB HEMETOLOGY METHOD 10/26/2024 2:58 PM EDT [facility] Immature Granulocytes Relative 0.6 % LAB HEMETOLOGY METHOD 10/26/2024 2:58 PM EDT [facility] Neutrophils Absolute 8.17(H) 1.50 - 7.00 K/mcL LAB HEMETOLOGY METHOD 10/26/2024 2:58 PM EDT [facility] Lymphocytes Absolute 1.55 1.00 - 5.00 K/mcL LAB HEMETOLOGY METHOD 10/26/2024 2:58 PM EDT [facility] Monocytes Absolute 0.68 0.20 - 1.00 K/mcL LAB HEMETOLOGY METHOD 10/26/2024 2:58 PM EDT [facility] Eosinophils Absolute 0.33 0.00 - 0.50 K/mcL LAB HEMETOLOGY METHOD 10/26/2024 2:58 PM EDT [facility] Basophils Absolute 0.05 0.00 - 0.20 K/mcL LAB HEMETOLOGY METHOD 10/26/2024 2:58 PM EDT [facility] Immature Granulocytes Absolute 0.06(H) 0.00 - 0.03 K/mcL LAB HEMETOLOGY METHOD 10/26/2024 2:58 PM EDT [facility] Blood Venous blood specimen / Unknown Venipuncture / Unknown 10/26/2024 2:02 PM EDT 10/26/2024 2:48 PM EDT us Lew Ji MD LAB BLOOD ORDERABLES Final Resu lt [facility] [address] [place] [address], * Magnesium (10/26/2024 2:02 PM EDT) Magnesium 2.0 1.9 - 2.6 mg/dL LAB CHEMISTRY METHOD 10/26/2024 3:28 PM T [facility] Blood Venous blood specimen / Unknown Venipuncture / Unknown 10/26/2024 2:02 PM EDT 10/26/2024 2:47 PM EDT us Lew Ji MD LAB BLOOD ORDERABLES Final Resu lt [facility] [address] [place] [address], [place] [phone] * (ABNORMAL) Basic metabolic panel (10/26/2024 2:02 PM EDT) Sodium 138 133 - 145 mmol/L LAB CHEMISTRY METHOD 10/26/2024 3:28 PM [facility] Potassium 5.1 3.5 - 5.5 mmol/L LAB CHEMISTRY METHOD 10/26/2024 3:28 PM [facility] Chloride 104 96 - 110 mmol/L LAB CHEMISTRY METHOD 10/26/2024 3:28 PM [facility] CO2 24 21 - 32 mmol/L LAB CHEMISTRY METHOD 10/26/2024 3:28 PM [facility] Anion Gap 10 3 - 11 LAB CHEMISTRY METHOD 10/26/2024 3:28 PM [facility] Glucose 91 70 - 100 mg/dL LAB CHEMISTRY METHOD 10/26/2024 3:28 PM [facility] BUN 48(H) 5 - 25 mg/dL LAB CHEMISTRY METHOD 10/26/2024 3:28 PM [facility] Creatinine 2.51(H) 0.50 - 1.10 mg/dL LAB CHEMISTRY METHOD 10/26/2024 3:28 PM [facility] eGFR 24(L) >=60 mL/min/1. 73m2 LAB CHEMISTRY METHOD 10/26/2024 3:28 PM EDT [facility] Comment:Calculation based on the??Chronic Kidney Disease Epidemiology Collaboration (CKD-EPI) equation refit??without adjustment for race. BUN/Creatinine Ratio 19.1 LAB CHEMISTRY METHOD 10/26/2024 3:28 PM EDT [facility] Calcium 9.3 8.5 - 10.5 mg/dL LAB CHEMISTRY METHOD 10/26/2024 3:28 PM EDT [facility] Blood Venous blood specimen / Unknown Venipuncture / Unknown 10/26/2024 2:02 PM EDT 10/26/2024 2:47 PM EDT us Lew Ji MD LAB BLOOD ORDERABLES Final Resu lt [facility] [address] [place] [address], * DIAGNOSTIC MAMMOGRAPHY INCLUDING CAD BILATERAL (09/21/2022 [...] assessed Procedure Note Deandre Lopez MD - 02/06/2024 This is a summary report. The complete [...] Most Recently Relevant to Health Maintenance Insurance [employer] Care Teams Senior Business Objects Developer Relationship Specialty Start Date End Date Physician, No Pcp PCP - General 10/26/24
--- OUTSIDE RECORDS SUMMARY | 2024-12-04 13:43 | XMS_ITS | Encounter Summary ---
Author Organization [facility] Address PO [facility] [address] [place] [address] Phone Care Team Providers Care Shank Threader Name Role Phone Meeta Wise Primary Care Provider Encounter Details Date Type Department Care Team (Late st Contact Info) Description 09/30/2024 Documentation Only [facility] [address] [place] [address] Alan Lopez MD [address] [place] [address] [place] [phone] Social History Tobacco Use Types Packs/Day Years [...] Visit [facility] [address] [place] [address] Aretha Vences MD [address] [facility] [place] [phone] documented as of this encounter Visit Diagnoses Not on filedocumented in this encounter Care Teams Shank Threader Relationship Specialty Start Date End Date Meeta Wise FNP [address] [place] [address] PCP - General Nurse Practitioner 06/15/24 documented as of this encounter
--- OUTSIDE RECORDS SUMMARY | 2024-12-04 13:43 | XMS_ITS | Encounter Summary ---
Author Organization [facility] Address PO [facility] [address] [place] [address] Phone Care Team Providers Care Inspector Hairspring Truing Name Role Phone Meeta Wise Primary Care Provider Encounter Details Date Type Department Care Team (Late st Contact Info) Description 08/27/2024 Documentation Only [facility] [address] [place] [phone] Marta Ravi [address] [place] [phone] Social History Tobacco Use Types Packs/Day [...] [facility] [address] [place] [address] Aretha Vences MD [address] [place] [address] [place] [address] documented as of this encounter Visit Diagnoses Not on filedocumented in this encounter Care Teams Inspector Hairspring Truing Relationship Specialty Start Date End Date Meeta Wise FNP [address] [place] [address] PCP - General Nurse Practitioner 06/15/24 documented as of this encounter
--- OUTSIDE RECORDS SUMMARY | 2024-12-04 13:43 | XMS_ITS | Encounter Summary ---
Author Organization [facility] Address PO [facility] [address] [place] [address] Phone Care Team Providers Care Tar Heater Name Role Phone Meeta Wise Primary Care Provider [phone] Encounter Details Date Type Department Care Team (Late st Contact Info) Description 07/22/2024 Documentation Only [facility] [address] [place] [phone] [place] [address] [place] [phone] Social History Tobacco Use Types Packs/Day Years [...] Visit [facility] [address] [place] [phone] Aretha Vences MD [address] [place] [address] [place] [address] documented as of this encounter Visit Diagnoses Not on filedocumented in this encounter Care Teams Tar Heater Relationship Specialty Start Date End Date Meeta Wise FNP [address] [place] [address] PCP - General Nurse Practitioner 06/15/24 documented as of this encounter
--- OUTSIDE RECORDS SUMMARY | 2024-12-04 13:43 | XMS_ITS | Encounter Summary ---
Author Organization [facility] Address PO [facility] [address] [place] [address] Phone Care Team Providers Care Motor And Generator Assembler Name Role Phone Meeta Wise Primary Care Provider Encounter Details Date Type Department Care Team (Late st Contact Info) Description 08/11/2024 Documentation Only [facility] [address] [place] [phone] Marta Ravi [address] [place] [phone] Social History Tobacco Use Types Packs/Day [...] Visit [facility] [address] [place] [address] Aretha Vences MD [address] [place] [address] [place] [address] documented as of this encounter Visit Diagnoses Not on filedocumented in this encounter Care Teams Motor And Generator Assembler Relationship Specialty Start Date End Date Meeta Wise FNP [address] [place] [address] PCP - General Nurse Practitioner 06/15/24 documented as of this encounter
--- OUTSIDE RECORDS SUMMARY | 2024-12-04 13:43 | XMS_ITS | Encounter Summary ---
Author Organization [facility] Address PO [facility] [address] [place] [address] Phone Care Team Providers Care Assurance Senior Manager Insurance Name Role Phone Meeta Wise Primary Care Provider Encounter Details Date Type Department Care Team (Late st Contact Info) Description 10/26/2024 Documentation Only [facility] [address] [place] [phone] Marta Ravi [address] [place] [phone] Social History Tobacco Use Types Packs/Day [...] Visit [facility] [address] [place] [address] Aretha Vences MD [address] [place] [address] [place] [address] documented as of this encounter Visit Diagnoses Not on filedocumented in this encounter Care Teams Assurance Senior Manager Insurance Relationship Specialty Start Date End Date Meeta Wise FNP [address] [place] [address] PCP - General Nurse Practitioner 06/15/24 documented as of this encounter
--- OUTSIDE RECORDS SUMMARY | 2024-12-04 13:43 | XMS_ITS | Encounter Summary ---
Author Organization [facility] Address PO [facility] [address] [place] [address] Phone Care Team Providers Care Assembler Flexible Leads Name Role Phone Meeta Wise Primary Care Provider Encounter Details Date Type Department Care Team (Late st Contact Info) Description 09/24/2024 Documentation Only [facility] [address] [place] [phone] Marta Ravi [address] [place] [phone] Social History Tobacco Use Types Packs/Day [...] [facility] [address] [place] [address] Aretha Vences MD [address] [place] [address] [place] [address] documented as of this encounter Visit Diagnoses Not on filedocumented in this encounter Care Teams Assembler Flexible Leads Relationship Specialty Start Date End Date Meeta Wise FNP [address] [place] [address] PCP - General Nurse Practitioner 06/15/24 documented as of this encounter
--- OUTSIDE RECORDS SUMMARY | 2024-12-04 13:43 | XMS_ITS | Encounter Summary ---
Author Organization [facility] Address PO [facility] [address] [place] [address] Phone Care Team Providers Care Warping Machine Operator Name Role Phone Meeta Wise Primary Care Provider Encounter Details Date Type Department Care Team (Late st Contact Info) Description 10/06/2024 Documentation Only [facility] [address] [place] [place] [phone] Marta Ravi [address] [place] [phone] Social History Tobacco Use Types Packs/Day [...] Visit [facility] [address] [place] [address] Aretha Vences MD [address] [place] [address] [place] [address] documented as of this encounter Visit Diagnoses Not on filedocumented in this encounter Care Teams Warping Machine Operator Relationship Specialty Start Date End Date Meeta Wise FNP [address] [place] [address] PCP - General Nurse Practitioner 06/15/24 documented as of this encounter
--- OUTSIDE RECORDS SUMMARY | 2024-12-04 13:43 | XMS_ITS | Encounter Summary ---
Author Organization [facility] Address PO [facility] [address] [place] [address] Phone Care Team Providers Care Handbag Parts Cutter Name Role Phone Meeta Wise Primary Care Provider Encounter Details Date Type Department Care Team (Late st Contact Info) Description 08/11/2024 Documentation Only [facility] [address] [place] [phone] Marta Ravi [address] [place] [phone] Social History Tobacco Use Types Packs/Day [...] Visit [facility] [address] [place] [address] Aretha Vences MD [address] [place] [address] [place] [address] documented as of this encounter Visit Diagnoses Not on filedocumented in this encounter Care Teams Handbag Parts Cutter Relationship Specialty Start Date End Date Meeta Wise FNP [address] [place] [address] PCP - General Nurse Practitioner 06/15/24 documented as of this encounter
--- OUTSIDE RECORDS SUMMARY | 2024-12-04 13:43 | XMS_ITS | Encounter Summary ---
Author Organization [facility] Address PO [facility] [address] [place] [address] Phone Care Team Providers Care Nut Sifter Name Role Phone Meeta Wise Primary Care Provider Encounter Details Date Type Department Care Team (Late st Contact Info) Description 10/02/2024 Documentation Only [facility] [address] [place] [phone] Marta Ravi [address] [place] [phone] Social History Tobacco Use Types Packs/Day [...] Visit [facility] [address] [place] [address] Aretha Vences MD [address] [place] [address] [place] [address] documented as of this encounter Visit Diagnoses Not on filedocumented in this encounter Care Teams Nut Sifter Relationship Specialty Start Date End Date Meeta Wise FNP [address] [place] [address] PCP - General Nurse Practitioner 06/15/24 documented as of this encounter
--- OUTSIDE RECORDS SUMMARY | 2024-12-04 13:43 | XMS_ITS | Encounter Summary ---
Author Organization [facility] Address PO [facility] [address] [place] [address] Phone Care Team Providers Care Physicist Nuclear Name Role Phone Meeta Wise Primary Care Provider [phone] Encounter Details Date Type Department Care Team (Late st Contact Info) Description 08/11/2024 Documentation Only [facility] [address] [place] [phone] Marta Ravi [address] [place] [phone] Social History Tobacco Use Types Packs/Day [...] [facility] [address] [place] [address] Aretha Vences MD [address] [place] [address] [place] [address] documented as of this encounter Visit Diagnoses Not on filedocumented in this encounter Care Teams Physicist Nuclear Relationship Specialty Start Date End Date Meeta Wise FNP [address] [place] [address] PCP - General Nurse Practitioner 06/15/24 documented as of this encounter
--- OUTSIDE RECORDS SUMMARY | 2024-12-04 13:43 | XMS_ITS | Encounter Summary ---
Author Organization [facility] Address PO [facility] [address] [place] [address] Phone Care Team Providers Care Head Irrigator Name Role Phone Meeta Wise Primary Care Provider Encounter Details Date Type Department Care Team (Late st Contact Info) Description 09/24/2024 Documentation Only [facility] [address] [place] [phone] Marta Ravi [address] [place] [phone] Social History Tobacco Use Types Packs/Day [...] [facility] [address] [place] [address] Aretha Vences MD [address] [place] [address] [place] [address] documented as of this encounter Visit Diagnoses Not on filedocumented in this encounter Care Teams Head Irrigator Relationship Specialty Start Date End Date Meeta Wise FNP [address] [place] [address] PCP - General Nurse Practitioner 06/15/24 documented as of this encounter
--- OUTSIDE RECORDS SUMMARY | 2024-12-04 13:43 | XMS_ITS | Encounter Summary ---
Author Organization [facility] Address PO [facility] [address] [place] [address] Phone Care Team Providers Care Grain Drier Name Role Phone Meeta Wise Primary Care Provider Encounter Details Date Type Department Care Team (Late st Contact Info) Description 08/11/2024 Documentation Only [facility] [address] [place] [phone] Marta Ravi [address] [place] [phone] Social History Tobacco Use Types Packs/Day [...] [facility] [address] [place] [address] Aretha Vences MD [address] [place] [address] [place] [address] documented as of this encounter Visit Diagnoses Not on filedocumented in this encounter Care Teams Grain Drier Relationship Specialty Start Date End Date Meeta Wise FNP [address] [place] [address] PCP - General Nurse Practitioner 06/15/24 documented as of this encounter
--- OUTSIDE RECORDS SUMMARY | 2024-12-04 13:43 | XMS_ITS | Encounter Summary ---
Author Organization [facility] Address PO [facility] [address] [place] [address] Phone Care Team Providers Care Powerhouse Helper Name Role Phone Meeta Wise Primary Care Provider [phone] Encounter Details Date Type Department Care Team (Late st Contact Info) Description 08/11/2024 Documentation Only [facility] [address] [place] [phone] Marta Ravi [address] [place] [phone] Social History Tobacco Use Types Packs/Day [...] Visit [facility] [address] [place] [address] Aretha Vences MD [address] [place] [address] [place] [address] documented as of this encounter Visit Diagnoses Not on filedocumented in this encounter Care Teams Powerhouse Helper Relationship Specialty Start Date End Date Meeta Wise FNP [address] [place] [address] PCP - General Nurse Practitioner 06/15/24 documented as of this encounter
--- OUTSIDE RECORDS SUMMARY | 2024-12-04 13:43 | XMS_ITS | Encounter Summary ---
Author Organization [facility] Address PO [facility] [address] [place] [address] Phone Care Team Providers Care Instrument Lens Inspector Name Role Phone Meeta Wise Primary Care Provider [phone] Encounter Details Date Type Department Care Team (Late st Contact Info) Description 08/13/2024 Documentation Only [facility] [address] [place] [phone] Marta Ravi [address] [place] [phone] Social History Tobacco Use Types Packs/Day [...] Visit [facility] Of [address] [place] [address] Aretha Vences MD [address] [place] [address] [place] [address] documented as of this encounter Visit Diagnoses Not on filedocumented in this encounter Care Teams Instrument Lens Inspector Relationship Specialty Start Date End Date Meeta Wise FNP [address] [place] [address] PCP - General Nurse Practitioner 06/15/24 documented as of this encounter
--- OUTSIDE RECORDS SUMMARY | 2024-12-04 13:43 | XMS_ITS | Encounter Summary ---
Author Organization [facility] Address PO [facility] [address] [place] [address] Phone Care Team Providers Care Senior Marketing Specialist Name Role Phone Meeta Wise Primary Care Provider Encounter Details Date Type Department Care Team (Late st Contact Info) Description 08/11/2024 Documentation Only [facility] Of [address] [place] [phone] Marta Ravi [address] [place] [phone] Social History Tobacco Use Types Packs/Day [...] Visit [facility] [address] [place] [address] Aretha Vences MD [address] [place] [address] [place] [address] documented as of this encounter Visit Diagnoses Not on filedocumented in this encounter Care Teams Senior Marketing Specialist Relationship Specialty Start Date End Date Meeta Wise FNP [address] [place] [address] PCP - General Nurse Practitioner 06/15/24 documented as of this encounter
--- OUTSIDE RECORDS SUMMARY | 2024-12-04 13:43 | XMS_ITS | Encounter Summary ---
Author Organization [facility] Address PO [facility] [address] [place] [address] Phone Care Team Providers Care Business Insurance Agent Name Role Phone Meeta Wise Primary Care Provider [phone] Encounter Details Date Type Department Care Team (Late st Contact Info) Description 06/12/2024 Documentation Only [facility] Of [address] [place] [phone] Eva Vargas [address] [place] [phone] Social History Tobacco Use Types Packs/Day [...] Visit [facility] Of [address] [place] [address] Aretha Vences MD [address] [facility] [place] [address] documented as of this encounter Visit Diagnoses Not on filedocumented in this encounter Care Teams Business Insurance Agent Relationship Specialty Start Date End Date Meeta Wise FNP [address] [place] [address] PCP - General Nurse Practitioner 06/15/24 documented as of this encounter
== END 2024-12-04 13:32 | disposition home or self-care (01) ==
LOC: HO.PMC 12:59
PROVIDERS: PCP Nurse Practitioner Family; Referring Provider Nurse Practitioner Family; Visit Provider Nurse Practitioner Family
DX: M54.10 Radiculopathy, site unspecified (principal); M54.50 Low back pain, unspecified; M25.511 Pain in right shoulder; E66.01 Morbid (severe) obesity due to excess calories; Z68.41 Body mass index [BMI] 40.0-44.9, adult
CPT/HCPCS: 99204

== ENCOUNTER → 2024-12-04 12:58 | Outpatient (BNVA) | payer OTHER, SELFPAY | PROVIDERS: PCP Nurse Practitioner Family; Referring Provider Nurse Practitioner Family; Visit Provider Nurse Practitioner Family | DX: M54.10 Radiculopathy, site unspecified (principal); M54.50 Low back pain, unspecified; M25.511 Pain in right shoulder; E66.01 Morbid (severe) obesity due to excess calories; Z68.41 Body mass index [BMI] 40.0-44.9, adult | CPT/HCPCS: 99202 ==

== ENCOUNTER 2024-12-07 12:23 | Outpatient (AMB) | payer OTHER, SELFPAY ==
--- NOTE | 2024-12-07 12:25 | MHC.PC.OV ---
Vital Signs 12/07/24 12:35 Height 5 ft 5 in Weight 275 lb BMI 45.8 BP 124/72 Blood Pressure Location Rt brachial Position Sitting Respiration 12 Pulse 77 Pulse Source Pulse Oximeter Temp 97.5 F Temp Source Oral Pulse Oximetry (%) 100 Oxygen Delivery Method Room Air Intake Visit Reasons: 4-6 weeks 30 min complex fu Intake Note: Follow up on cpap. Payient needs refill on lisinipril, jardiance, and firosimide Bioinformatics Specialist Required: No Allergies No Known Allergies Allergy (Verified 12/07/24 12:56) Medication List - Last Reconciled 12/07/24 by Meeta Ro, NIGHT SHIFT- acetaminophen ER 650 mg PO Q8H PRN albuterol sulfate 90 mcg/actuation 2 puffs inhalation Q6H PRN amlodipine 10 mg PO DAILY carvedilol 25 mg PO BID 90 days empagliflozin 10 mg PO QAM furosemide 20 mg PO DAILY indapamide 1.25 mg PO QAM lidocaine 5% 1 appl topical TID PRN lisinopril 20 mg PO DAILY lorazepam (Ativan) 0.5 mg PO ONCE PRN tizanidine (Zanaflex) 2 mg (1/2 x 4 mg) PO BID PRN 5 days Tobacco use date assessed: 12/07/24 Dental Screening Dental Screen Date: 12/07/24 Did you have a dental visit in the last 12 months?: Yes Did you have a dental problem in the last 6 months where you did not have access to dental care?: No HPI HPI Comments History of Present Illness Details 39-year-old Estonian Speaking female with LVH, prolonged QT, HTN, CHF pulmonary htn, pericardial effusion, CKD, mild intermittent asthma, obesity, family hx of FSGS, LUMMI, migraine headsache s/p lap aashish 2015, ERCP with sphincterectomy/papillotomy 05/2016 Renal Duplex: Right renal/aortic ratio elevated otherwise normal US Renal bladder: echogenic kidneys bilat representing chronic medical dz CT of head negative; CTA negative. Echo: Ejection fraction 40-45% with mild global hypokinesis and borderline hypokinesis of anterolateral and inferior lateral carter, grade 2 diastolic dysfunction, severe left ventricular hypertrophy, mild pulmonary hypertension with pulmonary artery systolic pressure of 30-35 trivial pericardial effusion History of Present Illness - The patient is a 39-year-old female presenting with follow-up for back pain management and YARELIS. - Back pain, initially highlighted in a prior office visit, is under management with ongoing referrals for physical therapy - has not started yet; Previous attempts at MRI approval denied. Now being managed by [facility] [place] [facility]. NOte reviewed. - The patient was diagnosed with obstructive sleep apnea and prescribed CPAP therapy, but she has not received the equipment to date. The order was faxed 11/23/24 to [facility]. - Morning headaches cont, likely linked to untreated sleep apnea. - Improvements have been noted in terms of leg swelling, which was previously more severe. Taking lasix and jardiance as directed. - Cardiology and Renal appts next Month. Exam: Awake alert accompanied by LUMMI RRR, 2/6 systolic murmur LS CTAB, dim throughout +1 edema BLE VEGA x 4, nonfocal neuro exam. Pain across transverse midback w/ paraspinal palpation. No spinal tenderness. + Lordosis in this area. Skin is clear. When bilat arms are stretched overhead has pain in shoulder muscles. upper and lower ext neurovasc intact. Discussion Notes I discussed the patient's ongoing back pain and advised on the physical therapy plan as a prerequisite for obtaining an MRI which was previously declined. An X-ray for her shoulder pain has been ordered by [facility]. For her diagnosed obstructive sleep apnea, I have sent a prescription for a CPAP machine to her, which she has not yet received. I assured her that our office would follow up on this matter. With regards to her cardiological concerns, I advised her to check with her insurance for alternative providers; however until then fu at [facility] [place] as scheduled. The patient is due to see a aircraft avionics technician and a agency service coordinator in December. Medication refills have been processed, and I've advised her to follow recommended specialist consultations and procedures. I discussed the current health benefit of continual medical oversight and the importance of using the CPAP machine to alleviate her headaches caused by sleep apnea. Assessment and Plan 1. Back Pain The patient will proceed with physical therapy to manage her back pain, aiming for eventual MRI approval. An X-ray has been ordered for the lumbar spine to aid assessment. Managed by [facility]. 2. Obstructive Sleep Apnea Efforts to ensure delivery of CPAP equipment will be expedited following the prescribed therapy order. This treatment is essential for alleviating her headaches and improving sleep quality. [facility] staff to [facility] with [facility]. 3. Shoulder Pain An X-ray has been arranged to investigate her right shoulder pain more thoroughly. 4. Swelling of the Legs The improvement in leg swelling is noted, with ongoing observation advised. 5. Headaches CPAP therapy is expected to alleviate the headaches attributed to sleep apnea once started. 6. Cardiac Concerns The patient was advised on researching alternative cardiology options via her insurance coverage, with an appointment set for December 24 as a stopgap. Patient Instructions - Attend physical therapy sessions for back pain, as per referral. - Follow up with the aircraft avionics technician on December 10 and the agency service coordinator on December 24. - Check with your insurance about alternative cardiology providers. - Begin using the CPAP machine as soon as it is available to address headaches and sleep issues. - Continue taking prescribed medications and refill as needed through [facility]. - Contact us if you do not receive the CPAP machine soon. - RTO end of February for CPAP compliance visit, sooner PRN Consent Patient was informed and verbally consented to the use of an ambient scribe for clinic note documentation during this visit. Total time spent caring for the patient today was 45 minutes. This includes time spent before the visit reviewing the chart, time spent during the visit, and time spent after the visit on documentation, reviewing laboratory results, diagnostic imaging, medications, performing a medically necessary evaluation, counseling on diagnoses, care coordination, ordering appropriate tests, ordering appropriate medications, review of tests performed by other providers, reporting test results with the patient, communication with other healthcare providers. [facility] Medical History (Updated 12/07/24 @ 17:26 by PORSCHE Solano-) Hypertension Seasonal asthma Surgical History (Updated 12/04/24 @ 16:01 by PORSCHE Hinojosa) History of ERCP (~2015) Hx laparoscopic cholecystectomy (~2015) Family History Mother Hypertension Father Hypertension Diabetes Cancer Sister Kidney transplant recipient Social History Household Members: Family and Children Both parents involved: No Caregiver staying overnight: No Housing: House Are you a primary foster care case manager to a significant other at home: Yes Do you presently have visiting nurse or other home services: No 75 years or older and lives alone: No Alcohol intake: current Alcohol intake frequency: a few times a month Patient Tobacco Use Status: Former Tobacco user e-Cigarette/Vaping Use: Never Used service: No Current occupational status: employed Current occupation: [employer] Cognitive needs: No Hearing needs: Yes Vision needs: No Questionnaire Thrive Questionnaire Date Thrive assessed: 09/25/24 I am a: Patient What is your living situation today?: I have a steady place to live Within the past 12 months, did the food you bought not last and you didn't have the money to get more?: I choose not to answer this question Within the past 12 months, did you worry whether your food would run out before you got money to buy more?: I choose not to answer this question Do you have trouble paying for medicines?: I choose not to answer this question Do you have trouble getting transportation to medical appointments?: I choose not to answer this question Do you have trouble paying your heating and electricity bill?: I choose not to answer this question Do you have trouble taking care of your child, family member or friend?: I choose not to answer this question Do you have trouble with day-to-day activities such as bathing, preparing meals, shopping, managing finances, etc.?: I choose not to answer this question Are you currently unemployed and looking for a job?: I choose not to answer this question Are you interested in more education?: I choose not to answer this question Please select the resources that you would like help with: None Currently or been in a relationship where the following occur: No concerns reported THRIVE Score: 0 SHERRI-7 AMB Questionnaire SHERRI-7 Date SHERRI - 7 assessed: 10/21/24 Source: Developed by Drs. Steve Hogan, Ariella Franco, Marco Antonio Frankel and colleagues, with an educational tonio from [employer]. Physical exam (Primary Care) Vital Signs: Last Vital Signs Temp 97.5 F 12/07/24 12:35 Pulse 77 12/07/24 12:35 Resp 12 12/07/24 12:35 BP 124/72 12/07/24 12:35 Pulse Ox 100 12/07/24 12:35 Oxygen Delivery Method Room Air 12/07/24 12:35 BMI result Body Mass Index 45.8 Tobacco/Smoking Status: Tobacco use Status Tobacco use date assessed 12/07/24 12/07/24 12:30 Patient Tobacco Use Status Former Tobacco user 12/07/24 12:27 e-Cigarette/Vaping Use Never Used 12/07/24 12:27 Thrive Assessment: Date of Thrive Assessment Date Thrive assessed 09/25/24 12/07/24 12:27 Currently or been in a relationship where the following occur: No concerns reported Coding Level of Care Code Est Pt Level 5 (54991) Complex EM visit Add On G2211 Diagnoses Acute midline low back pain with bilateral sciatica M54.42; M54.41 Chronicity: acute Back pain laterality: midline Sciatica presence: with sciatica Sciatica laterality: bilateral sciatica Migraine without aura and without status migrainosus, not intractable G43.009 Status migrainosus presence: without status migrainosus Intractability: not intractable YARELIS (obstructive sleep apnea) G47.33 Radicular low back pain M54.10 Chronic diastolic congestive heart failure I50.32 Heart failure type: diastolic Heart failure chronicity: chronic Stage 3b chronic kidney disease N18.32 Chronic kidney disease stage 3 subtype: stage 3b (GFR 30-44) Hypertension secondary to other renal disorders I15.1 Hypertension type: secondary to other renal disorders Assessment & Plan Assessment & Plan (1) Low back pain: Code(s): M54.50 - Low back pain, unspecified Category: Medical Qualifiers: Chronicity: acute Back pain laterality: midline Sciatica presence: with sciatica Sciatica laterality: bilateral sciatica Qualified Code(s): M54.42 - Lumbago with sciatica, left side; M54.41 - Lumbago with sciatica, right side (2) Migraine headache without aura: Code(s): G43.009 - Migraine without aura, not intractable, without status migrainosus Category: Medical Qualifiers: Status migrainosus presence: without status migrainosus Intractability: not intractable Qualified Code(s): G43.009 - Migraine without aura, not intractable, without status migrainosus (3) YARELIS (obstructive sleep apnea): Comment: CPAP TITRATION 11/21/24 CPAP 13cm , recommend full face mask size medium if she can tolerate, headed humidification [facility] Code(s): G47.33 - Obstructive sleep apnea (adult) (pediatric) Category: Medical (4) Radicular low back pain: Comment: BLE R>L Code(s): M54.10 - Radiculopathy, site unspecified Category: Medical (5) CHF (congestive heart failure): Code(s): I50.9 - Heart failure, unspecified Category: Medical Qualifiers: Heart failure type: diastolic Heart failure chronicity: chronic Qualified Code(s): I50.32 - Chronic diastolic (congestive) heart failure (6) CKD (chronic kidney disease) stage 3, GFR 30-59 ml/min: Code(s): N18.30 - Chronic kidney disease, stage 3 unspecified Category: Medical Qualifiers: Chronic kidney disease stage 3 subtype: stage 3b (GFR 30-44) Qualified Code(s): N18.32 - Chronic kidney disease, stage 3b (7) Hypertension: Code(s): I10 - Essential (primary) hypertension Category: Medical Qualifiers: Hypertension type: secondary to other renal disorders Qualified Code(s): I15.1 - Hypertension secondary to other renal disorders Plan . Medications: Refilled empagliflozin 10 mg PO QAM 90 tabs 2RF lisinopril 20 mg PO DAILY 90 tabs 0RF furosemide 20 mg PO DAILY 90 tabs 0RF
[2024-12-07 12:35] VITALS: BP 124/72; PULSE 77; RESP 12; TEMP 36.4; O2SAT 100; BMI 45.8
--- OUTSIDE RECORDS SUMMARY | 2024-12-07 14:49 | XMS_ITS | Encounter Summary ---
Author Organization [facility] Address PO [facility] [address] [place] [address] Phone Care Team Providers Care Automation Design Engineer Name Role Phone Meeta Wise Primary Care Provider [phone] Encounter Details Date Type Department Care Team (Late st Contact Info) Description 08/11/2024 Documentation Only [facility] [address] [place] [phone] Marta Ravi [address] [place] [phone] Social History Tobacco Use Types Packs/Day [...] Visit [facility] [address] [place] [address] Aretha Vences MD [address] [place] [address] [place] [address] documented as of this encounter Visit Diagnoses Not on filedocumented in this encounter Care Teams Automation Design Engineer Relationship Specialty Start Date End Date Meeta Wise FNP [address] [place] [address] PCP - General Nurse Practitioner 06/15/24 documented as of this encounter
--- OUTSIDE RECORDS SUMMARY | 2024-12-07 14:49 | XMS_ITS | Encounter Summary ---
Author Organization [facility] Address PO [facility] [address] [place] [address] Phone Care Team Providers Care Radio Reporter Name Role Phone Meeta Wise Primary Care Provider [phone] Encounter Details Date Type Department Care Team (Late st Contact Info) Description 09/30/2024 Documentation Only [facility] Of [address] [place] [address] Alan Lopez MD [address] [place] [address] [place] [address] Social History Tobacco Use Types Packs/Day Years [...] [facility] [address] [place] [address] Aertha Vences MD [address] [facility] [place] [phone] documented as of this encounter Visit Diagnoses Not on filedocumented in this encounter Care Teams Radio Reporter Relationship Specialty Start Date End Date Meeta Wise FNP [address] [place] [address] PCP - General Nurse Practitioner 06/15/24 documented as of this encounter
--- OUTSIDE RECORDS SUMMARY | 2024-12-07 14:49 | XMS_ITS | Encounter Summary ---
Author Organization [facility] Address [address] [place] [address] Care Team Providers Care Loading Checker Name Role Phone Mariana Nascimento DO Primary Care Pro vider Unavailable Win White MD Primary Care Provider [phone] Reason for Referral * Specialist (Routine) - Authorized/Booked Specialty Diagnoses / Procedures Referred By Miguel cruz Referred To Contact COMPREHENSIVE WEIGHT MANAGEMENT / WEIGHT MANAGEMENT Procedures REFERRAL TO WEIGHT MANAGEMENT CLINIC Mariana Nascimento DO [address] [place] [address] External Weight Referral ID Status Reason Start Date Expiration Date V isits Requested Visits Authorized SEE REVIEW 09/14/14 Authorized/ Booked 09/12/2014 12/10/2014 1 1 Encounter Details Date Type Department Care Team Description 09/12/2014 Orders Only Adult Medicine [address] [address] Mariana Nascimento DO Social History Tobacco Use [...] on filedocumented in this encounter Care Teams Loading Checker Relationship Specialty Start Date End Date Mariana Nascimento DO PCP - General Internal Medicine 11/18/13 09/14/19 Win White MD [address] [place] [address] PCP - General Internal Medicine 09/15/19 documented as of this encounter
--- OUTSIDE RECORDS SUMMARY | 2024-12-07 14:49 | XMS_ITS | Encounter Summary ---
Author Organization [employer] [facility] Address [address] [place] [address] Care Team Providers Care Household Coordinator Name Role Phone Mariana Nascimento DO Primary Care Pro vider Unavailable Win White MD Primary Care Provider [phone] Encounter Details Date Type Department Care Team Description 06/05/2016 [facility] Medical Records [address] [place] [address] Social History Tobacco Use Types Packs/Day Years [...] on filedocumented in this encounter Care Teams Household Coordinator Relationship Specialty Start Date End Date Mariana Nascimento DO PCP - General Internal Medicine 11/18/13 09/14/19 Win White MD [address] [place] [address] PCP - General Internal Medicine 09/15/19 documented as of this encounter
--- OUTSIDE RECORDS SUMMARY | 2024-12-07 14:49 | XMS_ITS | Encounter Summary ---
Author Organization [facility] Address [address] [place] [address] Care Team Providers Care Customer Success Representative Name Role Phone Mariana Nascimento DO Primary Care Pro vider Unavailable Win White MD Primary Care Provider [phone] Encounter Details Date Type Department Care Team Description 03/22/2015 Release of Information Medical Records [address] [place] [address] Abstract, Provider Social History Tobacco Use Types [...] filedocumented in this encounter Care Teams Customer Success Representative Relationship Specialty Start Date End Date Mariana Nascimento DO PCP - General Internal Medicine 11/18/13 09/14/19 Win White MD [address] [place] [address] PCP - General Internal Medicine 09/15/19 documented as of this encounter
--- OUTSIDE RECORDS SUMMARY | 2024-12-07 14:49 | XMS_ITS | Encounter Summary ---
Author Organization [facility] Address PO [facility] [address] [place] [address] Phone Care Team Providers Care Jigman Name Role Phone Meeta Wise Primary Care Provider Encounter Details Date Type Department Care Team (Late st Contact Info) Description 09/24/2024 Documentation Only [facility] Of [address] [place] [phone] Marta Ravi [address] [place] [phone] Social History Tobacco Use Types Packs/Day [...] [facility] [address] [place] [address] Aretha Vences MD [address] [place] [address] [place] [address] documented as of this encounter Visit Diagnoses Not on filedocumented in this encounter Care Teams Jigman Relationship Specialty Start Date End Date Meeta Wise FNP [address] [place] [address] PCP - General Nurse Practitioner 06/15/24 documented as of this encounter
--- OUTSIDE RECORDS SUMMARY | 2024-12-07 14:49 | XMS_ITS | Encounter Summary ---
Author Organization [facility] Address [address] [place] [address] Care Team Providers Care Library Media Assistant Name Role Phone Win White MD Primary Care Provider [phone] Reason for Visit * Reason Comments E-prescribe Rx Request Encounter Details Date Type Department Care Team Description 11/30/2019 Refill Adult Medicine - [place] [address] [place] [address] Alysa Thornton PA-C 100 [facility] [address] [place] [address] E-prescribe Rx Request Social History Tobacco Use [...] Jamila Alexandra - 12/02/2019 1:36 PM EDT [phone] (home) [phone] (work) Left message to call back. Please put to [phone] or re-message to the east * Telephone [...] N/A Patients current insurance carrier is: Payor: [employer] FFS / Plan: [employer] / Product Type: MEDICAID RISK documented [...] EST [facility] Comment: If patient is -Estonian, multiply result by 1.21 Chronic Kidney Disease: [...] hypertension documented in this encounter Care Teams Library Media Assistant Relationship Specialty Start Date End Date Win White MD [address] [place] [address] PCP - General Internal Medicine 09/15/19 documented as of this encounter
--- OUTSIDE RECORDS SUMMARY | 2024-12-07 14:49 | XMS_ITS | Encounter Summary ---
Author Organization [facility] Address PO [facility] [address] [place] [address] Phone Care Team Providers Care General Sales Manager Name Role Phone Meeta Wise Primary Care Provider Encounter Details Date Type Department Care Team (Late st Contact Info) Description 08/11/2024 Documentation Only [facility] [address] [place] [phone] Marta Ravi [address] [place] [phone] Social History Tobacco Use Types Packs/Day [...] [facility] [address] [place] [address] Aretha Vences MD [address] [place] [address] [place] [address] documented as of this encounter Visit Diagnoses Not on filedocumented in this encounter Care Teams General Sales Manager Relationship Specialty Start Date End Date Meeta Wise FNP [address] [place] [address] PCP - General Nurse Practitioner 06/15/24 documented as of this encounter
--- OUTSIDE RECORDS SUMMARY | 2024-12-07 14:49 | XMS_ITS | Encounter Summary ---
Author Organization [facility] Address PO [facility] [address] [place] [address] Phone Care Team Providers Care Grain Buyer Name Role Phone Meeta Wise Primary Care Provider Encounter Details Date Type Department Care Team (Late st Contact Info) Description 10/06/2024 Documentation Only [facility] [address] [place] [phone] Marta Ravi [address] [place] [phone] Social History Tobacco Use Types Packs/Day [...] [facility] [address] [place] [address] Aretha Vences MD [address] [place] [address] [place] [address] documented as of this encounter Visit Diagnoses Not on filedocumented in this encounter Care Teams Grain Buyer Relationship Specialty Start Date End Date Meeta Wise FNP [address] [place] [address] PCP - General Nurse Practitioner 06/15/24 documented as of this encounter
--- OUTSIDE RECORDS SUMMARY | 2024-12-07 14:49 | XMS_ITS | Encounter Summary ---
Author Organization [facility] Address PO [facility] [address] [place] [address] Phone Care Team Providers Care Second Miller Name Role Phone Meeta Wise Primary Care Provider Encounter Details Date Type Department Care Team (Late st Contact Info) Description 08/11/2024 Documentation Only [facility] [address] [place] [phone] Marta Ravi [address] [place] [phone] Social History Tobacco Use Types Packs/Day [...] [facility] [address] [place] [place] [address] Aretha Vences MD [address] [place] [address] [place] [address] documented as of this encounter Visit Diagnoses Not on filedocumented in this encounter Care Teams Second Miller Relationship Specialty Start Date End Date Meeta Wise FNP [address] [place] [address] PCP - General Nurse Practitioner 06/15/24 documented as of this encounter
--- OUTSIDE RECORDS SUMMARY | 2024-12-07 14:49 | XMS_ITS | Encounter Summary ---
Author Organization [facility] Address [address] [place] [address] Care Team Providers Care Dural Mechanic Name Role Phone Mariana Nascimento DO Primary Care Pro vider Unavailable Win White MD Primary Care Provider [phone] Encounter Details Date Type Department Care Team Description [facility] [address] [place] [phone] Abstract, Provider Social History Tobacco Use Types [...] on filedocumented in this encounter Care Teams Dural Mechanic Relationship Specialty Start Date End Date Mariana Nascimento DO PCP - General Internal Medicine 11/18/13 09/14/19 Win White MD [address] [place] [address] PCP - General Internal Medicine 09/15/19 documented as of this encounter
--- OUTSIDE RECORDS SUMMARY | 2024-12-07 14:49 | XMS_ITS | Encounter Summary ---
Author Organization [facility] Address PO [facility] [address] [place] [address] Phone Care Team Providers Care Testing Projects Administrator Name Role Phone Meeta Wise Primary Care Provider Encounter Details Date Type Department Care Team (Late st Contact Info) Description 08/11/2024 Documentation Only [facility] [address] [place] [phone] Marta Ravi [address] [place] [phone] Social History Tobacco Use Types Packs/Day [...] [facility] [address] [place] [address] Aretha Vences MD [address] [place] [address] [place] [address] documented as of this encounter Visit Diagnoses Not on filedocumented in this encounter Care Teams Testing Projects Administrator Relationship Specialty Start Date End Date Meeta Wise FNP [address] [place] [address] PCP - General Nurse Practitioner 06/15/24 documented as of this encounter
--- OUTSIDE RECORDS SUMMARY | 2024-12-07 14:49 | XMS_ITS | Encounter Summary ---
Author Organization [facility] Address [address] [place] [address] Care Team Providers Care Behavior Management Specialist Name Role Phone Mariana Nascimento DO Primary Care Pro vider Unavailable Win White MD Primary Care Provider [phone] Encounter Details Date Type Department Care Team Description 06/22/2016 Field Traffic Investigator Report Medical Records [address] [place] [address] [address] Social History Tobacco Use Types [...] on filedocumented in this encounter Care Teams Behavior Management Specialist Relationship Specialty Start Date End Date Mariana Nascimento DO PCP - General Internal Medicine 11/18/13 09/14/19 Win White MD [address] [place] [address] PCP - General Internal Medicine 09/15/19 documented as of this encounter
--- OUTSIDE RECORDS SUMMARY | 2024-12-07 14:49 | XMS_ITS | Encounter Summary ---
Author Organization [facility] Address PO [facility] [address] [place] [address] Phone Care Team Providers Care Arson Investigator Name Role Phone Meeta Wise Primary Care Provider Encounter Details Date Type Department Care Team (Late st Contact Info) Description 10/02/2024 Documentation Only [facility] [address] [place] [phone] Marta Ravi [address] [place] [phone] Social History Tobacco Use Types Packs/Day [...] [facility] [address] [place] [address] Aretha Vences MD [address] [place] [address] [place] [address] documented as of this encounter Visit Diagnoses Not on filedocumented in this encounter Care Teams Arson Investigator Relationship Specialty Start Date End Date Meeta Wise FNP [address] [place] [address] PCP - General Nurse Practitioner 06/15/24 documented as of this encounter
--- OUTSIDE RECORDS SUMMARY | 2024-12-07 14:49 | XMS_ITS | Encounter Summary ---
Author Organization [facility] Address [address] [place] [address] Care Team Providers Care Cargo Station Worker Name Role Phone Mariana Nascimento DO Primary Care Pro vider Unavailable Win White MD Primary Care Provider [phone] Encounter Details Date Type Department Care Team Description 06/04/2016 [facility] Medical Records [address] [place] [address] Social History Tobacco Use Types Packs/Day Years [...] filedocumented in this encounter Care Teams Cargo Station Worker Relationship Specialty Start Date End Date Mariana Nascimento DO PCP - General Internal Medicine 11/18/13 09/14/19 Win White MD [address] [place] [address] PCP - General Internal Medicine 09/15/19 documented as of this encounter
--- OUTSIDE RECORDS SUMMARY | 2024-12-07 14:49 | XMS_ITS | Encounter Summary ---
Author Organization [facility] Address [address] [place] [address] Care Team Providers Care Pen Rider Name Role Phone Win White MD Primary Care Provider [phone] Encounter Details Date Type Department Care Team Description 10/01/2019 [facility] Medical Records [address] [place] [address] Abstract, Provider Social History Tobacco Use Types [...] on filedocumented in this encounter Care Teams Pen Rider Relationship Specialty Start Date End Date Win White MD [address] [place] [address] PCP - General Internal Medicine 09/15/19 documented as of this encounter
--- OUTSIDE RECORDS SUMMARY | 2024-12-07 14:49 | XMS_ITS | Clinical Summary ---
Author Organization [facility] Address [address] [place] [address] Phone Care Team Providers Care Leasing Specialist Name Role Phone Physician, No Pcp Primary Care Provider Unavaila ble Allergies No known active allergies Encounters Date Type Department Care Team Description 10/27/2024 - 10/27/2024 10:03 AM EDT Emergency [facility] Emergency [address] [place] [address] Discharge Disposition: ED Dismiss - Never Arrived 10/26/2024 1:10 PM EDT - 10/26/2024 8:21 PM EDT Emergency [facility] Emergency [address] [place] [address] Lew Ji MD Dizziness (Primary [...] GEMUSE QTc 490 ms GEMUSE P Wave Murdock 33 degrees GEMUSE R Murdock -22 degrees GEMUSE T Murdock 139 degrees GEMUSE ECG Interpretation Normal sinus rhythm Minimal voltage criteria for LVH, may be normal variant T wave abnormality, consider lateral ischemia Prolonged QT Abnormal ECG When compared with ECG of 26-OCT-2024 13:30, No significant change was found Confirmed by MD Diallo, Mcewen ([id number]) on 10/28/2024 9:56:56 AM GEMUSE 10/26/2024 [...] [facility] [address] [place] [address], [place] [phone] * (ABNORMAL) Urinalysis with reflex microscopic and culture (10/26/2024 4:57 PM EDT) Specific [place] Urine 1.013 1.003 - 1.030 LAB URINALYSIS - AUTOMATED METHOD 10/26/2024 6:02 PM [facility] pH, Urine 6.0 5.0 - 8.0 pH LAB URINALYSIS - AUTOMATED METHOD 10/26/2024 6:02 PM [facility] Leukocytes, Urine Negative Negative LAB URINALYSIS - AUTOMATED METHOD 10/26/2024 6:02 PM [facility] Nitrite, Urine Negative Negative LAB URINALYSIS - AUTOMATED METHOD 10/26/2024 6:02 PM [facility] Protein, Urine 100(A) <=Trace mg/dL LAB URINALYSIS - AUTOMATED METHOD 10/26/2024 6:02 PM [facility] Glucose, Urine 500(A) Negative mg/dL LAB URINALYSIS - AUTOMATED METHOD 10/26/2024 6:02 PM [facility] Ketones, Urine Negative Negative mg/dL LAB URINALYSIS - AUTOMATED METHOD 10/26/2024 6:02 PM [facility] Urobilinogen, Urine 0.2 0.2 - 1.0 mg/dL LAB URINALYSIS - AUTOMATED METHOD 10/26/2024 6:02 PM EDT [facility] Bilirubin, Urine Negative Negative LAB URINALYSIS - AUTOMATED METHOD 10/26/2024 6:02 PM EDT [facility] Blood, Urine Large(A) Negative LAB URINALYSIS - AUTOMATED METHOD 10/26/2024 6:02 PM EDT [facility] RBC, Urine 7.6(H) 0 - 4 /HPF LAB URINALYSIS - AUTOMATED METHOD 10/26/2024 6:02 PM EDT [facility] WBC, Urine 2.0 0 - 4 /HPF LAB URINALYSIS - AUTOMATED METHOD 10/26/2024 6:02 PM EDT [facility] Squamous Epithelial, Urine 15 0 - 60 /LPF LAB URINALYSIS - AUTOMATED METHOD 10/26/2024 6:02 PM EDT [facility] Bacteria, Urine Negative Negative /HPF LAB URINALYSIS - AUTOMATED METHOD 10/26/2024 6:02 PM EDT [facility] Hyaline Casts, Urine 1.2 0 - 3 /LPF LAB URINALYSIS - AUTOMATED METHOD 10/26/2024 6:02 PM EDT [facility] Urine Urine specimen obtained by clean catch procedure / Unknown Non-blood Collection / Unknown 10/26/2024 4:57 PM EDT 10/26/2024 5:50 PM EDT us Denice MAGALLON LAB URINE ORDERABLES Final Result [facility] [address] [place] [address], * Martin urine culture tube (10/26/2024 4:57 PM EDT) Extra Tube Hold for add-ons. 10/26/2024 7:01 PM EDT [facility] Comment:Auto resulted. Urine Urine specimen obtained by clean catch procedure / Unknown Non-blood Collection / Unknown 10/26/2024 4:57 PM EDT 10/26/2024 5:50 PM EDT Denice MAGALLON LAB URINE ORDERABLES Final Result Performing Organization Address [facility]/ZIP Co de Phone Number [facility] [address] [place] [address], [place] [phone] * (ABNORMAL) POCT Glucose, blood (10/26/2024 2:12 PM EDT) [facility] Glucose POCT 107(H) 70 - 100 mg/dL 10/26/2024 2:13 PM EDT [facility] Blood Capillary blood specimen / Unknown 10/26/2024 2:12 PM EDT 10/26/2024 2:14 PM EDT Generic Provider Poct LAB POINT OF CARE TEST DOCKED DEVICE UNSOLICITED RESULTS Final Result Performing Organization Address [facility]/ZIP Co de Phone Number [facility] [address] [place] [address], [place] [phone] * (ABNORMAL) CBC auto differential (10/26/2024 2:02 PM EDT) [facility] WBC 10.8 4.8 - 10.8 K/mcL [...] [facility] MPV 11.4(H) 7.0 - 11.0 FL LAB HEMETOLOGY METHOD 10/26/2024 2:58 PM EDT [facility] NRBC 0.0 <1.0 % LAB HEMETOLOGY METHOD 10/26/2024 2:58 PM EDT [facility] NRBC Absolute 0.00 <0.10 K/mcL LAB HEMETOLOGY METHOD 10/26/2024 2:58 PM EDT [facility] Neutrophils Relative 75.3 % LAB HEMETOLOGY METHOD 10/26/2024 2:58 PM EDT [facility] Lymphocytes Relative 14.3 % LAB HEMETOLOGY METHOD 10/26/2024 2:58 PM EDT [facility] Monocytes Relative 6.3 % LAB HEMETOLOGY METHOD 10/26/2024 2:58 PM EDT [facility] Eosinophils Relative 3.0 % LAB HEMETOLOGY METHOD 10/26/2024 2:58 PM EDT [facility] Basophils Relative 0.5 % LAB HEMETOLOGY METHOD 10/26/2024 2:58 PM EDT [facility] Immature Granulocytes Relative 0.6 % LAB HEMETOLOGY METHOD 10/26/2024 2:58 PM EDT [facility] Neutrophils Absolute 8.17(H) 1.50 - 7.00 K/mcL LAB HEMETOLOGY METHOD 10/26/2024 2:58 PM EDT [facility] Lymphocytes Absolute 1.55 1.00 - 5.00 [...] [facility] [address] [place] [address], * Magnesium (10/26/2024 2:02 PM EDT) Magnesium 2.0 1.9 - 2.6 mg/dL LAB CHEMISTRY METHOD 10/26/2024 3:28 PM T [facility] Blood Venous blood specimen / Unknown Venipuncture / Unknown 10/26/2024 2:02 PM EDT 10/26/2024 2:47 PM EDT us Lew Ji MD LAB BLOOD ORDERABLES Final Resu lt [facility] [address] [place] [address], [place] [phone] * (ABNORMAL) Basic metabolic panel (10/26/2024 2:02 PM EDT) Sodium 138 133 - 145 mmol/L LAB CHEMISTRY METHOD 10/26/2024 3:28 PM [facility] Potassium 5.1 3.5 - 5.5 mmol/L LAB CHEMISTRY METHOD 10/26/2024 3:28 PM [facility] Chloride 104 96 - 110 mmol/L LAB CHEMISTRY METHOD 10/26/2024 3:28 PM [facility] CO2 24 21 - 32 mmol/L LAB CHEMISTRY METHOD 10/26/2024 3:28 PM [facility] Anion Gap 10 3 - 11 LAB CHEMISTRY METHOD 10/26/2024 3:28 PM [facility] Glucose 91 70 - 100 mg/dL LAB CHEMISTRY METHOD 10/26/2024 3:28 PM [facility] BUN 48(H) 5 - 25 mg/dL LAB CHEMISTRY METHOD 10/26/2024 3:28 PM [facility] Creatinine 2.51(H) 0.50 - 1.10 mg/dL LAB CHEMISTRY METHOD 10/26/2024 3:28 PM [facility] eGFR 24(L) >=60 mL/min/1. [...] [facility] [address] [place] [address], * DIAGNOSTIC MAMMOGRAPHY INCLUDING CAD BILATERAL (09/21/2022 [...] Health Maintenance Insurance [employer] Care Teams Leasing Specialist Relationship Specialty Start Date End Date Physician, No Pcp PCP - General 10/26/24
--- OUTSIDE RECORDS SUMMARY | 2024-12-07 14:49 | XMS_ITS | Encounter Summary ---
Author Organization [employer] [facility] Address [address] [place] [address] Care Team Providers Care Forensic Identification Specialist Name Role Phone Mariana Nascimento DO Primary Care Pro vider Unavailable Win White MD Primary Care Provider [phone] Encounter Details Date Type Department Care Team Description 06/02/2016 [facility] Medical Records [address] [place] [address] Social History Tobacco Use Types Packs/Day Years [...] on filedocumented in this encounter Care Teams Forensic Identification Specialist Relationship Specialty Start Date End Date Mariana Nascimento DO PCP - General Internal Medicine 11/18/13 09/14/19 Win White MD [address] [place] [address] PCP - General Internal Medicine 09/15/19 documented as of this encounter
--- OUTSIDE RECORDS SUMMARY | 2024-12-07 14:49 | XMS_ITS | Encounter Summary ---
Author Organization [facility] Address PO [facility] [address] [place] [address] Phone Care Team Providers Care Septic Tank Cleaner Name Role Phone Meeta Wise Primary Care Provider Encounter Details Date Type Department Care Team (Late st Contact Info) Description 08/11/2024 Documentation Only [facility] [address] [place] [phone] Marta Ravi [address] [place] [phone] Social History Tobacco Use Types Packs/Day [...] Visit [facility] [address] [place] [address] Aretha Vences MD [address] [place] [address] [place] [address] documented as of this encounter Visit Diagnoses Not on filedocumented in this encounter Care Teams Septic Tank Cleaner Relationship Specialty Start Date End Date Meeta Wise FNP [address] [place] [address] PCP - General Nurse Practitioner 06/15/24 documented as of this encounter
--- OUTSIDE RECORDS SUMMARY | 2024-12-07 14:49 | XMS_ITS | Encounter Summary ---
Author Organization [facility] Address PO [facility] [address] [place] [address] Phone Care Team Providers Care Acquisition Cost Estimator Name Role Phone Meeta Wise Primary Care Provider [phone] Encounter Details Date Type Department Care Team (Late st Contact Info) Description 10/26/2024 Documentation Only [facility] Of [address] [place] [address] Marta Ravi [address] [place] [phone] Social History Tobacco Use Types Packs/Day [...] [facility] [address] [place] [address] Aretha Vences MD [address] [place] [address] [place] [address] documented as of this encounter Visit Diagnoses Not on filedocumented in this encounter Care Teams Acquisition Cost Estimator Relationship Specialty Start Date End Date Meeta Wise FNP [address] [place] [address] PCP - General Nurse Practitioner 06/15/24 documented as of this encounter
--- OUTSIDE RECORDS SUMMARY | 2024-12-07 14:49 | XMS_ITS | Encounter Summary ---
Author Organization [facility] Address PO [facility] [address] [place] [address] Phone Care Team Providers Care Apprentice Lineman Third Step Name Role Phone Meeta Wise Primary Care Provider Encounter Details Date Type Department Care Team (Late st Contact Info) Description 10/02/2024 Documentation Only [facility] Of [address] [place] [phone] Marta Ravi [address] [place] [phone] Social History Tobacco Use Types Packs/Day [...] [facility] [address] [place] [address] Aretha Vences MD [address] [place] [address] [place] [address] documented as of this encounter Visit Diagnoses Not on filedocumented in this encounter Care Teams Apprentice Lineman Third Step Relationship Specialty Start Date End Date Meeta Wise FNP [address] [place] [address] PCP - General Nurse Practitioner 06/15/24 documented as of this encounter
--- OUTSIDE RECORDS SUMMARY | 2024-12-07 14:49 | XMS_ITS | Encounter Summary ---
Author Organization [facility] Address PO [facility] [address] [place] [address] Phone Care Team Providers Care Dolly Driver Name Role Phone Meeta Wise Primary Care Provider Encounter Details Date Type Department Care Team (Late st Contact Info) Description 08/11/2024 Documentation Only [facility] Of [address] [place] [phone] Marta Ravi [address] [place] [phone] Social History Tobacco Use Types Packs/Day [...] [facility] Of [address] [place] [address] Aretha Vences MD [address] [place] [address] [place] [address] documented as of this encounter Visit Diagnoses Not on filedocumented in this encounter Care Teams Dolly Driver Relationship Specialty Start Date End Date Meeta Wise FNP [address] [place] [address] PCP - General Nurse Practitioner 06/15/24 documented as of this encounter
--- OUTSIDE RECORDS SUMMARY | 2024-12-07 14:49 | XMS_ITS | Encounter Summary ---
Author Organization [facility] Address [address] [place] [address] Care Team Providers Care Woolen Suiting Shrinker Name Role Phone Mariana Nascimento DO Primary Care Pro vider Unavailable Win White MD Primary Care Provider [phone] Encounter Details Date Type Department Care Team Description 05/22/2016 Datacap Developer Report Medical Records [address] [place] [address] Pamela White Social History Tobacco Use Types [...] on filedocumented in this encounter Care Teams Woolen Suiting Shrinker Relationship Specialty Start Date End Date Mariana Nascimento DO PCP - General Internal Medicine 11/18/13 09/14/19 Win White MD [address] [place] [address] PCP - General Internal Medicine 09/15/19 documented as of this encounter
--- OUTSIDE RECORDS SUMMARY | 2024-12-07 14:49 | XMS_ITS | Encounter Summary ---
Author Organization [facility] Address PO [facility] [address] [place] [address] Phone Care Team Providers Care Abrasive Band Winder Name Role Phone Meeta Wise Primary Care Provider Encounter Details Date Type Department Care Team (Late st Contact Info) Description 08/11/2024 Documentation Only [facility] [address] [place] [phone] Marta Ravi [address] [place] [phone] Social History Tobacco Use Types Packs/Day [...] [facility] [address] [place] [address] Aretha Vences MD [address] [place] [address] [place] [address] documented as of this encounter Visit Diagnoses Not on filedocumented in this encounter Care Teams Abrasive Band Winder Relationship Specialty Start Date End Date Meeta Wise FNP [address] [place] [address] PCP - General Nurse Practitioner 06/15/24 documented as of this encounter
--- OUTSIDE RECORDS SUMMARY | 2024-12-07 14:49 | XMS_ITS | Encounter Summary ---
Author Organization [facility] Address [address] [place] [address] Care Team Providers Care Transportation Agent Name Role Phone Mariana Nascimento DO Primary Care Pro vider Unavailable Win White MD Primary Care Provider Encounter Details Date Type Department Care Team Description 12/29/2014 Business Development Assistant Report Medical Records [address] [place] [address] Amor Rodriguez Social History Tobacco Use Types [...] on filedocumented in this encounter Care Teams Transportation Agent Relationship Specialty Start Date End Date Mariana Nascimento DO PCP - General Internal Medicine 11/18/13 09/14/19 Win White MD [address] [place] [address] PCP - General Internal Medicine 09/15/19 documented as of this encounter
--- OUTSIDE RECORDS SUMMARY | 2024-12-07 14:49 | XMS_ITS | Encounter Summary ---
Author Organization [employer] [facility] Address [address] [place] [address] Care Team Providers Care Fire Control Technician G Name Role Phone Mariana Nascimento DO Primary Care Pro vider Unavailable Win White MD Primary Care Provider [phone] Encounter Details Date Type Department Care Team Description 06/08/2016 Electric Motor Controls Assembler Report Medical Records [address] [place] [address] DesiletsErnesto MD Social History Tobacco Use Types Packs/Day [...] on filedocumented in this encounter Care Teams Fire Control Technician G Relationship Specialty Start Date End Date Mariana Nascimento DO PCP - General Internal Medicine 11/18/13 09/14/19 Win White MD [address] [place] [address] PCP - General Internal Medicine 09/15/19 documented as of this encounter
--- OUTSIDE RECORDS SUMMARY | 2024-12-07 14:49 | XMS_ITS | Clinical Summary ---
Author Organization [facility] Address [address] [place] [address] [place] [address] Phone Care Team Providers Care Railroad Worker Name Role Phone WiseMeeta mack PORSCHE Primary [...] [facility] [address] [place] [address] TravMarta taylor 10/23/2024 Documentation Only [facility] Of [address] [place] [address] Neris Lopez RN 10/06/2024 Documentation Only [facility] [address] [place] [address] TravMarta taylor 10/02/2024 Documentation Only [facility] [address] [place] [address] TravMarta taylor 10/02/2024 Documentation Only [facility] [address] [place] [address] TravMarta taylor 09/30/2024 Documentation Only [facility] Of [address] [place] [address] Alan Lopez MD 09/24/2024 4:30 PM EST Office Visit [facility] [address] [place] [address] Aretha Vences MD Stage 3b chronic kidney disease (HCC) (Primary Dx) 09/24/2024 Documentation Only [facility] [address] [place] [address] Marta Ravi 09/24/2024 Documentation Only [facility] [address] [place] [address] Marta Ravi from Last 3 Months Immunizations [...] Visit [facility] [place], [address] [place] [address] Aretha Vences MD [address] [place] [address] Health Maintenance Due Date Last Done Comments Hepatitis B Vaccine (1 of 3 - 19+ 3-dose series) 10/14 Pneumococcal Vaccine: Peds ( 0 to 5 Years) and At-Risk Patients (6 to 49 Years) (2 of 2 - PCV) 06/02/2017 06/02/2016 Influenza Vaccine (Season Ended) 2025 06/01/20 22 Insurance Medicaid Medicaid Care Teams Railroad Worker Relationship Specialty Start Date End Date Meeta Wise FNP [address] [place] [address] PCP - General Nurse Practitioner 06/15/24
--- OUTSIDE RECORDS SUMMARY | 2024-12-07 14:49 | XMS_ITS | Encounter Summary ---
Author Organization [facility] Address PO [facility] [address] [place] [address] Phone Care Team Providers Care Medical Unit Secretary Name Role Phone Meeta Wise Primary Care Provider Encounter Details Date Type Department Care Team (Late st Contact Info) Description 08/11/2024 Documentation Only [facility] [address] [place] [phone] Marta Ravi [address] [place] [phone] Social History Tobacco Use Types Packs/Day [...] [facility] [address] [place] [address] Aretha Vences MD [address] [place] [address] [place] [address] documented as of this encounter Visit Diagnoses Not on filedocumented in this encounter Care Teams Medical Unit Secretary Relationship Specialty Start Date End Date Meeta Wise FNP [address] [place] [address] PCP - General Nurse Practitioner 06/15/24 documented as of this encounter
--- OUTSIDE RECORDS SUMMARY | 2024-12-07 14:50 | XMS_ITS | Encounter Summary ---
Author Organization [facility] Address PO [facility] [address] [place] [address] Phone Care Team Providers Care Smoke Control Supervisor Name Role Phone Meeta Wise Primary Care Provider [phone] Encounter Details Date Type Department Care Team (Late st Contact Info) Description 08/27/2024 Documentation Only [facility] [address] [place] [address] Marta Ravi [address] [place] [phone] Social History Tobacco Use Types Packs/Day [...] [facility] [address] [place] [address] Aretha Vences MD [address] [place] [address] [place] [address] documented as of this encounter Visit Diagnoses Not on filedocumented in this encounter Care Teams Smoke Control Supervisor Relationship Specialty Start Date End Date Meeta Wies FNP [address] [place] [address] PCP - General Nurse Practitioner 06/15/24 documented as of this encounter
--- OUTSIDE RECORDS SUMMARY | 2024-12-07 14:50 | XMS_ITS | Encounter Summary ---
Author Organization [facility] Address PO [facility] [address] [place] [address] Phone Care Team Providers Care Employee Communications Intern Name Role Phone Meeta Wise Primary Care Provider Encounter Details Date Type Department Care Team (Late st Contact Info) Description 08/13/2024 Documentation Only [facility] [address] [place] [address] aMrta Raiv [address] [place] [phone] Social History Tobacco Use Types Packs/Day [...] Visit [facility] [address] [place] [address] Aretha Vences MD [address] [place] [address] [place] [address] documented as of this encounter Visit Diagnoses Not on filedocumented in this encounter Care Teams Employee Communications Intern Relationship Specialty Start Date End Date Meeta Wise FNP [address] [place] [address] PCP - General Nurse Practitioner 06/15/24 documented as of this encounter
--- OUTSIDE RECORDS SUMMARY | 2024-12-07 14:50 | XMS_ITS | Encounter Summary ---
Author Organization [facility] Address PO [facility] [address] [place] [address] Phone Care Team Providers Care Pole Cutter Name Role Phone Meeta Wise Primary Care Provider Encounter Details Date Type Department Care Team (Late st Contact Info) Description 09/24/2024 Documentation Only [facility] [address] [place] [address] Marta Ravi [address] [place] [phone] Social History Tobacco Use Types Packs/Day [...] [facility] [address] [place] [address] Aretha Vences MD [address] [place] [address] [place] [address] documented as of this encounter Visit Diagnoses Not on filedocumented in this encounter Care Teams Pole Cutter Relationship Specialty Start Date End Date Meeta Wise FNP [address] [place] [address] PCP - General Nurse Practitioner 06/15/24 documented as of this encounter
--- OUTSIDE RECORDS SUMMARY | 2024-12-07 14:50 | XMS_ITS | Encounter Summary ---
Author Organization [facility] Address PO [facility] [address] [place] [address] Phone Care Team Providers Care Erp Manager Name Role Phone Meeta Wise Primary Care Provider Encounter Details Date Type Department Care Team (Late st Contact Info) Description 07/22/2024 Documentation Only [facility] [address] [place] [phone] [place] [address] [place] [phone] Social History Tobacco Use Types Packs/Day Years [...] [facility] [address] [place] [address] Aretha Vences MD [address] [place] [address] [place] [address] documented as of this encounter Visit Diagnoses Not on filedocumented in this encounter Care Teams Erp Manager Relationship Specialty Start Date End Date Meeta Wise FNP [address] [place] [address] PCP - General Nurse Practitioner 06/15/24 documented as of this encounter
--- OUTSIDE RECORDS SUMMARY | 2024-12-07 14:50 | XMS_ITS | Encounter Summary ---
Author Organization [facility] Address PO [facility] [address] [place] [address] Phone Care Team Providers Care Resolution Analyst Name Role Phone Meeta Wise Primary Care Provider Encounter Details Date Type Department Care Team (Late st Contact Info) Description 08/11/2024 Documentation Only [facility] [address] [place] [phone] Marta Ravi [address] [place] [phone] Social History Tobacco Use Types Packs/Day [...] Visit [facility] [address] [place] [address] Aretha Vences MD [address] [place] [address] [place] [address] documented as of this encounter Visit Diagnoses Not on filedocumented in this encounter Care Teams Resolution Analyst Relationship Specialty Start Date End Date Meeta Wise FNP [address] [place] [address] PCP - General Nurse Practitioner 06/15/24 documented as of this encounter
--- OUTSIDE RECORDS SUMMARY | 2024-12-07 14:50 | XMS_ITS | Encounter Summary ---
Author Organization [facility] Address PO [facility] [address] [place] [address] Phone Care Team Providers Care Family Living Educator Name Role Phone Meeta Wise Primary Care Provider Encounter Details Date Type Department Care Team (Late st Contact Info) Description 06/12/2024 Documentation Only [facility] [address] [place] [phone] Eva [place] [address] [place] [phone] Social History Tobacco Use Types Packs/Day [...] [facility] [address] [place] [address] Aretha Vences MD [address] [facility] [place] [address] documented as of this encounter Visit Diagnoses Not on filedocumented in this encounter Care Teams Family Living Educator Relationship Specialty Start Date End Date Meeta Wise FNP [address] [place] [address] PCP - General Nurse Practitioner 06/15/24 documented as of this encounter
--- OUTSIDE RECORDS SUMMARY | 2024-12-07 14:50 | XMS_ITS | Encounter Summary ---
Author Organization [facility] Address PO [facility] [address] [place] [address] Phone Care Team Providers Care Braid Maker Name Role Phone Meeta Wise Primary Care Provider Encounter Details Date Type Department Care Team (Late st Contact Info) Description 08/11/2024 Documentation Only [facility] [address] [place] [address] Marta Ravi [address] [place] [phone] Social History Tobacco Use Types Packs/Day [...] Visit [facility] [address] [place] [address] Aretha Vences MD [address] [place] [address] [place] [address] documented as of this encounter Visit Diagnoses Not on filedocumented in this encounter Care Teams Braid Maker Relationship Specialty Start Date End Date Meeta Wise FNP [address] [place] [address] PCP - General Nurse Practitioner 06/15/24 documented as of this encounter
--- OUTSIDE RECORDS SUMMARY | 2024-12-07 14:50 | XMS_ITS | Encounter Summary ---
Author Organization [facility] Address [address] [place] [address] Care Team Providers Care Cement Block Maker Name Role Phone Win White MD Primary Care Provider [phone] Encounter Details Date Type Department Care Team Description 07/26/2022 Telephone Adult Medicine - [address] [id number] Win White MD [address] [place] [address] Social History Tobacco Use Types Packs/Day Years [...] call office back, I am at extension [phone] * Telephone Encounter - Margi Chi M.A. [...] filedocumented in this encounter Care Teams Cement Block Maker Relationship Specialty Start Date End Date Win White MD [address] [place] [address] PCP - General Internal Medicine 09/15/19 documented as of this encounter
--- OUTSIDE RECORDS SUMMARY | 2024-12-07 14:50 | XMS_ITS | Encounter Summary ---
Author Organization [facility] Address [address] [place] [address] Care Team Providers Care Stunt Performer Name Role Phone Name, Bryant LUNDY Primary Care Provider Unavailabl e Mariana Nascimento DO Primary Care Pro vider Unavailable Win White MD Primary Care Provider [phone] Encounter Details Date Type Department Care Team Description 01/31/2010 Release of Information Medical Records [address] [place] [address] Abstract, Provider Social History Tobacco Use Types [...] on filedocumented in this encounter Care Teams Stunt Performer Relationship Specialty Start Date End Date Name, MD Bryant PCP - General 11/07/09 11/17/13 Mariana Nascimento DO PCP - General Internal Medicine 11/18/13 09/14/19 Win White MD [address] [place] [address] PCP - General Internal Medicine 09/15/19 documented as of this encounter
== END 2024-12-07 13:09 | disposition home or self-care (01) ==
LOC: HO.HMCFM 12:24
PROVIDERS: PCP Nurse Practitioner Family; Visit Provider Nurse Practitioner Family
DX: M54.42 Lumbago with sciatica, left side (principal); M54.41 Lumbago with sciatica, right side; I50.32 Chronic diastolic (congestive) heart failure; N18.32 Chronic kidney disease, stage 3b; G43.009 Migraine without aura, not intractable, without status migrainosus; G47.33 Obstructive sleep apnea (adult) (pediatric); M54.10 Radiculopathy, site unspecified; I15.1 Hypertension secondary to other renal disorders

== ENCOUNTER → 2024-12-07 12:23 | Outpatient (BNVA) | payer OTHER, SELFPAY | PROVIDERS: PCP Nurse Practitioner Family; Visit Provider Nurse Practitioner Family | DX: M54.41 Lumbago with sciatica, right side (principal); M54.42 Lumbago with sciatica, left side; G43.009 Migraine without aura, not intractable, without status migrainosus; G47.33 Obstructive sleep apnea (adult) (pediatric); M54.10 Radiculopathy, site unspecified; I15.1 Hypertension secondary to other renal disorders; N18.32 Chronic kidney disease, stage 3b; I50.32 Chronic diastolic (congestive) heart failure; J45.20 Mild intermittent asthma, uncomplicated | CPT/HCPCS: 99212 ==

== ENCOUNTER 2025-02-24 12:31 | Outpatient (AMB) | payer OTHER, SELFPAY ==
--- NOTE | 2025-02-24 12:34 | MHC.PC.OV ---
Vital Signs 02/24/25 12:44 Height 5 ft 5 in Weight 282 lb 2 oz BMI 46.9 BP 136/76 Blood Pressure Location Lt brachial Position Sitting Respiration 13 Pulse 68 Pulse Source Pulse Oximeter Temp 97.2 F Temp Source Oral Pulse Oximetry (%) 98 Oxygen Delivery Method Room Air Intake Visit Reasons: March 10 min CPAP compliance Intake Note: Follow up on cpap compliance report. Patient need refill on meds. Investment Broker Required: No Allergies No Known Allergies Allergy (Verified 02/24/25 13:05) Medication List - Last Reconciled 02/24/25 by PORSCHE Solano- acetaminophen ER 650 mg PO Q8H PRN albuterol sulfate 90 mcg/actuation 2 puffs inhalation Q6H PRN amlodipine 10 mg PO DAILY carvedilol 25 mg PO BID 90 days empagliflozin 10 mg PO QAM furosemide 20 mg PO DAILY indapamide 1.25 mg PO QAM lidocaine 5% 1 appl topical TID PRN lisinopril 20 mg PO DAILY lorazepam (Ativan) 0.5 mg PO ONCE PRN tizanidine (Zanaflex) 2 mg (1/2 x 4 mg) PO BID PRN 5 days Tobacco use date assessed: 02/24/25 Dental Screening Dental Screen Date: 02/24/25 Did you have a dental visit in the last 12 months?: Yes Did you have a dental problem in the last 6 months where you did not have access to dental care?: No Was dental information given to patient?: Patient has dentist HPI HPI Comments History of Present Illness Details 39-year-old Divehi Speaking female with LVH, prolonged QT, HTN, CHF pulmonary htn, pericardial effusion, CKD, mild intermittent asthma, obesity, family hx of FSGS, [place], migraine headsache s/p lap aashish 2015, ERCP with sphincterectomy/papillotomy 05/2016 History of Present Illness - The patient is a 39-year-old female presenting with CPAP compliance review and issues. - CPAP usage compliance at 56%; reported issues during a cruise. - Before the cruise, CPAP was effective, post-cruise issues with machine performance. - Reports feeling scared due to air hunger during sleep events. 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 Taking all meds as directed. - Current Surgical Services Tech relationship unsatisfactory; plans for a new specialist. Requesting [facility] [address] Referral placed. - Interested in referral for wt mgmt. Review of Systems - Sleep: Reports difficulty with CPAP machine function post-cruise. - Respiratory: Denies new episodes of central sleep apnea. - Renal: Reports excessive thirst and concerns with kidney function. - Cardiovascular: Reports leg edema; denies acute cardiac symptoms. - General: Denies weight loss but raised concern about weight management. - Endocrine: Reports thirst, no other significant endocrine symptoms. - Family History: Reports a familial genetic condition affecting kidneys. Physical Exam General: Well developed, well nourished, in no acute distress. Appears stated age. Head: Normocephalic, atraumatic. Eyes: Pupils are equal, round and reactive to light and accommodation. Conjunctivae are clear. Lungs: Clear to auscultation bilaterally. No rales, rhonchi or wheeze noted. Good air flow in all dietrich. Heart: Regular rate and rhythm. 2/6 systolic murmurs, click, rubs or gallops are noted. Pulses: Peripheral pulses are equal and palpable bilaterally. Extremities: No clubbing, cyanosis noted. +1 edema BLE Psych: Mood and affect appropriate. Discussion Notes I discussed with the patient the importance of addressing the issues with her CPAP machine, especially following the experience during the cruise where it failed to function properly, causing air hunger. The patient was informed of the necessity to contact the CPAP supplier for potential machine assessments or adjustments. 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 I have requested these notes and they are pending @ this time. The patient requires follow-up with nephrology, next appt tomorrow. I advised referral to a new punch machine operator to optimize cardiovascular care, per her request. We reviewed increasing the furosemide dosage to manage her leg edema effectively for a limited duration. Assessment and Plan 1. Obstructive Sleep Apnea - Monitor CPAP compliance; seek machine evaluation post-cruise issues. - Message sent to [facility] - see below. 2. Alport Syndrome - Follow-up with nephrology; Next appt tomorrow, notes requested 3. Obesity - Lifestyle mods encouraged - Discouraged referral for meds or surgery at this time given her other health conditions 4. CHF, Edema Increase lasix to 40mg x 5 days then reduce back to 20mg QD Refilled all meds New referral to [facility] cards per request Patient Instructions - Call the CPAP supplier to fix the machine as soon as possible. - Follow up with a kidney doctor tomorrow - Monitor leg swelling and take the prescribed water pill as directed. - Contact a new heart doctor after receiving a referral from the front. - If you feel unwell or need further assistance, contact medical services immediately. - RTO 3 months routine close fu, sooner PRN Consent Patient was informed and verbally consented to the use of an ambient scribe for clinic note documentation during this visit. Total time spent caring for the patient today was 45 minutes. This includes time spent before the visit reviewing the chart, time spent during the visit, and time spent after the visit on documentation, reviewing laboratory results, diagnostic imaging, medications, performing a medically necessary evaluation, counseling on diagnoses, care coordination, ordering appropriate tests, ordering appropriate medications, review of tests performed by other providers, reporting test results with the patient, communication with other healthcare providers. [facility] Medical History (Updated 02/24/25 @ 14:26 by PORSCHE Solano-) Hypertension Seasonal asthma Surgical History (Updated 12/04/24 @ 16:01 by PORSCHE Hinojosa) History of ERCP (~2015) Hx laparoscopic cholecystectomy (~2015) Family History Mother Hypertension Father Hypertension Diabetes Cancer Sister Kidney transplant recipient Social History Household Members: Family and Children Both parents involved: No Caregiver staying overnight: No Housing: House Are you a primary post acute care nurse practitioner to a significant other at home: Yes Do you presently have visiting nurse or other home services: No 75 years or older and lives alone: No Alcohol intake: current Alcohol intake frequency: a few times a month Patient Tobacco Use Status: Former Tobacco user e-Cigarette/Vaping Use: Never Used service: No Current occupational status: employed Current occupation: [employer] Cognitive needs: No Hearing needs: Yes Vision needs: No Questionnaire Thrive Questionnaire Date Thrive assessed: 09/25/24 I am a: Patient What is your living situation today?: I have a steady place to live Within the past 12 months, did the food you bought not last and you didn't have the money to get more?: I choose not to answer this question Within the past 12 months, did you worry whether your food would run out before you got money to buy more?: I choose not to answer this question Do you have trouble paying for medicines?: I choose not to answer this question Do you have trouble getting transportation to medical appointments?: I choose not to answer this question Do you have trouble paying your heating and electricity bill?: I choose not to answer this question Do you have trouble taking care of your child, family member or friend?: I choose not to answer this question Do you have trouble with day-to-day activities such as bathing, preparing meals, shopping, managing finances, etc.?: I choose not to answer this question Are you currently unemployed and looking for a job?: I choose not to answer this question Are you interested in more education?: I choose not to answer this question Please select the resources that you would like help with: None Currently or been in a relationship where the following occur: No concerns reported THRIVE Score: 0 SHERRI-7 AMB Questionnaire SHERRI-7 Date SHERRI - 7 assessed: 10/21/24 Source: Developed by Drs. Steve Hogan, Ariella Franco, Marco Antonio Frankel and colleagues, with an educational tonio from [employer]. Physical exam (Primary Care) Vital Signs: Last Vital Signs Temp 97.2 F 02/24/25 12:44 Pulse 68 02/24/25 12:44 Resp 13 02/24/25 12:44 BP 136/76 02/24/25 12:44 Pulse Ox 98 02/24/25 12:44 Oxygen Delivery Method Room Air 02/24/25 12:44 BMI result Body Mass Index 46.9 Tobacco/Smoking Status: Tobacco use Status Tobacco use date assessed 02/24/25 02/24/25 12:37 Patient Tobacco Use Status Former Tobacco user 02/24/25 12:37 e-Cigarette/Vaping Use Never Used 02/24/25 12:37 Thrive Assessment: Date of Thrive Assessment Date Thrive assessed 09/25/24 02/24/25 12:37 Currently or been in a relationship where the following occur: No concerns reported Results Reviewed Results Reviewed: Coding Level of Care Code Est Pt Level 5 (13572) Complex EM visit Add On G2211 Diagnoses YARELIS (obstructive sleep apnea) G47.33 Hypertension secondary to other renal disorders I15.1 Hypertension type: secondary to other renal disorders Chronic diastolic congestive heart failure I50.32 Heart failure type: diastolic Heart failure chronicity: chronic Cardiomyopathy due to hypertension, with heart failure I11.0; I43 Heart failure presence: with heart failure Prolonged Q-T interval on ECG R94.31 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 Alport syndrome Q87.81 Assessment & Plan Assessment & Plan (1) YARELIS (obstructive sleep apnea): Comment: CPAP TITRATION 11/21/24 CPAP 13cm , recommend full face mask size medium if she can tolerate, headed humidification [facility] Compliance done 02/24/25 Code(s): G47.33 - Obstructive sleep apnea (adult) (pediatric) Category: Medical (2) Hypertension: Code(s): I10 - Essential (primary) hypertension Category: Medical Qualifiers: Hypertension type: secondary to other renal disorders Qualified Code(s): I15.1 - Hypertension secondary to other renal disorders (3) CHF (congestive heart failure): Code(s): I50.9 - Heart failure, unspecified Category: Medical Qualifiers: Heart failure type: diastolic Heart failure chronicity: chronic Qualified Code(s): I50.32 - Chronic diastolic (congestive) heart failure (4) Hypertensive cardiomyopathy: Code(s): I11.9 - Hypertensive heart disease without heart failure; I43 - Cardiomyopathy in diseases classified elsewhere Category: Medical Qualifiers: Heart failure presence: with heart failure Qualified Code(s): I11.0 - Hypertensive heart disease with heart failure; I43 - Cardiomyopathy in diseases classified elsewhere (5) Prolonged Q-T interval on ECG: Code(s): R94.31 - Abnormal electrocardiogram [ECG] [EKG] Category: Medical (6) Secondary hyperaldosteronism: Comment: Secondary hyperaldosteronism that activates the iynud-bmnjjgnqlid-faerevpsdne system (RAAS), due to cHF Code(s): E26.1 - Secondary hyperaldosteronism Category: Medical (7) Alport syndrome: Code(s): Q87.81 - Alport syndrome Category: Medical Plan . Orders: Orders CPAP compliance review Today G47.33 - Obstructive sleep apnea (adult) (pediatric) Referrals Cardiology Referral E26.1 - Secondary hyperaldosteronism, I11.0 - Hypertensive heart disease with heart failure, I15.1 - Hypertension secondary to other renal disorders, I43 - Cardiomyopathy in diseases classified elsewhere, I50.32 - Chronic diastolic (congestive) heart failure, R94.31 - Abnormal electrocardiogram [ECG] [EKG] Medications: Refilled carvedilol must administer with a meal/food 25 mg PO BID 180 tabs 0RF 90 days amlodipine 10 mg PO DAILY 90 tabs 0RF furosemide 20 mg PO DAILY 90 tabs 0RF indapamide 1.25 mg PO QAM 90 tabs 1RF lisinopril 20 mg PO DAILY 90 tabs 0RF Discontinued lorazepam (Ativan) 30 min prior to MRI Discontinued Reason: Patient Completed Course 0.5 mg PO ONCE PRN 1 tab 0RF anxiety tizanidine (Zanaflex) Discontinued Reason: Patient Completed Course 2 mg (1/2 x 4 mg) PO BID 5 days PRN 5 tabs 0RF muscle spasticity
[2025-02-24 12:44] VITALS: BP 136/76; PULSE 68; RESP 13; TEMP 36.2; O2SAT 98; BMI 46.9
--- OUTSIDE RECORDS SUMMARY | 2025-02-24 13:27 | XMS_ITS | Clinical Summary ---
Author Organization [facility] Address [address] [place] [address] Phone Care Team Providers Care Floor Covering Printer Name Role Phone Physician, No Pcp Primary Care Provider Unavaila ble Allergies No known active allergies Surgical History Surgery Date Site/Laterality Comments CHOLECYSTECTOMY [...] Orientation Straight 10/26/2024 3: 34 PM EDT Obstetrics History Last Filed Vital Signs Vital Sign Reading Time Taken Comments Blood Pressure 136/67 10/26/2024 7:29 PM EDT Pulse 82 10/26/2024 7:29 PM EDT Temperature 37.1 C (98.8 F) 10/26/2024 7:29 PM EDT Respiratory Rate 18 10/26/2024 7:29 PM EDT [...] 01/02/2021, 12/17/2020 Breast Cancer Screening 09/21/2024 09/21/2022 Influenza Vaccine (#1) 2025 , 06/01/2022, 06/02/2016, Additional history exists Hypertension/CHF/CAD Annual BMP Blood Test 10/26/2025 10/26/2024 DTaP,Tdap,and Td Vaccines (4 - Td or Tdap) 06/01/2032 06/01/2022, 04/29/2015, 01/30/2010 HIB Vaccines Aged Out No longer [...] Procedure Name Priority Date/Time Associated Diagnosis Comments BASIC METABOLIC PANEL STAT 10/26/2024 2:02 PM EDT DIAGNOSTIC MAMMOGRAPHY INCLUDING CAD BILATERAL Routine 09/21/2022 10:58 AM EST Mastodynia from Last 3 Months or Most Recently Relevant to Health Maintenance Results * (ABNORMAL) Basic metabolic panel (10/26/2024 2:02 PM EDT) Sodium 138 133 - 145 mmol/L LAB CHEMISTRY METHOD 10/26/2024 3:28 PM [facility] Potassium 5.1 3.5 - 5.5 mmol/L LAB CHEMISTRY METHOD 10/26/2024 3:28 PM [facility] Chloride 104 96 - 110 mmol/L LAB CHEMISTRY METHOD 10/26/2024 3:28 PM [facility] CO2 24 21 - 32 mmol/L LAB CHEMISTRY METHOD 10/26/2024 3:28 PM [facility] Anion Gap 10 3 - 11 LAB CHEMISTRY METHOD 10/26/2024 3:28 PM [facility] Glucose 91 70 - 100 mg/dL LAB CHEMISTRY METHOD 10/26/2024 3:28 PM [facility] BUN 48(H) 5 - 25 mg/dL LAB CHEMISTRY METHOD 10/26/2024 3:28 PM [facility] Creatinine 2.51(H) 0.50 - 1.10 mg/dL LAB CHEMISTRY METHOD 10/26/2024 3:28 PM [facility] eGFR 24(L) >=60 mL/min/1. 73m2 LAB CHEMISTRY METHOD 10/26/2024 3:28 PM [facility] Comment:Calculation based on the Chronic Kidney Disease Epidemiology Collaboration (CKD-EPI) equation refit without adjustment for race. BUN/Creatinine Ratio 19.1 LAB CHEMISTRY METHOD 10/26/2024 3:28 PM EDT [facility] Calcium 9.3 8.5 - 10.5 mg/dL LAB CHEMISTRY METHOD 10/26/2024 3:28 PM EDT [facility] Blood Venous blood specimen / Unknown Venipuncture / Unknown 10/26/2024 2:02 PM EDT 10/26/2024 2:47 PM EDT us Lew iJ MD LAB BLOOD ORDERABLES Final Resu lt [facility] [address] [place] [address], * DIAGNOSTIC MAMMOGRAPHY INCLUDING CAD BILATERAL (09/21/2022 [...] and tomosynthesis, and reviewed with computer-aided detection. The breast tissue is heterogeneously dense, limiting sensitivity. There are no suspicious masses or microcalcifications. There are no specific findings to account for retro or periareolar discomfort or discoloration. No significant asymmetries or distortion are identified. Impression: [...] cancer risk not assessed Pilar Dean NP IM BI PROCEDURES Final Resul t from Last 3 Months or Most Recently Relevant to Health Maintenance Insurance [employer] Care Teams Floor Covering Printer Relationship Specialty Start Date End Date Physician, No Pcp PCP - General 10/26/24
--- OUTSIDE RECORDS SUMMARY | 2025-02-24 13:27 | XMS_ITS | Encounter Summary ---
Author Organization [facility] Address [address] [facility] [address] [place] [address] Phone Care Team Providers Care Environmental Attorney Name Role Phone Meeta Wise Primary Care Provider Encounter Details Date Type Department Care Team (Late st Contact Info) Description 08/11/2024 Documentation Only [facility] [address] [place] [address] Marta Ravi [address] [place] [phone] Social History Tobacco Use Types Packs/Day [...] Care Team (Late st Contact Info) Description 02/25/2025 4:00 PM EDT Office Visit [facility] [address] [place] [address] Aretha Vences MD [address] [place] [address] [place] [phone] documented as of this encounter Visit Diagnoses Not on filedocumented in this encounter Care Teams Environmental Attorney Relationship Specialty Start Date End Date Meeta Wise FNP [address] [place] [id number] PCP - General Nurse Practitioner 06/15/24 documented as of this encounter
== END 2025-02-24 13:29 | disposition home or self-care (01) ==
LOC: HO.HMCFM 12:32
PROVIDERS: PCP Nurse Practitioner Family; Visit Provider Nurse Practitioner Family
DX: I11.0 Hypertensive heart disease with heart failure (principal); I50.32 Chronic diastolic (congestive) heart failure; I43 Cardiomyopathy in diseases classified elsewhere; I15.1 Hypertension secondary to other renal disorders; G47.33 Obstructive sleep apnea (adult) (pediatric); R94.31 Abnormal electrocardiogram [ECG] [EKG]; E26.1 Secondary hyperaldosteronism; Q87.81 Alport syndrome

== ENCOUNTER → 2025-02-24 12:31 | Outpatient (BNVA) | payer OTHER, SELFPAY | PROVIDERS: PCP Nurse Practitioner Family; Visit Provider Nurse Practitioner Family | DX: I13.0 Hypertensive heart and chronic kidney disease with heart failure and stage 1 through stage 4 chronic kidney disease, or unspecified chronic kidney disease (principal); I50.32 Chronic diastolic (congestive) heart failure; N18.9 Chronic kidney disease, unspecified; J45.20 Mild intermittent asthma, uncomplicated; E66.9 Obesity, unspecified; G47.33 Obstructive sleep apnea (adult) (pediatric); Q87.81 Alport syndrome; I43 Cardiomyopathy in diseases classified elsewhere; R94.31 Abnormal electrocardiogram [ECG] [EKG]; E26.1 Secondary hyperaldosteronism; Z68.42 Body mass index [BMI] 45.0-49.9, adult; Z79.899 Other long term (current) drug therapy; Z99.89 Dependence on other enabling machines and devices | CPT/HCPCS: 99212 ==

== ENCOUNTER 2025-06-01 12:24 | Outpatient (AMB) | payer OTHER, SELFPAY ==
--- NOTE | 2025-06-01 12:31 | A.OFFPC_ITS ---
Vital Signs 3 06/01/25 12:36 Height 5 ft 5 in Weight 275 lb 6 oz BMI 45.8 BP 112/82 Blood Pressure Location Rt brachial Position Sitting Respiration 16 Pulse 79 Pulse Source Pulse Oximeter Temp 97.9 F Temp Source Oral Pulse Oximetry (%) 96 Oxygen Delivery Method Room Air Intake Visit Reasons: 3 mo 30 min complex fu Intake Note: Follow up. Requesting nebulizer machine. Was using sons, but his broke. needs refill on all medication. pt unsure of what she is running out of. Rn Cardiac Rehab Name: Rn Cardiac Rehab declined Accompanied by: Spouse Allergies No Known Allergies Allergy (Verified 06/01/25 12:41) Medication List - Last Reconciled 06/01/25 by Meeta Ro, [facility]- albuterol sulfate 90 mcg/actuation 2 puffs inhalation Q6H PRN albuterol sulfate 2.5 mg (3 mL) inhalation Q6H PRN amlodipine 10 mg PO DAILY carvedilol 25 mg PO BID 90 days empagliflozin 10 mg PO QAM furosemide 20 mg PO DAILY indapamide 1.25 mg PO QAM lisinopril 20 mg PO DAILY Tobacco use date assessed: 06/01/25 Dental Screening Dental Screen Date: 02/24/25 HPI HPI Comments 2 History of Present Illness0 Details 39-year-old Senegalese Speaking female with LVH, prolonged QT, HTN, CHF pulmonary htn, pericardial effusion, CKD, mild intermittent asthma, obesity, family hx of FSGS, MASHPEE, migraine headache, Alport Syndrome, YARELIS on CPAP s/p lap aashish 2015, ERCP with sphincterectomy/papillotomy 05/2016 Health Maintenance Mammo Tdap Flu 06/01/25 Specialists Renal Had appt last week, I need a copy of this note. Cards [facility] 39-year-old female with a complex medica l history here today for routine chronic disease management visit. She has CKD, Alport syndrome, hypertension just managed by Nephrology. Her current blood pressure is at goal. Her ferruler wanted her to take her meds at different times during the day however if she does not take in the morning she forgets to take any other medications later in the day to noncompliance. She was reporting some dizzy episodes and symptoms of hypotension when she was front loading her medications. She reports that this is tolerable by sitting on/and cold water on her face. She denies any chest pain or syncopal events. She is unsure exactly what medication she is taking or the doses but she does need medication refills. There are discrepancies between the med claim history and my list today that we will need to be rectified (see below) In regards to the Alport syndrome, she does have the sensorineural hearing loss. She has recently developed blurred vision. She has made aware that she should follow up routinely with an real estate broker. Today I placed a referral to [facility]. She asked for my nurses to schedule her an appointment. She has a history of CHF. She is currently euvolemic with no shortness of breath. She needs to establish care with [facility] per her choice. She has not been able to get an appointment. She has asked that I send this referral to my nurses to help schedule an appointment for her. In the interim the etl analyst developer at [place] did order a repeat echocardiogram I will have her get this done [facility] & forward to the new [facility]. She has a sleep apnea in his managed well with the CPAP machine. Using every night. He has mild intermittent asthma. She reports that the HFA does not help. She requires a nebulizer to help control her symptoms. She did have a machine but it broke. She reports that she was unable to get the nebulizer solution but is unsure why. I have sent a refill again on this along with a request for my nurses to write a script for her DME. Doesnt feel hungry; feels thirsty all the time. Denies abd pain, n/v. Some mild wt loss noted but not substantial She is otherwise feeling well however she does worry about her children given needs that at findings of the familial hyperaldosteronism and Alport syndrome. Med review: Pharmacy claim Coreg 50mg BID No indapamide 1.25mg since at least February Lisinopril 20mg Renal 02/2025 Increase Linisopril to 40mg QD STOP Hydralazine Cont other meds Indapamide not listed ROS: - Cardiovascular: Reports occasional diz ziness. No syncope. - Respiratory: Reports improved swelling . - Eyes: Reports blurred vision. - Ears: Reports hearing loss. - Neurological: Denies loss of conscious ness. - General: Denies low blood pressure epi sodes. Physical Exam General: Well developed, well nourished, in no acute distress. Appears stated age. Accompanied by Head: Normocephalic, atraumatic. Eyes: Pupils are equal, round and reactive to light and accommodation. Conjunctivae are clear. Lungs: Clear to auscultation bilaterally. No rales, rhonchi or wheeze noted. Dim throughout Heart: Regular rate and rhythm. 2/6 systolic murmurs, click, rubs or gallops are noted. Pulses: Peripheral pulses are equal and palpable bilaterally. Extremities: No clubbing, cyanosis noted. trace edema BLE Psych: Mood and affect appropriate. Physical Exam General: Well developed, well nourished, in no acute distress. Appears stated age. Accompanied by Head: Normocephalic, atraumatic. Eyes: Pupils are equal, round and reactive to light and accommodation. Conjunctivae are clear. Lungs: Clear to auscultation bilaterally. No rales, rhonchi or wheeze noted. Dim throughout Heart: Regular rate and rhythm. 2/6 systolic murmurs, click, rubs or gallops are noted. Pulses: Peripheral pulses are equal and palpable bilaterally. Extremities: No clubbing, cyanosis noted. trace edema BLE Psych: Mood and affect appropriate. Discussion Notes I discussed with the patient her current management of essential hypertension, chronic kidney disease, and Alport syndrome. Our visit included managing her medication regimen and addressing her symptoms of blurred vision and dizziness. I recommended referrals to cardiology and ophthalmology for further evaluation, specifically to assess the effects of Alport syndrome on her vision and hearing. We also discussed continuing the use of her CPAP machine for obstructive sleep apnea. The patient expressed understanding of these plans, and arrangements were made for necessary appointments and follow-ups with specialists. She received a flu shot today, and consent was provided for all procedures discussed. Patient was given time to ask questions. All questions were answered to their satisfaction. Assessment and Plan 1. Essential Hypertension - Continue antihypertensives. - Observe dizziness. _ I called Dr Vences's office, note from 05/27/25 not complete as of this time; wIll fax once done. Notes lisinopril 40mg. They will send refill.Confirmed norvasc dose of 10mg. Unsure about lasix 20mg as this is not on list. Coreg 25 BID. I have updated the list as such and will update once Dr Vences's note is completed. 2. Chronic Kidney Disease - Maintain current regimen. - Regular nephrology consults. 3. Alport Syndrome - Ophthalmology referral. - Monitor hearing. 4. Heart Failure - Continue medications. - [facility] Cards - my nurses will help a rrange an appt and schedule her repeat echo - Does not appear she is taking her Celso pamide any longer. Will DC for now. 5. Blurred Vision due to Alport Syndrome - Refer for evaluation to [facility]. 6. Hearing Loss secondary to Alport Synd carolyn - noted. 7. Obstructive Sleep Apnea - Enforce CPAP usage. 8. Asthma: Neb to be used; my staff to s ubmit RX for nebulizer. I sent the refill in. Patient Instructions - Continue taking your blood pressure an d heart medications as prescribed. - Schedule and attend follow-up appointm ents with cardiology and ophthalmology. - Use your CPAP machine every night. - Drink water in the morning and evening to stay hydrated. - Monitor any new or worsening symptoms and report them. - RTO 3 mo for CPE, with labs, sooner NH N Consent Patient was informed and verbally consented to the use of an ambient scribe for clinic note documentation during this visit. Total time spent caring for the patient today was 70 minutes. This includes time spent before the visit reviewing the chart, time spent during the visit, and time spent after the visit on documentation, reviewing laboratory results, diagnostic imaging, medications, performing a medically necessary evaluation, counseling on diagnoses, care coordination, ordering appropriate tests, ordering appropriate medications, review of tests performed by other providers, reporting test results with the patient, communication with other healthcare providers. [facility] Medical History (Updated 06/01/25 @ 13:11 by Meeta Ro, [facility] Hypertension Seasonal asthma Surgical History (Updated 12/04/24 @ 16:01 by PORSCHE Hinojosa) History of ERCP (~2015) Hx laparoscopic cholecystectomy (~2015) Family History Mother Hypertension Father Hypertension Diabetes Cancer Sister Kidney transplant recipient Social History Household Members: Family and Children Both parents involved: No Caregiver staying overnight: No Housing: House Are you a primary morning caregiver to a significant other at home: Yes Do you presently have visiting nurse or other home services: No 75 years or older and lives alone: No Alcohol intake: current Alcohol intake frequency: a few times a month Patient Tobacco Use Status: Former Tobacco user e-Cigarette/Vaping Use: Never Used service: No Current occupational status: employed Current occupation: [employer] Cognitive needs: No Hearing needs: Yes Vision needs: No Questionnaire Thrive Questionnaire Date Thrive assessed: 09/25/24 I am a: Patient What is your living situation today?: I have a steady place to live Within the past 12 months, did the food you bought not last and you didn't have the money to get more?: I choose not to answer this question Within the past 12 months, did you worry whether your food would run out before you got money to buy more?: I choose not to answer this question Do you have trouble paying for medicines?: I choose not to answer this question Do you have trouble getting transportation to medical appointments?: I choose not to answer this question Do you have trouble paying your heating and electricity bill?: I choose not to answer this question Do you have trouble taking care of your child, family member or friend?: I choose not to answer this question Do you have trouble with day-to-day activities such as bathing, preparing meals, shopping, managing finances, etc.?: I choose not to answer this question Are you currently unemployed and looking for a job?: I choose not to answer this question Are you interested in more education?: I choose not to answer this question Please select the resources that you would like help with: None Currently or been in a relationship where the following occur: No concerns reported THRIVE Score: 0 SHERRI-7 AMB Questionnaire SHERRI-7 Date SHERRI - 7 assessed: 10/21/24 Source: Developed by Drs. Steve Hogan, Ariella Franco, Marco Antonio Frankel and colleagues, with an educational tonio from [employer]. Physical exam (Primary Care) Vital Signs: Last Vital Signs Temp 97.9 F 06/01/25 12:36 Pulse 79 06/01/25 12:36 Resp 16 06/01/25 12:36 BP 112/82 06/01/25 12:36 Pulse Ox 96 06/01/25 12:36 Oxygen Delivery Method Room Air 06/01/25 12:36 BMI result Body Mass Index 45.8 Tobacco/Smoking Status: Tobacco use Status Tobacco use date assessed 06/01/25 06/01/25 12:39 Patient Tobacco Use Status Former Tobacco user 06/01/25 12:39 e-Cigarette/Vaping Use Never Used 06/01/25 12:39 Thrive Assessment: Date of Thrive Assessment Date Thrive assessed 09/25/24 06/01/25 12:39 Currently or been in a relationship where the following occur: No concerns reported Office Procedures Flu Questionnaire Does the patient have a severe egg allergy?: No Does the patient have severe life threatening allergies?: No Does the patient have a fever or illness today?: No Has the patient ever had Guillain-Gypsum Syndrome?: No Has the patient ever had any past reaction to a flu shot?: No Immunizations Fluarix [id number] (PF) 45 mcg (15 mcg x 3)/0.5 mL IM syringe Performing Provider: SANTHOSH Solano Performing Location: [facility] Administered by: Pati Collins MA on 06/01/25 13:11 2 Dose Route Admin Location Dispensed Lot Number Expiration Date [facility] Medical Doctor Md 0.5 mL IM Right Deltoid 0.5 mL [id number] 02/08/26 [id number] GLAX OSMTalaentiaKLINE 2 VIS Given Date VIS Provided VIS Publication Date 06/01/25 Single Vaccine 24 Eligibility Eligibility Date Funding Source Not [facility] Eligible 06/01/25 Private Results Reviewed Results Reviewed: Coding Level of Care Code Est Pt Level 5 (86267) Complex EM visit Add On G2211 Diagnoses Alport syndrome Q87.81 Blurred vision H53.8 Hypertension secondary to other renal disorders I15.1 Hypertension type: secondary to other renal disorders Chronic diastolic congestive heart failure I50.32 Heart failure chronicity: chronic Heart failure type: diastolic Stage 3b chronic kidney disease N18.32 Chronic kidney disease stage 3 subtype: stage 3b (GFR 30-44) 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 Influenza vaccination administered at current visit Z23 CPT Codes [facility] OUTPT/OFFICE VIS - G2212 Assessment & Plan Assessment & Plan (1) Alport syndrome: Code(s): Q87.81 - Alport syndrome Category: Medical (2) Blurred vision: Code(s): H53.8 - Other visual disturbances Category: Medical (3) Hypertension: Code(s): I10 - Essential (primary) hypertension Category: Medical Qualifiers: Hypertension type: secondary to other renal disorders Qualified Code(s): I15.1 - Hypertension secondary to other renal disorders (4) CHF (congestive heart failure): Code(s): I50.9 - Heart failure, unspecified Category: Medical Qualifiers: Heart failure chronicity: chronic Heart failure type: diastolic Q ualified Code(s): I50.32 - Chronic diastolic (congestive) heart failure (5) CKD (chronic kidney disease) stage 3, GFR 30-59 ml/min: Code(s): N18.30 - Chronic kidney disease, stage 3 unspecified Category: Medical Qualifiers: Chronic kidney disease stage 3 subtype: stage 3b (GFR 30-44) Qualified Code(s): N18.32 - Chronic kidney disease, stage 3b (6) Secondary hyperaldosteronism: Comment: Secondary hyperaldosteronism that activates the ynfde-nbwvdwmwutv-cdyaxwydnoj system (RAAS), due to cHF Code(s): E26.1 - Secondary hyperaldosteronism Category: Medical (7) Influenza vaccination administered at current visit: Onset Date: ~06/01/25 Code(s): Z23 - Encounter for immunization Category: Medical Plan . Orders: Orders 2 Influenza [id number] Immunization 06/01/25 Z23 - Encounter for immunization Hemoglobin A1c 3 Months E26.1 - Secondary hyperaldosteronism, I15.1 - Hypertension secondary to other renal disorders, I50.32 - Chronic diastolic (congestive) heart failure, N18.32 - Chronic kidney disease, stage 3b Comprehensive Met. Panel 3 Months E26.1 - Secondary hyperaldosteronism, I15.1 - Hypertension secondary to other renal disorders, I50.32 - Chronic diastolic (congestive) heart failure, N18.32 - Chronic kidney disease, stage 3b Lipid Panel 3 Months E26.1 - Secondary hyperaldosteronism, I15.1 - Hypertension secondary to other renal disorders, I50.32 - Chronic diastolic (congestive) heart failure, N18.32 - Chronic kidney disease, stage 3b Vitamin B12 and Folate 3 Months E26.1 - Secondary hyperaldosteronism, I15.1 - Hypertension secondary to other renal disorders, I50.32 - Chronic diastolic (congestive) heart failure, N18.32 - Chronic kidney disease, stage 3b Complete Blood Count no Diff 3 Months E26.1 - Secondary hyperaldosteronism, I15.1 - Hypertension secondary to other renal disorders, I50.32 - Chronic diastolic (congestive) heart failure, N18.32 - Chronic kidney disease, stage 3b TSH reflex Free T4 3 Months E26.1 - Secondary hyperaldosteronism, I15.1 - Hypertension secondary to other renal disorders, I50.32 - Chronic diastolic (congestive) heart failure, N18.32 - Chronic kidney disease, stage 3b Vitamin D 25-OH Total 3 Months E26.1 - Secondary hyperaldosteronism, I15.1 - Hypertension secondary to other renal disorders, I50.32 - Chronic diastolic (congestive) heart failure, N18.32 - Chronic kidney disease, stage 3b Referrals 2 Ophthalmology Referral H53.8 - Other visual disturbances, Q87.81 - Alport syndrome Medications: Changed 2 From lisinopril 20 mg PO DAILY 90 tabs 0RF To lisinopril 40 mg PO DAILY 90 tabs 0RF Refilled 2 albuterol sulfate 2.5 mg (3 mL) inhalation Q6H PRN 180 mL 2RF shortness of breath or wheezing Discontinued 2 albuterol sulfate 90 mcg/actuation Discontinued Reason: Patient Completed Course 2 puffs inhalation Q6H PRN 6.7 grams 1RF shortness of breath or wheezing indapamide Discontinued Reason: Patient no longer taking 1.25 mg PO QAM 90 tabs 1RF
[2025-06-01 12:36] VITALS: BP 112/82; PULSE 79; RESP 16; TEMP 36.6; O2SAT 96; BMI 45.8
--- OUTSIDE RECORDS SUMMARY | 2025-06-01 15:59 | XMS_ITS | Encounter Summary ---
Author Organization [facility] Address [address] [place] [address] Phone Care Team Providers Care Financial Compliance Officer Name Role Phone Meeta Wise Primary Care Provider Encounter Details Date Type Department Care Team (Late st Contact Info) Description 08/11/2024 Documentation Only [facility] [place], [address] [place] [address] Marta Ravi [address] [place] [phone] Social History Tobacco Use Types Packs/Day [...] on filedocumented in this encounter Care Teams Financial Compliance Officer Relationship Specialty Start Date End Date Meeta Wise FNP [address] [place] [phone] PCP - General Nurse Practitioner 06/15/24 documented as of this encounter
--- OUTSIDE RECORDS SUMMARY | 2025-06-01 15:59 | XMS_ITS | Encounter Summary ---
Author Organization [facility] Address [address] [place] [address] Phone Care Team Providers Care Service Center Assistant Name Role Phone Meeta Wise Primary Care Provider Encounter Details Date Type Department Care Team (Late st Contact Info) Description 08/11/2024 Documentation Only [facility] [place], [address] [place] [address] Marta Ravi [address] [place] [phone] Social History Tobacco Use Types Packs/Day [...] on filedocumented in this encounter Care Teams Service Center Assistant Relationship Specialty Start Date End Date Meeta Wise FNP [address] [place] [phone] PCP - General Nurse Practitioner 06/15/24 documented as of this encounter
--- OUTSIDE RECORDS SUMMARY | 2025-06-01 15:59 | XMS_ITS | Encounter Summary ---
Author Organization [facility] Address [address] [place] [address] Phone Care Team Providers Care Team Supervisor Name Role Phone Meeta Wise Primary Care Provider Encounter Details Date Type Department Care Team (Late st Contact Info) Description 08/11/2024 Documentation Only [facility] [place], [address] [place] [address] Marta Ravi [address] [place] [phone] Social History Tobacco Use Types Packs/Day [...] on filedocumented in this encounter Care Teams Team Supervisor Relationship Specialty Start Date End Date Meeta Wise FNP [address] [place] [phone] PCP - General Nurse Practitioner 06/15/24 documented as of this encounter
--- OUTSIDE RECORDS SUMMARY | 2025-06-01 15:59 | XMS_ITS | Encounter Summary ---
Author Organization [facility] Address [address] [place] [address] Phone Care Team Providers Care Regulation Supervisor Name Role Phone Meeta Wise Primary Care Provider Encounter Details Date Type Department Care Team (Late st Contact Info) Description 08/11/2024 Documentation Only [facility] [place], [address] [place] [address] Marta Ravi [address] [place] [phone] Social History Tobacco Use Types Packs/Day [...] on filedocumented in this encounter Care Teams Regulation Supervisor Relationship Specialty Start Date End Date Meeta Wise FNP [address] [place] [phone] PCP - General Nurse Practitioner 06/15/24 documented as of this encounter
--- OUTSIDE RECORDS SUMMARY | 2025-06-01 15:59 | XMS_ITS | Encounter Summary ---
Author Organization [facility] Address [address] [place] [address] Phone Care Team Providers Care Boat Outfitting Supervisor Name Role Phone Meeta Wise Primary Care Provider Encounter Details Date Type Department Care Team (Late st Contact Info) Description 09/30/2024 Documentation Only [facility] [address] [place] [address] Alan Lopez MD [address] [place] [address] Social History Tobacco Use Types Packs/Day Years [...] on filedocumented in this encounter Care Teams Boat Outfitting Supervisor Relationship Specialty Start Date End Date Meeta Wise FNP [address] [place] [phone] PCP - General Nurse Practitioner 06/15/24 documented as of this encounter
--- OUTSIDE RECORDS SUMMARY | 2025-06-01 15:59 | XMS_ITS | Encounter Summary ---
Author Organization [facility] Address [address] [place] [address] Phone Care Team Providers Care Metal Model Maker Name Role Phone Meeta Wise Primary Care Provider Encounter Details Date Type Department Care Team (Late st Contact Info) Description 09/24/2024 Documentation Only [facility] [place], [address] [place] [address] Marta Ravi [address] [place] [phone] Social History Tobacco Use Types Packs/Day [...] on filedocumented in this encounter Care Teams Metal Model Maker Relationship Specialty Start Date End Date Meeta Wise FNP [address] [place] [phone] PCP - General Nurse Practitioner 06/15/24 documented as of this encounter
--- OUTSIDE RECORDS SUMMARY | 2025-06-01 15:59 | XMS_ITS | Encounter Summary ---
Author Organization [facility] Address [address] [place] [address] Phone Care Team Providers Care Drop Man Name Role Phone Meeta Wise Primary Care Provider Encounter Details Date Type Department Care Team (Late st Contact Info) Description 08/11/2024 Documentation Only [facility] [place], [address] [place] [address] Marta Ravi [address] [place] [phone] Social History Tobacco Use Types Packs/Day [...] on filedocumented in this encounter Care Teams Drop Man Relationship Specialty Start Date End Date Meeta Wise FNP [address] [place] [phone] PCP - General Nurse Practitioner 06/15/24 documented as of this encounter
--- OUTSIDE RECORDS SUMMARY | 2025-06-01 15:59 | XMS_ITS | Encounter Summary ---
Author Organization [facility] Address [address] [place] [address] Phone Care Team Providers Care Aircraft Engine Dismantler Name Role Phone Meeta Wise Primary Care Provider Encounter Details Date Type Department Care Team (Late st Contact Info) Description 08/11/2024 Documentation Only [facility] [place], [address] [place] [address] Marta Ravi [address] [place] [phone] Social History Tobacco Use Types Packs/Day [...] on filedocumented in this encounter Care Teams Aircraft Engine Dismantler Relationship Specialty Start Date End Date Meeta Wise FNP [address] [place] [phone] PCP - General Nurse Practitioner 06/15/24 documented as of this encounter
--- OUTSIDE RECORDS SUMMARY | 2025-06-01 15:59 | XMS_ITS | Encounter Summary ---
Author Organization [facility] Address [address] [place] [address] Phone Care Team Providers Care Crystal Report Developer Name Role Phone Meeta Wise Primary Care Provider Encounter Details Date Type Department Care Team (Late st Contact Info) Description 08/11/2024 Documentation Only [facility] [place], [address] [place] [address] Marta Ravi [address] [place] [phone] Social History Tobacco Use Types Packs/Day [...] on filedocumented in this encounter Care Teams Crystal Report Developer Relationship Specialty Start Date End Date Meeta Wise FNP [address] [place] [phone] PCP - General Nurse Practitioner 06/15/24 documented as of this encounter
--- OUTSIDE RECORDS SUMMARY | 2025-06-01 15:59 | XMS_ITS | Encounter Summary ---
Author Organization [facility] Address [address] [place] [address] Phone Care Team Providers Care Skeins Yarn Examiner Name Role Phone Meeta Wise Primary Care Provider [phone] Encounter Details Date Type Department Care Team (Late st Contact Info) Description 08/11/2024 Documentation Only [facility] [place], [address] [place] [address] Marta Ravi [address] [place] [phone] Social History Tobacco Use Types Packs/Day [...] on filedocumented in this encounter Care Teams Skeins Yarn Examiner Relationship Specialty Start Date End Date Meeta Wise FNP [address] [place] [phone] PCP - General Nurse Practitioner 06/15/24 documented as of this encounter
--- OUTSIDE RECORDS SUMMARY | 2025-06-01 15:59 | XMS_ITS | Encounter Summary ---
Author Organization [facility] Address [address] [place] [address] Phone Care Team Providers Care Bottler Helper Name Role Phone Meeta Wise Primary Care Provider Encounter Details Date Type Department Care Team (Late st Contact Info) Description 10/02/2024 Documentation Only [facility] [place], [address] [place] [address] Marta Ravi [address] [place] [phone] Social History Tobacco Use Types Packs/Day [...] on filedocumented in this encounter Care Teams Bottler Helper Relationship Specialty Start Date End Date Meeta Wise FNP [address] [place] [phone] PCP - General Nurse Practitioner 06/15/24 documented as of this encounter
--- OUTSIDE RECORDS SUMMARY | 2025-06-01 15:59 | XMS_ITS | Encounter Summary ---
Author Organization [facility] Address [address] [place] [address] Phone Care Team Providers Care Drafter Cartographic Name Role Phone Meeta Wise Primary Care Provider Encounter Details Date Type Department Care Team (Late st Contact Info) Description 10/06/2024 Documentation Only [facility] [place], [address] [place] [address] Marta Ravi [address] [place] [phone] Social History Tobacco Use Types Packs/Day [...] on filedocumented in this encounter Care Teams Drafter Cartographic Relationship Specialty Start Date End Date Meeta Wise FNP [address] [place] [phone] PCP - General Nurse Practitioner 06/15/24 documented as of this encounter
--- OUTSIDE RECORDS SUMMARY | 2025-06-01 16:00 | XMS_ITS | Encounter Summary ---
Author Organization [facility] Address [address] [place] [address] Phone Care Team Providers Care Fringe Knotter Name Role Phone Meeta Wise Primary Care Provider Encounter Details Date Type Department Care Team (Late st Contact Info) Description 09/24/2024 Documentation Only [facility] [place], [address] [place] [address] Marta Ravi [address] [place] [phone] Social History Tobacco Use Types Packs/Day [...] on filedocumented in this encounter Care Teams Fringe Knotter Relationship Specialty Start Date End Date Meeta Wise FNP [address] [place] [phone] PCP - General Nurse Practitioner 06/15/24 documented as of this encounter
--- OUTSIDE RECORDS SUMMARY | 2025-06-01 16:00 | XMS_ITS | Encounter Summary ---
Author Organization [facility] Address [address] [place] [address] Phone Care Team Providers Care Commissioning Engineer Name Role Phone Meeta Wise Primary Care Provider [phone] Encounter Details Date Type Department Care Team (Late st Contact Info) Description 08/11/2024 Documentation Only [facility] [place], [address] [place] [address] Marta Ravi [address] [place] [phone] Social History Tobacco Use Types Packs/Day [...] on filedocumented in this encounter Care Teams Commissioning Engineer Relationship Specialty Start Date End Date Meeta Wise FNP [address] [place] [phone] PCP - General Nurse Practitioner 06/15/24 documented as of this encounter
--- OUTSIDE RECORDS SUMMARY | 2025-06-01 16:00 | XMS_ITS | Encounter Summary ---
Author Organization [facility] Address [address] [place] [address] Phone Care Team Providers Care Filling Station Equipment Mechanic Name Role Phone Meeta Wise Primary Care Provider [phone] Encounter Details Date Type Department Care Team (Late st Contact Info) Description 08/27/2024 Documentation Only [facility] [place], [address] [place] [address] Marta Ravi [address] [place] [phone] Social History Tobacco Use Types Packs/Day [...] on filedocumented in this encounter Care Teams Filling Station Equipment Mechanic Relationship Specialty Start Date End Date Meeta Wise FNP [address] [place] [phone] PCP - General Nurse Practitioner 06/15/24 documented as of this encounter
--- OUTSIDE RECORDS SUMMARY | 2025-06-01 16:00 | XMS_ITS | Encounter Summary ---
Author Organization [facility] Address [address] [place] [address] Phone Care Team Providers Care Hospice Volunteer Name Role Phone Meeta Wise Primary Care Provider [phone] Encounter Details Date Type Department Care Team (Late st Contact Info) Description 02/25/2025 Documentation Only [facility] [place], [address] [place] [address] Marta Ravi [address] [place] [phone] Social History Tobacco Use Types Packs/Day [...] filedocumented in this encounter Care Teams Hospice Volunteer Relationship Specialty Start Date End Date Meeta Wise FNP [address] [place] [address] PCP - General Nurse Practitioner 06/15/24 documented as of this encounter
--- OUTSIDE RECORDS SUMMARY | 2025-06-01 16:00 | XMS_ITS | Clinical Summary ---
Author Organization [facility] [place], Address [address] [place] [address] [place] [address] Phone Care Team Providers Care Soil And Plant Scientist Name Role Phone WiseMeeta mack PORSCHE Primary Care Provider [phone] Medications albuterol HFA (PROVENTIL HFA;VENTOLIN HFA) 108 [...] Do not crush or chew. Active lisinopril 40 MG tablet Take 1 tablet (40 mg total) by mouth 1 (one) time each day 90 tablet 3 02/25/2025 6 Active Empagliflozin 25 MG tablet Take 25 mg by mouth 1 (one) time each day in the morning 30 tablet 11 02/25/2025 6 Active Active Problems Problem Noted Date Diagnosed Date Chronic kidney disease, stage 4 (severe) 024 Pulmonary hypertension Proteinuria Hypothyroidism Hypertensive urgency Hypertension History of acute kidney injury Heart failure Overview (08/11/2024): systolic and diastolic Congestive heart failure Immunizations Immunization Administration Dates Next Due Influenza, [...] Orientation Not on file Plan of Treatment Health Maintenance Due Date Last Done Comments Hepatitis B Vaccine (1 of 3 - 19+ 3-dose series) 10/14 Pneumococcal Vaccine: Peds ( 0 to 5 Years) and At-Risk Patients (6 to 49 Years) (2 of 2 - PCV) 06/02/2017 06/02/2016 Influenza Vaccine (#1) 2025 06/01/2022 Insurance Medicaid Medicaid Care Teams Soil And Plant Scientist Relationship Specialty Start Date End Date Meeta Wise FNP [address] [place] [phone] PCP - General Nurse Practitioner 06/15/24
--- OUTSIDE RECORDS SUMMARY | 2025-06-01 16:00 | XMS_ITS | Encounter Summary ---
Author Organization [facility] Address [address] [place] [address] Phone Care Team Providers Care Sports Book Writer Name Role Phone Meeta Wise Primary Care Provider Encounter Details Date Type Department Care Team (Late st Contact Info) Description 08/11/2024 Documentation Only [facility] [place], [address] [place] [address] Marta Ravi [address] [place] [phone] Social History Tobacco Use Types Packs/Day [...] on filedocumented in this encounter Care Teams Sports Book Writer Relationship Specialty Start Date End Date Meeta Wise FNP [address] [place] [phone] PCP - General Nurse Practitioner 06/15/24 documented as of this encounter
--- OUTSIDE RECORDS SUMMARY | 2025-06-01 16:00 | XMS_ITS | Encounter Summary ---
Author Organization [facility] Address [address] [place] [address] Phone Care Team Providers Care Devil Tender Name Role Phone Meeta Wise Primary Care Provider Encounter Details Date Type Department Care Team (Late st Contact Info) Description 10/26/2024 Documentation Only [facility] [place], [address] [place] [address] Marta Ravi [address] [place] [phone] Social History Tobacco Use Types Packs/Day [...] on filedocumented in this encounter Care Teams Devil Tender Relationship Specialty Start Date End Date Meeta Wise FNP [address] [place] [phone] PCP - General Nurse Practitioner 06/15/24 documented as of this encounter
--- OUTSIDE RECORDS SUMMARY | 2025-06-01 16:00 | XMS_ITS | Encounter Summary ---
Author Organization [facility] Address [address] [place] [address] Phone Care Team Providers Care Microcomputer Support Specialist Name Role Phone Meeta Wise Primary Care Provider Encounter Details Date Type Department Care Team (Late st Contact Info) Description 08/13/2024 Documentation Only [facility] [place], [address] [place] [address] Marta Ravi [address] [place] [phone] Social History Tobacco Use Types Packs/Day [...] on filedocumented in this encounter Care Teams Microcomputer Support Specialist Relationship Specialty Start Date End Date Meeta Wise FNP [address] [place] [phone] PCP - General Nurse Practitioner 06/15/24 documented as of this encounter
--- OUTSIDE RECORDS SUMMARY | 2025-06-01 16:00 | XMS_ITS | Encounter Summary ---
Author Organization [facility] Address [address] [place] [address] Phone Care Team Providers Care Pattern Room Attendant Name Role Phone Meeta Wise Primary Care Provider Encounter Details Date Type Department Care Team (Late st Contact Info) Description 10/02/2024 Documentation Only [facility] [place], [address] [place] [address] Marta Ravi [address] [place] [phone] Social History Tobacco Use Types Packs/Day [...] on filedocumented in this encounter Care Teams Pattern Room Attendant Relationship Specialty Start Date End Date Meeta Wise FNP [address] [place] [phone] PCP - General Nurse Practitioner 06/15/24 documented as of this encounter
--- OUTSIDE RECORDS SUMMARY | 2025-06-01 16:00 | XMS_ITS ---
Author Name [facility] Organization Unknown Care Team Organization Name Specialty Phone Email Start Date End Da te [facility] 06/19/2022 03/30/20 24
--- OUTSIDE RECORDS SUMMARY | 2025-06-01 16:00 | XMS_ITS | Encounter Summary ---
Author Organization [facility] Address [address] [place] [address] Phone Care Team Providers Care Floor Installer Name Role Phone Meeta Wise Primary Care Provider [phone] Encounter Details Date Type Department Care Team (Late st Contact Info) Description 06/12/2024 Documentation Only [facility] [address] [place] [phone] Eva Vargas Social History Tobacco Use Types Packs/Day Years [...] on filedocumented in this encounter Care Teams Floor Installer Relationship Specialty Start Date End Date Meeta Wise FNP [address] [place] [phone] PCP - General Nurse Practitioner 06/15/24 documented as of this encounter
--- OUTSIDE RECORDS SUMMARY | 2025-06-01 16:00 | XMS_ITS | Encounter Summary ---
Author Organization [facility] Address [address] [place] [address] Phone Care Team Providers Care Railroad Track Inspector Name Role Phone Meeta Wise Primary Care Provider Encounter Details Date Type Department Care Team (Late st Contact Info) Description 07/22/2024 Documentation Only [facility] [place], [address] [place] [address] [place] [address] [place] [phone] Social History Tobacco Use Types [...] on filedocumented in this encounter Care Teams Railroad Track Inspector Relationship Specialty Start Date End Date Meeta Wise FNP [address] [place] [phone] PCP - General Nurse Practitioner 06/15/24 documented as of this encounter
== END 2025-06-01 15:00 | disposition home or self-care (01) ==
LOC: HO.HMCFM 12:27
PROVIDERS: PCP Nurse Practitioner Family; Visit Provider Nurse Practitioner Family
DX: Z23 Encounter for immunization (principal)

== ENCOUNTER → 2025-06-01 12:24 | Outpatient (BNVA) | payer OTHER, SELFPAY | PROVIDERS: PCP Nurse Practitioner Family; Visit Provider Nurse Practitioner Family | DX: H53.8 Other visual disturbances (principal); Z23 Encounter for immunization; I15.1 Hypertension secondary to other renal disorders; I50.32 Chronic diastolic (congestive) heart failure; N18.32 Chronic kidney disease, stage 3b; E26.1 Secondary hyperaldosteronism; J45.909 Unspecified asthma, uncomplicated; G47.33 Obstructive sleep apnea (adult) (pediatric); Q87.81 Alport syndrome | CPT/HCPCS: 90471; 90656; 99212 ==